=== PATIENT | male | born 1970 | race African-American/Black ===

== ENCOUNTER 2016-08-11 11:27 | Inpatient (IN) | payer MEDICARE, OTHER ==
--- NOTE | 2016-08-11 11:48 | ER Document Report ---
ED Medical Screen (RME) - General Time seen by provider: 11:42 Mode of Arrival: Ambulatory Information source: Law Enforcement TRAVEL OUTSIDE OF THE [place] IN LAST 30 DAYS: No - HPI Patient complains to provider of: SEIZURE YESTERDAY Onset: Yesterday Onset/Duration: Sudden Quality of pain: No pain Severity: None Pain Level: Denies Associated Symptoms: Other - UNABLE TO SPEAK Exacerbated by: Denies Relieved by: Denies Similar symptoms previously: No Recently seen / treated by doctor: Yes - AT [facility] <NATALIE GOODMAN - Last Filed: 08/11/16 11:42> <YESSICA GARCIA - Last Filed: 08/11/16 12:55> - General Stated Complaint: POSSIBLE SEIZURE - HPI Notes: 08/11/16 11:[address] LEYVA REGARDING PT. MAY ORDER HEAD CT DUE TO PATIENTS INABILITY TO SPEAK SINCE SEIZURE YESTERDAY WITH NO PREVIOUS HX OF THIS AND PTS CONFUSION. PT AMBULATES WELL. (NATALIE GOODMAN) - Related Data Allergies/Adverse Reactions: sulfamethoxazole [From Bactrim] Allergy (Verified 08/11/16 11:41) trimethoprim [From Bactrim] Allergy (Verified 08/11/16 11:41) Past Medical History - Past Medical History Cardiac Medical History: Reports: Hx Hypertension Pulmonary Medical History: Denies: Hx Tuberculosis Neurological Medical History: Reports: Hx Seizures Renal/ Medical History: Reports: Hx Renal Insufficiency GI Medical History: Reports: Hx Gastroesophageal Reflux Disease Skin Medical History: Reports Hx MRSA Psychiatric Medical History: Reports: Hx Depression Infectious Medical History: Reports: Hx HIV - Immunizations Hx Diphtheria, Pertussis, Tetanus Vaccination: Yes <NATALIE GOODMAN - Last Filed: 08/11/16 11:42> Course <NATALIE GOODMAN - Last Filed: 08/11/16 11:42> - Laboratory Result Diagrams: 08/11/16 12:46 08/11/16 12:46 <YESSICA GARCIA - Last Filed: 08/11/16 12:55> - Re-evaluation Re-evalutation: 08/11/16 12:54 The patient's chart at 1245 and reviewed his head CT finding by Dr. Cuello which is suggesting an acute lacunar infarct. No but he received a telephone call on this patient and it was read at 1208. Patient he cannot speak. The road crossing guard tells me that he had a seizure last night and has been unable to speak since then. I reviewed the nurse's note that he was seen this morning and not last evening. Patient has been a phasic Corey 16 or 17 hours. Clinical healthcare interpreter is calling the [facility] to see what documented time they have for the onset of a seizure last evening. (YESSICA GARCIA) - Vital Signs Vital signs: Temp Pulse Resp BP Pulse Ox 98.0 F 101 H 14 145/96 H 97 08/11/16 11:32 08/11/16 11:32 08/11/16 11:32 08/11/16 11:32 08/11/16 11:32 (NATALIE GOODMAN) (YESSICA GARCIA)
[2016-08-11 12:57] LABS: ABSOLUTE BASOPHILS # (AUTO) 0.1 10^3/uL (0.0-0.2); ABSOLUTE LYMPHOCYTES (AUTO) 2.9 10^3/uL (0.5-4.7); ABSOLUTE MONOCYTES (AUTO) 0.5 10^3/uL (0.1-1.4); ABSOLUTE NEUT (AUTO) 2.4 10^3/uL (1.7-8.2); BASOPHILS % (AUTO) 0.9 % (0-2); EOSINOPHILS % (AUTO) 0.8 % (0-6); HEMATOCRIT 36.2 % (37.9-51.0); HEMOGLOBIN 11.9 g/dL (13.5-17.0); HGB HCT DIFFERENCE -0.5; LYMPHOCYTES % (AUTO) 48.7 % (13-45); MEAN CORPUSCULAR HEMOGLOBIN 29.2 pg (27.0-33.4); MEAN CORPUSCULAR HGB CONC 32.9 g/dL (32.0-36.0); MEAN CORPUSCULAR VOLUME 89 fl (80-97); RED BLOOD COUNT 4.08 10^6/uL (4.35-5.55); RED CELL DISTRIBUTION WIDTH 14.7 % (11.5-14.0); SEGMENTED NEUTROPHILS % (AUTO) 40.6 % (42-78); WHITE BLOOD COUNT 5.9 10^3/uL (4.0-10.5)
--- NOTE | 2016-08-11 12:57 | ER Document Report ---
ED Seizure - General Mode of Arrival: Ambulatory Information source: Patient - HPI Patient complains to provider of: History of seizures Post-ictal symptoms: Other - see above Injuries: None Associated Symptoms: Other - see above <AIME BUSTOS - Last Filed: 08/11/16 15:35> <YESSICA GARCIA - Last Filed: 08/11/16 15:50> - General Chief Complaint: Probable Seizure Stated Complaint: POSSIBLE SEIZURE Notes: 45-year-old male with history of seizures and hypertension (meds given at the detention) presents to the ED after suffering a seizure yesterday evening and developing the inability to speak secondary to the seizure. Patient is nonverbal and is nodding his head and using a note pad and pen to communicate. According to the churn driller helper, the patient was in lock down and was in his cell alone. The patient had a seizure sometime last night and states that he was not seen by the detention nursing staff. Documentation from the detention nursing staff states that the patient was seen that night and they noted decreased speech. This morning when the speech did not improve patient was sent to the ED to be reevaluated. Patient denies any difficulty swallowing and states that his seizure was normal aside from the speech impairment that followed it. Patient does not have a primary care provider. (AIME BUSTOS) - Related Data Allergies/Adverse Reactions: sulfamethoxazole [From Bactrim] Allergy (Verified 08/11/16 11:41) trimethoprim [From Bactrim] Allergy (Verified 08/11/16 11:41) Home Medications: Current Home Medications Acetaminophen with Codeine [Tylenol #3 Tablet] 1 tab PO Q4HP PRN 08/11/16 [ History] Amlodipine Besylate [Norvasc 5 mg Tablet] 5 mg PO DAILY 08/11/16 [History] Atazanavir Sulfate [Reyataz 300 mg Capsule] 300 mg PO DAILY 08/11/16 [History] Citalopram Hydrobromide [Celexa 20 mg Tablet] 20 mg PO DAILY 08/11/16 [History] Dapsone [Dapsone 25 mg Tablet] 100 mg PO DAILY 08/11/16 [History] Fluconazole [Diflucan 100 mg Tablet] 100 mg PO DAILY 08/11/16 [History] Hydrochlorothiazide [Hydrodiuril 25 mg Tablet] 25 mg PO DAILY 08/11/16 [History] Levetiracetam [Keppra 500 mg Tablet] 500 mg PO Q12 08/11/16 [History] Levetiracetam [Keppra] 1,500 mg PO BID 08/11/16 [History] Lisinopril [Prinivil 40 mg Tablet] 40 mg PO DAILY 08/11/16 [History] Multivitamin [Daily Multiple Vitamin] 1 tab PO DAILY 08/11/16 [History] Oxycodone HCl/Acetaminophen [Percocet 10-325 mg Tablet] 1 tab PO Q6HP PRN [History] Past Medical History - General Information source: Law Enforcement - Social History Smoking Status: Unknown if Ever Smoked Family History: Reviewed & Not Pertinent, Hypertension Patient has suicidal ideation: No Patient has homicidal ideation: No - Past Medical History Cardiac Medical History: Reports: Hx Hypertension Neurological Medical History: Reports: Hx Seizures Renal/ Medical History: Reports: Hx Renal Insufficiency. Denies: Hx Peritoneal Dialysis GI Medical History: Reports: Hx Gastroesophageal Reflux Disease Skin Medical History: Reports Hx MRSA Psychiatric Medical History: Reports: Hx Depression Infectious Medical History: Reports: Hx HIV - Immunizations Hx Diphtheria, Pertussis, Tetanus Vaccination: Yes Hx Pneumococcal Vaccination: 07/12/09 <AIME BUSTOS - Last Filed: 08/11/16 15:35> Review of Systems - Review of Systems Constitutional: No symptoms reported EENT: No symptoms reported. denies: Difficulty swallowing Cardiovascular: No symptoms reported Respiratory: No symptoms reported Gastrointestinal: No symptoms reported Genitourinary: No symptoms reported Male Genitourinary: No symptoms reported Musculoskeletal: No symptoms reported Skin: No symptoms reported Hematologic/Lymphatic: No symptoms reported Neurological/Psychological: See HPI, Speech impairment - Unable to speak coherently. -: Yes All other systems reviewed and negative <AIME BUSTOS - Last Filed: 08/11/16 15:35> Physical Exam - General General appearance: Alert In distress: None - HEENT Head: Normocephalic, Atraumatic Eyes: Normal Extraocular movements intact: Yes Pupils: PERRL - Respiratory Respiratory status: No respiratory distress Breath sounds: Normal - Cardiovascular Rhythm: Regular Heart sounds: Normal auscultation - Abdominal Inspection: Normal - Back Back: Normal - Extremities General upper extremity: Normal inspection, Normal ROM General lower extremity: Normal inspection, Normal ROM - Neurological Neuro grossly intact: Yes Cognition: Normal Orientation: AAOx4 [place] Coma Scale Eye Opening: Spontaneous Michelle Coma Scale Verbal: Oriented Michelle Coma Scale Motor: Obeys Commands [place] Coma Scale Total: 15 Speech: Other - Difficulty getting his words out and when he does they are incoherent Motor strength normal: LUE, RUE, LLE, RLE Additional motor exam normals: Equal accredited legal secretary - Psychological Associated symptoms: Normal affect, Normal mood - Skin Skin Temperature: Warm Skin Moisture: Dry Skin Color: Normal <AIME BUSTOS - Last Filed: 08/11/16 15:35> Course - Laboratory Result Diagrams: 08/11/16 12:46 08/11/16 12:46 <AIME BUSTOS - Last Filed: 08/11/16 15:35> - Laboratory Result Diagrams: 08/11/16 12:46 08/11/16 12:46 <YESSICA GARCIA - Last Filed: 08/11/16 15:50> - Re-evaluation Re-evalutation: 08/11/16 12:58 I personally performed the services described in the documentation, reviewed and edited the documentation which was dictated to my scribe in my presence, and it accurately records my words and actions. The patient's chart at 1245 and reviewed his head CT finding by Dr. Cuello which is suggesting an acute lacunar infarct. No but he received a telephone call on this patient and it was read at 1208. Patient he cannot speak. The guardian family member tells me that he had a seizure last night and has been unable to speak since then. I reviewed the nurse's note that he was seen this morning and not last evening. Patient has been a phasic Corey 16 or 17 hours. Clinical day care assistant is calling the long term to see what documented time they have for the onset of a seizure last evening. (YESSICA GARCIA) 08/11/16 14:41 Patient has a history of a seizure disorder which she takes Keppra for. Patient reports that he had a seizure last night about 16 hours prior to arrival that he has been unable to speak since report from the detention is that he was seen and evaluated last evening patient says on writing on the paperwork that he is not seen last evening I have a note from a nurse at that facility today stating that he is being sent over for evaluation. On physical examination the patient has great difficulty getting his words out when he does get his words out they are very slurred and he cannot understand him. CT of the head shows likely a new lacunar infarct. Neurologically he has bilateral strength in the upper or lower extremities rest of his evaluation is negative and nonacute. Patient is out of the window for thrombolytics as this happened 16 hours prior to ED arrival. Minimal to the hospital for acute CVA out of the window for thrombolytics and further assessment and evaluation 08/11/16 15:00 08/11/16 15:09 Dr. Brewer came to me and wants the patient transferred because he has a history of HIV doesn't know what his CD4 count is and he could have leukoencephalopathy. tuyet called at 15:10 for transfer per hospitalist recommendations. I spoke with Dr. gonzales he feels with the patient having history of HIV not known CD4 count could be leukoencephalopathy. Dr. Woodruff neurology advice and contacted me back at 1520. I gave him the details of why he wants the patient to be transferred. He does not feel that this is a presentation of a leukoencephalopathy feels like this is a presentation of a stroke and is refusing to accept the transfer the patient at this time. I contacted Dr. brewer back at 15:20 and his phone is off. they are paging him overhead 08/11/16 15:28 08/11/16 15:[address] gonzales back told him that by neurology is refusing to accept the transfer of the patient that they think the patient should be kept here he stated to call Dr. Lane who was covering today and if she says that he needs to keep the patient he will I contacted Dr. Lane and her father shut off. Waiting for her to call me back 08/11/16 15:[address] Domingo Lane has to go ahead and admit the patient to the hospital under [facility] admission. And she will speak with Dr. brewer (YESSICA GARCIA) - Vital Signs Vital signs: Temp Pulse Resp BP Pulse Ox 98.0 F 89 18 121/97 H 97 08/11/16 11:32 08/11/16 15:04 08/11/16 15:04 08/11/16 15:04 08/11/16 15:04 (AIME BUSTOS) (YESSICA GARCIA) - Laboratory Laboratory results interpreted by me: 08/11/16 08/11/16 12:46 12:46 RBC 4.08 L Hgb 11.9 L Hct 36.2 L RDW 14.7 H Seg Neutrophils % 40.6 L Lymphocytes % 48.7 H BUN 24 H Creatinine 1.68 H Est GFR ( Amer) 53 L Est GFR (Non-Af Amer) 44 L Calcium 10.3 H Total Bilirubin 1.4 H Creatine Kinase 182 H Total Protein 9.1 H - EKG Interpretation by Me Additional EKG results interpreted by me: 08/11/16 15:00 EKG interpreted by myself to reveal sinus rhythm at 92 bpm with left ventricular hypertrophy no acute ST segment elevation or depression (YESSICA GARCIA) Critical Care Note - Critical Care Note Total time excluding time spent on procedures (mins): 60 <YESSICA GARCIA - Last Filed: 08/11/16 15:50> Discharge <AIME BUSTOS - Last Filed: 08/11/16 15:35> - Discharge Admitting Provider: Hospitalist Unit Admitted: [facility] <YESSICA GARCIA - Last Filed: 08/11/16 15:50> - Discharge Clinical Impression: Acute lacunar infarction Condition: Stable Disposition: ADMITTED INPATIENT Scribe Documentation - Scribe Written by Vivian:: Vivian Tejeda, 08/11/2016 14:35 acting as scribe for :: Gerber <AIME BUSTOS - Last Filed: 08/11/16 15:35>
[2016-08-11 13:00] LABS: PARTIAL THROMBOPLASTIN TIME 30.4 SEC (23.5-35.8); PROTHROMBIN TIME 13.1 SEC (11.4-15.4)
[2016-08-11 13:20] LABS: ALANINE AMINOTRANSFERASE 37 U/L (21-72); ALBUMIN 4.7 g/dL (3.5-5.0); ALKALINE PHOSPHATASE 78 U/L (38-126); ANION GAP 15 (5-19); ASPARTATE AMINO TRANSFERASE 26 U/L (17-59); BILIRUBIN,TOTAL 1.4 mg/dL (0.2-1.3); BLOOD UREA NITROGEN 24 mg/dL (7-20); CALCIUM 10.3 mg/dL (8.4-10.2); CARBON DIOXIDE 29 mmol/L (22-30); CHLORIDE 100 mmol/L (98-107); CREATINE KINASE 182 U/L (55-170); CREATININE RESULT 1.68 mg/dL (0.52-1.25); GLUCOSE 88 mg/dL (75-110); POTASSIUM 4.7 mmol/L (3.6-5.0); SODIUM 143.5 mmol/L (137-145); TOTAL PROTEIN 9.1 g/dL (6.3-8.2)
[2016-08-11 13:47] LABS: CREATINE KINASE MB 0.45 ng/mL (<4.55)
[2016-08-11 13:48] LABS: TROPONIN I < 0.012 ng/mL
[2016-08-11 15:30] LABS: URINE BARBITURATES SCREEN NEGATIVE; URINE METHADONE SCREEN NEGATIVE; URINE OPIATES LOW NEGATIVE; URINE PHENCYCLIDINE SCREEN NEGATIVE
--- NOTE | 2016-08-11 15:33 | PDOC CONSULTATION ---
Consultation Consult Date: 08/11/16 Attending physician:: YESSICA GARCIA Consult reason:: Possible CVA in a patient with seizures and HIV. History of Present Illness Admission Date/PCP: August 11 2016. Patient currently is a resident of [facility] Patient complains of: Inability to talk. History of Present Illness: VERONICA CARDENAS is a 45 year old male with a history of known HIV on antiretrovirals who is uncertain as to what his last CD4 count was. When he was hospitalized in 2012 at this facility it was reported that his CD4 count was 8. 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 They were transferred to [facility] for further evaluation. The patient is unable to relate any of this history as he is at this time having expressive aphasia. The patient last night in [facility] had a seizure and he does have a known history of seizures. This morning he was still having difficulty and he was transported to the emergency room here because his inability to speak. The patient is able to nod yes and no to questions and he is also able to write out answers. He does not have any focal weakness. He denies any difficulty with his vision or swallowing. He is unable to speak and does not seem to be confused at this time. The patient had a head CT which shows a small abnormality in the basal ganglia concerning for possible acute CVA. The patient does not have any history of atrial fibrillation. He also denies any headache. Denies any fevers or chills. He had a seizure last night but has had not had any other episodes of loss of consciousness. I asked the patient if he knew what his CD4 count and he was unaware. Patient reports the last time he saw infectious disease expert was 6 months ago. He is been in [facility] for about the last 6 months. He is uncertain as to how much time he has left on his sentence. Past Medical History Cardiac Medical History: Reports: Hypertension Pulmonary Medical History: Denies: Tuberculosis Neurological Medical History: Reports: Seizures Renal/ Medical History: Reports: Chronic Kidney Disease Malignancy Medical History: Reports: None GI Medical History: Reports: Gastroesophageal Reflux Disease Psychiatric Medical History: Reports: Depression Traumatic Medical History: Reports: None Infectious Medical History: Reports: HIV Past Surgical History Past Surgical History: Reports: None Social History Information Source: Patient Lives with: Other - Currently in [facility]. Smoking Status: Unknown if Ever Smoked Frequency of Alcohol Use: None Hx Recreational Drug Use: No Drugs: None Hx Prescription Drug Abuse: No - Advance Directive Resuscitation Status: Full Code Family History Family History: Hypertension Family History: Patient had difficulty with his family history given his expressive aphasia. Parental Family History Reviewed: Yes Children Family History Reviewed: No Sibling(s) Family History Reviewed.: No Medication/Allergy Allergies/Adverse Reactions: sulfamethoxazole [From Bactrim] Allergy (Verified 08/11/16 11:41) trimethoprim [From Bactrim] Allergy (Verified 08/11/16 11:41) Review of Systems Constitutional: ABSENT: chills, fever(s), headache(s), weight gain, weight loss Eyes: ABSENT: visual disturbances Ears: ABSENT: hearing changes Cardiovascular: ABSENT: chest pain, dyspnea on exertion, edema, orthropnea, palpitations Respiratory: ABSENT: cough, hemoptysis Gastrointestinal: ABSENT: abdominal pain, constipation, diarrhea, hematemesis, hematochezia, nausea, vomiting Genitourinary: ABSENT: dysuria, hematuria Musculoskeletal: ABSENT: joint swelling Integumentary: ABSENT: rash, wounds Neurological: PRESENT: other - Patient unable to speak. He does have a history of having seizures last one being last night. Psychiatric: ABSENT: depression, hallucinations Endocrine: ABSENT: cold intolerance, heat intolerance, polydipsia, polyuria Hematologic/Lymphatic: ABSENT: easy bleeding, easy bruising Physical Exam Vital Signs: Temp Pulse Resp BP Pulse Ox 98.0 F 89 18 121/97 H 97 08/11/16 11:32 08/11/16 15:04 08/11/16 15:04 08/11/16 15:04 08/11/16 15:04 Intake & Output 08/10/16 08/11/16 08/12/16 06:59 06:59 06:59 Weight 80.1 kg General appearance: PRESENT: no acute distress Head exam: PRESENT: atraumatic, normocephalic Eye exam: PRESENT: conjunctiva pink. ABSENT: scleral icterus Ear exam: PRESENT: normal external ear exam Mouth exam: PRESENT: moist, tongue midline Neck exam: ABSENT: carotid bruit, JVD, lymphadenopathy, thyromegaly Respiratory exam: PRESENT: clear to auscultation joslyn. ABSENT: rales, rhonchi, wheezes Cardiovascular exam: PRESENT: RRR. ABSENT: diastolic murmur, rubs, systolic murmur Pulses: PRESENT: normal dorsalis pedis pul Vascular exam: PRESENT: normal capillary refill GI/Abdominal exam: PRESENT: normal bowel sounds, soft. ABSENT: distended, guarding, mass, organolmegaly, rebound, tenderness Rectal exam: PRESENT: deferred Extremities exam: ABSENT: calf tenderness, clubbing, pedal edema Neurological exam: PRESENT: alert, awake, oriented to person, oriented to place , oriented to time, oriented to situation, other - Patient has expressive aphasia. He has normal strength and normal light touch. Psychiatric exam: PRESENT: appropriate affect Skin exam: PRESENT: dry, intact, warm. ABSENT: cyanosis, rash Results Laboratory Results: 08/11/16 12:46 08/11/16 12:46 08/11/16 08/11/16 12:46 12:46 WBC 5.9 RBC 4.08 L Hgb 11.9 L Hct 36.2 L MCV 89 MCH 29.2 MCHC 32.9 RDW 14.7 H Plt Count 174 Seg Neutrophils % 40.6 L Lymphocytes % 48.7 H Monocytes % 9.0 Eosinophils % 0.8 Basophils % 0.9 Absolute Neutrophils 2.4 Absolute Lymphocytes 2.9 Absolute Monocytes 0.5 Absolute Eosinophils 0.0 Absolute Basophils 0.1 Sodium 143.5 Potassium 4.7 Chloride 100 Carbon Dioxide 29 Anion Gap 15 BUN 24 H Creatinine 1.68 H Est GFR ( Amer) 53 L Est GFR (Non-Af Amer) 44 L Glucose 88 Calcium 10.3 H Total Bilirubin 1.4 H AST 26 ALT 37 Alkaline Phosphatase 78 Total Protein 9.1 H Albumin 4.7 08/11/16 08/11/16 12:46 12:46 Creatine Kinase 182 H CK-MB (CK-2) 0.45 Troponin I < 0.012 Impressions: Head CT 08/11/16 11:48 IMPRESSION: No hemorrhage. Mild atrophy. Faint low-density area basal ganglia on the right, concerning for lacunar infarction. Chest X-Ray 08/11/16 12:38 IMPRESSION: NO ACUTE RADIOGRAPHIC FINDING IN THE CHEST. Assessment & Plan - Diagnosis (1) Expressive aphasia Is this a current diagnosis for this admission?: YesPlan: Patient has a small area in the basal ganglia that is possibly infarction. 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 He in the past had only a CD4 count of 8. He is unsure as to what his CD4 count is. Patient also had a seizure last night and the possibility this representing Henry's paralysis is also considered. Given the fact that we have to be concerned about leukoencephalopathy or Todds paralysis I feel this patient would be best served by being transferred to a facility that has both neurology and infectious disease consultation which is not available at our facility at this time. Treating with aspirin as if this is a CVA is reasonable and would continue with his antiretrovirals that he's been doing. Patient also has been on chronic seizure medications and would not make any change at this time. (2) HIV disease Is this a current diagnosis for this admission?: YesPlan: Patient has been on antiretrovirals and would continue with those. He is unaware as to what his last CD4 count was. Because of the complexity he would be best be served if he goes to facility with an infectious disease consultation availability (3) Chronic renal failure, stage 3 (moderate) Is this a current diagnosis for this admission?: YesPlan: Patient's baseline creatinine is around 1.5. He appears to be euvolemic. (4) Hypertension Is this a current diagnosis for this admission?: YesPlan: Blood pressure is stable. (5) Seizure disorder Is this a current diagnosis for this admission?: YesPlan: He has been on Keppra. Recommend that he continue on with this. Given his history seizure disorder now neurological finding the possibility of Henry's paralysis is considered. He does have an abnormality on his head CT is unclear as to whether this would be the cause for all of his neurological deficits at this time. - Time Time Spent: 50 to 70 Minutes - Plan Summary Plan Summary: Given the complexity this patient with HIV with unknown CD4 count, seizure disorder and now possible abnormality on the head CT I would recommend that he be transferred to a facility with infectious disease and neurology consultations available. I would be concerned this patient may have leukoencephalopathy versus Henry's paralysis and will need help with both of the specialties to figure this out.
[2016-08-11] MEDS ORDERED: ONDANSETRON HCL INJ/PF 4 MG/2 ML SDV IV PRN (15:57)
[2016-08-11] MEDS ORDERED: ACETAMINOPHEN 325 MG TABLET PO PRN ×2 (15:57→16:25)
[2016-08-11] MEDS ORDERED: ONDANSETRON 4 MG TAB.RAPDIS PO PRN (15:57)
[2016-08-11] MEDS ORDERED: (PENDING PHARMACY ID) (Oxycodone Hcl/Acetaminophen [Percocet 10-325 Mg Tablet] 1 TAB) PO PRN (16:01)
[2016-08-11] MEDS ORDERED: OXYCODONE HCL IR 5 MG TABLET PO PRN ×3 (16:24→17:24)
[2016-08-11] MEDS ORDERED: OXYCODONE-ACETAMINOPHEN 5-325 MG TABLET PO PRN ×2 (17:21→17:23)
[2016-08-11] MEDS ORDERED: ENOXAPARIN SODIUM INJ 40 MG/0.4 ML DISP.SYRIN SUBCUT ONE (18:00)
[2016-08-11] MEDS ORDERED: LEVETIRACETAM 1500 MG PO SCH (18:00)
--- NOTE | 2016-08-11 18:38 | PDOC H&P ---
History of Present Illness Admission Date/PCP: 08/11/16 15:57 EARNEST MONTOYA MD Patient complains of: Unable to speak History of Present Illness: VERONICA CARDENAS is a 45 year old male with a history of known HIV on antiretrovirals who is uncertain as to what his last CD4 count was. When he was hospitalized in 2012 at this facility it was reported that his CD4 count was 8. 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 They were transferred to [facility] for further evaluation. The patient is unable to relate any of this history as he is at this time having expressive aphasia. The patient last night in [facility] had a seizure and he does have a known history of seizures. This morning he was still having difficulty and he was transported to the emergency room here because his inability to speak. The patient is able to nod yes and no to questions and he is also able to write out answers. He does not have any focal weakness. He denies any difficulty with his vision or swallowing. He is unable to speak and does not seem to be confused at this time. The patient had a head CT which shows a small abnormality in the basal ganglia concerning for possible acute CVA. The patient does not have any history of atrial fibrillation. He also denies any headache. Denies any fevers or chills. He had a seizure last night but has had not had any other episodes of loss of consciousness. I asked the patient if he knew what his CD4 count and he was unaware. Patient reports the last time he saw infectious disease expert was 6 months ago. He is been in [facility] for about the last 6 months. He is uncertain as to how much time he has left on his sentence. Past Medical History Cardiac Medical History: Reports: Hypertension Pulmonary Medical History: Denies: Tuberculosis Neurological Medical History: Reports: Seizures Renal/ Medical History: Reports: Chronic Kidney Disease Malignancy Medical History: Reports: None GI Medical History: Reports: Gastroesophageal Reflux Disease Psychiatric Medical History: Reports: Depression Traumatic Medical History: Reports: None Infectious Medical History: Reports: HIV Past Surgical History Past Surgical History: Reports: None Social History Information Source: Patient, [facility] Records Lives with: Other - Currently in [facility]. Smoking Status: Unknown if Ever Smoked Frequency of Alcohol Use: None Hx Recreational Drug Use: No Drugs: None Hx Prescription Drug Abuse: No - Advance Directive Resuscitation Status: Full Code Family History Family History: Hypertension Parental Family History Reviewed: Yes Children Family History Reviewed: No Sibling(s) Family History Reviewed.: No Medication/Allergy Home Medications: Acetaminophen with Codeine [Tylenol #3 Tablet] 1 tab PO Q4HP PRN 08/11/16 Amlodipine Besylate [Norvasc 5 mg Tablet] 5 mg PO DAILY 08/11/16 Atazanavir Sulfate [Reyataz 300 mg Capsule] 300 mg PO DAILY 08/11/16 Citalopram Hydrobromide [Celexa 20 mg Tablet] 20 mg PO DAILY 08/11/16 Dapsone [Dapsone 25 mg Tablet] 100 mg PO DAILY 08/11/16 Fluconazole [Diflucan 100 mg Tablet] 100 mg PO DAILY 08/11/16 Hydrochlorothiazide [Hydrodiuril 25 mg Tablet] 25 mg PO DAILY 08/11/16 Levetiracetam [Keppra 500 mg Tablet] 500 mg PO Q12 08/11/16 Levetiracetam [Keppra] 1,500 mg PO BID 08/11/16 Lisinopril [Prinivil 40 mg Tablet] 40 mg PO DAILY 08/11/16 Multivitamin [Daily Multiple Vitamin] 1 tab PO DAILY 08/11/16 Oxycodone HCl/Acetaminophen [Percocet 10-325 mg Tablet] 1 tab PO Q6HP PRN Allergies/Adverse Reactions: sulfamethoxazole [From Bactrim] Allergy (Verified 08/11/16 11:41) trimethoprim [From Bactrim] Allergy (Verified 08/11/16 11:41) Review of Systems Constitutional: ABSENT: chills, fever(s), headache(s), weight gain, weight loss Eyes: ABSENT: visual disturbances Ears: ABSENT: hearing changes Cardiovascular: ABSENT: chest pain, dyspnea on exertion, edema, orthropnea, palpitations Respiratory: ABSENT: cough, hemoptysis Gastrointestinal: ABSENT: abdominal pain, constipation, diarrhea, hematemesis, hematochezia, nausea, vomiting Genitourinary: ABSENT: dysuria, hematuria Musculoskeletal: ABSENT: joint swelling Integumentary: ABSENT: rash, wounds Neurological: PRESENT: as per HPI Psychiatric: PRESENT: depression Endocrine: ABSENT: cold intolerance, heat intolerance, polydipsia, polyuria Hematologic/Lymphatic: ABSENT: easy bleeding, easy bruising Physical Exam Vital Signs: Temp Pulse Resp BP Pulse Ox 98.0 F 108 H 18 155/99 H 95 08/11/16 11:32 08/11/16 18:00 08/11/16 18:02 08/11/16 18:02 08/11/16 18:02 General appearance: PRESENT: no acute distress, well-developed, well-nourished Head exam: PRESENT: atraumatic, normocephalic Eye exam: PRESENT: conjunctiva pink, EOMI, PERRLA. ABSENT: scleral icterus Ear exam: PRESENT: normal external ear exam Mouth exam: PRESENT: moist, tongue midline Neck exam: ABSENT: carotid bruit, JVD, lymphadenopathy, thyromegaly Respiratory exam: PRESENT: clear to auscultation joslyn. ABSENT: rales, rhonchi, wheezes Cardiovascular exam: PRESENT: RRR. ABSENT: diastolic murmur, rubs, systolic murmur Pulses: PRESENT: normal dorsalis pedis pul GI/Abdominal exam: PRESENT: normal bowel sounds, soft. ABSENT: distended, guarding, mass, organolmegaly, rebound, tenderness Rectal exam: PRESENT: deferred Extremities exam: PRESENT: full ROM. ABSENT: calf tenderness, clubbing, pedal edema Neurological exam: PRESENT: alert, awake, oriented to person, oriented to place , oriented to time, oriented to situation, other - Expressive a patient. Psychiatric exam: PRESENT: appropriate affect Skin exam: PRESENT: dry, intact, warm. ABSENT: cyanosis, rash Results Impressions: Head CT 08/11/16 11:48 IMPRESSION: No hemorrhage. Mild atrophy. Faint low-density area basal ganglia on the right, concerning for lacunar infarction. Chest X-Ray 08/11/16 12:38 IMPRESSION: NO ACUTE RADIOGRAPHIC FINDING IN THE CHEST. Assessment & Plan - Diagnosis (1) Expressive aphasia Is this a current diagnosis for this admission?: YesPlan: Patient has a small area in the basal ganglia that is possibly infarction. 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 He in the past had only a CD4 count of 8. He is unsure as to what his CD4 count is. Patient also had a seizure last night and the possibility this representing Henry's paralysis is also considered. Given the fact that we have to be concerned about leukoencephalopathy or Todds paralysis I feel this patient would be best served by being transferred to a facility that has both neurology and infectious disease consultation which is not available at our facility at this time. [facility] neurology was contacted and they recommended keeping the patient here and obtain an MRI and evaluation. Treating with aspirin as if this is a CVA is reasonable and would continue with his antiretrovirals that he's been doing. Patient also has been on chronic seizure medications and would not make any change at this time. (2) HIV disease Is this a current diagnosis for this admission?: YesPlan: Patient has been on antiretrovirals and would continue with those. He is unaware as to what his last CD4 count was. Because of the complexity he would be best be served if he goes to facility with an infectious disease consultation availability (3) Chronic renal failure, stage 3 (moderate) Is this a current diagnosis for this admission?: YesPlan: Patient's baseline creatinine is around 1.5. He appears to be euvolemic. (4) Hypertension Is this a current diagnosis for this admission?: YesPlan: Blood pressure is stable. (5) Seizure disorder Is this a current diagnosis for this admission?: YesPlan: He has been on Keppra. Recommend that he continue on with this. Given his history seizure disorder now neurological finding the possibility of Henry's paralysis is considered. He does have an abnormality on his head CT is unclear as to whether this would be the cause for all of his neurological deficits at this time. We'll get a brain MRI. - Time Time Spent: 50 to 70 Minutes - Inpatient Certification Medical Necessity: Need for Neurological Checks - Plan Summary Plan Summary: Will admit to general medical bed and MRI, carotid Dopplers, echocardiogram evaluation.
[2016-08-11] MEDS ORDERED: INFLUENZA ADLT QUAD (36MOS+) 2016-17 VAC 0.5 ML SYR IM PRN (20:17)
[2016-08-11] MEDS: FAMOTIDINE 20 MG TABLET PO SCH (21:23)
[2016-08-11] MEDS: ATORVASTATIN CALCIUM 10 MG TABLET PO SCH (21:23)
[2016-08-11] MEDS: LEVETIRACETAM 500 MG TABLET PO SCH (21:23)
[2016-08-12 05:11] LABS: HEMATOCRIT 36.8 % (37.9-51.0); HEMOGLOBIN 12.1 g/dL (13.5-17.0); HGB HCT DIFFERENCE -0.5; MEAN CORPUSCULAR HEMOGLOBIN 29.3 pg (27.0-33.4); MEAN CORPUSCULAR HGB CONC 32.9 g/dL (32.0-36.0); MEAN CORPUSCULAR VOLUME 89 fl (80-97); RED BLOOD COUNT 4.14 10^6/uL (4.35-5.55); RED CELL DISTRIBUTION WIDTH 14.6 % (11.5-14.0); WHITE BLOOD COUNT 7.6 10^3/uL (4.0-10.5)
[2016-08-12 05:37] LABS: ANION GAP 16 (5-19); BLOOD UREA NITROGEN 32 mg/dL (7-20); CARBON DIOXIDE 29 mmol/L (22-30); CHLORIDE 100 mmol/L (98-107); CREATININE RESULT 1.72 mg/dL (0.52-1.25); GLUCOSE 74 mg/dL (75-110); POTASSIUM 4.5 mmol/L (3.6-5.0); SODIUM 144.7 mmol/L (137-145)
[2016-08-12] MEDS: ENOXAPARIN SODIUM INJ 40 MG/0.4 ML DISP.SYRIN SUBCUT SCH (07:52)
[2016-08-12] MEDS ORDERED: ENOXAPARIN SODIUM INJ 40 MG/0.4 ML DISP.SYRIN SUBCUT SCH (08:00)
[2016-08-12] MEDS: ASPIRIN 325 MG TABLET, ENT COATED PO SCH (09:16)
[2016-08-12] MEDS: CITALOPRAM HYDROBROMIDE 20 MG TABLET PO SCH (09:16)
[2016-08-12] MEDS: DAPSONE 25 MG TABLET PO SCH (09:16)
[2016-08-12] MEDS: FLUCONAZOLE 100 MG TABLET PO SCH (09:17)
[2016-08-12] MEDS: MULTIVITAMIN TABLET PO SCH (09:17)
[2016-08-12] MEDS: LEVETIRACETAM 500 MG TABLET PO SCH ×2 (09:17→21:29)
[2016-08-12] MEDS: FAMOTIDINE 20 MG TABLET PO SCH ×2 (09:17→21:29)
[2016-08-12] MEDS: HYDROCHLOROTHIAZIDE 25 MG TABLET PO SCH (09:18)
[2016-08-12] MEDS: AMLODIPINE BESYLATE 5 MG TABLET PO SCH (09:19)
[2016-08-12] MEDS: LISINOPRIL 10 MG TABLET PO SCH (09:19)
--- NOTE | 2016-08-12 09:22 | EKG REPORT ---
SEVERITY:- ABNORMAL ECG - SINUS RHYTHM LEFT VENTRICULAR HYPERTROPHY : Confirmed by: Sandra Maya 12-Aug-2016 09:21:23
[2016-08-12] MEDS ORDERED: (PENDING PHARMACY ID) (Atazanavir Sulfate [Reyataz 300 Mg Capsule] 300 MG) PO SCH (10:00)
[2016-08-12] MEDS ORDERED: METOPROLOL SUCCINATE 25 MG TAB.SR.24H PO ONE (13:00)
--- NOTE | 2016-08-12 13:36 | PDOC PROGRESS REPORT ---
Subjective Progress Note for:: 08/12/16 Subjective:: Patient still has expressive a patient. Physical Exam Vital Signs: Temp Pulse Resp BP Pulse Ox 97.4 F 101 H 19 130/82 H 95 08/12/16 12:33 08/12/16 12:33 08/12/16 12:33 08/12/16 12:33 08/12/16 12:33 Intake & Output 08/11/16 08/12/16 08/13/16 06:59 06:59 06:59 Intake Total 383 355 Balance 383 355 Weight 78.7 kg General appearance: PRESENT: no acute distress Eye exam: PRESENT: conjunctiva pink. ABSENT: scleral icterus Mouth exam: PRESENT: moist, tongue midline Neck exam: ABSENT: JVD Respiratory exam: PRESENT: clear to auscultation joslyn. ABSENT: rales, rhonchi, wheezes Cardiovascular exam: PRESENT: RRR. ABSENT: diastolic murmur, rubs, systolic murmur GI/Abdominal exam: PRESENT: normal bowel sounds, soft. ABSENT: distended, guarding, mass, organolmegaly, rebound, tenderness Extremities exam: PRESENT: full ROM. ABSENT: calf tenderness, clubbing, pedal edema Neurological exam: PRESENT: alert, awake, oriented to person, oriented to place - Patient has expressive aphasia, oriented to time, oriented to situation, other - Patient has expressive a patient. Skin exam: PRESENT: dry, intact, warm. ABSENT: cyanosis, rash Results Laboratory Results: 08/12/16 04:30 08/12/16 04:30 08/12/16 08/12/16 04:30 04:30 WBC 7.6 RBC 4.14 L Hgb 12.1 L Hct 36.8 L MCV 89 MCH 29.3 MCHC 32.9 RDW 14.6 H Plt Count 171 Sodium 144.7 Potassium 4.5 Chloride 100 Carbon Dioxide 29 Anion Gap 16 BUN 32 H Creatinine 1.72 H Est GFR ( Amer) 52 L Est GFR (Non-Af Amer) 43 L Glucose 74 L Calcium 10.0 Impressions: Head MRI 08/11/16 00:00 IMPRESSION: Acute/ subacute infarct left parietal lobe. No mass effect. Marked microvascular ischemic changes. No enhancing lesions. Head CT 08/11/16 11:48 IMPRESSION: No hemorrhage. Mild atrophy. Faint low-density area basal ganglia on the right, concerning for lacunar infarction. Chest X-Ray 08/11/16 12:38 IMPRESSION: NO ACUTE RADIOGRAPHIC FINDING IN THE CHEST. Carotid Doppler Study 08/12/16 00:00 IMPRESSION: NO HEMODYNAMICALLY SIGNIFICANT STENOSIS. Assessment & Plan - Diagnosis (1) Expressive aphasia Is this a current diagnosis for this admission?: YesPlan: Patient is MRI that confirms he has had an acute CVA. We'll continue speech therapy. He has no need for PT or OT at this time. Continue with aspirin. Carotid Dopplers have been done and are normal. We are waiting on the echocardiogram results. (2) HIV disease Is this a current diagnosis for this admission?: YesPlan: Patient has been on antiretrovirals and would continue with those. He is unaware as to what his last CD4 count was. Because of the complexity he would be best be served if he goes to facility with an infectious disease consultation availability (3) Chronic renal failure, stage 3 (moderate) Is this a current diagnosis for this admission?: YesPlan: Patient's baseline creatinine is around 1.5. He appears to be euvolemic. (4) Hypertension Is this a current diagnosis for this admission?: YesPlan: Blood pressure is stable. (5) Seizure disorder Is this a current diagnosis for this admission?: YesPlan: He has been on Keppra. We'll continue it. - Time Time Spent with patient: 25-34 minutes - Inpatient Certification Medical Necessity: Need for Neurological Checks
[2016-08-12] MEDS ORDERED: ONDANSETRON HCL INJ/PF 4 MG/2 ML SDV IV PRN (15:10)
--- NOTE | 2016-08-12 19:38 | XCELERA REPORT ---
[address] [address] Transthoracic Echocardiogram Report Name: VERONICA CARDENAS Age: 45 yrs Gender: Male : 1970 Patient Status: Inpatient Patient Location: [id number] Study Date: 08/12/2016 09:36 AM Height: 73 in Weight: 176 lb BSA: 2.0 m2 Procedure: A complete two-dimensional transthoracic echocardiogram was performed (2D, M-mode, spectral and color flow Doppler). The study was technically adequate with some images being suboptimal in quality. Reason For Study: cva Ordering Physician: EARNEST MONTOYA Performed By: Anabella Donovan Interpretation Summary The left ventricular ejection fraction is normal. There is borderline concentric left ventricular hypertrophy. The left ventricle is grossly normal size. Doppler measurements suggest impaired left ventricular relaxation, which is associated with grade I/IV or mild diastolic dysfunction Wall motion cannot be accurately commented on, but no definite regional wall motion abnormalities noted. There is normal right ventricular wall thickness. The right ventricle is grossly normal size. The left atrial size is normal. The right atrium is normal in size There is a trace amount of mitral regurgitation There is no mitral valve stenosis. No aortic regurgitation is present. There is no aortic valve stenosis There is a trace or physiologic amount of tricuspid regurgitation Tricuspid regurgitation jet envelope not well defined to measure RV systolic pressure accurately. There is no tricuspid stenosis. The aortic root is not well visualized. There is no pericardial effusion. The pulmonic valve is not well visualized. No definite cardiac source of CVA/TIA noted on this particular trans- thoracic study. Consider SAYRA if clinically indicated. May consider mobile cardiac telemetry monitoring (MCT) for ruling out transient AFIB. MMode/2D Measurements \T\ Calculations RVDd: 2.5 cm LVIDd: 4.9 cm FS: 34.4 % Ao root diam: 3.0 cm IVSd: 1.1 cm LVIDs: 3.2 cm EDV(Teich): 112.2 ml LVPWd: 1.1 cm ESV(Teich): 41.2 ml Ao root area: 7.1 cm2 EF(Teich): 63.3 % LA dimension: 3.3 cm Doppler Measurements \T\ Calculations MV E max farhat: MV P1/2t max farhat: Ao V2 max: LV V1 max P.9 cm/sec 45.9 cm/sec 107.1 cm/sec 2.3 mmHg MV A max farhat: MV P1/2t: 65.5 msec Ao max PG: LV V1 max: 58.6 cm/sec 4.6 mmHg 76.4 cm/sec MV E/A: 0.78 MVA(P1/2t): 3.4 cm2 MV dec slope: 205.1 cm/sec2 MV dec time: 0.23 sec PA V2 max: PI end-d farhat: 73.1 cm/sec 116.7 cm/sec PA max P.1 mmHg Left Ventricle The left ventricle is grossly normal size. There is borderline concentric left ventricular hypertrophy. The left ventricular ejection fraction is normal. Doppler measurements suggest impaired left ventricular relaxation, which is associated with grade I/IV or mild diastolic dysfunction. Wall motion cannot be accurately commented on, but no definite regional wall motion abnormalities noted. Right Ventricle The right ventricle is grossly normal size. There is normal right ventricular wall thickness. The right ventricular systolic function is normal. Atria The right atrium is normal in size. The left atrial size is normal. Interarterial septum not well visualized and not well dopplered. Cannot comment on ASD/PFO presence. Mitral Valve The mitral valve is grossly normal. There is no mitral valve stenosis. There is a trace amount of mitral regurgitation. Aortic Valve The aortic valve is grossly normal. There is no aortic valve stenosis. No aortic regurgitation is present. Tricuspid Valve The tricuspid valve is not well visualized, but is grossly normal. There is no tricuspid stenosis. There is a trace or physiologic amount of tricuspid regurgitation. Tricuspid regurgitation jet envelope not well defined to measure RV systolic pressure accurately. Pulmonic Valve The pulmonic valve is not well visualized. Great Vessels The aortic root is not well visualized. The inferior vena cava appeared normal and decreased > 50% with respiration (RAP 5-10 mmHg). Effusions There is no pericardial effusion. Incidental Findings No definite cardiac source of CVA/TIA noted on this particular trans- thoracic study. Consider SAYRA if clinically indicated. May consider mobile cardiac telemetry monitoring (MCT) for ruling out transient AFIB. : EARNEST MONTOYA > Sandra Maya
[2016-08-12] MEDS: ATORVASTATIN CALCIUM 10 MG TABLET PO SCH (21:29)
[2016-08-13 05:21] LABS: ABSOLUTE BASOPHILS # (AUTO) 0.1 10^3/uL (0.0-0.2); ABSOLUTE EOSINOPHILS # (AUTO) 0.1 10^3/uL (0.0-0.6); ABSOLUTE LYMPHOCYTES (AUTO) 3.8 10^3/uL (0.5-4.7); ABSOLUTE MONOCYTES (AUTO) 0.6 10^3/uL (0.1-1.4); ABSOLUTE NEUT (AUTO) 2.8 10^3/uL (1.7-8.2); BASOPHILS % (AUTO) 1.4 % (0-2); EOSINOPHILS % (AUTO) 1.7 % (0-6); HEMATOCRIT 35.6 % (37.9-51.0); HEMOGLOBIN 11.8 g/dL (13.5-17.0); HGB HCT DIFFERENCE -0.2; LYMPHOCYTES % (AUTO) 51.1 % (13-45); MEAN CORPUSCULAR HEMOGLOBIN 29.9 pg (27.0-33.4); MEAN CORPUSCULAR HGB CONC 33.3 g/dL (32.0-36.0); MEAN CORPUSCULAR VOLUME 90 fl (80-97); MONOCYTES % (AUTO) 8.3 % (3-13); RED BLOOD COUNT 3.97 10^6/uL (4.35-5.55); RED CELL DISTRIBUTION WIDTH 14.9 % (11.5-14.0); SEGMENTED NEUTROPHILS % (AUTO) 37.5 % (42-78); WHITE BLOOD COUNT 7.5 10^3/uL (4.0-10.5)
[2016-08-13 05:36] LABS: ANION GAP 13 (5-19); BLOOD UREA NITROGEN 32 mg/dL (7-20); CALCIUM 9.8 mg/dL (8.4-10.2); CARBON DIOXIDE 27 mmol/L (22-30); CHLORIDE 103 mmol/L (98-107); GLUCOSE 93 mg/dL (75-110); POTASSIUM 4.7 mmol/L (3.6-5.0); SODIUM 143.2 mmol/L (137-145)
[2016-08-13] MEDS: ENOXAPARIN SODIUM INJ 40 MG/0.4 ML DISP.SYRIN SUBCUT SCH (07:55)
[2016-08-13 08:02] VITALS: BP 119/77
[2016-08-13] MEDS: FAMOTIDINE 20 MG TABLET PO SCH (09:50)
[2016-08-13] MEDS: ASPIRIN 325 MG TABLET, ENT COATED PO SCH (09:50)
[2016-08-13] MEDS: CITALOPRAM HYDROBROMIDE 20 MG TABLET PO SCH (09:50)
[2016-08-13] MEDS: AMLODIPINE BESYLATE 5 MG TABLET PO SCH (09:50)
[2016-08-13] MEDS: FLUCONAZOLE 100 MG TABLET PO SCH (09:50)
[2016-08-13] MEDS: MULTIVITAMIN TABLET PO SCH (09:50)
[2016-08-13] MEDS: LEVETIRACETAM 500 MG TABLET PO SCH (09:51)
[2016-08-13] MEDS: HYDROCHLOROTHIAZIDE 25 MG TABLET PO SCH (09:51)
[2016-08-13] MEDS: DAPSONE 25 MG TABLET PO SCH (09:52)
[2016-08-13] MEDS: LISINOPRIL 10 MG TABLET PO SCH (09:52)
[2016-08-13] MEDS ORDERED: METOPROLOL SUCCINATE 25 MG TAB.SR.24H PO SCH (10:00)
[2016-08-13] MEDS ORDERED: ATAZANAVIR SULFATE 300 MG PO SCH (10:00)
--- NOTE | 2016-08-13 13:46 | PDOC DISCHARGE SUMMARY ---
General - Admit/Disc Date/PCP Admission Date/Primary Care Provider: 08/11/16 15:57 EARNEST MONTOYA MD Discharge Date: 08/13/16 - Discharge Diagnosis (1) Expressive aphasia Is this a current diagnosis for this admission?: YesSummary: Secondary to acute CVA. (2) HIV disease Is this a current diagnosis for this admission?: Yes (3) Chronic renal failure, stage 3 (moderate) Is this a current diagnosis for this admission?: Yes (4) Hypertension Is this a current diagnosis for this admission?: Yes (5) Seizure disorder Is this a current diagnosis for this admission?: Yes - Additional Information Resuscitation Status: Full Code Discharge Diet: Regular Discharge Activity: Activity As Tolerated Home Medications: Amlodipine Besylate [Norvasc 5 mg Tablet] 5 mg PO QAM #30 tablet 08/13/16 Aspirin [Ecotrin 325 mg EC Tablet] 325 mg PO DAILY tabec 08/13/16 Atazanavir Sulfate [Reyataz 300 mg Capsule] 300 mg PO .DAILY #30 08/13/16 Atorvastatin Calcium [Lipitor 10 mg Tablet] 10 mg PO QHS #30 tablet 08/13/16 Citalopram Hydrobromide [Celexa 20 mg Tablet] 20 mg PO DAILY #30 tablet Dapsone 100 mg PO QAM #30 tablet 08/13/16 Darunavir Ethanolate [Prezista] 600 mg PO BID #60 tablet 08/13/16 Emtricitabine/Tenofovir [Truvada 200 mg-300 mg Tablet] 1 each PO DAILY #30 tablet 08/13/16 Etravirine [Intelence] 200 mg PO BID #60 tablet 08/13/16 Fluconazole [Diflucan 100 mg Tablet] 100 mg PO DAILY #30 tablet 08/13/16 Gabapentin [Neurontin 300 mg Capsule] 300 mg PO BID #60 capsule 08/13/16 Hydrochlorothiazide [Hydrodiuril 25 mg Tablet] 25 mg PO QAM #30 tablet 08/13/16 Levetiracetam [Keppra 500 mg Tablet] 1,500 mg PO Q12 #180 tablet 08/13/16 Lisinopril [Prinivil 40 mg Tablet] 40 mg PO QAM #30 tablet 08/13/16 Metoprolol Succinate [Toprol Xl 25 mg Tab.sr] 25 mg PO DAILY #30 tab.sr.24h 08/28 Oxycodone HCl/Acetaminophen [Percocet 5-325 mg Tablet] 1 tab PO Q6HP PRN #30 tablet 08/13/16 Ritonavir [Norvir] 100 mg PO BID #60 tablet 08/13/16 History of Present Illness History of Present Illness: VERONICA CARDENAS is a 45 year old male with a history of known HIV on antiretrovirals who is uncertain as to what his last CD4 count was. When he was hospitalized in 2012 at this facility it was reported that his CD4 count was 8. 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 They were transferred to [facility] [place] for further evaluation. The patient is unable to relate any of this history as he is at this time having expressive aphasia. The patient last night in [facility] had a seizure and he does have a known history of seizures. This morning he was still having difficulty and he was transported to the emergency room here because his inability to speak. The patient is able to nod yes and no to questions and he is also able to write out answers. He does not have any focal weakness. He denies any difficulty with his vision or swallowing. He is unable to speak and does not seem to be confused at this time. The patient had a head CT which shows a small abnormality in the basal ganglia concerning for possible acute CVA. The patient does not have any history of atrial fibrillation. He also denies any headache. Denies any fevers or chills. He had a seizure last night but has had not had any other episodes of loss of consciousness. I asked the patient if he knew what his CD4 count and he was unaware. Patient reports the last time he saw infectious disease expert was 6 months ago. He is been in [facility] for about the last 6 months. He is uncertain as to how much time he has left on his sentence. Hospital Course Hospital Course: 45-year-old gentleman who is a prisoner at the [facility] presented with acute onset of expressive aphasia. The patient had a head CT which showed a faint abnormality. MRI did confirm that this was a acute CVA. The patient had not been taking aspirin previously. He was started on aspirin and had carotid Dopplers as well as echocardiogram done. The patient's carotid Doppler showed no evidence for significant stenosis. Echocardiogram showed no evidence for mural thrombus but did show some diastolic dysfunction. The patient had no cardiac arrhythmias and will be sent home on aspirin. The patient was released from his [facility] sentence because of his hospitalization and will be discharged home. He continues to have expressive aphasia and he will need to go to speech therapy as an outpatient. Physical Exam Vital Signs: Temp Pulse Resp BP Pulse Ox 98.3 F 92 19 119/77 97 08/13/16 12:38 08/13/16 12:38 08/13/16 12:38 08/13/16 12:38 08/13/16 12:38 Intake & Output 08/12/16 08/13/16 08/14/16 06:59 06:59 06:59 Intake Total 383 896 Balance 383 896 Weight 78.7 kg 77.1 kg General appearance: PRESENT: no acute distress Eye exam: PRESENT: conjunctiva pink. ABSENT: scleral icterus Mouth exam: PRESENT: moist, tongue midline Neck exam: ABSENT: JVD Respiratory exam: PRESENT: clear to auscultation joslyn. ABSENT: rales, rhonchi, wheezes Cardiovascular exam: PRESENT: RRR. ABSENT: diastolic murmur, rubs, systolic murmur GI/Abdominal exam: PRESENT: normal bowel sounds, soft. ABSENT: distended, guarding, mass, organolmegaly, rebound, tenderness Extremities exam: ABSENT: calf tenderness, clubbing, pedal edema Neurological exam: PRESENT: alert, awake, oriented to person, oriented to place , oriented to time, oriented to situation, other - Expressive aphasia Skin exam: PRESENT: dry, intact, warm. ABSENT: cyanosis, rash Results Laboratory Results: 08/13/16 04:23 08/13/16 04:23 08/13/16 08/13/16 04:23 04:23 WBC 7.5 RBC 3.97 L Hgb 11.8 L Hct 35.6 L MCV 90 MCH 29.9 MCHC 33.3 RDW 14.9 H Plt Count 165 Seg Neutrophils % 37.5 L Lymphocytes % 51.1 H Monocytes % 8.3 Eosinophils % 1.7 Basophils % 1.4 Absolute Neutrophils 2.8 Absolute Lymphocytes 3.8 Absolute Monocytes 0.6 Absolute Eosinophils 0.1 Absolute Basophils 0.1 Sodium 143.2 Potassium 4.7 Chloride 103 Carbon Dioxide 27 Anion Gap 13 BUN 32 H Creatinine 1.60 H Est GFR ( Amer) 56 L Est GFR (Non-Af Amer) 47 L Glucose 93 Calcium 9.8 08/11/16 22:20 Nasophary (Mrsa Only) MRSA Surveillance Culture - Final NO MRSA RECOVERED Impressions: Head MRI 08/11/16 00:00 IMPRESSION: Acute/ subacute infarct left parietal lobe. No mass effect. Marked microvascular ischemic changes. No enhancing lesions. Head CT 08/11/16 11:48 IMPRESSION: No hemorrhage. Mild atrophy. Faint low-density area basal ganglia on the right, concerning for lacunar infarction. Chest X-Ray 08/11/16 12:38 IMPRESSION: NO ACUTE RADIOGRAPHIC FINDING IN THE CHEST. Carotid Doppler Study 08/12/16 00:00 IMPRESSION: NO HEMODYNAMICALLY SIGNIFICANT STENOSIS. Qualifiers PATEINT BEING DISCHARGED WITH ANY OF THE FOLLOWING DIAGNOSIS?: Stroke Stroke Pt being discharged on Anti-thrombolytic therapy?: Yes Stroke Pt being discharged on Anti-coagulation therapy?: No Reason(s) for not prescribing Anti-coagulation therapy:: Not indicated Stroke Pt being discharged on Statins?: Yes Plan Discharge Plan: Discharged home in stable condition. Time Spent: Greater than 30 Minutes
== END 2016-08-13 12:54 | disposition home or self-care (01) | DRG 66 ==
LOC: ER 11:27 → EH 15:57 → UNDOADMIN 16:11 → EH 16:11 → 3N 18:48
PROVIDERS: ADMIT Internal Medicine; ATTEND Internal Medicine
PROC: 3E0234Z Introduction of Serum, Toxoid and Vaccine into Muscle, Percutaneous Approach (ICD-10-PCS; principal; 2016-08-13)
DX: I63.9 Cerebral infarction, unspecified (principal); R47.01 Aphasia; I12.9 Hypertensive chronic kidney disease with stage 1 through stage 4 chronic kidney disease, or unspecified chronic kidney disease; N18.3 Chronic kidney disease, stage 3 (moderate); Z21 Asymptomatic human immunodeficiency virus [HIV] infection status; K21.9 Gastro-esophageal reflux disease without esophagitis; G40.909 Epilepsy, unspecified, not intractable, without status epilepticus; Z88.2 Allergy status to sulfonamides; Z23 Encounter for immunization; Z86.14 Personal history of Methicillin resistant Staphylococcus aureus infection
CPT/HCPCS: 36415; 70450; 70553; 71010; 80048; 80053; 80307; 82550; 82553; 84484; 85025; 85027; 85610; 85730; 90686; 93005; 93010; 93306; 93880; 99291; A9577; J1650; J3490

== ENCOUNTER 2016-09-24 16:00 | Emergency (ER) | payer MEDICARE ==
[2016-09-24 16:06] VITALS: BP 180/99
--- NOTE | 2016-09-24 16:29 | ER Document Report ---
ED Medical Screen (RME) - General Stated Complaint: BACK PAIN Time seen by provider: 16:27 Mode of Arrival: Ambulatory Information source: Patient Notes: 45-year-old male presents to ED for pain. He cannot get relief have because his pain management cut him off of his narcotics because he had a seizure. Patient states he has had a long history of his seizures. He recently had a slight stroke recently. I have greeted and performed a rapid initial assessment of this patient. A comprehensive ED assessment and evaluation of the patient, analysis of test results and completion of medical decision making process will be conducted by an additional ED providers. TRAVEL OUTSIDE OF THE [place] IN LAST 30 DAYS: No - Related Data Allergies/Adverse Reactions: sulfamethoxazole [From Bactrim] Allergy (Verified 08/11/16 11:41) trimethoprim [From Bactrim] Allergy (Verified 08/11/16 11:41) Past Medical History - Past Medical History Cardiac Medical History: Reports: Hx Hypertension Pulmonary Medical History: Denies: Hx Tuberculosis Neurological Medical History: Reports: Hx Seizures Renal/ Medical History: Reports: Hx Renal Insufficiency. Denies: Hx Peritoneal Dialysis GI Medical History: Reports: Hx Gastroesophageal Reflux Disease Skin Medical History: Reports Hx MRSA Psychiatric Medical History: Reports: Hx Depression Infectious Medical History: Reports: Hx HIV - Immunizations Hx Diphtheria, Pertussis, Tetanus Vaccination: Yes Physical Exam - Vital signs Vitals: Temp Pulse Resp BP Pulse Ox 98.8 F 81 16 180/99 H 100 09/24/16 16:05 09/24/16 16:05 09/24/16 16:05 09/24/16 16:05 09/24/16 16:05 Course - Vital Signs Vital signs: Temp Pulse Resp BP Pulse Ox 98.8 F 81 16 180/99 H 100 09/24/16 16:05 09/24/16 16:05 09/24/16 16:05 09/24/16 16:05 09/24/16 16:05
[2016-09-24] MEDS ORDERED: OXYCODONE-ACETAMINOPHEN 5-325 MG TABLET PO ONE (17:31)
--- NOTE | 2016-09-24 17:31 | ER Document Report ---
ED General - General Chief Complaint: Back Pain Stated Complaint: BACK PAIN Mode of Arrival: Ambulatory Information source: Patient Notes: Patient is a 45-year-old male with generalized body pain that are chronic for him. He has past medical history of HIV, CVA with residual expressive aphasia, HTN. He states today his pain is no different than his chronic pain. He typically takes Percocet 10-25 and was being seen by pain management but was told this week, he was discharged from the practice but is unsure why. He denies any fever, chills, headache, neck stiffness, chest pain, SOB, abdominal pain, nausea, vomiting, diarrhea. TRAVEL OUTSIDE OF THE [place] IN LAST 30 DAYS: No - Related Data Allergies/Adverse Reactions: sulfamethoxazole [From Bactrim] Allergy (Verified 08/11/16 11:41) trimethoprim [From Bactrim] Allergy (Verified 08/11/16 11:41) Past Medical History - General Information source: Patient - Social History Smoking Status: Never Smoker Chew tobacco use (# tins/day): No Frequency of alcohol use: None Drug Abuse: None Family History: Hypertension Patient has suicidal ideation: No Patient has homicidal ideation: No - Past Medical History Cardiac Medical History: Reports: Hx Hypertension Pulmonary Medical History: Denies: Hx Tuberculosis Neurological Medical History: Reports: Hx Seizures Renal/ Medical History: Reports: Hx Renal Insufficiency. Denies: Hx Peritoneal Dialysis GI Medical History: Reports: Hx Gastroesophageal Reflux Disease Skin Medical History: Reports Hx MRSA Psychiatric Medical History: Reports: Hx Depression Infectious Medical History: Reports: Hx HIV - Immunizations Hx Diphtheria, Pertussis, Tetanus Vaccination: Yes Hx Pneumococcal Vaccination: 07/12/09 Review of Systems - Review of Systems Constitutional: See HPI EENT: No symptoms reported Cardiovascular: No symptoms reported Respiratory: No symptoms reported Gastrointestinal: No symptoms reported Genitourinary: No symptoms reported Male Genitourinary: No symptoms reported Musculoskeletal: See HPI Skin: No symptoms reported Hematologic/Lymphatic: No symptoms reported Neurological/Psychological: No symptoms reported Physical Exam - Vital signs Vitals: Temp Pulse Resp BP Pulse Ox 98.8 F 81 16 180/99 H 100 09/24/16 16:05 09/24/16 16:05 09/24/16 16:05 09/24/16 16:05 09/24/16 16:05 Interpretation: Hypertensive - Notes Notes: PHYSICAL EXAM: CONSTITUTIONAL: Alert and oriented, well-appearing and in no acute distress. HENT: Normocephalic, atraumatic. Trachea midline. Uvula midline. Moist mucous membranes. EYES: Pupils equal round and reactive to light, EOM intact. Sclera anicteric, conjunctiva are normal. No entrapment. NECK: supple without lymphadenopathy. No midline tenderness or paraspinous muscle spasms. No step-offs or deformities. ROM intact. No meningeal signs. HEART: Regular rate and rhythm without murmurs. LUNGS: CTAB and equal. No wheezes, rales or rhonchi. GI: Normactive bowel sounds. Nontender, non-distended. No organomegaly. no CVAT. EXTREMITIES: Normal range of motion, no pitting edema. No cyanosis. Cap Refill < 3 seconds. NEURO: Expressive aphasia noted. Cranial nerves grossly intact. Normal sensory/ motor exams. SKIN: Warm and dry. Normal turgor. No rashes or lesions noted. Course - Re-evaluation Re-evalutation: 09/24/16 17:30 Patient seen and examined. No acute distress, nontoxic in appearance. Hypertensive but otherwise vital signs stable. He states pain is no different from his chronic pain. Discussed the need for him to have his primary doctor or infectious disease doctor to manage his chronic pain as the emergency department can manage acute pain but does not manage chronic pain. Patient is agreeable to this. Discussed his elevated blood pressure and he states he has not taken his medication today - advised to go home and immediately take it. I feel it is elevated at this time also because of his pain. Discharged home in stable condition. - Vital Signs Vital signs: Temp Pulse Resp BP Pulse Ox 98.8 F 81 16 180/99 H 100 09/24/16 16:05 09/24/16 16:05 09/24/16 16:05 09/24/16 16:05 09/24/16 16:05 Discharge - Discharge Clinical Impression: Expressive aphasia Chronic pain Qualifiers: Chronic pain type: chronic pain syndrome Qualified Code(s): G89.4 - Chronic pain syndrome Condition: Stable Disposition: HOME, SELF-CARE Additional Instructions: Chronic Pain Control Stress, inactivity, and depression make pain more severe regardless of the cause of the pain. Stress and poor physical condition can cause pain such as headaches and backache. Relaxation: Rest in a quiet place with your eyes closed for 20 minutes twice daily. Concentrate on a pleasant image, or simply "feel" your breathing. Clear your mind. Stress management: Deal with your "stressors." Either take action, or eliminate the stressor from your life. Don't let things hang over you. Accept those things you can't change. Nutrition: Eat small, balanced meals -- don't skip, don't overeat. Meals should be high-carbohydrate, low-sugar, low-fat. Exercise: Exercise helps painful conditions and eases stress. Get 30 minutes of moderate exercise, five days a week. Do an activity that does not flare your pain. Precautions: Pain which continues to disrupt daily activities, or which changes in nature, requires a medical evaluation. Pain Clinic referral is available. We do not manage chronic pain in the Emergency Department. We will try to appropriately help you through an acute flare of your chronic painful condition , but for on-going chronic pain that does not improve, you will need to see your private doctor or paint and table edger. We do not provide repeated medication management of chronic painful conditions. If you wish, we can provide the name of local pain management physicians. Prescriptions: Oxycodone HCl/Acetaminophen [Oxycodone-Acetaminophen 10-325] 1 each PO Q6HP PRN #10 tablet PRN Reason: Forms: Elevated Blood Pressure
== END 2016-09-24 17:49 | disposition home or self-care (01) ==
LOC: ER 16:00
DX: G89.4 Chronic pain syndrome (principal); M54.9 Dorsalgia, unspecified; M79.1 Myalgia; I69.920 Aphasia following unspecified cerebrovascular disease; I10 Essential (primary) hypertension; Z21 Asymptomatic human immunodeficiency virus [HIV] infection status; Z88.3 Allergy status to other anti-infective agents; Z86.14 Personal history of Methicillin resistant Staphylococcus aureus infection
CPT/HCPCS: 99283; A9270; 36415; 80053; 85025; 86360; 87536

== ENCOUNTER → 2016-09-24 | Outpatient (CLI) | payer MEDICARE ==
[2016-09-24 16:31] LABS: ABSOLUTE EOSINOPHILS # (AUTO) 0.1 10^3/uL (0.0-0.6); ABSOLUTE LYMPHOCYTES (AUTO) 2.2 10^3/uL (0.5-4.7); ABSOLUTE MONOCYTES (AUTO) 0.4 10^3/uL (0.1-1.4); ABSOLUTE NEUT (AUTO) 1.9 10^3/uL (1.7-8.2); EOSINOPHILS % (AUTO) 1.1 % (0-6); HEMATOCRIT 39.6 % (37.9-51.0); HEMOGLOBIN 13.1 g/dL (13.5-17.0); HGB HCT DIFFERENCE -0.3; LYMPHOCYTES % (AUTO) 46.9 % (13-45); MEAN CORPUSCULAR HEMOGLOBIN 31.9 pg (27.0-33.4); MEAN CORPUSCULAR HGB CONC 33.2 g/dL (32.0-36.0); MEAN CORPUSCULAR VOLUME 96 fl (80-97); MONOCYTES % (AUTO) 9.6 % (3-13); RED BLOOD COUNT 4.11 10^6/uL (4.35-5.55); RED CELL DISTRIBUTION WIDTH 17.1 % (11.5-14.0); SEGMENTED NEUTROPHILS % (AUTO) 41.4 % (42-78); WHITE BLOOD COUNT 4.7 10^3/uL (4.0-10.5)
[2016-09-24 16:52] LABS: ALANINE AMINOTRANSFERASE 39 U/L (21-72); ALBUMIN 4.5 g/dL (3.5-5.0); ALKALINE PHOSPHATASE 74 U/L (38-126); ANION GAP 12 (5-19); ASPARTATE AMINO TRANSFERASE 25 U/L (17-59); BILIRUBIN,TOTAL 0.6 mg/dL (0.2-1.3); BLOOD UREA NITROGEN 18 mg/dL (7-20); CALCIUM 9.6 mg/dL (8.4-10.2); CARBON DIOXIDE 27 mmol/L (22-30); CHLORIDE 104 mmol/L (98-107); CREATININE RESULT 1.43 mg/dL (0.52-1.25); GLUCOSE 86 mg/dL (75-110); POTASSIUM 4.4 mmol/L (3.6-5.0); TOTAL PROTEIN 8.1 g/dL (6.3-8.2)
[2016-09-27 12:58] LABS: HIV-1 RNA LOG10.. 4.484 (.); HIV-1 RNA PCR QUANT 30500 copies/mL (.)
[2016-09-27 18:36] LABS: ABSOLUTE CD 4 HELPER 269 /uL (359-1519); CD BASOPHILS 0 % (.); CD EOSINOPHILS 1 % (.); CD LYMPHS 50 % (.); CD MONOCYTES 10 % (.); CD NEUTROPHILS 39 % (.); HEMATOCRIT . 40.5 % (37.5-51.0); HEMOGLOBIN 12.9 g/dL (12.6-17.7); IMMATURE GRANULOCYTES 0 % (.); LYMPHS(ABSOLUTE) 2.4 x10E3/uL (0.7-3.1); MCH 31.1 pg (26.6-33.0); MCHC 31.9 g/dL (31.5-35.7); MCV 98 fL (79-97); NEUTROPHILS(ABSOLUTE) 1.8 x10E3/uL (1.4-7.0); PLATELETS 230 x10E3/uL (150-379); RBC 4.15 x10E6/uL (4.14-5.80); RDW 16.6 % (12.3-15.4); WBC 4.7 x10E3/uL (3.4-10.8)
== END ==
LOC: OD 12:56
PROVIDERS: ATTEND Nurse Practitioner
DX: B20 Human immunodeficiency virus [HIV] disease (principal)
CPT/HCPCS: 36415; 80053; 85025; 86360; 87536

== ENCOUNTER 2016-10-21 13:04 | Emergency (ER) | payer MEDICARE ==
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
[2016-10-21] MEDS ORDERED: NAPROXEN 250 MG TABLET PO ONE (13:23)
== END 2016-10-21 14:15 | disposition home or self-care (01) ==
LOC: ER 13:04
DX: G89.29 Other chronic pain (principal); M54.5 Low back pain; M54.9 Dorsalgia, unspecified; I10 Essential (primary) hypertension; K21.9 Gastro-esophageal reflux disease without esophagitis; Z21 Asymptomatic human immunodeficiency virus [HIV] infection status; Z86.14 Personal history of Methicillin resistant Staphylococcus aureus infection; Z88.3 Allergy status to other anti-infective agents
CPT/HCPCS: 99283

== ENCOUNTER → 2016-12-17 | Outpatient (CLI) | payer MEDICARE ==
[2016-12-18 11:37] LABS: ABSOLUTE BASOPHILS # (AUTO) 0.1 10^3/uL (0.0-0.2); ABSOLUTE EOSINOPHILS # (AUTO) 0.1 10^3/uL (0.0-0.6); ABSOLUTE LYMPHOCYTES (AUTO) 2.4 10^3/uL (0.5-4.7); ABSOLUTE MONOCYTES (AUTO) 0.4 10^3/uL (0.1-1.4); HEMATOCRIT 44.7 % (37.9-51.0); HEMOGLOBIN 14.7 g/dL (13.5-17.0); HGB HCT DIFFERENCE -0.6; LYMPHOCYTES % (AUTO) 48.5 % (13-45); MEAN CORPUSCULAR HEMOGLOBIN 29.4 pg (27.0-33.4); MEAN CORPUSCULAR HGB CONC 32.8 g/dL (32.0-36.0); MEAN CORPUSCULAR VOLUME 90 fl (80-97); MONOCYTES % (AUTO) 7.8 % (3-13); RED CELL DISTRIBUTION WIDTH 13.7 % (11.5-14.0); SEGMENTED NEUTROPHILS % (AUTO) 40.7 % (42-78); WHITE BLOOD COUNT 4.9 10^3/uL (4.0-10.5)
[2016-12-18 11:58] LABS: ALANINE AMINOTRANSFERASE 29 U/L (21-72); ALBUMIN 4.6 g/dL (3.5-5.0); ALKALINE PHOSPHATASE 73 U/L (38-126); ANION GAP 17 (5-19); ASPARTATE AMINO TRANSFERASE 24 U/L (17-59); BILIRUBIN,DIRECT 0.3 mg/dL (0.0-0.4); BILIRUBIN,TOTAL 0.6 mg/dL (0.2-1.3); BLOOD UREA NITROGEN 17 mg/dL (7-20); CALCIUM 9.6 mg/dL (8.4-10.2); CARBON DIOXIDE 24 mmol/L (22-30); CHLORIDE 103 mmol/L (98-107); CREATININE RESULT 1.43 mg/dL (0.52-1.25); GLUCOSE 102 mg/dL (75-110); SODIUM 143.6 mmol/L (137-145); TOTAL PROTEIN 8.8 g/dL (6.3-8.2)
[2016-12-20 07:52] LABS: HIV-1 RNA LOG10.. 4.534 (.); HIV-1 RNA PCR QUANT 34200 copies/mL (.)
[2016-12-20 17:36] LABS: ABSOLUTE CD 4 HELPER 310 /uL (359-1519); CD BASOPHILS 1 % (.); CD EOSINOPHILS 2 % (.); CD MONOCYTES 5 % (.); CD NEUTROPHILS 40 % (.); HEMOGLOBIN 14.3 g/dL (12.6-17.7); IMMATURE GRANULOCYTES 0 % (.); LYMPHS(ABSOLUTE) 2.5 x10E3/uL (0.7-3.1); MCH 29.1 pg (26.6-33.0); MCHC 33.3 g/dL (31.5-35.7); MCV 88 fL (79-97); NEUTROPHILS(ABSOLUTE) 1.9 x10E3/uL (1.4-7.0); PLATELETS 163 x10E3/uL (150-379); RBC 4.91 x10E6/uL (4.14-5.80); RDW 13.8 % (12.3-15.4); WBC 4.9 x10E3/uL (3.4-10.8)
== END ==
LOC: OD 17:36
PROVIDERS: ATTEND Nurse Practitioner
DX: B20 Human immunodeficiency virus [HIV] disease (principal)
CPT/HCPCS: 80053; 85025; 86360; 87536

== ENCOUNTER → 2017-02-22 | Outpatient (CLI) | payer MEDICARE ==
[2017-02-22 16:18] LABS: ABSOLUTE BASOPHILS # (AUTO) 0.1 10^3/uL (0.0-0.2); ABSOLUTE LYMPHOCYTES (AUTO) 1.9 10^3/uL (0.5-4.7); ABSOLUTE MONOCYTES (AUTO) 0.4 10^3/uL (0.1-1.4); ABSOLUTE NEUT (AUTO) 1.5 10^3/uL (1.7-8.2); BASOPHILS % (AUTO) 1.4 % (0-2); EOSINOPHILS % (AUTO) 1.2 % (0-6); HEMATOCRIT 38.8 % (37.9-51.0); HEMOGLOBIN 12.7 g/dL (13.5-17.0); HGB HCT DIFFERENCE -0.7; LYMPHOCYTES % (AUTO) 48.3 % (13-45); MEAN CORPUSCULAR HEMOGLOBIN 29.8 pg (27.0-33.4); MEAN CORPUSCULAR HGB CONC 32.9 g/dL (32.0-36.0); MEAN CORPUSCULAR VOLUME 91 fl (80-97); RED BLOOD COUNT 4.27 10^6/uL (4.35-5.55); RED CELL DISTRIBUTION WIDTH 14.3 % (11.5-14.0); SEGMENTED NEUTROPHILS % (AUTO) 38.1 % (42-78); WHITE BLOOD COUNT 3.8 10^3/uL (4.0-10.5)
[2017-02-22 16:40] LABS: ALANINE AMINOTRANSFERASE 36 U/L (21-72); ALBUMIN 4.3 g/dL (3.5-5.0); ALKALINE PHOSPHATASE 73 U/L (38-126); ANION GAP 11 (5-19); ASPARTATE AMINO TRANSFERASE 25 U/L (17-59); BILIRUBIN,DIRECT 0.4 mg/dL (0.0-0.4); BILIRUBIN,TOTAL 0.5 mg/dL (0.2-1.3); BLOOD UREA NITROGEN 24 mg/dL (7-20); CALCIUM 9.4 mg/dL (8.4-10.2); CARBON DIOXIDE 28 mmol/L (22-30); CHLORIDE 106 mmol/L (98-107); CREATININE RESULT 1.48 mg/dL (0.52-1.25); GLUCOSE 76 mg/dL (75-110); POTASSIUM 3.7 mmol/L (3.6-5.0); SODIUM 144.6 mmol/L (137-145); TOTAL PROTEIN 8.1 g/dL (6.3-8.2)
[2017-02-24 10:38] LABS: ABSOLUTE CD 4 HELPER 162 /uL (359-1519); CD BASOPHILS 1 % (.); CD EOSINOPHILS 1 % (.); CD MONOCYTES 13 % (.); CD NEUTROPHILS 38 % (.); HEMATOCRIT . 39.5 % (37.5-51.0); HEMOGLOBIN 12.7 g/dL (12.6-17.7); IMMATURE GRANULOCYTES 0 % (.); LYMPHS(ABSOLUTE) 1.8 x10E3/uL (0.7-3.1); MCH 29.4 pg (26.6-33.0); MCHC 32.2 g/dL (31.5-35.7); MCV 91 fL (79-97); NEUTROPHILS(ABSOLUTE) 1.5 x10E3/uL (1.4-7.0); PLATELETS 165 x10E3/uL (150-379); RBC 4.32 x10E6/uL (4.14-5.80); WBC 3.8 x10E3/uL (3.4-10.8)
[2017-02-25 07:23] LABS: HIV-1 RNA LOG10.. 5.017 (.); HIV-1 RNA PCR QUANT 104000 copies/mL (.)
== END ==
LOC: OD 14:25
PROVIDERS: ATTEND Nurse Practitioner
DX: B20 Human immunodeficiency virus [HIV] disease (principal)
CPT/HCPCS: 36415; 80053; 85025; 86361; 87536

== ENCOUNTER 2017-05-20 09:03 | Day surgery (SDC) | payer MEDICARE, MEDICAID ==
[2017-05-20 10:16] LABS: HEMATOCRIT 36.5 % (37.9-51.0); HEMOGLOBIN 12.3 g/dL (13.5-17.0); HGB HCT DIFFERENCE 0.4; MEAN CORPUSCULAR HEMOGLOBIN 29.1 pg (27.0-33.4); MEAN CORPUSCULAR HGB CONC 33.7 g/dL (32.0-36.0); MEAN CORPUSCULAR VOLUME 86 fl (80-97); RED BLOOD COUNT 4.23 10^6/uL (4.35-5.55); RED CELL DISTRIBUTION WIDTH 13.9 % (11.5-14.0)
[2017-05-20 10:18] LABS: PROTHROMBIN TIME 13.7 SEC (11.4-15.4)
[2017-05-20 10:19] LABS: PARTIAL THROMBOPLASTIN TIME 36.7 SEC (23.5-35.8)
[2017-05-20 10:47] LABS: BLOOD UREA NITROGEN 19 mg/dL (7-20); CREATININE RESULT 1.34 mg/dL (0.52-1.25)
[2017-05-20] MEDS ORDERED: FENTANYL CITRATE INJ/PF 100 MCG/2 ML AMPUL ONE (13:11)
[2017-05-20] MEDS ORDERED: MIDAZOLAM 2 MG/2 ML INJ ONE (13:11)
[2017-05-20 15:41] VITALS: BP 166/114
--- NOTE | 2017-05-20 16:25 | RADIOLOGY REPORT (SQ) ---
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 CT Fluoroscopy Time: 11.[address] scanners at this facility use dose modulation, iterative reconstruction, and/or weight based d osing when appropriate to reduce radiation dose to as low as reasonably achievable (ALARA). [facility]: Dose Right [facility]: CareDose [facility]: Dose Right [facility]: Teradose 4D [facility]: [employer]Receipts RADIATION DOSE: 100.7mGy. FINDINGS: The procedure was discussed with the patient and the patient agreed to the procedure. Prio r to the procedure, a time out was performed to verify the patient's identity and planned procedure. IV sedation was administered and physician direction by the registered nurse using 1 milligrams of Ve rsed and 100 micrograms of fentanyl. Physiologic monitoring was provided before, during, and after se dation. The total sedation time was 45 minutes. Documentation face to face time, the performing proceduralist, spent monitoring the patient: [address] scanning was performed to localize the percutaneous site for the biopsy approach. After sterile skin prep and local lidocaine for skin and deep tissue anesthesia, a coaxial biopsy nee dle was used to obtain multiple cores of tissue. Dr. Nelson from pathology was present to receive the specimens. Biopsy tract was embolized with 2 Gel-Foam plugs. There were no immediate complications. Pathology is pending at the time of dictation. IMPRESSION: CT GUIDED BIOPSY OF THE LEFT RETROPERITONEAL ADENOPATHY PERFORMED WITHOUT IMMEDIATE COMP LICATION. PATHOLOGY PENDING. COMMENT: Quality ID 145: Final reports for procedures using fluoroscopy that document radiation exp osure indices, or exposure time and number of fluorographic images (if radiation exposure indices are not available) Patient medication list reviewed: Yes- Quality ID# [id number]:Eligible professional attests to documenting i n the medical record they obtained, updated, or reviewed the patient's current medications.. TECHNICAL DOCUMENTATION: JOB ID: [id number] Quality ID# [id number]: Final reports with documentation of one or more dose reduction techniques (e.g., Aut omated exposure control, adjustment of the mA and/or kV according to patient size, use of iterative r econstruction technique) 2010 [employer]- All Rights Reserved
--- NOTE | 2017-05-20 16:25 | RADIOLOGY REPORT (SQ) ---
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 CT Fluoroscopy Time: 11.[address] scanners at this facility use dose modulation, iterative reconstruction, and/or weight based d osing when appropriate to reduce radiation dose to as low as reasonably achievable (ALARA). [facility]: Dose Right [facility]: CareDose [facility]: Dose Right [facility]: Teradose 4D [facility]: [employer] RADIATION DOSE: 100.7mGy. FINDINGS: The procedure was discussed with the patient and the patient agreed to the procedure. Prio r to the procedure, a time out was performed to verify the patient's identity and planned procedure. IV sedation was administered and physician direction by the registered nurse using 1 milligrams of Ve rsed and 100 micrograms of fentanyl. Physiologic monitoring was provided before, during, and after se dation. The total sedation time was 45 minutes. Documentation face to face time, the performing proceduralist, spent monitoring the patient: [address] scanning was performed to localize the percutaneous site for the biopsy approach. After sterile skin prep and local lidocaine for skin and deep tissue anesthesia, a coaxial biopsy nee dle was used to obtain multiple cores of tissue. Dr. Nelson from pathology was present to receive the specimens. Biopsy tract was embolized with 2 Gel-Foam plugs. There were no immediate complications. Pathology is pending at the time of dictation. IMPRESSION: CT GUIDED BIOPSY OF THE LEFT RETROPERITONEAL ADENOPATHY PERFORMED WITHOUT IMMEDIATE COMP LICATION. PATHOLOGY PENDING. COMMENT: Quality ID 145: Final reports for procedures using fluoroscopy that document radiation exp osure indices, or exposure time and number of fluorographic images (if radiation exposure indices are not available) Patient medication list reviewed: Yes- Quality ID# [id number]:Eligible professional attests to documenting i n the medical record they obtained, updated, or reviewed the patient's current medications.. TECHNICAL DOCUMENTATION: JOB ID: [id number] Quality ID# [id number]: Final reports with documentation of one or more dose reduction techniques (e.g., Aut omated exposure control, adjustment of the mA and/or kV according to patient size, use of iterative r econstruction technique) 2010 [employer]- All Rights Reserved
== END 2017-05-20 15:15 | disposition left against medical advice (07) ==
LOC: RAD 09:03
PROVIDERS: ATTEND Internal Medicine
PROC: 0WBH3ZX Excision of Retroperitoneum, Percutaneous Approach, Diagnostic (ICD-10-PCS; principal; 2017-05-20)
DX: R59.9 Enlarged lymph nodes, unspecified (principal); Z79.01 Long term (current) use of anticoagulants
CPT/HCPCS: 36415; 84520; 82565; 85027; 85610; 85730; 88305 ×2; 88313 ×2; 88172; 77012; 49180; J2250; J3010

== ENCOUNTER 2017-05-28 15:47 | Emergency (ER) | payer MEDICARE, MEDICAID ==
[2017-05-28 16:07] VITALS: BP 148/84
[2017-05-28 17:28] LABS: HEMATOCRIT 32.8 % (37.9-51.0); HEMOGLOBIN 11.1 g/dL (13.5-17.0); HGB HCT DIFFERENCE 0.5; MEAN CORPUSCULAR HEMOGLOBIN 28.9 pg (27.0-33.4); MEAN CORPUSCULAR HGB CONC 33.8 g/dL (32.0-36.0); MEAN CORPUSCULAR VOLUME 85 fl (80-97); RED BLOOD COUNT 3.84 10^6/uL (4.35-5.55); RED CELL DISTRIBUTION WIDTH 13.9 % (11.5-14.0); WHITE BLOOD COUNT 4.3 10^3/uL (4.0-10.5)
[2017-05-28 17:33] LABS: ALANINE AMINOTRANSFERASE 45 U/L (21-72); ALBUMIN 3.7 g/dL (3.5-5.0); ALKALINE PHOSPHATASE 79 U/L (38-126); ANION GAP 15 (5-19); ASPARTATE AMINO TRANSFERASE 27 U/L (17-59); BILIRUBIN,DIRECT 0.4 mg/dL (0.0-0.4); BLOOD UREA NITROGEN 16 mg/dL (7-20); CALCIUM 9.2 mg/dL (8.4-10.2); CARBON DIOXIDE 28 mmol/L (22-30); CHLORIDE 98 mmol/L (98-107); CREATININE RESULT 1.31 mg/dL (0.52-1.25); GLUCOSE 96 mg/dL (75-110); POTASSIUM 3.3 mmol/L (3.6-5.0); SODIUM 141.3 mmol/L (137-145)
[2017-05-28 17:53] LABS: BASOPHILS % (MANUAL) 0 % (0-2); EOSINOPHILS % (MANUAL) 0 % (0-6); LYMPHOCYTES % (MANUAL) 16 % (13-45); TOTAL CELLS COUNTED 100; TOXIC VACUOLATION PRESENT
[2017-05-28 17:55] LABS: BURR CELLS SLIGHT; HYPOCHROMASIA SLIGHT; OVALOCYTES SLIGHT; SCHISTOCYTES SLIGHT
[2017-05-28] MEDS ORDERED: PROMETHAZINE HCL 25 MG TABLET PO ONE (18:05)
[2017-05-28] MEDS ORDERED: OXYCODONE-ACETAMINOPHEN 5-325 MG TABLET PO ONE (18:05)
[2017-05-28 18:11] LABS: APPEARANCE,URINE CLEAR; BILIRUBIN,URINE NEGATIVE (NEGATIVE); GLUCOSE, URINE NEGATIVE (NEGATIVE); KETONES,URINE NEGATIVE (NEGATIVE); LEUKOCYTE ESTERASE,URINE NEGATIVE (NEGATIVE); NITRITE,URINE NEGATIVE (NEGATIVE); PROTEIN,URINE 30 mg/dL (NEGATIVE); URINE SPECIFIC GRAVITY 1.023
--- NOTE | 2017-05-28 18:13 | ER Document Report ---
ED General - General Chief Complaint: Fever Stated Complaint: FEVER Time Seen by Provider: 05/28/17 17:01 Notes: Patient is complaining of pain in his left side that has been present for a couple of weeks. Patient has recently been worked up and had a biopsy of lymph nodes in his chest that showed Hodgkin's lymphoma. He just saw Dr. Jimenes and is set up to get a port put in next week as well as a couple of other procedures before he begins chemotherapy. He denies any cough or chest congestion. He says that he has had fever as high as 103 yesterday and today. Says he has a lot of sweats. Denies any UTI symptoms. EMS report says patient fell and hit his left side where the pain is located about a week ago. Patient did not tell me anything about that fall. .Patient has a history of TIAs and expressive aphasia, the just diagnosed Hodgkin's lymphoma, and HIV positive. TRAVEL OUTSIDE OF THE [place] IN LAST 30 DAYS: No - Related Data Allergies/Adverse Reactions: sulfamethoxazole [From Bactrim] Allergy (Verified 05/28/17 16:07) trimethoprim [From Bactrim] Allergy (Verified 05/28/17 16:07) Home Medications: Current Home Medications Atorvastatin Calcium [Lipitor 20 mg Tablet] 20 mg PO QHS 05/28/17 [History] Darunavir Ethanolate [Prezista] 600 mg PO Q12 05/28/17 [History] Levetiracetam [Keppra 500 mg Tablet] 500 mg PO Q12 05/28/17 [History] Metoprolol Succinate [Toprol Xl] 25 mg PO DAILY 05/28/17 [History] Past Medical History - Social History Smoking Status: Never Smoker Chew tobacco use (# tins/day): No Frequency of alcohol use: None Drug Abuse: None Family History: Reviewed & Not Pertinent, Hypertension Patient has suicidal ideation: No Patient has homicidal ideation: No - Past Medical History Cardiac Medical History: Reports: Hx Coronary Artery Disease, Hx Hypercholesterolemia, Hx Hypertension Neurological Medical History: Reports: Hx Cerebrovascular Accident - 6 month, Hx Seizures Renal/ Medical History: Reports: Hx Renal Insufficiency Malignancy Medical History: Reports Hx Lymphoma - Hodgkin's type GI Medical History: Reports: Hx Gastroesophageal Reflux Disease Skin Medical History: Reports Hx MRSA Psychiatric Medical History: Reports: Hx Depression Infectious Medical History: Reports: Hx HIV - Immunizations Hx Diphtheria, Pertussis, Tetanus Vaccination: Yes Hx Pneumococcal Vaccination: 07/12/09 Review of Systems - Review of Systems Notes: REVIEW OF SYSTEMS: CONSTITUTIONAL : Has had fever and sweats. EENT: Denies eye, ear, nose or mouth or throat pain or other symptoms. CARDIOVASCULAR: Denies chest pain. RESPIRATORY: Denies cough, chest congestion, or shortness of breath. GASTROINTESTINAL: Denies abdominal pain or nausea, vomiting, or diarrhea. GENITOURINARY: Denies difficulty or painful urinating, urinary frequency, blood in urine. MUSCULOSKELETAL: Denies back or neck pain, but points to the lower left flank region as the source of his pain. Denies joint pain or swelling. SKIN: Denies rash or skin lesions. NEUROLOGICAL: Denies LOC or altered mental status. Denies headache. Denies sensory loss or motor deficits. ALL OTHER SYSTEMS REVIEWED AND NEGATIVE. Physical Exam - Vital signs Vitals: Temp Pulse Resp BP Pulse Ox 100.5 F H 99 18 148/84 H 97 05/28/17 15:55 05/28/17 15:55 05/28/17 15:55 05/28/17 15:55 05/28/17 15:55 Interpretation: Febrile - Low-grade - Notes Notes: PHYSICAL EXAMINATION: GENERAL: Well-appearing, in no acute distress. Vital signs essentially normal except for a low-grade fever. HEAD: Atraumatic, normocephalic. EYES: Pupils equal round and reactive to light, extraocular movements intact. ENT: oropharynx clear without exudates. Moist mucous membranes. NECK: Normal range of motion, supple. LUNGS: Breath sounds clear and equal bilaterally. HEART: Regular rate and rhythm without murmurs. ABDOMEN: Soft, nontender. No guarding or rebound. BACK: No tenderness throughout entire back. Tender to palpation in the left flank. EXTREMITIES: Normal range of motion without pain. NEUROLOGICAL: Normal speech, normal gait. Normal sensory, motor, and reflex exams. Awake, alert, and oriented x3. Cranial nerves normal. PSYCH: Normal mood, normal affect. SKIN: Warm, dry, no rashes. Course - Vital Signs Vital signs: Temp Pulse Resp BP Pulse Ox 100.5 F H 99 18 148/84 H 97 05/28/17 15:55 05/28/17 15:55 05/28/17 15:55 05/28/17 15:55 05/28/17 15:55 - Laboratory Result Diagrams: 05/28/17 16:50 05/28/17 16:50 Laboratory results interpreted by me: 05/28/17 05/28/17 05/28/17 16:50 16:50 17:25 RBC 3.84 L Hgb 11.1 L Hct 32.8 L Plt Count 103 L Monocytes % (Manual) 18 H Potassium 3.3 L Creatinine 1.31 H Est GFR (Non-Af Amer) 58 L Urine Protein 30 H Urine Urobilinogen 4.0 H 05/28/17 18:33 Potassium of 3.3 noted. - Diagnostic Test Radiology results interpreted by me: 05/28/17 18:31 Chest x-ray is normal. Discharge - Discharge Clinical Impression: Left-sided chest wall pain, Contusion of left side of back, Hypokalemia, Hodgkins lymphoma, Fever Condition: Stable Disposition: HOME, SELF-CARE Additional Instructions: Flank Side pain We weren't able to prove an exact cause for your flank pain. Pain in the flank can be caused by a muscle strain or spasm. Sometimes a kidney stone causes pain, but can't be found on our tests. Infection in the kidney should be evident on a urine test. Early shingles can occasionally cause flank pain, without the rash that proves the diagnosis. On rare occasions, disease of the pancreas, aorta, spleen, or colon can create pain in the flank. At this time, there's no evidence of a dangerous condition, and it seems safe for you to be at home. If the pain goes away and does not come back, no further testing will be needed. If pain persists, or becomes more severe, we may need to repeat some tests or order additional new testing. Blood in the urine, urgency to urinate frequently, and pain that radiates to the groin can indicate a kidney stone. Fever may mean that the pain is due to infection, either of the kidney or the colon (diverticulitis). If your pain is early shingles, you should develop an eruption of blisters in the painful area within a few days. Call the doctor or return if you have pain that is spreading or becoming more severe, pain that does not resolve with time, fever, or any other new symptoms. BACK PAIN: Three out of every four people will have an episode of disabling back pain during their lifetime. Most commonly the pain is due to straining of the muscles and ligaments in the low back. Usual treatment includes: (1) Rest on a firm surface. Avoid lying on your stomach. (2) Ice pack the painful area. After a few days, gentle heat may be used intermittently to relax the area, or ice packs can be continued. (3) Medication may be needed -- muscle relaxers and antiinflammatory medicines are commonly used. (4) As the back improves, exercises are prescribed to strengthen the back and abdominal muscles. Your doctor will advise you on the proper care for your back at each stage in your recovery. You may be better in a few days -- or healing may take several weeks. If new symptoms of a "herniated disc" (radiation of pain, numbness, or tingling down the back of the leg or weakness in the leg) occur, you should be re-examined. Further testing may be necessary. ORAL NARCOTIC MEDICATION: You have been given a prescription for pain control. This medication is a narcotic. It's best taken with food, as nausea can result if taken on an empty stomach. Don't operate machinery or drive within six hours of taking this medication. Do not combine this medicine with alcohol, or with any medication which can cause sedation (such as cold tablets or sleeping pills) unless you get permission from the physician. Narcotics tend to cause constipation. If possible, drink plenty of fluids and eat a diet high in fiber and fruits. WARM PACKS: After approximately two days, apply gentle heat (such as a heating pad or hot water bottle) for about 20 to 30 minutes about every two hours -- at least four times daily. Warmth and elevation will help you make a more rapid recovery , and will ease the pain considerably. Do not use HOT heat, and never apply heat for longer than 30 minutes. The continuous heat can invisibly damage skin and muscles -- even when no burn is seen on the surface. Damaged muscles can make you MORE sore. FEVER: Fever is the body's reaction to infection. Fever can also occur with illnesses that create fever-producing substances in the body. By itself, fever is not harmful. It helps the body fight invading germs. We are more concerned with: (1) What's causing the fever? (2) How can we keep you more comfortable until the fever goes away? Early in an illness, symptoms are often so vague that a diagnosis can't be made. If the doctor hasn't identified a clear cause for your fever, you will probably develop new symptoms within the next two days. Contact the doctor if you develop severe worsening headache, rash, chest pain, cough with yellow or green sputum, difficulty breathing, abdominal pain, or other new symptoms. There is no reason to treat a fever if you're comfortable. If the fever is causing aches, headache, and fatigue, you can treat it with ibuprofen (Advil , Nuprin, etc) or acetaminophen (Tylenol). Follow the directions on the bottle. Get plenty of liquids (three quarts per day). Rest. Physical work or sports will raise the temperature higher and make you feel much worse. Dress lightly. If you're chilling, this means the temperature is trying to go higher. Take ibuprofen or acetaminophen. When you feel sweaty and "feverish" the temperature is coming down. If the fever doesn't go away within two days or if you become more ill, call the doctor or return at once for re-examination. NORMAL EXAM AND WORKUP: At this time, with the exception of fever, your examination and workup show no significant abnormality. No significant abnormal physical findings were noted. All laboratory, EKG, and imaging (x-ray, CT scans, ultrasound) studies that were ordered show no significant abnormality. Although your examination and all studies that were ordered showed no significant abnormal finding, there are no examinations and no studies that are 100% accurate. There is always the possibility that some abnormality could exist and not be detected with physical examination or within the limits and capabilities of laboratory and other studies. You should return or follow up as you were instructed on your visit today for further evaluation if your symptoms do not resolve. USE OF ACETAMINOPHEN (Tylenol): Acetaminophen may be taken for pain relief or fever control. It's much safer than aspirin, offering a wider range of "safe" dosages. It is safe during . Some brand names are Tylenol, Panadol, Datril, Anacin 3, Tempra, and Liquiprin. Acetaminophen can be repeated every four hours. The following are maximum recommended dosages: WEIGHT Dose Drops Elixir Chewable( 80mg) (LBS.) drprs=droppers tsp=teaspoon >89 pounds or adults 650 mg to 900 mg Acetaminophen can be repeated every four hours. Maximum dose not to exceed 4000 mg a day. These maximum recommended dosages are slightly higher than the dosages written on the product container, but these dosages are very safe and below the toxic dosage for acetaminophen. Hypokalemia You have an abnormally decreased level of serum potassium. Hypokalemia may cause weakness, fatigue, or heart rhythm abnormalities. Sometimes there are no symptoms at all. Usually, low serum potassium is due to taking diuretics ( water pills). It can also be due to excessive vomiting or diarrhea. If no obvious cause is evident, further evaluation will be necessary. Treatment is usually oral potassium supplements. Take these exactly as prescribed. You may also want to select foods which are naturally high in potassium -- fruits (such as bananas, cantaloupe, grapes, oranges, prunes, tomatoes), fresh vegetables (potatoes, spinach, beans, peas), orange or tomato juice, tomato pasta sauce, milk, fish (halibut, tuna, salmon, carroll) A follow-up blood test is usually performed to assure that the potassium is returning to normal. Call the physician if you suffer severe weakness, muscle twitching or cramping, palpitations (pounding or irregular heartbeat), or any other new or alarming symptoms. FOLLOW-UP CARE: If you have been referred to a physician for follow-up care, call the physician s office for an appointment as you were instructed or within the next two days. If you experience worsening or a significant change in your symptoms, notify the physician immediately or return to the Emergency Department at any time for re-evaluation. Prescriptions: Oxycodone HCl/Acetaminophen [Percocet 5-325 mg Tablet] 1 - 2 tab PO Q4HP PRN # 20 tablet PRN Reason: Promethazine HCl [Phenergan 25 mg Tablet] 1 - 2 tab PO Q6HP PRN #20 tablet PRN Reason:
--- NOTE | 2017-05-28 18:20 | RADIOLOGY REPORT (SQ) ---
EXAM DESCRIPTION: CHEST PA/LAT COMPLETED DATE/TIME: 05/28/2017 6:12 pm REASON FOR STUDY: Just DX with lymphoma, fever and left side pain COMPARISON: 05/12/2017 EXAM PARAMETERS: NUMBER OF VIEWS: two views TECHNIQUE: Digital Frontal and Lateral radiographic views of the chest acquired. RADIATION DOSE: NA LIMITATIONS: none FINDINGS: LUNGS AND PLEURA: No new opacities, masses or pneumothorax. No pleural effusion. MEDIASTINUM AND HILAR STRUCTURES: No masses or contour abnormalities. HEART AND VASCULAR STRUCTURES: Heart normal size. No evidence for failure. BONES: No acute findings. HARDWARE: None in the chest. OTHER: No other significant finding. IMPRESSION: NO ACUTE CARDIOPULMONARY PROCESS. NO SIGNIFICANT CHANGE FROM PRIOR STUDY. TECHNICAL DOCUMENTATION: JOB ID: [id number] [employer]- All Rights Reserved
[2017-05-28] MEDS ORDERED: POTASSIUM CHLORIDE 10 MEQ TABLET.SA PO ONE (18:29)
== END 2017-05-28 19:08 | disposition home or self-care (01) ==
LOC: ER 15:47
DX: S20.222A Contusion of left back wall of thorax, initial encounter (principal); C81.92 Hodgkin lymphoma, unspecified, intrathoracic lymph nodes; E87.6 Hypokalemia; R07.89 Other chest pain; R50.9 Fever, unspecified; Z79.899 Other long term (current) drug therapy; X58.XXXA Exposure to other specified factors, initial encounter
CPT/HCPCS: 99284; 36415; 85025; 80053; 81001; 87804; 71020; A9270 ×3

== ENCOUNTER → 2017-05-31 | Outpatient (CLI) | payer MEDICARE, MEDICAID ==
--- NOTE | 2017-05-31 14:47 | RADIOLOGY REPORT (SQ) ---
EXAM DESCRIPTION: NM MUGA REST COMPLETED DATE/TIME: 05/31/2017 12:20 pm REASON FOR STUDY: SOB (R06.02) R06.02 SHORTNESS OF BREATH COMPARISON: None. RADIONUCLIDE AND DOSE: 26.7 mCi technetium 9 9 pertechnetate tagged red cells intravenous. The route of agent administration: Intravenous TECHNIQUE: Following administration of the radionuclide, gated images of the heart are obtained in t hree projections. Left ventricular functional analysis performed. LIMITATIONS: None. FINDINGS: LEFT VENTRICULAR FUNCTION: EJECTION FRACTION: 68%. WALL MOTION: No focal wall motion abnormalities. OTHER: No other significant finding. IMPRESSION: NORMAL CARDIAC MUGA STUDY. TECHNICAL DOCUMENTATION: JOB ID: [id number] [employer]- All Rights Reserved
== END ==
LOC: RAD 10:35
PROVIDERS: ATTEND Internal Medicine Medical Oncology
DX: R06.02 Shortness of breath (principal)
CPT/HCPCS: 78472; A9560; Q9969

== ENCOUNTER → 2017-06-01 | Outpatient (CLI) | payer MEDICARE, MEDICAID ==
--- NOTE | 2017-06-02 09:20 | RADIOLOGY REPORT (SQ) ---
EXAM DESCRIPTION: PET CT SKULL/THIGH COMPLETED DATE/TIME: 06/01/2017 8:34 pm REASON FOR STUDY: LYMPHOMA C81.90 HODGKIN LYMPHOMA, UNSPECIFIED, UNSPECIFIED SITE COMPARISON: Retroperitoneal lymph node biopsy 05/20/2017 CT chest abdomen and pelvis 05/12/2017 RADIONUCLIDE AND DOSE: 10.0 mCi F18 FDG The route of agent administration: Intravenous FASTING BLOOD SUGAR: 86 mg/dl CONTRAST TYPE AND DOSE: No CT contrast given. TECHNIQUE: Blood glucose level was verified. Above dose of FDG was injected intravenously. 2-D seg mented attenuation correction images were obtained from the base of the skull to the midthighs. Nonc ontrast CT images were obtained for attenuation correction and fusion with emission images. CT image s were performed without oral or intravenous contrast and are not sensitive for parenchymal lesions. A series of overlapping emission PET images were obtained. Images reviewed and manipulated at [facility] work station by the radiologist. Images stored on PACS. LIMITATIONS: None. FINDINGS: HEAD AND NECK: No hypermetabolic adenopathy. There is spotty bony involvement in the cerv ical spine. CHEST: A conglomerate mass of adenopathy is seen high in the left axilla, deep to the pectoralis tavia r muscle on axial image 74. This measures 7.7 x 1.5 cm in size with SUV 10.4. More inferiorly in the left axilla, a conglomerate mass of lymph nodes 4 x 1.5 cm in size on axial im age 81 is present, SUV 8.4. A right pericardial phrenic 1 x 0.7 cm lymph node is present on axial image 132 with SUV of 5.2. A posterior mediastinal lymph node is present between the esophagus and left atrium, 1.7 x 1.1 cm in size on axial image 131, SUV 6.8. ABDOMEN AND PELVIS: Diffuse hypermetabolic adenopathy is present as follows: Conglomerate sheridan hepatis adenopathy 4 x 2 cm in size axial image 152, SUV 14 Right retrocaval adenopathy 3.4 x 1.9 cm in size axial image 169, SUV 8.6. Extensive left retroperitoneal adenopathy is seen from the level of the left renal vein down to the l eft iliac vessels. Near the left renal vein, there is a conglomerate mass of adenopathy 5 x 3 cm in size on axial image 171, with SUV of 12.8. More inferiorly, at the level of the left iliac vessels, a conglomeration of lymph nodes is present 5 x 2.5 cm in size on axial image 203 with SUV of 14.6. PROXIMAL LOWER EXTREMITIES: No areas of abnormal metabolic activity in the soft tissues of the lower extremities. BONES: Diffuse skeletal activity is present involving the cervicothoracic and lumbar spine, sternum, ribs, bony pelvis. ADDITIONAL CT FINDINGS: No additional significant findings on the noncontrast CT images. OTHER: No other significant findings. IMPRESSION: Diffuse hypermetabolic adenopathy compatible with diagnosis oflymphoma TECHNICAL DOCUMENTATION: JOB ID: [id number] [employer]- All Rights Reserved
== END ==
LOC: RAD 16:59
PROVIDERS: ATTEND Internal Medicine Medical Oncology
DX: C81.90 Hodgkin lymphoma, unspecified, unspecified site (principal)
CPT/HCPCS: 78815; A9552

== ENCOUNTER 2017-06-09 10:46 | Inpatient (IN) | payer MEDICARE, MEDICAID ==
[2017-06-09] MEDS ORDERED: NORMAL SALINE 1000 ML 1,000 ML IV ONE ×2 (11:22→12:34)
--- NOTE | 2017-06-09 11:39 | ER Document Report ---
ED Fever - General Stated Complaint: FEVER Time Seen by Provider: 06/09/17 11:19 Information source: Patient Notes: Patient is a 46-year-old male recently diagnosed with non-Hodgkin's lymphoma, history of HIV on HAART therapy, who presents today from the oncologist office. Patient has had a port placed in his right chest recently. Patient was seen at the oncologist office today for consultation about possibly starting chemotherapy. They noticed today that the patient had an elevated temperature and was acting a little "tired and confused". Patient himself denies any and all pain. He specifically denies any headache, neck pain, sore throat, runny nose, congestion, cough, chest pain, abdominal pain, back pain, dysuria, or rash. He states that he does take his antiretroviral medications. He does not know his viral load or CD4 count. Patient's white blood cell count at the end of April was 5.3 on May 11. TRAVEL OUTSIDE OF THE [place] IN LAST 30 DAYS: No - HPI Onset: Other - Unknown Onset/Duration: Gradual Severity: Moderate Pain Level: Denies Context: Cancer Associated symptoms: Other - See above Similar symptoms previously: No Recently seen / treated by doctor: Yes - Related Data Allergies/Adverse Reactions: sulfamethoxazole [From Bactrim] Allergy (Verified 05/28/17 16:07) trimethoprim [From Bactrim] Allergy (Verified 05/28/17 16:07) Past Medical History - General Information source: Patient - Social History Smoking Status: Unknown if Ever Smoked Cigarette use (# per day): No Chew tobacco use (# tins/day): No Smoking Education Provided: No Drug Abuse: None Family History: Hypertension - Past Medical History Cardiac Medical History: Reports: Hx Coronary Artery Disease, Hx Hypercholesterolemia, Hx Hypertension Denies: Hx Heart Attack Pulmonary Medical History: Denies: Hx Asthma, Hx Bronchitis, Hx COPD, Hx Pneumonia, Hx Tuberculosis Neurological Medical History: Reports: Hx Cerebrovascular Accident - 6 month, Hx Seizures Renal/ Medical History: Reports: Hx Renal Insufficiency. Denies: Hx Peritoneal Dialysis GI Medical History: Reports: Hx Gastroesophageal Reflux Disease Musculoskeltal Medical History: Denies Hx Arthritis Skin Medical History: Reports Hx MRSA Psychiatric Medical History: Reports: Hx Depression Infectious Medical History: Reports: Hx HIV - Immunizations Hx Diphtheria, Pertussis, Tetanus Vaccination: Yes Hx Pneumococcal Vaccination: 07/12/09 Review of Systems - Review of Systems Constitutional: Fever, Malaise EENT: denies: Eye discharge, Ear discharge, Nose pain, Nose congestion, Nose discharge Cardiovascular: denies: Chest pain, Palpitations Respiratory: denies: Cough, Hurts to breathe, Short of breath Gastrointestinal: denies: Abdomen distended, Abdominal pain, Diarrhea, Vomiting Genitourinary: denies: Dysuria Musculoskeletal: denies: Leg swelling Skin: Other - no hives. denies: Rash Neurological/Psychological: Other - no slurred speech -: Yes All other systems reviewed and negative Physical Exam - Vital signs Vitals: Resp Pulse Ox 22 H 99 06/09/17 10:57 06/09/17 10:57 Interpretation: Normal Notes: Reviewed vital signs and nursing note as charted by RN. CONSTITUTIONAL: Patient does seem slightly somnolent but answers all questions appropriately and is oriented 4. Well-appearing; well-nourished HEAD: Normocephalic; atraumatic EYES: Sclerae non-icteric ENT: Normal nose; no rhinorrhea; no mouth or posterior pharyngeal lesions present NECK: Supple without meningismus; non-tender; no cervical lymphadenopathy CARD: Regular rate and rhythm; no murmurs, no clicks, no rubs, no gallops; symmetric distal pulses RESP: Normal chest excursion without splinting or tachypnea; breath sounds clear and equal bilaterally; Port-A-Cath insertion site to the right chest shows no obvious surrounding swelling, erythema, induration, or discharge; no wheezing, rhonchi, or rales present ABD/GI: Normal bowel sounds; non-distended; soft, non-tender, no rebound, no guarding; no palpable organomegaly or masses BACK: The back appears normal and is non-tender to palpation, there is no CVA tenderness EXT: Normal ROM in all joints; non-tender to palpation; no cyanosis, no effusions, no edema SKIN: Normal color for age and race; warm; dry; good turgor; capillary refill < 2 seconds; no acute lesions noted NEURO: CN II through XII are intact. Moves all extremities equally; Motor and sensory function intact Course - Re-evaluation Re-evalutation: 06/09/17 11:39 Given the above history, physical examination, we will order basic labs, blood cultures, urine, urine culture, CT scan of the head, x-ray of the chest, and a lactic acid level. I provided a liter of fluid. EMS is already provided Tylenol. Differential is broad given the patient's past history. 06/09/17 12:32 Labs as recorded. Patient does not appear to be neutropenic. Patient does appear to have acute renal failure. I have provided a liter of fluid. Chest x-ray shows normal heart, normal mediastinum, no fractures, normal lung forde, no pneumothorax. CT scan of the head shows no acute abnormalities. Urine analysis is pending. Patient still denies any pain or headaches. 06/09/17 15:07 Labs as recorded. Lumbar puncture performed. I called the lab to make sure that the cryptococcal antigen was placed as an order. Fluid is clear. Patient will be admitted to Dr. Guardado. I have already provided Rocephin. Two liters of fluid given. 06/09/17 15:11 Dr. Guardado is aware of the 2 g of Rocephin. I have also added his Zosyn and vancomycin. He would like me to hold on further antibiotics at this time until cultures have resulted. No change in examination. Patient will be admitted to the IMCU. - Vital Signs Vital signs: Temp Pulse Resp BP Pulse Ox 22 H 100/61 100 06/09/17 12:08 06/09/17 11:01 06/09/17 12:08 - Laboratory Result Diagrams: 06/09/17 11:10 06/09/17 11:10 Laboratory results interpreted by me: 06/09/17 06/09/17 06/09/17 11:10 11:10 12:50 RBC 3.59 L Hgb 10.3 L Hct 29.8 L RDW 14.7 H Lymphocytes % (Manual) 10 L Abs Lymphs (Manual) 0.4 L Platelet Estimate 89 L Carbon Dioxide 16 L BUN 56 H Creatinine 3.22 H Est GFR ( Amer) 25 L Est GFR (Non-Af Amer) 21 L Calcium 8.0 L Direct Bilirubin 0.5 H Albumin 3.1 L Urine Protein 30 H Urine Blood SMALL H Urine Urobilinogen 2.0 H Critical Care Note - Critical Care Note Total time excluding time spent on procedures (mins): 35 Discharge - Discharge Clinical Impression: HIV (human immunodeficiency virus infection) Fever Qualifiers: Fever type: unspecified Qualified Code(s): R50.9 - Fever, unspecified Lymphoma Qualifiers: Lymphoma type: non-Hodgkin Non-Hodgkin lymphoma type: unspecified type Lymphoma site: unspecified region Qualified Code(s): C85.90 - Non-Hodgkin lymphoma, unspecified, unspecified site Altered mental state Qualifiers: Altered mental status type: unspecified Qualified Code(s): R41.82 - Altered mental status, unspecified Condition: Serious Disposition: ADMITTED INPATIENT Admitting Provider: Hospitalist Unit Admitted: IMCU Referrals: WILNER KIDD MD [Primary Care Provider] - Follow up as needed
[2017-06-09 11:40] LABS: HEMATOCRIT 29.8 % (37.9-51.0); HEMOGLOBIN 10.3 g/dL (13.5-17.0); HGB HCT DIFFERENCE 1.1; MEAN CORPUSCULAR HEMOGLOBIN 28.6 pg (27.0-33.4); MEAN CORPUSCULAR HGB CONC 34.5 g/dL (32.0-36.0); MEAN CORPUSCULAR VOLUME 83 fl (80-97); RED BLOOD COUNT 3.59 10^6/uL (4.35-5.55); RED CELL DISTRIBUTION WIDTH 14.7 % (11.5-14.0); WHITE BLOOD COUNT 4.2 10^3/uL (4.0-10.5)
[2017-06-09 11:57] LABS: ALANINE AMINOTRANSFERASE 52 U/L (21-72); ALBUMIN 3.1 g/dL (3.5-5.0); ALKALINE PHOSPHATASE 112 U/L (38-126); ANION GAP 17 (5-19); ASPARTATE AMINO TRANSFERASE 35 U/L (17-59); BILIRUBIN,DIRECT 0.5 mg/dL (0.0-0.4); BILIRUBIN,TOTAL 1.1 mg/dL (0.2-1.3); BLOOD UREA NITROGEN 56 mg/dL (7-20); CARBON DIOXIDE 16 mmol/L (22-30); CHLORIDE 104 mmol/L (98-107); CREATININE RESULT 3.22 mg/dL (0.52-1.25); GLUCOSE 109 mg/dL (75-110); POTASSIUM 3.6 mmol/L (3.6-5.0); SODIUM 137.2 mmol/L (137-145); TOTAL PROTEIN 7.5 g/dL (6.3-8.2)
[2017-06-09 12:02] LABS: BAND NEUTROPHILS % (MANUAL) 3 % (3-5); BASOPHILS % (MANUAL) 0 % (0-2); EOSINOPHILS % (MANUAL) 0 % (0-6); LYMPHOCYTES % (MANUAL) 10 % (13-45); TOTAL CELLS COUNTED 100
[2017-06-09 12:07] LABS: ANISOCYTOSIS SLIGHT; OVALOCYTES 1+; POIKILOCYTOSIS 1+; POLYCHROMASIA SLIGHT; ROULEAUX 1+; SCHISTOCYTES SLIGHT; TARGET CELLS 1+
[2017-06-09 12:08] LABS: PLATELET ESTIMATE 89 10^3/uL (150-450)
--- NOTE | 2017-06-09 12:11 | RADIOLOGY REPORT (SQ) ---
EXAM DESCRIPTION: CT HEAD WITHOUT COMPLETED DATE/TIME: 06/09/2017 11:48 am REASON FOR STUDY: 10, HIV; fever; non hodgkins lymphoma COMPARISON: 05/07/2017 TECHNIQUE: Axial images acquired through the brain without intravenous contrast. Images reviewed wi th bone, brain and subdural windows. Images stored on PACS. All CT scanners at this facility use dose modulation, iterative reconstruction, and/or weight based d osing when appropriate to reduce radiation dose to as low as reasonably achievable (ALARA). [facility]: Dose Right [facility]: CareDose [facility]: Dose Right [facility]: Teradose 4D [facility]: Crispy Gamer RADIATION DOSE: mGy. LIMITATIONS: None. FINDINGS: VENTRICLES: Prominent. CEREBRUM: No masses. No hemorrhage. No midline shift. Areas of low density in the white matter mos t likely due to chronic micro-vascular ischemic change. No evidence for acute infarction. CEREBELLUM: No masses. No hemorrhage. No alteration of density. No evidence for acute infarction. EXTRAAXIAL SPACES: Mild age-related involutional change. No fluid collections. No masses. ORBITS AND GLOBE: No intra- or extraconal masses. Normal contour of globe without masses. CALVARIUM: No fracture. PARANASAL SINUSES: No fluid or mucosal thickening. SOFT TISSUES: No mass or hematoma. OTHER: No other significant finding. IMPRESSION: MILD CHRONIC CHANGES OF ATROPHY AND MICROVASCULAR ISCHEMIA. NO ACUTE PROCESS. EVIDENCE OF ACUTE STROKE: NO. TECHNICAL DOCUMENTATION: JOB ID: [id number] Quality ID # [id number]: Final reports with documentation of one or more dose reduction techniques (e.g., Au tomated exposure control, adjustment of the mA and/or kV according to patient size, use of iterative reconstruction technique) 2010 [employer]- All Rights Reserved
--- NOTE | 2017-06-09 12:19 | RADIOLOGY REPORT (SQ) ---
EXAM DESCRIPTION: CHEST PA/LAT COMPLETED DATE/TIME: 06/09/2017 12:08 pm REASON FOR STUDY: HIV, Fever, Non Hodgkins COMPARISON: 05/28/2017 EXAM PARAMETERS: NUMBER OF VIEWS: two views TECHNIQUE: Digital Frontal and Lateral radiographic views of the chest acquired. RADIATION DOSE: NA LIMITATIONS: none FINDINGS: LUNGS AND PLEURA: No opacities, masses or pneumothorax. No pleural effusion. MEDIASTINUM AND HILAR STRUCTURES: No masses or contour abnormalities. HEART AND VASCULAR STRUCTURES: Heart normal size. No evidence for failure. BONES: No acute findings. HARDWARE: Injection port on the right. OTHER: No other significant finding. IMPRESSION: NO SIGNIFICANT RADIOGRAPHIC FINDING IN THE CHEST. TECHNICAL DOCUMENTATION: JOB ID: [id number] [employer]- All Rights Reserved
[2017-06-09 13:06] LABS: AMORPHOUS SEDIMENT,URINE TRACE /HPF; APPEARANCE,URINE CLOUDY; BILIRUBIN,URINE NEGATIVE (NEGATIVE); GLUCOSE, URINE NEGATIVE (NEGATIVE); KETONES,URINE NEGATIVE (NEGATIVE); LEUKOCYTE ESTERASE,URINE NEGATIVE (NEGATIVE); NITRITE,URINE NEGATIVE (NEGATIVE); PROTEIN,URINE 30 mg/dL (NEGATIVE); URINE SPECIFIC GRAVITY 1.015
[2017-06-09] MEDS ORDERED: LIDOCAINE 1%/EPINEPHRINE INJ 20 ML VIAL INJ ONE (13:40)
[2017-06-09] MEDS ORDERED: CEFTRIAXONE 2 GM/D5W RTU 2 GM/50 ML RTUPB IV ONE (14:12)
[2017-06-09] MEDS ORDERED: PIPERACILLIN/TAZOBACTAM 3.375 GM VIAL IV ONE (15:11)
[2017-06-09] MEDS ORDERED: VANCOMYCIN HCL INJ 1000 MG VIAL IV ONE (15:11)
[2017-06-09 15:42] LABS: GLUCOSE,CSF 47 mg/dL (40-70)
[2017-06-09 16:04] LABS: RBC DILUENT USED NONE USED; RBC DILUTION FACTOR 1; RBC SIDE 1 7; RBC SIDE 2 9; STAIN REACTIVITY CHECK ACCEPTABLE; TOTAL RBC SQUARES COUNTED 225; WHITE BLOOD CELL,CSF 3 /uL (0-5)
[2017-06-09 16:08] LABS: RBC AVERAGE 0.5; RBC DILUENT USED NONE USED; RBC DILUTION FACTOR 1; RBC SIDE 1 1; RBC SIDE 2 0; TOTAL RBC SQUARES COUNTED 225
[2017-06-09 16:09] LABS: STAIN REACTIVITY CHECK ACCEPTABLE; WHITE BLOOD CELL,CSF 3 /uL (0-5)
[2017-06-09] MEDS: PREDNISONE 20 MG TABLET PO SCH (18:27)
[2017-06-09 18:46] LABS: URINE PROTEIN 52.3 mg/dL (<12)
[2017-06-09 18:57] LABS: URINE CREATININE 379.1 mg/dL (22-328)
[2017-06-09] MEDS ORDERED: PRIMAQUINE PHOSPHATE 26.3 MG TABLET PO ONE (19:00)
[2017-06-09] MEDS: CLINDAMYCIN 600 MG/D5W RTU 600 MG/50 ML RTUPB IV SCH (19:01)
[2017-06-09] MEDS: NORMAL SALINE 1000 ML 1,000 ML IV PRN (19:04)
--- NOTE | 2017-06-09 19:19 | RADIOLOGY REPORT (SQ) ---
EXAM DESCRIPTION: U/S RETROPERITON LTD COMPLETED DATE/TIME: 06/09/2017 7:10 pm REASON FOR STUDY: SUE COMPARISON: None. TECHNIQUE: Dynamic and static grayscale images acquired of the kidneys and bladder and recorded on P ACS. Additional selected color Doppler and spectral images recorded. LIMITATIONS: None. FINDINGS: RIGHT KIDNEY: Normal size. Normal echogenicity. No solid or suspicious masses. No h ydronephrosis. No calcifications. LEFT KIDNEY: Normal size. Normal echogenicity. No solid or suspicious masses. No hydronephrosi s. No calcifications. BLADDER: No masses. OTHER FINDINGS: No other significant finding. IMPRESSION: NORMAL RENAL AND BLADDER ULTRASOUND. TECHNICAL DOCUMENTATION: JOB ID: [id number] [place]-72 2010 [employer]- All Rights Reserved
[2017-06-09 20:08] LABS: LIPASE 20.2 U/L (23-300); MAGNESIUM 2.2 mg/dL (1.6-2.3); PHOSPHORUS 2.5 mg/dL (2.5-4.5)
[2017-06-09 20:38] LABS: THYROID STIMULATING HORMONE 0.25 uIU/mL (0.47-4.68)
[2017-06-09] MEDS: LEVOFLOXACIN 750 MG/D5W RTU 750 MG/150 ML RTUPB IV SCH (22:20)
[2017-06-10] MEDS: CLINDAMYCIN 600 MG/D5W RTU 600 MG/50 ML RTUPB IV SCH ×3 (02:27→18:12)
[2017-06-10 05:49] LABS: ABSOLUTE LYMPHOCYTES (AUTO) 0.7 10^3/uL (0.5-4.7); ABSOLUTE MONOCYTES (AUTO) 0.5 10^3/uL (0.1-1.4); BASOPHILS % (AUTO) 0.5 % (0-2); HEMATOCRIT 30.1 % (37.9-51.0); HEMOGLOBIN 10.4 g/dL (13.5-17.0); HGB HCT DIFFERENCE 1.1; LYMPHOCYTES % (AUTO) 12.9 % (13-45); MEAN CORPUSCULAR HEMOGLOBIN 28.8 pg (27.0-33.4); MEAN CORPUSCULAR HGB CONC 34.7 g/dL (32.0-36.0); MEAN CORPUSCULAR VOLUME 83 fl (80-97); MONOCYTES % (AUTO) 9.8 % (3-13); RED BLOOD COUNT 3.63 10^6/uL (4.35-5.55); SEGMENTED NEUTROPHILS % (AUTO) 76.8 % (42-78); WHITE BLOOD COUNT 5.2 10^3/uL (4.0-10.5)
[2017-06-10 05:59] LABS: ALANINE AMINOTRANSFERASE 54 U/L (21-72); ALBUMIN 3.2 g/dL (3.5-5.0); ALKALINE PHOSPHATASE 99 U/L (38-126); ANION GAP 15 (5-19); ASPARTATE AMINO TRANSFERASE 33 U/L (17-59); BILIRUBIN,DIRECT 0.6 mg/dL (0.0-0.4); BLOOD UREA NITROGEN 42 mg/dL (7-20); CALCIUM 8.2 mg/dL (8.4-10.2); CARBON DIOXIDE 19 mmol/L (22-30); CHLORIDE 105 mmol/L (98-107); CHOLESTEROL 75.03 mg/dL (0-200); CREATININE RESULT 2.18 mg/dL (0.52-1.25); Direct HDL 10 mg/dL (>40); GLUCOSE 126 mg/dL (75-110); POTASSIUM 4.5 mmol/L (3.6-5.0); SODIUM 138.7 mmol/L (137-145); TOTAL PROTEIN 7.9 g/dL (6.3-8.2); TRIGLYCERIDES 184 mg/dL (<150)
[2017-06-10 06:10] LABS: DIRECT LDL < 30 mg/dL (<100); VLDL CHOLESTEROL 36.8 mg/dL (10-31)
[2017-06-10 06:22] LABS: ANISOCYTOSIS 1+; HYPOCHROMASIA SLIGHT; OVALOCYTES 1+; POIKILOCYTOSIS 1+; ROULEAUX 1+; SCHISTOCYTES SLIGHT; TARGET CELLS 1+
[2017-06-10] MEDS: NORMAL SALINE 1000 ML 1,000 ML IV PRN (06:36)
[2017-06-10] MEDS ORDERED: DARUNAVIR ETHANOLATE 600 MG PO SCH (10:00)
[2017-06-10] MEDS ORDERED: (PENDING PHARMACY ID) (Etravirine [Intelence] 200 MG) PO SCH (10:00)
[2017-06-10] MEDS: LEVETIRACETAM 500 MG TABLET PO SCH ×2 (10:23→22:11)
[2017-06-10] MEDS: PREDNISONE 20 MG TABLET PO SCH ×2 (10:23→18:11)
[2017-06-10] MEDS: EMTRICITABINE/TENOFOVIR 200-300 MG TABLET PO SCH (10:23)
[2017-06-10] MEDS: RITONAVIR 100 MG TABLET PO SCH ×2 (10:23→22:11)
[2017-06-10] MEDS: METOPROLOL SUCCINATE 25 MG TAB.SR.24H PO SCH (10:23)
[2017-06-10] MEDS: CITALOPRAM HYDROBROMIDE 20 MG TABLET PO SCH (10:23)
[2017-06-10] MEDS: PRIMAQUINE PHOSPHATE 26.3 MG TABLET PO SCH (10:23)
[2017-06-10] MEDS: CEFEPIME 1 GM/D5W RTU 1 GM/50 ML RTUPB IV SCH (10:23)
[2017-06-10] MEDS: ENOXAPARIN SODIUM INJ 30 MG/0.3 ML DISP.SYRIN SUBCUT SCH (10:30)
--- NOTE | 2017-06-10 12:43 | PDOC H&P ---
History of Present Illness Admission Date/PCP: 06/09/17 15:51 WILNER KIDD MD History of Present Illness: VERONICA CARDENAS is a 46 year old male, patient recently diagnosed with Hodgkin's lymphoma, he has a history of HIV disease, extremely noncompliant with his medical treatment for HIV, he recently came to the office to establish with us. He was in the emergency room in the early part of the month for evaluation of abdominal pain, in the emergency room a CT scan of the abdomen and pelvis was done, it showed extensive lymphadenopathy with retroperitoneal involvement, CT guided needle biopsy was done and it confirmed Hodgkin's lymphoma. He was in the oncologist's office to discuss treatment, he was found to be altered mental status, extremely stuporous with fever, temperature recorded was over 101, he was transferred to the emergency room for evaluation. In the emergency room was evaluated, a lumbar puncture was done because of suspicion for meningoencephalitis, this was negative. He recently had blood work done in the office, the CD4 lymphocyte count was below 200 consistent with AIDS defining illnesses, the HIV RNA viral load was very high. The chest x-ray done in the emergency room did not show any obvious pneumonia. The potential etiology of the fever is long in this patient, it could be from the lymphoma itself, or opportunistic infections. Because he has a low CD4 count that meets the AIDS defining illness criteria, he will need coverage to cover potential PCP infection. He has allergy to sulfamethoxazole, he be treated with clindamycin and primaquine. Past Medical History Cardiac Medical History: Reports: Hyperlipidema, Hypertension Neurological Medical History: Reports: Seizures Malignancy Medical History: Reports: Lymphoma - Hodgkin's lymphoma GI Medical History: Reports: Gastroesophageal Reflux Disease Psychiatric Medical History: Reports: Depression Infectious Medical History: Reports: HIV Social History Smoking Status: Former Smoker Frequency of Alcohol Use: None Hx Recreational Drug Use: Yes Drugs: Marijuana Hx Prescription Drug Abuse: No - Advance Directive Resuscitation Status: Full Code Family History Family History: Hypertension Parental Family History Reviewed: Yes Children Family History Reviewed: Yes Sibling(s) Family History Reviewed.: Yes Medication/Allergy Home Medications: Amlodipine Besylate 5 mg PO DAILY 06/09/17 Aspirin [Aspirin 325 mg Tablet] 325 tab PO DAILY 06/09/17 Atorvastatin Calcium [Lipitor 20 mg Tablet] 20 mg PO DAILY 06/09/17 Citalopram Hydrobromide [Citalopram HBr] 20 mg PO DAILY 06/09/17 Darunavir Ethanolate [Prezista] 600 mg PO Q12 06/09/17 Diclofenac Sodium [Voltaren 50 Mg Tablet.Dr] 50 mg PO Q8 06/09/17 Emtricitabine/Tenofovir (Tdf) [Truvada 200 mg-300 mg Tablet] 1 tab PO DAILY Etravirine [Intelence] 200 mg PO Q12 06/09/17 Hydrochlorothiazide [Hydrodiuril 25 mg Tablet] 25 mg PO DAILY 06/09/17 Levetiracetam [Keppra 500 mg Tablet] 500 mg PO Q12 06/09/17 Lisinopril [Zestril] 40 mg PO DAILY 06/09/17 Metoprolol Succinate 25 mg PO DAILY 06/09/17 Misoprostol [Cytotec 0.2 mg Tablet] 200 mcg PO Q12 06/09/17 Ondansetron HCl [Zofran 4 mg Tablet] 4 mg PO Q8HP PRN 06/09/17 Polyethylene Glycol 3350 [Miralax Powder 17 gm/Packet] 17 gm PO DAILY 06/09/17 Ritonavir [Norvir 100 mg Tablet] 100 mg PO Q12 06/09/17 Allergies/Adverse Reactions: sulfamethoxazole [From Bactrim] Allergy (Verified 05/28/17 16:07) trimethoprim [From Bactrim] Allergy (Verified 05/28/17 16:07) Review of Systems Constitutional: PRESENT: fatigue, fever(s), headache(s), weakness Eyes: ABSENT: visual disturbances Ears: ABSENT: hearing changes Cardiovascular: ABSENT: chest pain, dyspnea on exertion, edema, orthropnea, palpitations Respiratory: PRESENT: cough Gastrointestinal: ABSENT: abdominal pain, constipation, diarrhea, hematemesis, hematochezia, nausea, vomiting Genitourinary: ABSENT: dysuria, hematuria Musculoskeletal: ABSENT: joint swelling Integumentary: ABSENT: rash, wounds Neurological: ABSENT: abnormal gait, abnormal speech, confusion, dizziness, focal weakness, syncope Psychiatric: ABSENT: anxiety, depression, homidical ideation, suicidal ideation Endocrine: ABSENT: cold intolerance, heat intolerance, menstrual abnormalities, polydipsia, polyuria Hematologic/Lymphatic: ABSENT: easy bleeding, easy bruising, lymphadenopathy Physical Exam Vital Signs: Temp Pulse Resp BP Pulse Ox 99.5 F 105 H 23 H 140/78 H 97 06/10/17 11:34 06/10/17 11:34 06/10/17 11:34 06/10/17 11:34 06/10/17 11:34 Intake & Output 06/09/17 06/10/17 06/11/17 06:59 06:59 06:59 Intake Total 1740 237 Output Total 0 250 Balance 1740 -13 Weight 78.1 kg Head exam: PRESENT: atraumatic, normocephalic Eye exam: PRESENT: conjunctiva pink, EOMI, PERRLA Ear exam: PRESENT: normal external ear exam Mouth exam: PRESENT: moist, tongue midline Neck exam: PRESENT: full ROM, lymphadenopathy Respiratory exam: PRESENT: clear to auscultation joslyn Cardiovascular exam: PRESENT: RRR, +S1 Pulses: PRESENT: normal dorsalis pedis pul, +2 pedal pulses bilateral Vascular exam: PRESENT: normal capillary refill GI/Abdominal exam: PRESENT: normal bowel sounds, soft Rectal exam: PRESENT: deferred Neurological exam: PRESENT: alert Psychiatric exam: PRESENT: appropriate affect, normal mood Skin exam: PRESENT: dry, intact, warm Results Laboratory Results: 06/10/17 05:32 06/10/17 05:32 06/09/17 06/10/17 06/10/17 22:15 05:32 05:32 WBC 5.2 RBC 3.63 L Hgb 10.4 L Hct 30.1 L MCV 83 MCH 28.8 MCHC 34.7 RDW 15.0 H Plt Count 63 L Seg Neutrophils % 76.8 Lymphocytes % 12.9 L Monocytes % 9.8 Eosinophils % 0.0 Basophils % 0.5 Absolute Neutrophils 4.0 Absolute Lymphocytes 0.7 Absolute Monocytes 0.5 Absolute Eosinophils 0.0 Absolute Basophils 0.0 Sodium 138.7 Potassium 4.5 Chloride 105 Carbon Dioxide 19 L Anion Gap 15 BUN 42 H Creatinine 2.18 H Est GFR ( Amer) 39 L Est GFR (Non-Af Amer) 32 L Glucose 126 H Calcium 8.2 L Total Bilirubin 1.0 AST 33 ALT 54 Alkaline Phosphatase 99 Ammonia 21.0 Total Protein 7.9 Albumin 3.2 L Triglycerides 184 H Cholesterol 75.03 LDL Cholesterol Direct < 30 VLDL Cholesterol 36.8 H HDL Cholesterol 10 L 06/09/17 06/09/17 22:15 22:15 Creatine Kinase 84 CK-MB (CK-2) 0.24 Impressions: Renal Ultrasound 06/09/17 00:00 IMPRESSION: NORMAL RENAL AND BLADDER ULTRASOUND. Chest X-Ray 06/09/17 11:20 IMPRESSION: NO SIGNIFICANT RADIOGRAPHIC FINDING IN THE CHEST. Head CT 06/09/17 11:21 IMPRESSION: MILD CHRONIC CHANGES OF ATROPHY AND MICROVASCULAR ISCHEMIA. NO ACUTE PROCESS. EVIDENCE OF ACUTE STROKE: NO. Assessment & Plan - Diagnosis (1) AIDS (acquired immunodeficiency syndrome), CD4 <=200 Is this a current diagnosis for this admission?: Yes Plan: He has AIDS defining illness, the CD4 count is less than 200, he had a temperature 101, he will empirically be treated with anti-PCP medications, he cannot take sulfamethoxazole because he has allergy to the drug, he will be treated with IV clindamycin and primaquine. The last CD4 count that was done in the office a week ago was less than 200 but more than 100 he does not presently need prophylaxis for histoplasmosis or MAC. He has not been compliant with his antiretroviral drug, he will be also be started on his antiretroviral drugs (2) Fever Qualifiers: Fever type: unspecified Qualified Code(s): R50.9 - Fever, unspecified Is this a current diagnosis for this admission?: Yes (3) Hodgkin lymphoma Qualifiers: Hodgkin lymphoma type: other classical type Lymphoma site: intra-abdominal nodes Qualified Code(s): C81.73 - Other Hodgkin lymphoma, intra-abdominal lymph nodes Is this a current diagnosis for this admission?: Yes (4) Acute kidney injury Is this a current diagnosis for this admission?: Yes Plan: This is probably prerenal, start hydration
[2017-06-10] MEDS: CHLORPROMAZINE HCL 25 MG TABLET PO SCH ×2 (13:27→22:11)
--- NOTE | 2017-06-10 16:28 | PROGRESS NOTE E ---
Progress Note NAME: VERONICA CARDENAS : 1970 AGE: 46Y DATE: 06/10/2017 ROOM: 328 SUBJECTIVE: The patient was seen at the bedside. He was admitted overnight with altered mentation. He was recently diagnosed with Hodgkin's lymphoma, his staging workup so far shows a massive stage IV Hodgkin's lymphoma. He had bone marrow involvement. He has had high fevers over the last couple of weeks with increased night sweat and significant weight loss. All this in the setting of HIV infection with possible noncompliance to his HIV medications. He was seen at the bedside today and I had a long discussion with him explaining that I believe most of his symptoms could be secondary to his Hodgkin's lymphoma. I had discussed with him previously as an outpatient starting him on chemotherapy. With *------*. Once again I explained to him today that he would needed to be started on chemotherapy urgently because of his symptoms. I reviewed the side effects with him in detail including pancytopenia with the risk of neutropenic fever, anemia or thrombocytopenia that might necessitate the use of fluid factors, hair loss, Adriamycin could effect his heart, there is also the risk of acute ischemia in the future. He is willing to be treated and arrangements will be made for him to receive the chemotherapy either tomorrow or by Wednesday. His renal function appears to have improved overnight, however, his chemotherapy will be reduced dose because of his renal insufficiency. Following this treatment, his next cycle is due in about 2 weeks and hopefully he will be able to receive that as an outpatient. Once again, I explained to him that he needs to be compliant with his HIV medications as that will be important in terms of his overall prognosis. I thank you for allowing me to part of his care during this hospitalization. DICTATING PHYSICIAN: ADONIS TRIPP M.D. [id number] PHY#: [id number] ID: [id number] JOB#: [id number] ACCT: [id number] cc: >
[2017-06-10] MEDS ORDERED: PALONOSETRON 0.25 MG/5 ML SDV IV PRN (16:36)
--- NOTE | 2017-06-10 23:03 | PDOC PROGRESS REPORT ---
Subjective Progress Note for:: 06/10/17 Subjective:: Patient was seen by the bedside he has severe hiccough he was seen by an oncologist, the plan is to initiate chemotherapy in the morning. Reason For Visit: FEVER,METABOLIC ENCEPHALOPATHY,AIDS DEFINING ILLNESS Physical Exam Vital Signs: Temp Pulse Resp BP Pulse Ox 98.9 F 122 H 17 121/81 100 06/10/17 19:50 06/10/17 19:50 06/10/17 19:50 06/10/17 19:50 06/10/17 19:50 Intake & Output 06/09/17 06/10/17 06/11/17 06:59 06:59 06:59 Intake Total 1740 337 Output Total 0 525 Balance 1740 -188 Weight 78.1 kg General appearance: PRESENT: no acute distress, well-developed, well-nourished Head exam: PRESENT: atraumatic, normocephalic Eye exam: PRESENT: conjunctiva pink, EOMI, PERRLA Ear exam: PRESENT: normal external ear exam Mouth exam: PRESENT: moist, tongue midline Neck exam: PRESENT: full ROM Respiratory exam: PRESENT: clear to auscultation joslyn Cardiovascular exam: PRESENT: RRR, +S1, +S2 Pulses: PRESENT: normal dorsalis pedis pul, +2 pedal pulses bilateral Vascular exam: PRESENT: normal capillary refill GI/Abdominal exam: PRESENT: normal bowel sounds, soft Rectal exam: PRESENT: deferred Neurological exam: ABSENT: motor sensory deficit Skin exam: PRESENT: dry, intact, warm Results Laboratory Results: 06/10/17 05:32 06/10/17 05:32 06/10/17 06/10/17 05:32 05:32 WBC 5.2 RBC 3.63 L Hgb 10.4 L Hct 30.1 L MCV 83 MCH 28.8 MCHC 34.7 RDW 15.0 H Plt Count 63 L Seg Neutrophils % 76.8 Lymphocytes % 12.9 L Monocytes % 9.8 Eosinophils % 0.0 Basophils % 0.5 Absolute Neutrophils 4.0 Absolute Lymphocytes 0.7 Absolute Monocytes 0.5 Absolute Eosinophils 0.0 Absolute Basophils 0.0 Sodium 138.7 Potassium 4.5 Chloride 105 Carbon Dioxide 19 L Anion Gap 15 BUN 42 H Creatinine 2.18 H Est GFR ( Amer) 39 L Est GFR (Non-Af Amer) 32 L Glucose 126 H Calcium 8.2 L Total Bilirubin 1.0 AST 33 ALT 54 Alkaline Phosphatase 99 Total Protein 7.9 Albumin 3.2 L Triglycerides 184 H Cholesterol 75.03 LDL Cholesterol Direct < 30 VLDL Cholesterol 36.8 H HDL Cholesterol 10 L 06/09/17 06/09/17 22:15 22:15 Creatine Kinase 84 CK-MB (CK-2) 0.24 Impressions: Renal Ultrasound 06/09/17 00:00 IMPRESSION: NORMAL RENAL AND BLADDER ULTRASOUND. Chest X-Ray 06/09/17 11:20 IMPRESSION: NO SIGNIFICANT RADIOGRAPHIC FINDING IN THE CHEST. Head CT 06/09/17 11:21 IMPRESSION: MILD CHRONIC CHANGES OF ATROPHY AND MICROVASCULAR ISCHEMIA. NO ACUTE PROCESS. EVIDENCE OF ACUTE STROKE: NO. Assessment & Plan - Diagnosis (1) AIDS (acquired immunodeficiency syndrome), CD4 <=200 Is this a current diagnosis for this admission?: Yes (2) Fever Qualifiers: Fever type: unspecified Qualified Code(s): R50.9 - Fever, unspecified Is this a current diagnosis for this admission?: Yes (3) Hodgkin lymphoma Qualifiers: Hodgkin lymphoma type: other classical type Lymphoma site: intra-abdominal nodes Qualified Code(s): C81.73 - Other Hodgkin lymphoma, intra-abdominal lymph nodes Is this a current diagnosis for this admission?: Yes (4) Acute kidney injury Is this a current diagnosis for this admission?: Yes (5) Hiccough Is this a current diagnosis for this admission?: Yes Plan: Start chlorpromazine
[2017-06-11] MEDS: CLINDAMYCIN 600 MG/D5W RTU 600 MG/50 ML RTUPB IV SCH ×3 (02:01→18:30)
[2017-06-11] MEDS ORDERED: VINBLASTINE SULFATE IV PRN (05:00)
[2017-06-11] MEDS ORDERED: DACARBAZINE IV PRN (05:00)
[2017-06-11] MEDS ORDERED: DEXAMETHASONE SOD PHOSPHATE 20 MG in NORMAL SALINE 50 ML IV PRN (05:00)
[2017-06-11] MEDS ORDERED: PALONOSETRON 0.25 MG/5 ML SDV IV PRN (05:00)
[2017-06-11] MEDS ORDERED: NORMAL SALINE IV PRN ×2 (05:00)
[2017-06-11] MEDS ORDERED: BLEOMYCIN SULFATE 2 UNIT in NORMAL SALINE 50 ML IV PRN (05:00)
[2017-06-11] MEDS ORDERED: DISPOSABLE IV PRN ×2 (05:00)
[2017-06-11] MEDS ORDERED: BLEOMYCIN SULFATE IV PRN (05:00)
[2017-06-11] MEDS ORDERED: DOXORUBICIN HCL IV PRN (05:00)
[2017-06-11] MEDS ORDERED: ACETAMINOPHEN 325 MG TABLET PO PRN (05:00)
[2017-06-11] MEDS: CHLORPROMAZINE HCL 25 MG TABLET PO SCH ×3 (06:00→21:56)
[2017-06-11 06:37] LABS: ABSOLUTE LYMPHOCYTES (AUTO) 0.4 10^3/uL (0.5-4.7); ABSOLUTE MONOCYTES (AUTO) 0.5 10^3/uL (0.1-1.4); ABSOLUTE NEUT (AUTO) 4.5 10^3/uL (1.7-8.2); BASOPHILS % (AUTO) 0.5 % (0-2); EOSINOPHILS % (AUTO) 0.1 % (0-6); HEMATOCRIT 25.6 % (37.9-51.0); HEMOGLOBIN 8.9 g/dL (13.5-17.0); HGB HCT DIFFERENCE 1.1; LYMPHOCYTES % (AUTO) 7.4 % (13-45); MEAN CORPUSCULAR HEMOGLOBIN 28.2 pg (27.0-33.4); MEAN CORPUSCULAR HGB CONC 34.7 g/dL (32.0-36.0); MEAN CORPUSCULAR VOLUME 81 fl (80-97); MONOCYTES % (AUTO) 8.7 % (3-13); RED BLOOD COUNT 3.14 10^6/uL (4.35-5.55); RED CELL DISTRIBUTION WIDTH 14.9 % (11.5-14.0); SEGMENTED NEUTROPHILS % (AUTO) 83.3 % (42-78); WHITE BLOOD COUNT 5.4 10^3/uL (4.0-10.5)
[2017-06-11 08:03] LABS: HYPOCHROMASIA 2+; OVALOCYTES 2+; POIKILOCYTOSIS 2+; SCHISTOCYTES SLIGHT; TARGET CELLS 1+
[2017-06-11] MEDS: EMTRICITABINE/TENOFOVIR 200-300 MG TABLET PO SCH (10:12)
[2017-06-11] MEDS: METOPROLOL SUCCINATE 25 MG TAB.SR.24H PO SCH (10:12)
[2017-06-11] MEDS: PREDNISONE 20 MG TABLET PO SCH ×2 (10:13→18:31)
[2017-06-11] MEDS: PRIMAQUINE PHOSPHATE 26.3 MG TABLET PO SCH (10:13)
[2017-06-11] MEDS: CEFEPIME 1 GM/D5W RTU 1 GM/50 ML RTUPB IV SCH (10:13)
[2017-06-11] MEDS: CITALOPRAM HYDROBROMIDE 20 MG TABLET PO SCH (10:13)
[2017-06-11] MEDS: RITONAVIR 100 MG TABLET PO SCH ×2 (10:13→21:57)
[2017-06-11] MEDS: LEVETIRACETAM 500 MG TABLET PO SCH ×2 (10:13→21:57)
[2017-06-11] MEDS: ENOXAPARIN SODIUM INJ 30 MG/0.3 ML DISP.SYRIN SUBCUT SCH (10:15)
--- NOTE | 2017-06-11 12:26 | RADIOLOGY REPORT (SQ) ---
EXAM DESCRIPTION: NM MUGA REST COMPLETED DATE/TIME: 06/11/2017 12:15 pm REASON FOR STUDY: pre-chemo - HODGKINS LYMPHOMA COMPARISON: None. RADIONUCLIDE AND DOSE: 25.9 mCi technetium 99 M pyrophosphate labeled red blood cells. The route of agent administration: Intravenous TECHNIQUE: Following administration of the radionuclide, gated images of the heart are obtained in t hree projections. Left ventricular functional analysis performed. LIMITATIONS: None. FINDINGS: LEFT VENTRICULAR FUNCTION: EJECTION FRACTION: 68%. END-DIASTOLIC VOLUME: 133 mL. END-SYSTOLIC VOLUME: 50 mL. WALL MOTION: No focal wall motion abnormalities. OTHER: No other significant finding. IMPRESSION: NORMAL CARDIAC MUGA STUDY. NORMAL LEFT VENTRICULAR FUNCTION WITH VALUES ABOVE. TECHNICAL DOCUMENTATION: JOB ID: [id number] [email or web address]- All Rights Reserved
--- NOTE | 2017-06-11 20:54 | PDOC PROGRESS REPORT ---
Subjective Progress Note for:: 06/11/17 Subjective:: He was seen by the bedside, he has profuse diarrhea and hiccoughs. The diarrhea is negative for C. difficile toxin Reason For Visit: FEVER,METABOLIC ENCEPHALOPATHY,AIDS DEFINING Physical Exam Vital Signs: Temp Pulse Resp BP Pulse Ox 97.4 F 73 16 143/83 H 97 06/11/17 20:04 06/11/17 20:04 06/11/17 20:04 06/11/17 20:04 06/11/17 20:04 Intake & Output 06/10/17 06/11/17 06/12/17 06:59 06:59 06:59 Intake Total 1740 2329 1491 Output Total 0 975 225 Balance 1740 1354 1266 Weight 78.1 kg 79.2 kg General appearance: PRESENT: no acute distress Head exam: PRESENT: atraumatic, normocephalic Eye exam: PRESENT: PERRLA Neck exam: PRESENT: full ROM Respiratory exam: PRESENT: clear to auscultation joslyn Cardiovascular exam: PRESENT: RRR, +S1, +S2 Vascular exam: PRESENT: normal capillary refill GI/Abdominal exam: PRESENT: normal bowel sounds, soft Rectal exam: PRESENT: deferred Neurological exam: PRESENT: alert Psychiatric exam: PRESENT: appropriate affect, normal mood Skin exam: PRESENT: dry, intact, warm Results Laboratory Results: 06/11/17 05:48 06/10/17 05:32 06/11/17 05:48 WBC 5.4 RBC 3.14 L Hgb 8.9 L Hct 25.6 L MCV 81 MCH 28.2 MCHC 34.7 RDW 14.9 H Plt Count 66 L Seg Neutrophils % 83.3 H Lymphocytes % 7.4 L Monocytes % 8.7 Eosinophils % 0.1 Basophils % 0.5 Absolute Neutrophils 4.5 Absolute Lymphocytes 0.4 L Absolute Monocytes 0.5 Absolute Eosinophils 0.0 Absolute Basophils 0.0 06/09/17 06/09/17 22:15 22:15 Creatine Kinase 84 CK-MB (CK-2) 0.24 Impressions: Renal Ultrasound 06/09/17 00:00 IMPRESSION: NORMAL RENAL AND BLADDER ULTRASOUND. Chest X-Ray 06/09/17 11:20 IMPRESSION: NO SIGNIFICANT RADIOGRAPHIC FINDING IN THE CHEST. Head CT 06/09/17 11:21 IMPRESSION: MILD CHRONIC CHANGES OF ATROPHY AND MICROVASCULAR ISCHEMIA. NO ACUTE PROCESS. EVIDENCE OF ACUTE STROKE: NO. MUGA 06/11/17 00:00 IMPRESSION: NORMAL CARDIAC MUGA STUDY. NORMAL LEFT VENTRICULAR FUNCTION WITH VALUES ABOVE. Assessment & Plan - Diagnosis (1) AIDS (acquired immunodeficiency syndrome), CD4 <=200 Is this a current diagnosis for this admission?: Yes (2) Fever Qualifiers: Fever type: unspecified Qualified Code(s): R50.9 - Fever, unspecified Is this a current diagnosis for this admission?: Yes (3) Hodgkin lymphoma Qualifiers: Hodgkin lymphoma type: other classical type Lymphoma site: intra-abdominal nodes Qualified Code(s): C81.73 - Other Hodgkin lymphoma, intra-abdominal lymph nodes Is this a current diagnosis for this admission?: Yes Plan: He had the induction dose of chemotherapy today for the Hodgkin's lymphoma (4) Acute kidney injury Is this a current diagnosis for this admission?: Yes (5) Hiccough Is this a current diagnosis for this admission?: Yes Plan: Increase the chlorpromazine to 100mg
[2017-06-11] MEDS: LEVOFLOXACIN 750 MG/D5W RTU 750 MG/150 ML RTUPB IV SCH (21:56)
[2017-06-12] MEDS: CLINDAMYCIN 600 MG/D5W RTU 600 MG/50 ML RTUPB IV SCH ×3 (01:42→17:34)
[2017-06-12] MEDS: CHLORPROMAZINE HCL 25 MG TABLET PO SCH ×3 (05:47→22:17)
[2017-06-12] MEDS: NORMAL SALINE 1000 ML 1,000 ML IV PRN (06:13)
[2017-06-12 06:34] LABS: ABSOLUTE LYMPHOCYTES (AUTO) 0.4 10^3/uL (0.5-4.7); ABSOLUTE MONOCYTES (AUTO) 0.1 10^3/uL (0.1-1.4); ABSOLUTE NEUT (AUTO) 5.3 10^3/uL (1.7-8.2); BASOPHILS % (AUTO) 0.2 % (0-2); HEMATOCRIT 26.3 % (37.9-51.0); HEMOGLOBIN 9.1 g/dL (13.5-17.0); LYMPHOCYTES % (AUTO) 7.3 % (13-45); MEAN CORPUSCULAR HEMOGLOBIN 28.6 pg (27.0-33.4); MEAN CORPUSCULAR HGB CONC 34.6 g/dL (32.0-36.0); MEAN CORPUSCULAR VOLUME 83 fl (80-97); MONOCYTES % (AUTO) 2.3 % (3-13); RED BLOOD COUNT 3.17 10^6/uL (4.35-5.55); RED CELL DISTRIBUTION WIDTH 15.2 % (11.5-14.0); SEGMENTED NEUTROPHILS % (AUTO) 90.2 % (42-78); WHITE BLOOD COUNT 5.9 10^3/uL (4.0-10.5)
[2017-06-12 08:26] LABS: HIV-1 RNA LOG10.. 3.248 (.); HIV-1 RNA PCR QUANT 1770 copies/mL (.)
[2017-06-12] MEDS: PRIMAQUINE PHOSPHATE 26.3 MG TABLET PO SCH (09:24)
[2017-06-12] MEDS: PREDNISONE 20 MG TABLET PO SCH ×2 (09:24→17:34)
[2017-06-12] MEDS: RITONAVIR 100 MG TABLET PO SCH (09:24)
[2017-06-12] MEDS: CITALOPRAM HYDROBROMIDE 20 MG TABLET PO SCH (09:24)
[2017-06-12] MEDS: EMTRICITABINE/TENOFOVIR 200-300 MG TABLET PO SCH (09:24)
[2017-06-12] MEDS: LEVETIRACETAM 500 MG TABLET PO SCH ×2 (09:24→22:19)
[2017-06-12] MEDS: METOPROLOL SUCCINATE 25 MG TAB.SR.24H PO SCH (09:24)
[2017-06-12] MEDS: CEFEPIME 1 GM/D5W RTU 1 GM/50 ML RTUPB IV SCH (09:25)
[2017-06-12] MEDS: ENOXAPARIN SODIUM INJ 30 MG/0.3 ML DISP.SYRIN SUBCUT SCH (09:26)
[2017-06-12] MEDS ORDERED: DIPHENOXYLATE HCL/ATROP SULF 2.5-0.025 MG TABLET PO PRN (15:26)
--- NOTE | 2017-06-12 15:32 | PDOC PROGRESS REPORT ---
Subjective Progress Note for:: 06/12/17 Subjective:: Patient was seen by the bedside, he continues to have diarrhea and severe hiccups. The stool is negative for C. difficile toxin, yesterday the dosage of the chlorpromazine was increased to 100 mg despite the increase he continues to have it because. The diarrhea is probably from medication, he was empirically started on for antibiotic, antibiotic to cover PCP and also other organisms. The Levaquin and cefepime will be discontinued Reason For Visit: FEVER,METABOLIC ENCEPHALOPATHY,AIDS DEFINING Physical Exam Vital Signs: Temp Pulse Resp BP Pulse Ox 97.4 F 84 18 137/82 H 98 06/12/17 11:34 06/12/17 11:34 06/12/17 11:34 06/12/17 11:34 06/12/17 11:34 Intake & Output 06/11/17 06/12/17 06/13/17 06:59 06:59 06:59 Intake Total 2329 3757 Output Total 975 425 Balance 1354 3332 Weight 79.2 kg 78.3 kg General appearance: PRESENT: no acute distress, well-developed, well-nourished Head exam: PRESENT: atraumatic, normocephalic Eye exam: PRESENT: conjunctiva pink, EOMI, PERRLA Ear exam: PRESENT: normal external ear exam Mouth exam: PRESENT: moist, tongue midline Neck exam: PRESENT: full ROM Cardiovascular exam: PRESENT: RRR, +S1, +S2 Vascular exam: PRESENT: normal capillary refill GI/Abdominal exam: PRESENT: normal bowel sounds, soft Rectal exam: PRESENT: deferred Neurological exam: PRESENT: alert, awake, oriented to person, oriented to place , oriented to time, oriented to situation, CN II-XII grossly intact Psychiatric exam: PRESENT: appropriate affect, normal mood Skin exam: PRESENT: dry, intact, warm Results Laboratory Results: 06/12/17 05:46 06/10/17 05:32 06/11/17 06/11/17 06/12/17 21:07 21:07 05:46 WBC 5.9 RBC 3.17 L Hgb 9.1 L Hct 26.3 L MCV 83 MCH 28.6 MCHC 34.6 RDW 15.2 H Plt Count 34 L Seg Neutrophils % 90.2 H Lymphocytes % 7.3 L Monocytes % 2.3 L Eosinophils % 0.0 Basophils % 0.2 Absolute Neutrophils 5.3 Absolute Lymphocytes 0.4 L Absolute Monocytes 0.1 Absolute Eosinophils 0.0 Absolute Basophils 0.0 Stool Occult Blood NEGATIVE Stool for White Cells NO WBCs SEEN 06/09/17 06/09/17 22:15 22:15 Creatine Kinase 84 CK-MB (CK-2) 0.24 Impressions: Renal Ultrasound 06/09/17 00:00 IMPRESSION: NORMAL RENAL AND BLADDER ULTRASOUND. Chest X-Ray 06/09/17 11:20 IMPRESSION: NO SIGNIFICANT RADIOGRAPHIC FINDING IN THE CHEST. Head CT 06/09/17 11:21 IMPRESSION: MILD CHRONIC CHANGES OF ATROPHY AND MICROVASCULAR ISCHEMIA. NO ACUTE PROCESS. EVIDENCE OF ACUTE STROKE: NO. MUGA 06/11/17 00:00 IMPRESSION: NORMAL CARDIAC MUGA STUDY. NORMAL LEFT VENTRICULAR FUNCTION WITH VALUES ABOVE. Assessment & Plan - Diagnosis (1) AIDS (acquired immunodeficiency syndrome), CD4 <=200 Is this a current diagnosis for this admission?: Yes (2) Fever Qualifiers: Fever type: unspecified Qualified Code(s): R50.9 - Fever, unspecified Is this a current diagnosis for this admission?: Yes (3) Hodgkin lymphoma Qualifiers: Hodgkin lymphoma type: other classical type Lymphoma site: intra-abdominal nodes Qualified Code(s): C81.73 - Other Hodgkin lymphoma, intra-abdominal lymph nodes Is this a current diagnosis for this admission?: Yes (4) Acute kidney injury Is this a current diagnosis for this admission?: Yes (5) Hiccough Is this a current diagnosis for this admission?: Yes Plan: Increase dosage of chlorpromazine (6) Diarrhea Qualifiers: Diarrhea type: unspecified type Qualified Code(s): R19.7 - Diarrhea, unspecified Is this a current diagnosis for this admission?: Yes Plan: Start lomotil
--- NOTE | 2017-06-12 15:45 | RADIOLOGY REPORT (SQ) ---
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 Images stored on PACS. LIMITATIONS: Motion artifact FINDINGS: ANATOMY: No congenital anomalies. Normal vascular flow voids. Pituitary fossa normal. CSF SPACES: Diffuse atrophy, mildly prominent. No hemorrhage. CEREBRUM: Diffuse white matter disease is present, chronic in appearance. This is similar compared t o both prior studies. Gradient echo T2 images demonstrate diffuse micro hemorrhages along the cerebrum cortex and subcortic al white matter. This correlates with amyloid became be seen in multiple forms of dementia. No acute cortical infarct. No acute intracranial hemorrhage, mass effect, or midline shift. POSTERIOR FOSSA: No signal alteration. No hemorrhage. No edema, masses or mass effect. Internal candido tory canals, cerebello-pontine angles, mastoids normal. DIFFUSION IMAGING: Negative for acute or sub-acute infarction. ORBITS: No masses. Globes normal. PARANASAL SINUSES: No fluid levels. Mucosa normal. OTHER: No other significant finding. IMPRESSION: Extensive white matter disease, chronic. Mild prominence of the ventricles and sulci fr om diffuse atrophy, stable. Gradient echo T2 images demonstrate multiple punctate foci of hemosiderin deposition which can be see n in dementia related to amyloid and microangiopathy. No acute large territory ischemic change or acute intracranial hemorrhage EVIDENCE OF ACUTE STROKE: NO. TECHNICAL DOCUMENTATION: JOB ID: [id number] [employer]- All Rights Reserved
[2017-06-12] MEDS: LEVOFLOXACIN 750 MG/D5W RTU 750 MG/150 ML RTUPB IV SCH (17:33)
[2017-06-12] MEDS: EFAVIRENZ/EMTRICITAB/TENOFOVIR (600-200-300 MG) TABLET PO SCH (22:19)
[2017-06-13] MEDS: NORMAL SALINE 1000 ML 1,000 ML IV PRN (00:30)
[2017-06-13] MEDS: CLINDAMYCIN 600 MG/D5W RTU 600 MG/50 ML RTUPB IV SCH ×3 (01:33→17:14)
[2017-06-13] MEDS: CHLORPROMAZINE HCL 25 MG TABLET PO SCH ×3 (05:28→21:39)
[2017-06-13] MEDS: EMTRICITABINE/TENOFOVIR 200-300 MG TABLET PO SCH (10:23)
[2017-06-13] MEDS: LEVETIRACETAM 500 MG TABLET PO SCH ×2 (10:23→21:40)
[2017-06-13] MEDS: PREDNISONE 20 MG TABLET PO SCH ×2 (10:24→17:14)
[2017-06-13] MEDS: METOPROLOL SUCCINATE 25 MG TAB.SR.24H PO SCH (10:25)
[2017-06-13] MEDS: ENOXAPARIN SODIUM INJ 30 MG/0.3 ML DISP.SYRIN SUBCUT SCH (10:42)
--- NOTE | 2017-06-13 12:46 | PDOC PROGRESS REPORT ---
Subjective Progress Note for:: 06/13/17 Subjective:: Patient was seen by the bedside, he continues to have hiccoughs despite megadoses of chlorpromazine. 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 It also demonstrates multiple punctate foci of hemosiderin deposition which can be seen in the dementia related to amyloid microangiopathy. He has thrombocytopenia most likely from chemotherapy, he had the initial induction treatment for the Hodgkin's lymphoma. Reason For Visit: FEVER,METABOLIC ENCEPHALOPATHY,AIDS DEFINING Physical Exam Vital Signs: Temp Pulse Resp BP Pulse Ox 97.9 F 101 H 26 H 169/95 H 97 06/13/17 11:49 06/13/17 11:49 06/13/17 11:49 06/13/17 11:49 06/13/17 11:49 Intake & Output 06/12/17 06/13/17 06/14/17 06:59 06:59 06:59 Intake Total 3757 2867 Output Total 425 1325 Balance 3332 1542 Weight 78.3 kg 86.7 kg General appearance: PRESENT: no acute distress Head exam: PRESENT: atraumatic, normocephalic Eye exam: PRESENT: PERRLA Ear exam: PRESENT: normal external ear exam Mouth exam: PRESENT: moist Neck exam: PRESENT: full ROM Respiratory exam: PRESENT: clear to auscultation joslyn Cardiovascular exam: PRESENT: RRR, +S1, +S2 Pulses: PRESENT: normal dorsalis pedis pul, +2 pedal pulses bilateral Vascular exam: PRESENT: normal capillary refill GI/Abdominal exam: PRESENT: normal bowel sounds, soft Rectal exam: PRESENT: deferred Neurological exam: PRESENT: alert Psychiatric exam: PRESENT: appropriate affect, normal mood Skin exam: PRESENT: dry, intact, warm Results Laboratory Results: 06/12/17 05:46 06/10/17 05:32 06/09/17 06/09/17 22:15 22:15 Creatine Kinase 84 CK-MB (CK-2) 0.24 Impressions: Renal Ultrasound 06/09/17 00:00 IMPRESSION: NORMAL RENAL AND BLADDER ULTRASOUND. Chest X-Ray 06/09/17 11:20 IMPRESSION: NO SIGNIFICANT RADIOGRAPHIC FINDING IN THE CHEST. Head CT 06/09/17 11:21 IMPRESSION: MILD CHRONIC CHANGES OF ATROPHY AND MICROVASCULAR ISCHEMIA. NO ACUTE PROCESS. EVIDENCE OF ACUTE STROKE: NO. MUGA 06/11/17 00:00 IMPRESSION: NORMAL CARDIAC MUGA STUDY. NORMAL LEFT VENTRICULAR FUNCTION WITH VALUES ABOVE. Head MRI 06/12/17 00:00 IMPRESSION: Extensive white matter disease, chronic. Mild prominence of the ventricles and sulci from diffuse atrophy, stable. Gradient echo T2 images demonstrate multiple punctate foci of hemosiderin deposition which can be seen in dementia related to amyloid and microangiopathy. No acute large territory ischemic change or acute intracranial hemorrhage EVIDENCE OF ACUTE STROKE: NO. Assessment & Plan - Diagnosis (1) AIDS (acquired immunodeficiency syndrome), CD4 <=200 Is this a current diagnosis for this admission?: Yes (2) Fever Qualifiers: Fever type: unspecified Qualified Code(s): R50.9 - Fever, unspecified Is this a current diagnosis for this admission?: Yes (3) Hodgkin lymphoma Qualifiers: Hodgkin lymphoma type: other classical type Lymphoma site: intra-abdominal nodes Qualified Code(s): C81.73 - Other Hodgkin lymphoma, intra-abdominal lymph nodes Is this a current diagnosis for this admission?: Yes (4) Acute kidney injury Is this a current diagnosis for this admission?: Yes (5) Hiccough Is this a current diagnosis for this admission?: Yes (6) Diarrhea Qualifiers: Diarrhea type: unspecified type Qualified Code(s): R19.7 - Diarrhea, unspecified Is this a current diagnosis for this admission?: Yes (7) Thrombocytopenia Is this a current diagnosis for this admission?: Yes (8) Thrombocytopenia due to drugs Is this a current diagnosis for this admission?: Yes (9) Thrombocytopenia associated with AIDS Is this a current diagnosis for this admission?: Yes (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 There is associated thrombocytopeniania which could be related to the chemotherapy or to HIV infection. The MRI with extensive white matter disease revealed cerebral atrophy, a finding, common in AIDS-related dementia. He continues to experience hicoughs
[2017-06-13 13:14] LABS: HEMATOCRIT 26.8 % (37.9-51.0); HEMOGLOBIN 9.4 g/dL (13.5-17.0); HGB HCT DIFFERENCE 1.4; MEAN CORPUSCULAR HEMOGLOBIN 28.9 pg (27.0-33.4); MEAN CORPUSCULAR HGB CONC 34.9 g/dL (32.0-36.0); MEAN CORPUSCULAR VOLUME 83 fl (80-97); RED BLOOD COUNT 3.24 10^6/uL (4.35-5.55); RED CELL DISTRIBUTION WIDTH 15.4 % (11.5-14.0); WHITE BLOOD COUNT 6.1 10^3/uL (4.0-10.5)
[2017-06-13 13:21] LABS: ALANINE AMINOTRANSFERASE 56 U/L (21-72); ALBUMIN 2.5 g/dL (3.5-5.0); ALKALINE PHOSPHATASE 92 U/L (38-126); ANION GAP 14 (5-19); ASPARTATE AMINO TRANSFERASE 17 U/L (17-59); BILIRUBIN,DIRECT 0.3 mg/dL (0.0-0.4); BILIRUBIN,TOTAL 0.8 mg/dL (0.2-1.3); BLOOD UREA NITROGEN 30 mg/dL (7-20); CARBON DIOXIDE 19 mmol/L (22-30); CHLORIDE 108 mmol/L (98-107); CREATININE RESULT 1.41 mg/dL (0.52-1.25); GLUCOSE 127 mg/dL (75-110); POTASSIUM 4.3 mmol/L (3.6-5.0); SODIUM 141.3 mmol/L (137-145); TOTAL PROTEIN 6.4 g/dL (6.3-8.2)
[2017-06-13 13:36] LABS: BASOPHILS % (MANUAL) 0 % (0-2); EOSINOPHILS % (MANUAL) 0 % (0-6); LYMPHOCYTES % (MANUAL) 5 % (13-45); TOTAL CELLS COUNTED 100
[2017-06-13 13:39] LABS: ANISOCYTOSIS 1+; HELMET CELLS SLIGHT; HYPOCHROMASIA 1+; OVALOCYTES SLIGHT; POIKILOCYTOSIS 2+; TARGET CELLS 1+
[2017-06-13] MEDS: PRIMAQUINE PHOSPHATE 26.3 MG TABLET PO SCH (13:42)
[2017-06-13] MEDS: LEVOFLOXACIN 750 MG/D5W RTU 750 MG/150 ML RTUPB IV SCH (17:15)
[2017-06-13] MEDS: ETRAVIRINE 200 MG PO SCH (21:39)
[2017-06-13] MEDS: DARUNAVIR ETHANOLATE 600 MG PO SCH (21:39)
[2017-06-13] MEDS: EFAVIRENZ/EMTRICITAB/TENOFOVIR (600-200-300 MG) TABLET PO SCH (21:41)
[2017-06-14] MEDS: CLINDAMYCIN 600 MG/D5W RTU 600 MG/50 ML RTUPB IV SCH ×3 (02:39→19:27)
[2017-06-14] MEDS: NORMAL SALINE 1000 ML 1,000 ML IV PRN (05:09)
[2017-06-14] MEDS: CHLORPROMAZINE HCL 25 MG TABLET PO SCH ×3 (05:48→21:51)
[2017-06-14 08:58] LABS: ABSOLUTE LYMPHOCYTES (AUTO) 0.3 10^3/uL (0.5-4.7); ABSOLUTE MONOCYTES (AUTO) 0.1 10^3/uL (0.1-1.4); ABSOLUTE NEUT (AUTO) 4.7 10^3/uL (1.7-8.2); BASOPHILS % (AUTO) 0.2 % (0-2); EOSINOPHILS % (AUTO) 0.2 % (0-6); HEMATOCRIT 25.3 % (37.9-51.0); HEMOGLOBIN 8.8 g/dL (13.5-17.0); HGB HCT DIFFERENCE 1.1; LYMPHOCYTES % (AUTO) 5.2 % (13-45); MEAN CORPUSCULAR HEMOGLOBIN 28.2 pg (27.0-33.4); MEAN CORPUSCULAR HGB CONC 34.7 g/dL (32.0-36.0); MEAN CORPUSCULAR VOLUME 81 fl (80-97); MONOCYTES % (AUTO) 1.1 % (3-13); RED BLOOD COUNT 3.11 10^6/uL (4.35-5.55); RED CELL DISTRIBUTION WIDTH 15.6 % (11.5-14.0); SEGMENTED NEUTROPHILS % (AUTO) 93.3 % (42-78)
[2017-06-14 09:06] LABS: ALANINE AMINOTRANSFERASE 48 U/L (21-72); ALBUMIN 2.3 g/dL (3.5-5.0); ALKALINE PHOSPHATASE 93 U/L (38-126); ANION GAP 11 (5-19); ASPARTATE AMINO TRANSFERASE 17 U/L (17-59); BILIRUBIN,DIRECT 0.4 mg/dL (0.0-0.4); BILIRUBIN,TOTAL 0.8 mg/dL (0.2-1.3); BLOOD UREA NITROGEN 32 mg/dL (7-20); CALCIUM 7.7 mg/dL (8.4-10.2); CARBON DIOXIDE 22 mmol/L (22-30); CHLORIDE 107 mmol/L (98-107); GLUCOSE 101 mg/dL (75-110); POTASSIUM 4.3 mmol/L (3.6-5.0); SODIUM 139.8 mmol/L (137-145); TOTAL PROTEIN 5.9 g/dL (6.3-8.2)
[2017-06-14] MEDS: PREDNISONE 20 MG TABLET PO SCH ×2 (09:31→18:38)
[2017-06-14 09:32] LABS: OVALOCYTES 1+; TARGET CELLS 2+; TEAR DROP CELLS 1+
[2017-06-14] MEDS: LEVETIRACETAM 500 MG TABLET PO SCH ×2 (09:32→21:51)
[2017-06-14] MEDS: EMTRICITABINE/TENOFOVIR 200-300 MG TABLET PO SCH (09:32)
[2017-06-14] MEDS: METOPROLOL SUCCINATE 25 MG TAB.SR.24H PO SCH (09:32)
[2017-06-14] MEDS: ENOXAPARIN SODIUM INJ 30 MG/0.3 ML DISP.SYRIN SUBCUT SCH (09:32)
[2017-06-14] MEDS: DARUNAVIR ETHANOLATE 600 MG PO SCH ×2 (09:32→21:50)
[2017-06-14] MEDS: PRIMAQUINE PHOSPHATE 26.3 MG TABLET PO SCH (09:32)
[2017-06-14] MEDS: ETRAVIRINE 200 MG PO SCH ×2 (09:32→21:50)
[2017-06-14] MEDS ORDERED: RITONAVIR 100 MG TABLET PO ONE (12:30)
[2017-06-14] MEDS: LEVOFLOXACIN 750 MG/D5W RTU 750 MG/150 ML RTUPB IV SCH (20:33)
--- NOTE | 2017-06-14 21:05 | PDOC PROGRESS REPORT ---
Subjective Progress Note for:: 06/14/17 Subjective:: Patient seen by the bedside his cognition is poor, will get consultation for physical therapy , prednisone is discontinued, he was given prednisone initially because he was empirically treated for PCP pneumonia, this was not confirmed, PCP was considered because he was severely immunocompromise with CD4 count below 200 Reason For Visit: FEVER,METABOLIC ENCEPHALOPATHY,AIDS DEFINING Physical Exam Vital Signs: Temp Pulse Resp BP Pulse Ox 97.6 F 99 18 140/92 H 97 06/14/17 16:31 06/14/17 16:31 06/14/17 16:31 06/14/17 16:31 06/14/17 16:31 Intake & Output 06/13/17 06/14/17 06/15/17 06:59 06:59 06:59 Intake Total 2867 3134 1343 Output Total 1325 1875 1400 Balance 1542 1259 -57 Weight 86.7 kg 85.9 kg General appearance: PRESENT: no acute distress Eye exam: PRESENT: PERRLA Respiratory exam: PRESENT: clear to auscultation joslyn Cardiovascular exam: PRESENT: +S1, +S2 GI/Abdominal exam: PRESENT: soft Neurological exam: PRESENT: alert Results Laboratory Results: 06/14/17 08:00 06/14/17 08:00 06/14/17 06/14/17 08:00 08:00 WBC 5.0 RBC 3.11 L Hgb 8.8 L Hct 25.3 L MCV 81 MCH 28.2 MCHC 34.7 RDW 15.6 H Plt Count 30 L* Seg Neutrophils % 93.3 H Lymphocytes % 5.2 L Monocytes % 1.1 L Eosinophils % 0.2 Basophils % 0.2 Absolute Neutrophils 4.7 Absolute Lymphocytes 0.3 L Absolute Monocytes 0.1 Absolute Eosinophils 0.0 Absolute Basophils 0.0 Sodium 139.8 Potassium 4.3 Chloride 107 Carbon Dioxide 22 Anion Gap 11 BUN 32 H Creatinine 1.40 H Est GFR ( Amer) > 60 Est GFR (Non-Af Amer) 54 L Glucose 101 Calcium 7.7 L Total Bilirubin 0.8 AST 17 ALT 48 Alkaline Phosphatase 93 Total Protein 5.9 L Albumin 2.3 L 06/11/17 21:07 Stool - Stool - Final 06/11/17 21:07 Stool - Stool Stool Culture - Final C.albicans/C.dubliniensis 06/09/17 06/09/17 22:15 22:15 Creatine Kinase 84 CK-MB (CK-2) 0.24 Impressions: Renal Ultrasound 06/09/17 00:00 IMPRESSION: NORMAL RENAL AND BLADDER ULTRASOUND. Chest X-Ray 06/09/17 11:20 IMPRESSION: NO SIGNIFICANT RADIOGRAPHIC FINDING IN THE CHEST. Head CT 06/09/17 11:21 IMPRESSION: MILD CHRONIC CHANGES OF ATROPHY AND MICROVASCULAR ISCHEMIA. NO ACUTE PROCESS. EVIDENCE OF ACUTE STROKE: NO. MUGA 06/11/17 00:00 IMPRESSION: NORMAL CARDIAC MUGA STUDY. NORMAL LEFT VENTRICULAR FUNCTION WITH VALUES ABOVE. Head MRI 06/12/17 00:00 IMPRESSION: Extensive white matter disease, chronic. Mild prominence of the ventricles and sulci from diffuse atrophy, stable. Gradient echo T2 images demonstrate multiple punctate foci of hemosiderin deposition which can be seen in dementia related to amyloid and microangiopathy. No acute large territory ischemic change or acute intracranial hemorrhage EVIDENCE OF ACUTE STROKE: NO. Assessment & Plan - Diagnosis (1) AIDS (acquired immunodeficiency syndrome), CD4 <=200 Is this a current diagnosis for this admission?: Yes (2) Fever Qualifiers: Fever type: unspecified Qualified Code(s): R50.9 - Fever, unspecified Is this a current diagnosis for this admission?: Yes (3) Hodgkin lymphoma Qualifiers: Hodgkin lymphoma type: other classical type Lymphoma site: intra-abdominal nodes Qualified Code(s): C81.73 - Other Hodgkin lymphoma, intra-abdominal lymph nodes Is this a current diagnosis for this admission?: Yes (4) Acute kidney injury Is this a current diagnosis for this admission?: Yes (5) Hiccough Is this a current diagnosis for this admission?: Yes (6) Diarrhea Qualifiers: Diarrhea type: unspecified type Qualified Code(s): R19.7 - Diarrhea, unspecified Is this a current diagnosis for this admission?: Yes (7) Thrombocytopenia Is this a current diagnosis for this admission?: Yes (8) Thrombocytopenia due to drugs Is this a current diagnosis for this admission?: Yes (9) Thrombocytopenia associated with AIDS Is this a current diagnosis for this admission?: Yes (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
[2017-06-14] MEDS: RITONAVIR 100 MG TABLET PO SCH (21:51)
[2017-06-14] MEDS ORDERED: DAPSONE 25 MG TABLET PO ONE (22:45)
[2017-06-15] MEDS: CHLORPROMAZINE HCL 25 MG TABLET PO SCH ×3 (05:53→21:19)
[2017-06-15 08:12] LABS: ABSOLUTE LYMPHOCYTES (AUTO) 0.3 10^3/uL (0.5-4.7); ABSOLUTE NEUT (AUTO) 2.9 10^3/uL (1.7-8.2); BASOPHILS % (AUTO) 0.1 % (0-2); EOSINOPHILS % (AUTO) 0.1 % (0-6); HEMATOCRIT 28.5 % (37.9-51.0); HEMOGLOBIN 9.9 g/dL (13.5-17.0); HGB HCT DIFFERENCE 1.2; LYMPHOCYTES % (AUTO) 9.5 % (13-45); MEAN CORPUSCULAR HEMOGLOBIN 28.6 pg (27.0-33.4); MEAN CORPUSCULAR HGB CONC 34.8 g/dL (32.0-36.0); MEAN CORPUSCULAR VOLUME 82 fl (80-97); MONOCYTES % (AUTO) 0.5 % (3-13); RED BLOOD COUNT 3.46 10^6/uL (4.35-5.55); RED CELL DISTRIBUTION WIDTH 15.4 % (11.5-14.0); SEGMENTED NEUTROPHILS % (AUTO) 89.8 % (42-78); WHITE BLOOD COUNT 3.2 10^3/uL (4.0-10.5)
[2017-06-15 08:23] LABS: ALANINE AMINOTRANSFERASE 45 U/L (21-72); ALBUMIN 2.7 g/dL (3.5-5.0); ALKALINE PHOSPHATASE 111 U/L (38-126); ANION GAP 12 (5-19); ASPARTATE AMINO TRANSFERASE 15 U/L (17-59); BILIRUBIN,DIRECT 0.4 mg/dL (0.0-0.4); BILIRUBIN,TOTAL 1.3 mg/dL (0.2-1.3); BLOOD UREA NITROGEN 27 mg/dL (7-20); CALCIUM 8.1 mg/dL (8.4-10.2); CARBON DIOXIDE 24 mmol/L (22-30); CHLORIDE 105 mmol/L (98-107); CREATININE RESULT 1.11 mg/dL (0.52-1.25); GLUCOSE 113 mg/dL (75-110); POTASSIUM 4.4 mmol/L (3.6-5.0); SODIUM 140.8 mmol/L (137-145); TOTAL PROTEIN 6.4 g/dL (6.3-8.2)
[2017-06-15 08:50] LABS: OVALOCYTES 1+; POIKILOCYTOSIS 1+; TARGET CELLS 2+
[2017-06-15] MEDS: EMTRICITABINE/TENOFOVIR 200-300 MG TABLET PO SCH (09:55)
[2017-06-15] MEDS: DAPSONE 25 MG TABLET PO SCH ×2 (09:55→18:27)
[2017-06-15] MEDS: RITONAVIR 100 MG TABLET PO SCH ×2 (09:55→21:19)
[2017-06-15] MEDS: ETRAVIRINE 200 MG PO SCH ×2 (09:55→21:19)
[2017-06-15] MEDS: LEVETIRACETAM 500 MG TABLET PO SCH ×2 (09:55→21:19)
[2017-06-15] MEDS: DARUNAVIR ETHANOLATE 600 MG PO SCH ×2 (09:55→21:19)
[2017-06-15] MEDS: METOPROLOL SUCCINATE 25 MG TAB.SR.24H PO SCH (09:55)
[2017-06-15] MEDS: ENOXAPARIN SODIUM INJ 30 MG/0.3 ML DISP.SYRIN SUBCUT SCH (10:06)
[2017-06-15 12:25] LABS: PATH REVIEW PATHOLOGIST REVIEWED
[2017-06-15 14:40] LABS: ABSOLUTE CD 4 HELPER 17 /uL (359-1519); CD BASOPHILS 0 % (Not Estab.); CD EOSINOPHILS 0 % (Not Estab.); CD MONOCYTES 2 % (Not Estab.); CD NEUTROPHILS 95 % (Not Estab.); HEMATOCRIT . 25.9 % (37.5-51.0); IMMATURE GRANULOCYTES 0 % (Not Estab.); LYMPHS(ABSOLUTE) 0.2 x10E3/uL (0.7-3.1); MCH 27.1 pg (26.6-33.0); MCHC 34.4 g/dL (31.5-35.7); MCV 79 fL (79-97); NEUTROPHILS(ABSOLUTE) 5.5 x10E3/uL (1.4-7.0); RBC 3.28 x10E6/uL (4.14-5.80); RDW 17.7 % (12.3-15.4); WBC 5.9 x10E3/uL (3.4-10.8)
[2017-06-15 14:53] LABS: HEMATOLOGY COMMENTS Note: (.); HEMOGLOBIN 8.9 g/dL (13.0-17.7); PLATELETS 42 x10E3/uL (150-379)
--- NOTE | 2017-06-15 16:48 | PROGRESS NOTE E ---
Progress Note NAME: VERONICA CARDENAS : 1970 AGE: 46Y DATE: 06/15/2017 ROOM: 328 REFERRING PHYSICIAN: Dr. Mesa. SUBJECTIVE: The patient received his first dose of chemotherapy with ABVD on 06/11/2017, today at the bedside he looks a little bit more awake. He has no fevers. He states he feels slightly better. He still has the hiccup. He has parents also at the bedside. LABORATORY DATA: From today his white count is 3.2, ANC 2.9, hemoglobin 9.9, platelet count is 23. His sodium is 140, potassium 4.4. IMPRESSION AND PLAN: The patient is a 46-year-old man with Hodgkin's lymphoma in the setting of HIV infection, events since admission noted. He was started on chemotherapy 06/11/2017. I had a long discussion with him as well as his parents today explaining that Hodgkin's lymphoma has a good prognosis, however, his HIV infection will need to be adequately treated for optimal prognosis and response to treatment. His next dose of chemotherapy is due next week. My plan is to see him back in follow up as an outpatient. Following his discharge he will return to the office next week Wednesday at about 12 noon for a CBC and his next dose of chemotherapy will be given on following his discharge. I thank you for this consultation in allowing me to part of his care. DICTATING PHYSICIAN: ADONIS TRIPP M.D. [id number] PHY#: [id number] ID: [id number] JOB#: [id number] ACCT: [id number] cc: >
[2017-06-15] MEDS: LEVOFLOXACIN 750 MG/D5W RTU 750 MG/150 ML RTUPB IV SCH (18:47)
--- NOTE | 2017-06-15 22:09 | PDOC PROGRESS REPORT ---
Subjective Progress Note for:: 06/15/17 Subjective:: Patient was seen by the bedside, he is more alert and oriented yesterday the intravenous clindamycin, primaquine was discontinued he was started on dapsone for PCP prophylaxis. He was also seen by physical therapy today on is able to make steps and get active again hopefully to be discharged by end of the week, he was also seen by oncology today scheduled for another round of chemotherapy next week Reason For Visit: FEVER,METABOLIC ENCEPHALOPATHY,AIDS DEFINING Physical Exam Vital Signs: Temp Pulse Resp BP Pulse Ox 98.1 F 92 20 154/96 H 98 06/15/17 20:15 06/15/17 20:15 06/15/17 20:15 06/15/17 20:15 06/15/17 20:15 Intake & Output 06/14/17 06/15/17 06/16/17 06:59 06:59 06:59 Intake Total 3134 2959 2241 Output Total 1875 1400 Balance 1259 1559 2241 Weight 85.9 kg 84 kg General appearance: PRESENT: no acute distress Eye exam: PRESENT: PERRLA Respiratory exam: PRESENT: clear to auscultation joslyn Cardiovascular exam: PRESENT: +S1, +S2 GI/Abdominal exam: PRESENT: soft Results Laboratory Results: 06/15/17 07:39 06/15/17 07:39 06/15/17 06/15/17 07:39 07:39 WBC 3.2 L RBC 3.46 L Hgb 9.9 L Hct 28.5 L MCV 82 MCH 28.6 MCHC 34.8 RDW 15.4 H Plt Count 23 L* Seg Neutrophils % 89.8 H Lymphocytes % 9.5 L Monocytes % 0.5 L Eosinophils % 0.1 Basophils % 0.1 Absolute Neutrophils 2.9 Absolute Lymphocytes 0.3 L Absolute Monocytes 0.0 L Absolute Eosinophils 0.0 Absolute Basophils 0.0 Sodium 140.8 Potassium 4.4 Chloride 105 Carbon Dioxide 24 Anion Gap 12 BUN 27 H Creatinine 1.11 Est GFR ( Amer) > 60 Est GFR (Non-Af Amer) > 60 Glucose 113 H Calcium 8.1 L Total Bilirubin 1.3 AST 15 L ALT 45 Alkaline Phosphatase 111 Total Protein 6.4 Albumin 2.7 L 06/09/17 06/09/17 22:15 22:15 Creatine Kinase 84 CK-MB (CK-2) 0.24 Impressions: Renal Ultrasound 06/09/17 00:00 IMPRESSION: NORMAL RENAL AND BLADDER ULTRASOUND. Chest X-Ray 06/09/17 11:20 IMPRESSION: NO SIGNIFICANT RADIOGRAPHIC FINDING IN THE CHEST. Head CT 06/09/17 11:21 IMPRESSION: MILD CHRONIC CHANGES OF ATROPHY AND MICROVASCULAR ISCHEMIA. NO ACUTE PROCESS. EVIDENCE OF ACUTE STROKE: NO. MUGA 06/11/17 00:00 IMPRESSION: NORMAL CARDIAC MUGA STUDY. NORMAL LEFT VENTRICULAR FUNCTION WITH VALUES ABOVE. Head MRI 06/12/17 00:00 IMPRESSION: Extensive white matter disease, chronic. Mild prominence of the ventricles and sulci from diffuse atrophy, stable. Gradient echo T2 images demonstrate multiple punctate foci of hemosiderin deposition which can be seen in dementia related to amyloid and microangiopathy. No acute large territory ischemic change or acute intracranial hemorrhage EVIDENCE OF ACUTE STROKE: NO. Assessment & Plan - Diagnosis (1) AIDS (acquired immunodeficiency syndrome), CD4 <=200 Is this a current diagnosis for this admission?: Yes (2) Fever Qualifiers: Fever type: unspecified Qualified Code(s): R50.9 - Fever, unspecified Is this a current diagnosis for this admission?: Yes (3) Hodgkin lymphoma Qualifiers: Hodgkin lymphoma type: other classical type Lymphoma site: intra-abdominal nodes Qualified Code(s): C81.73 - Other Hodgkin lymphoma, intra-abdominal lymph nodes Is this a current diagnosis for this admission?: Yes (4) Acute kidney injury Is this a current diagnosis for this admission?: Yes (5) Hiccough Is this a current diagnosis for this admission?: Yes (6) Diarrhea Qualifiers: Diarrhea type: unspecified type Qualified Code(s): R19.7 - Diarrhea, unspecified Is this a current diagnosis for this admission?: Yes (7) Thrombocytopenia Is this a current diagnosis for this admission?: Yes (8) Thrombocytopenia due to drugs Is this a current diagnosis for this admission?: Yes (9) Thrombocytopenia associated with AIDS Is this a current diagnosis for this admission?: Yes (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
[2017-06-16 04:03] LABS: ABSOLUTE LYMPHOCYTES (AUTO) 0.6 10^3/uL (0.5-4.7); ABSOLUTE NEUT (AUTO) 0.4 10^3/uL (1.7-8.2); BASOPHILS % (AUTO) 0.6 % (0-2); EOSINOPHILS % (AUTO) 0.8 % (0-6); HEMATOCRIT 25.9 % (37.9-51.0); HEMOGLOBIN 9.1 g/dL (13.5-17.0); HGB HCT DIFFERENCE 1.4; LYMPHOCYTES % (AUTO) 61.3 % (13-45); MEAN CORPUSCULAR HEMOGLOBIN 28.7 pg (27.0-33.4); MEAN CORPUSCULAR VOLUME 82 fl (80-97); MONOCYTES % (AUTO) 1.1 % (3-13); RED BLOOD COUNT 3.16 10^6/uL (4.35-5.55); RED CELL DISTRIBUTION WIDTH 15.2 % (11.5-14.0); SEGMENTED NEUTROPHILS % (AUTO) 36.2 % (42-78)
[2017-06-16 04:09] LABS: ALANINE AMINOTRANSFERASE 49 U/L (21-72); ALBUMIN 2.5 g/dL (3.5-5.0); ALKALINE PHOSPHATASE 106 U/L (38-126); ANION GAP 10 (5-19); ASPARTATE AMINO TRANSFERASE 20 U/L (17-59); BILIRUBIN,DIRECT 0.3 mg/dL (0.0-0.4); BILIRUBIN,TOTAL 0.9 mg/dL (0.2-1.3); BLOOD UREA NITROGEN 26 mg/dL (7-20); CALCIUM 7.9 mg/dL (8.4-10.2); CARBON DIOXIDE 27 mmol/L (22-30); CHLORIDE 105 mmol/L (98-107); CREATININE RESULT 1.28 mg/dL (0.52-1.25); GLUCOSE 98 mg/dL (75-110); TOTAL PROTEIN 6.2 g/dL (6.3-8.2)
[2017-06-16 04:54] LABS: OVALOCYTES SLIGHT; POIKILOCYTOSIS 1+; SCHISTOCYTES SLIGHT; TARGET CELLS 2+; TEAR DROP CELLS SLIGHT
[2017-06-16 04:55] LABS: ANISOCYTOSIS SLIGHT; BURR CELLS SLIGHT
[2017-06-16] MEDS: CHLORPROMAZINE HCL 25 MG TABLET PO SCH ×3 (05:55→21:54)
[2017-06-16] MEDS ORDERED: IBUPROFEN 800 MG TABLET PO PRN (08:14)
[2017-06-16] MEDS ORDERED: VANCOMYCIN HCL 0 MG in DEXTROSE 5%-WATER 250 ML IV NR (08:15)
[2017-06-16] MEDS ORDERED: LORAZEPAM INJ 2 MG/1 ML VIAL IV PRN ×2 (09:24→10:20)
--- NOTE | 2017-06-16 10:29 | RADIOLOGY REPORT (SQ) ---
EXAM DESCRIPTION: CT CHEST WITHOUT COMPLETED DATE/TIME: 06/16/2017 9:38 am REASON FOR STUDY: fever COMPARISON: Chest x-ray 06/09/2017 TECHNIQUE: CT scan performed of the chest without intravenous contrast. Images reviewed with lung, soft tissue and bone windows. Reconstructed coronal and sagittal MPR images reviewed. All images st ored on PACS. All CT scanners at this facility use dose modulation, iterative reconstruction, and/or weight based d osing when appropriate to reduce radiation dose to as low as reasonably achievable (ALARA). [facility]: Dose Right [facility]: CareDose [facility]: Dose Right [facility]: Teradose 4D [facility]: Lango RADIATION DOSE: CT Rad equipment meets quality standard of care and radiation dose reduction techniq ues were employed. CTDIvol: 12.9 mGy. DLP: 475 mGy-cm. mGy. LIMITATIONS: No technical limitations. FINDINGS: LUNGS AND PLEURA: No masses, infiltrates, pneumothorax. No pleural effusions, calcificati ons. HILAR AND MEDIASTINAL STRUCTURES: No identified masses or abnormal nodes. No obvious aneurysm. HEART AND VASCULAR STRUCTURES: No aneurysm. No pericardial effusion. UPPER ABDOMEN: No significant findings. Limited exam. THYROID AND OTHER SOFT TISSUES: No masses. No adenopathy. BONES: No significant finding. HARDWARE: An injection port is present. OTHER: No other significant findings. IMPRESSION: NO SIGNIFICANT FINDING ON NON-CONTRASTED CHEST CT. TECHNICAL DOCUMENTATION: JOB ID: [id number] Quality ID # [id number]: Final reports with documentation of one or more dose reduction techniques (e.g., Au tomated exposure control, adjustment of the mA and/or kV according to patient size, use of iterative reconstruction technique) 2010 [employer]- All Rights Reserved
[2017-06-16 11:02] LABS: ROULEAUX 1+
[2017-06-16 11:03] LABS: PATH REVIEW PATHOLOGIST REVIEWED
[2017-06-16] MEDS ORDERED: FILGRASTIM INJ 300 MCG/1 ML VIAL SUBCUT ONE (11:30)
[2017-06-16] MEDS: ETRAVIRINE 200 MG PO SCH ×2 (11:46→21:44)
[2017-06-16] MEDS ORDERED: IMIPENEM/CILASTATIN SODIUM 1,000 MG in NORMAL SALINE 250 ML IV SCH (12:00)
[2017-06-16] MEDS: DARUNAVIR ETHANOLATE 600 MG PO SCH ×2 (12:02→21:44)
[2017-06-16] MEDS: RITONAVIR 100 MG TABLET PO SCH ×2 (12:02→21:44)
[2017-06-16] MEDS: EMTRICITABINE/TENOFOVIR 200-300 MG TABLET PO SCH (12:03)
[2017-06-16] MEDS: DAPSONE 25 MG TABLET PO SCH ×2 (12:03→17:54)
[2017-06-16] MEDS: METOPROLOL SUCCINATE 25 MG TAB.SR.24H PO SCH (12:04)
[2017-06-16] MEDS: IMIPENEM/CILASTATIN SODIUM 500 MG in NORMAL SALINE 100 ML IV SCH ×3 (12:04→23:40)
[2017-06-16] MEDS: LEVETIRACETAM 500 MG TABLET PO SCH ×2 (12:07→21:44)
[2017-06-16] MEDS ORDERED: ACETAMINOPHEN 325 MG TABLET ONE (13:05)
[2017-06-16] MEDS: VANCOMYCIN HCL 1,250 MG in DEXTROSE 5%-WATER 250 ML IV SCH ×2 (13:13→21:44)
[2017-06-16] MEDS: ENOXAPARIN SODIUM INJ 30 MG/0.3 ML DISP.SYRIN SUBCUT SCH (13:22)
[2017-06-16] MEDS ORDERED: ACETAMINOPHEN 325 MG TABLET PO PRN (13:22)
[2017-06-16] MEDS ORDERED: FLUCONAZOLE 100 MG TABLET PO ONE ×2 (17:00)
[2017-06-16] MEDS ORDERED: NYSTATIN/DEXAMETH/DIPHEN SUSP 120 ML PO ONE (17:30)
[2017-06-16] MEDS: LEVOFLOXACIN 750 MG/D5W RTU 750 MG/150 ML RTUPB IV SCH (17:54)
--- NOTE | 2017-06-16 17:58 | PROGRESS NOTE E ---
Progress Note NAME: VERONICA CARDENAS : 1970 AGE: 46Y DATE: 06/16/2017 ROOM: 328 SUBJECTIVE: The patient is status post 1 cycle of ABVD, but bleomycin was omitted and chemotherapy was given at a reduced dose. He feels well. He is having some mouth sores and difficulty swallowing. He has had no fever. His white count is 1.0, hemoglobin is 9.1, platelet count is 28. OBJECTIVE: On exam he does have thrush and also some mouth sores. IMPRESSION AND PLAN: 1. THE PATIENT IS A 46-YEAR-OLD MAN WITH HODGKIN'S LYMPHOMA IN THE SETTING OF HIV INFECTION, HE IS NEUTROPENIC. He will be started on Neupogen. He will receive a dose today. I will repeat his CBC in the morning and decide if additional doses will be needed. 2. FOR HIS ORAL THRUSH I put an order for Diflucan 100 mg daily and also for Lozano's oral mouth wash. Hopefully his white count is improved and hopefully his mouth sores improve as well. I will see him back for followup as an outpatient following his discharge, if he otherwise remains clinically stable his next dose of chemotherapy is due 06/23 or 06/24, and hopefully this will be given as an outpatient. I thank you for taking care of him during this hospitalization and allowing me to be a part of his care. DICTATING PHYSICIAN: ADONIS TRIPP M.D. [id number] STEWARTY#: [id number] ID: [id number] JOB#: [id number] ACCT: [id number] cc: >
[2017-06-16] MEDS: NORMAL SALINE 1000 ML 1,000 ML IV PRN (18:19)
--- NOTE | 2017-06-16 18:23 | PDOC PROGRESS REPORT ---
Subjective Progress Note for:: 06/16/17 Subjective:: Patient developed severe febrile neutropenia, temperature was as high as 102 absolute neutrophil count is 400, he was seen by oncology he had a dose of Neupogen today Reason For Visit: FEVER,METABOLIC ENCEPHALOPATHY,AIDS DEFINING Physical Exam Vital Signs: Temp Pulse Resp BP Pulse Ox 99.4 F 131 H 18 136/77 H 98 06/16/17 16:17 06/16/17 16:17 06/16/17 16:17 06/16/17 16:17 06/16/17 16:17 Intake & Output 06/15/17 06/16/17 06/17/17 06:59 06:59 06:59 Intake Total 2959 3093 598 Output Total 1400 Balance 1559 3093 598 Weight 84 kg 83.2 kg General appearance: PRESENT: no acute distress Head exam: PRESENT: atraumatic, normocephalic Eye exam: PRESENT: PERRLA Neck exam: PRESENT: full ROM Respiratory exam: PRESENT: clear to auscultation joslyn Cardiovascular exam: PRESENT: RRR, +S1, +S2 Pulses: PRESENT: normal dorsalis pedis pul, +2 pedal pulses bilateral Vascular exam: PRESENT: normal capillary refill GI/Abdominal exam: PRESENT: normal bowel sounds, soft Rectal exam: PRESENT: deferred Neurological exam: PRESENT: alert, awake, oriented to person, oriented to place , oriented to time, oriented to situation, CN II-XII grossly intact Psychiatric exam: PRESENT: appropriate affect, normal mood Skin exam: PRESENT: dry, intact, warm. ABSENT: cyanosis, rash Results Laboratory Results: 06/16/17 03:43 06/16/17 03:43 06/16/17 06/16/17 03:43 03:43 WBC 1.0 L* D RBC 3.16 L Hgb 9.1 L Hct 25.9 L MCV 82 MCH 28.7 MCHC 35.0 RDW 15.2 H Plt Count 28 L* Seg Neutrophils % 36.2 L Lymphocytes % 61.3 H Monocytes % 1.1 L Eosinophils % 0.8 Basophils % 0.6 Absolute Neutrophils 0.4 L Absolute Lymphocytes 0.6 Absolute Monocytes 0.0 L Absolute Eosinophils 0.0 Absolute Basophils 0.0 Sodium 142.0 Potassium 4.0 Chloride 105 Carbon Dioxide 27 Anion Gap 10 BUN 26 H Creatinine 1.28 H Est GFR ( Amer) > 60 Est GFR (Non-Af Amer) > 60 Glucose 98 Calcium 7.9 L Total Bilirubin 0.9 AST 20 ALT 49 Alkaline Phosphatase 106 Total Protein 6.2 L Albumin 2.5 L 06/09/17 06/09/17 22:15 22:15 Creatine Kinase 84 CK-MB (CK-2) 0.24 Impressions: Renal Ultrasound 06/09/17 00:00 IMPRESSION: NORMAL RENAL AND BLADDER ULTRASOUND. Chest X-Ray 06/09/17 11:20 IMPRESSION: NO SIGNIFICANT RADIOGRAPHIC FINDING IN THE CHEST. Head CT 06/09/17 11:21 IMPRESSION: MILD CHRONIC CHANGES OF ATROPHY AND MICROVASCULAR ISCHEMIA. NO ACUTE PROCESS. EVIDENCE OF ACUTE STROKE: NO. MUGA 06/11/17 00:00 IMPRESSION: NORMAL CARDIAC MUGA STUDY. NORMAL LEFT VENTRICULAR FUNCTION WITH VALUES ABOVE. Head MRI 06/12/17 00:00 IMPRESSION: Extensive white matter disease, chronic. Mild prominence of the ventricles and sulci from diffuse atrophy, stable. Gradient echo T2 images demonstrate multiple punctate foci of hemosiderin deposition which can be seen in dementia related to amyloid and microangiopathy. No acute large territory ischemic change or acute intracranial hemorrhage EVIDENCE OF ACUTE STROKE: NO. Chest CT 06/16/17 00:00 IMPRESSION: NO SIGNIFICANT FINDING ON NON-CONTRASTED CHEST CT. Assessment & Plan - Diagnosis (1) AIDS (acquired immunodeficiency syndrome), CD4 <=200 Is this a current diagnosis for this admission?: Yes (2) Fever Qualifiers: Fever type: unspecified Qualified Code(s): R50.9 - Fever, unspecified Is this a current diagnosis for this admission?: Yes (3) Hodgkin lymphoma Qualifiers: Hodgkin lymphoma type: other classical type Lymphoma site: intra-abdominal nodes Qualified Code(s): C81.73 - Other Hodgkin lymphoma, intra-abdominal lymph nodes Is this a current diagnosis for this admission?: Yes (4) Acute kidney injury Is this a current diagnosis for this admission?: Yes (5) Hiccough Is this a current diagnosis for this admission?: Yes (6) Diarrhea Qualifiers: Diarrhea type: unspecified type Qualified Code(s): R19.7 - Diarrhea, unspecified Is this a current diagnosis for this admission?: Yes (7) Thrombocytopenia Is this a current diagnosis for this admission?: Yes (8) Thrombocytopenia due to drugs Is this a current diagnosis for this admission?: Yes (9) Thrombocytopenia associated with AIDS Is this a current diagnosis for this admission?: Yes (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
[2017-06-16 19:08] LABS: APPEARANCE,URINE CLEAR; BILIRUBIN,URINE NEGATIVE (NEGATIVE); GLUCOSE, URINE 50 mg/dL (NEGATIVE); KETONES,URINE NEGATIVE (NEGATIVE); LEUKOCYTE ESTERASE,URINE NEGATIVE (NEGATIVE); NITRITE,URINE NEGATIVE (NEGATIVE); PROTEIN,URINE 30 mg/dL (NEGATIVE); URINE SPECIFIC GRAVITY 1.018; UROBILINOGEN,URINE NEGATIVE mg/dL (<2.0)
[2017-06-16] MEDS: NYSTATIN/DEXAMETH/DIPHEN SUSP 120 ML PO SCH (21:44)
[2017-06-17 04:53] LABS: ABSOLUTE LYMPHOCYTES (AUTO) 0.8 10^3/uL (0.5-4.7); EOSINOPHILS % (AUTO) 1.3 % (0-6); HEMATOCRIT 23.8 % (37.9-51.0); HEMOGLOBIN 8.2 g/dL (13.5-17.0); HGB HCT DIFFERENCE 0.8; MEAN CORPUSCULAR HEMOGLOBIN 28.3 pg (27.0-33.4); MEAN CORPUSCULAR HGB CONC 34.4 g/dL (32.0-36.0); MEAN CORPUSCULAR VOLUME 82 fl (80-97); MONOCYTES % (AUTO) 1.2 % (3-13); RED BLOOD COUNT 2.89 10^6/uL (4.35-5.55); RED CELL DISTRIBUTION WIDTH 15.2 % (11.5-14.0); SEGMENTED NEUTROPHILS % (AUTO) 2.5 % (42-78)
[2017-06-17] MEDS: CHLORPROMAZINE HCL 25 MG TABLET PO SCH ×3 (05:05→22:05)
[2017-06-17 05:08] LABS: ALANINE AMINOTRANSFERASE 45 U/L (21-72); ALBUMIN 2.5 g/dL (3.5-5.0); ALKALINE PHOSPHATASE 90 U/L (38-126); ANION GAP 7 (5-19); ASPARTATE AMINO TRANSFERASE 16 U/L (17-59); BILIRUBIN,DIRECT 0.4 mg/dL (0.0-0.4); BILIRUBIN,TOTAL 1.2 mg/dL (0.2-1.3); BLOOD UREA NITROGEN 25 mg/dL (7-20); CALCIUM 7.6 mg/dL (8.4-10.2); CARBON DIOXIDE 28 mmol/L (22-30); CHLORIDE 102 mmol/L (98-107); CREATININE RESULT 1.07 mg/dL (0.52-1.25); GLUCOSE 90 mg/dL (75-110); POTASSIUM 4.2 mmol/L (3.6-5.0); SODIUM 137.2 mmol/L (137-145); TOTAL PROTEIN 6.1 g/dL (6.3-8.2)
[2017-06-17] MEDS: IMIPENEM/CILASTATIN SODIUM 500 MG in NORMAL SALINE 100 ML IV SCH ×3 (05:16→18:35)
[2017-06-17] MEDS: NYSTATIN/DEXAMETH/DIPHEN SUSP 120 ML PO SCH ×3 (05:16→22:13)
[2017-06-17 05:29] LABS: WHITE BLOOD COUNT 0.8 10^3/uL (4.0-10.5)
[2017-06-17 05:39] LABS: ANISOCYTOSIS SLIGHT; OVALOCYTES SLIGHT; POIKILOCYTOSIS 3+; SCHISTOCYTES SLIGHT; TARGET CELLS 3+; TEAR DROP CELLS SLIGHT
[2017-06-17] MEDS: DARUNAVIR ETHANOLATE 600 MG PO SCH ×2 (11:22→22:13)
[2017-06-17] MEDS: ETRAVIRINE 200 MG PO SCH ×2 (11:22→22:13)
[2017-06-17] MEDS: RITONAVIR 100 MG TABLET PO SCH ×2 (11:22→22:13)
[2017-06-17] MEDS: METOPROLOL SUCCINATE 25 MG TAB.SR.24H PO SCH (11:22)
[2017-06-17] MEDS: FLUCONAZOLE 100 MG TABLET PO SCH (11:22)
[2017-06-17] MEDS: LEVETIRACETAM 500 MG TABLET PO SCH ×2 (11:22→22:13)
[2017-06-17] MEDS: DAPSONE 25 MG TABLET PO SCH ×2 (11:23→18:36)
[2017-06-17] MEDS: EMTRICITABINE/TENOFOVIR 200-300 MG TABLET PO SCH (11:23)
[2017-06-17] MEDS: ENOXAPARIN SODIUM INJ 30 MG/0.3 ML DISP.SYRIN SUBCUT SCH (11:23)
[2017-06-17] MEDS: VANCOMYCIN HCL 1,250 MG in DEXTROSE 5%-WATER 250 ML IV SCH ×2 (11:23→22:13)
--- NOTE | 2017-06-17 18:55 | PDOC PROGRESS REPORT ---
Subjective Progress Note for:: 06/17/17 Subjective:: Patient was seen by the bedside, he feels better today, he wants to know when he will be discharged home, is still neutropenic, he developed febrile neutropenia yesterday, presently on broad-spectrum antibiotic, he also add a dose of Neupogen Reason For Visit: FEVER,METABOLIC ENCEPHALOPATHY,AIDS DEFINING Physical Exam Vital Signs: Temp Pulse Resp BP Pulse Ox 99.2 F 115 H 20 143/84 H 93 06/17/17 16:02 06/17/17 16:02 06/17/17 16:02 06/17/17 16:02 06/17/17 16:02 Intake & Output 06/16/17 06/17/17 06/18/17 06:59 06:59 06:59 Intake Total 3093 2408 1261 Output Total 600 1000 Balance 3093 1808 261 Weight 83.2 kg 82.1 kg General appearance: PRESENT: no acute distress Eye exam: PRESENT: PERRLA Respiratory exam: PRESENT: clear to auscultation joslyn Cardiovascular exam: PRESENT: +S1, +S2 GI/Abdominal exam: PRESENT: soft Neurological exam: PRESENT: alert, CN II-XII grossly intact Results Laboratory Results: 06/17/17 04:35 06/17/17 04:35 06/16/17 06/17/17 06/17/17 18:37 04:35 04:35 WBC 0.8 L* RBC 2.89 L Hgb 8.2 L Hct 23.8 L MCV 82 MCH 28.3 MCHC 34.4 RDW 15.2 H Plt Count 23 L* Seg Neutrophils % 2.5 L Lymphocytes % 95.0 H Monocytes % 1.2 L Eosinophils % 1.3 Basophils % 0.0 Absolute Neutrophils 0.0 L Absolute Lymphocytes 0.8 Absolute Monocytes 0.0 L Absolute Eosinophils 0.0 Absolute Basophils 0.0 Sodium 137.2 Potassium 4.2 Chloride 102 Carbon Dioxide 28 Anion Gap 7 BUN 25 H Creatinine 1.07 Est GFR ( Amer) > 60 Est GFR (Non-Af Amer) > 60 Glucose 90 Calcium 7.6 L Total Bilirubin 1.2 AST 16 L ALT 45 Alkaline Phosphatase 90 Total Protein 6.1 L Albumin 2.5 L Urine Color YELLOW Urine Appearance CLEAR Urine pH 6.0 Ur Specific [place] 1.018 Urine Protein 30 H Urine Glucose (UA) 50 H Urine Ketones NEGATIVE Urine Blood SMALL H Urine Nitrite NEGATIVE Ur Leukocyte Esterase NEGATIVE Urine WBC (Auto) 1 Urine RBC (Auto) 3 06/09/17 06/09/17 22:15 22:15 Creatine Kinase 84 CK-MB (CK-2) 0.24 Impressions: Renal Ultrasound 06/09/17 00:00 IMPRESSION: NORMAL RENAL AND BLADDER ULTRASOUND. Chest X-Ray 06/09/17 11:20 IMPRESSION: NO SIGNIFICANT RADIOGRAPHIC FINDING IN THE CHEST. Head CT 06/09/17 11:21 IMPRESSION: MILD CHRONIC CHANGES OF ATROPHY AND MICROVASCULAR ISCHEMIA. NO ACUTE PROCESS. EVIDENCE OF ACUTE STROKE: NO. MUGA 06/11/17 00:00 IMPRESSION: NORMAL CARDIAC MUGA STUDY. NORMAL LEFT VENTRICULAR FUNCTION WITH VALUES ABOVE. Head MRI 06/12/17 00:00 IMPRESSION: Extensive white matter disease, chronic. Mild prominence of the ventricles and sulci from diffuse atrophy, stable. Gradient echo T2 images demonstrate multiple punctate foci of hemosiderin deposition which can be seen in dementia related to amyloid and microangiopathy. No acute large territory ischemic change or acute intracranial hemorrhage EVIDENCE OF ACUTE STROKE: NO. Chest CT 06/16/17 00:00 IMPRESSION: NO SIGNIFICANT FINDING ON NON-CONTRASTED CHEST CT. Assessment & Plan - Diagnosis (1) AIDS (acquired immunodeficiency syndrome), CD4 <=200 Is this a current diagnosis for this admission?: Yes (2) Fever Qualifiers: Fever type: unspecified Qualified Code(s): R50.9 - Fever, unspecified Is this a current diagnosis for this admission?: Yes (3) Hodgkin lymphoma Qualifiers: Hodgkin lymphoma type: other classical type Lymphoma site: intra-abdominal nodes Qualified Code(s): C81.73 - Other Hodgkin lymphoma, intra-abdominal lymph nodes Is this a current diagnosis for this admission?: Yes (4) Acute kidney injury Is this a current diagnosis for this admission?: Yes (5) Hiccough Is this a current diagnosis for this admission?: Yes (6) Diarrhea Qualifiers: Diarrhea type: unspecified type Qualified Code(s): R19.7 - Diarrhea, unspecified Is this a current diagnosis for this admission?: Yes (7) Thrombocytopenia Is this a current diagnosis for this admission?: Yes (8) Thrombocytopenia due to drugs Is this a current diagnosis for this admission?: Yes (9) Thrombocytopenia associated with AIDS Is this a current diagnosis for this admission?: Yes (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
[2017-06-17] MEDS: LEVOFLOXACIN 750 MG/D5W RTU 750 MG/150 ML RTUPB IV SCH (20:05)
[2017-06-18] MEDS: IMIPENEM/CILASTATIN SODIUM 500 MG in NORMAL SALINE 100 ML IV SCH ×4 (00:42→21:50)
[2017-06-18] MEDS: NYSTATIN/DEXAMETH/DIPHEN SUSP 120 ML PO SCH ×3 (05:33→21:50)
[2017-06-18] MEDS: CHLORPROMAZINE HCL 25 MG TABLET PO SCH ×3 (05:34→21:50)
[2017-06-18 05:59] LABS: ABSOLUTE LYMPHOCYTES (AUTO) 0.6 10^3/uL (0.5-4.7); EOSINOPHILS % (AUTO) 0.9 % (0-6); HEMATOCRIT 21.8 % (37.9-51.0); HGB HCT DIFFERENCE 0.7; LYMPHOCYTES % (AUTO) 97.4 % (13-45); MEAN CORPUSCULAR HGB CONC 34.3 g/dL (32.0-36.0); MEAN CORPUSCULAR VOLUME 82 fl (80-97); RED BLOOD COUNT 2.67 10^6/uL (4.35-5.55); RED CELL DISTRIBUTION WIDTH 15.1 % (11.5-14.0); SEGMENTED NEUTROPHILS % (AUTO) 0.7 % (42-78)
[2017-06-18 06:15] LABS: ALANINE AMINOTRANSFERASE 33 U/L (21-72); ALBUMIN 2.2 g/dL (3.5-5.0); ALKALINE PHOSPHATASE 84 U/L (38-126); ANION GAP 7 (5-19); ASPARTATE AMINO TRANSFERASE 14 U/L (17-59); BILIRUBIN,DIRECT 0.4 mg/dL (0.0-0.4); BILIRUBIN,TOTAL 1.1 mg/dL (0.2-1.3); BLOOD UREA NITROGEN 20 mg/dL (7-20); CALCIUM 7.2 mg/dL (8.4-10.2); CARBON DIOXIDE 26 mmol/L (22-30); CHLORIDE 101 mmol/L (98-107); CREATININE RESULT 0.94 mg/dL (0.52-1.25); GLUCOSE 92 mg/dL (75-110); SODIUM 134.3 mmol/L (137-145); TOTAL PROTEIN 5.6 g/dL (6.3-8.2)
[2017-06-18 06:24] LABS: HEMOGLOBIN 7.5 g/dL (13.5-17.0); WHITE BLOOD COUNT 0.6 10^3/uL (4.0-10.5)
[2017-06-18 06:25] LABS: ANISOCYTOSIS 1+; POIKILOCYTOSIS 2+; TARGET CELLS 2+
[2017-06-18] MEDS ORDERED: NORMAL SALINE 250 ML IV PRN ×2 (07:59)
[2017-06-18] MEDS ORDERED: ENOXAPARIN SODIUM INJ 40 MG/0.4 ML DISP.SYRIN SUBCUT SCH (10:00)
[2017-06-18] MEDS: DARUNAVIR ETHANOLATE 600 MG PO SCH ×2 (10:42→21:50)
[2017-06-18] MEDS: FLUCONAZOLE 100 MG TABLET PO SCH (10:43)
[2017-06-18] MEDS: METOPROLOL SUCCINATE 25 MG TAB.SR.24H PO SCH (10:44)
[2017-06-18] MEDS: LEVETIRACETAM 500 MG TABLET PO SCH ×2 (10:44→21:50)
[2017-06-18] MEDS: ETRAVIRINE 200 MG PO SCH ×2 (10:45→21:50)
[2017-06-18] MEDS: EMTRICITABINE/TENOFOVIR 200-300 MG TABLET PO SCH (10:46)
[2017-06-18] MEDS: DAPSONE 25 MG TABLET PO SCH ×2 (10:47→19:45)
[2017-06-18] MEDS: VANCOMYCIN HCL 1,000 MG in DEXTROSE 5%-WATER 250 ML IV SCH ×2 (10:47→19:43)
[2017-06-18] MEDS: RITONAVIR 100 MG TABLET PO SCH ×2 (10:49→21:50)
[2017-06-18] MEDS ORDERED: FUROSEMIDE INJ/PF 20 MG/2 ML SDV IV ONE (19:00)
[2017-06-18] MEDS ORDERED: IMIPENEM/CILASTATIN SODIUM 500 MG in NORMAL SALINE 100 ML IV SCH (21:00)
[2017-06-18 21:04] LABS: ABSOLUTE LYMPHOCYTES (AUTO) 0.6 10^3/uL (0.5-4.7); EOSINOPHILS % (AUTO) 0.8 % (0-6); HEMATOCRIT 29.6 % (37.9-51.0); HGB HCT DIFFERENCE 1.3; LYMPHOCYTES % (AUTO) 97.4 % (13-45); MEAN CORPUSCULAR HEMOGLOBIN 28.4 pg (27.0-33.4); MEAN CORPUSCULAR HGB CONC 34.8 g/dL (32.0-36.0); MEAN CORPUSCULAR VOLUME 82 fl (80-97); MONOCYTES % (AUTO) 1.1 % (3-13); RED BLOOD COUNT 3.63 10^6/uL (4.35-5.55); RED CELL DISTRIBUTION WIDTH 15.3 % (11.5-14.0); SEGMENTED NEUTROPHILS % (AUTO) 0.7 % (42-78)
--- NOTE | 2017-06-18 21:35 | PDOC PROGRESS REPORT ---
Subjective Progress Note for:: 06/18/17 Subjective:: He has pancytopenia secondary to chemotherapy, the hemoglobin is below 8 , requires blood transfusion Reason For Visit: FEVER,METABOLIC ENCEPHALOPATHY,AIDS DEFINING Physical Exam Vital Signs: Temp Pulse Resp BP Pulse Ox 99.9 F 114 H 20 168/94 H 95 06/18/17 18:24 06/18/17 18:24 06/18/17 18:24 06/18/17 18:24 06/18/17 18:24 Intake & Output 06/17/17 06/18/17 06/19/17 06:59 06:59 06:59 Intake Total 2408 2143 1880 Output Total 600 1900 1200 Balance 1808 243 680 Weight 82.1 kg 81.3 kg General appearance: PRESENT: no acute distress Eye exam: PRESENT: PERRLA Respiratory exam: PRESENT: clear to auscultation joslyn Cardiovascular exam: PRESENT: +S1, +S2 GI/Abdominal exam: PRESENT: soft Neurological exam: PRESENT: alert Results Laboratory Results: 06/18/17 05:30 06/18/17 06/18/17 06/18/17 05:30 05:30 08:36 WBC 0.6 L* RBC 2.67 L Hgb 7.5 L Hct 21.8 L MCV 82 MCH 28.0 MCHC 34.3 RDW 15.1 H Plt Count 21 L* Seg Neutrophils % 0.7 L Lymphocytes % 97.4 H Monocytes % 1.0 L Eosinophils % 0.9 Basophils % 0.0 Absolute Neutrophils 0.0 L Absolute Lymphocytes 0.6 Absolute Monocytes 0.0 L Absolute Eosinophils 0.0 Absolute Basophils 0.0 Sodium 134.3 L Potassium 4.0 Chloride 101 Carbon Dioxide 26 Anion Gap 7 BUN 20 Creatinine 0.94 Est GFR ( Amer) > 60 Est GFR (Non-Af Amer) > 60 Glucose 92 Calcium 7.2 L Total Bilirubin 1.1 AST 14 L ALT 33 Alkaline Phosphatase 84 Total Protein 5.6 L Albumin 2.2 L Blood Type O POSITIVE Antibody Screen NEGATIVE 06/16/17 18:37 Clean Catch Midstream Urine Culture - Final C.albicans/C.dubliniensis 06/09/17 06/09/17 22:15 22:15 Creatine Kinase 84 CK-MB (CK-2) 0.24 Impressions: Renal Ultrasound 06/09/17 00:00 IMPRESSION: NORMAL RENAL AND BLADDER ULTRASOUND. Chest X-Ray 06/09/17 11:20 IMPRESSION: NO SIGNIFICANT RADIOGRAPHIC FINDING IN THE CHEST. Head CT 06/09/17 11:21 IMPRESSION: MILD CHRONIC CHANGES OF ATROPHY AND MICROVASCULAR ISCHEMIA. NO ACUTE PROCESS. EVIDENCE OF ACUTE STROKE: NO. MUGA 06/11/17 00:00 IMPRESSION: NORMAL CARDIAC MUGA STUDY. NORMAL LEFT VENTRICULAR FUNCTION WITH VALUES ABOVE. Head MRI 06/12/17 00:00 IMPRESSION: Extensive white matter disease, chronic. Mild prominence of the ventricles and sulci from diffuse atrophy, stable. Gradient echo T2 images demonstrate multiple punctate foci of hemosiderin deposition which can be seen in dementia related to amyloid and microangiopathy. No acute large territory ischemic change or acute intracranial hemorrhage EVIDENCE OF ACUTE STROKE: NO. Chest CT 06/16/17 00:00 IMPRESSION: NO SIGNIFICANT FINDING ON NON-CONTRASTED CHEST CT. Assessment & Plan - Diagnosis (1) AIDS (acquired immunodeficiency syndrome), CD4 <=200 Is this a current diagnosis for this admission?: Yes (2) Fever Qualifiers: Fever type: unspecified Qualified Code(s): R50.9 - Fever, unspecified Is this a current diagnosis for this admission?: Yes (3) Hodgkin lymphoma Qualifiers: Hodgkin lymphoma type: other classical type Lymphoma site: intra-abdominal nodes Qualified Code(s): C81.73 - Other Hodgkin lymphoma, intra-abdominal lymph nodes Is this a current diagnosis for this admission?: Yes (4) Acute kidney injury Is this a current diagnosis for this admission?: Yes (5) Hiccough Is this a current diagnosis for this admission?: Yes (6) Diarrhea Qualifiers: Diarrhea type: unspecified type Qualified Code(s): R19.7 - Diarrhea, unspecified Is this a current diagnosis for this admission?: Yes (7) Thrombocytopenia Is this a current diagnosis for this admission?: Yes (8) Thrombocytopenia due to drugs Is this a current diagnosis for this admission?: Yes (9) Thrombocytopenia associated with AIDS Is this a current diagnosis for this admission?: Yes (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
[2017-06-18] MEDS ORDERED: LEVOFLOXACIN 750 MG/D5W RTU 750 MG/150 ML RTUPB IV SCH (22:00)
[2017-06-18 22:13] LABS: HEMOGLOBIN 10.3 g/dL (13.5-17.0); WHITE BLOOD COUNT 0.7 10^3/uL (4.0-10.5)
[2017-06-18 22:15] LABS: ANISOCYTOSIS SLIGHT; POIKILOCYTOSIS 2+; TARGET CELLS 2+
[2017-06-19] MEDS: IMIPENEM/CILASTATIN SODIUM 500 MG in NORMAL SALINE 100 ML IV SCH ×4 (02:29→20:57)
[2017-06-19] MEDS: VANCOMYCIN HCL 1,000 MG in DEXTROSE 5%-WATER 250 ML IV SCH ×3 (02:29→18:03)
[2017-06-19] MEDS: NYSTATIN/DEXAMETH/DIPHEN SUSP 120 ML PO SCH ×3 (05:55→22:53)
[2017-06-19] MEDS: CHLORPROMAZINE HCL 25 MG TABLET PO SCH ×3 (05:55→23:01)
[2017-06-19 06:28] LABS: ABSOLUTE LYMPHOCYTES (AUTO) 0.5 10^3/uL (0.5-4.7); EOSINOPHILS % (AUTO) 0.8 % (0-6); HEMOGLOBIN 9.7 g/dL (13.5-17.0); HGB HCT DIFFERENCE 1.1; LYMPHOCYTES % (AUTO) 97.2 % (13-45); MEAN CORPUSCULAR HEMOGLOBIN 28.4 pg (27.0-33.4); MEAN CORPUSCULAR HGB CONC 34.8 g/dL (32.0-36.0); MEAN CORPUSCULAR VOLUME 82 fl (80-97); MONOCYTES % (AUTO) 1.3 % (3-13); RED BLOOD COUNT 3.42 10^6/uL (4.35-5.55); SEGMENTED NEUTROPHILS % (AUTO) 0.7 % (42-78)
[2017-06-19 06:54] LABS: ALANINE AMINOTRANSFERASE 38 U/L (21-72); ALBUMIN 2.6 g/dL (3.5-5.0); ALKALINE PHOSPHATASE 98 U/L (38-126); ANION GAP 9 (5-19); ASPARTATE AMINO TRANSFERASE 11 U/L (17-59); BILIRUBIN,DIRECT 0.5 mg/dL (0.0-0.4); BILIRUBIN,TOTAL 1.3 mg/dL (0.2-1.3); BLOOD UREA NITROGEN 19 mg/dL (7-20); CALCIUM 7.5 mg/dL (8.4-10.2); CARBON DIOXIDE 27 mmol/L (22-30); CHLORIDE 96 mmol/L (98-107); CREATININE RESULT 1.05 mg/dL (0.52-1.25); GLUCOSE 97 mg/dL (75-110); POTASSIUM 4.1 mmol/L (3.6-5.0); SODIUM 132.3 mmol/L (137-145); TOTAL PROTEIN 6.3 g/dL (6.3-8.2)
[2017-06-19 07:02] LABS: WHITE BLOOD COUNT 0.5 10^3/uL (4.0-10.5)
[2017-06-19 07:03] LABS: ANISOCYTOSIS SLIGHT; POIKILOCYTOSIS 1+; TARGET CELLS 1+
[2017-06-19] MEDS: EMTRICITABINE/TENOFOVIR 200-300 MG TABLET PO SCH (10:51)
[2017-06-19] MEDS: METOPROLOL SUCCINATE 25 MG TAB.SR.24H PO SCH (10:51)
[2017-06-19] MEDS: LEVETIRACETAM 500 MG TABLET PO SCH ×2 (10:52→22:54)
[2017-06-19] MEDS: CITALOPRAM HYDROBROMIDE 20 MG TABLET PO SCH (11:26)
[2017-06-19] MEDS: RITONAVIR 100 MG TABLET PO SCH ×2 (11:26→23:01)
[2017-06-19] MEDS: FLUCONAZOLE 100 MG TABLET PO SCH (11:27)
[2017-06-19] MEDS: DAPSONE 25 MG TABLET PO SCH ×2 (11:32→18:03)
[2017-06-19] MEDS: ETRAVIRINE 200 MG PO SCH ×2 (11:32→23:01)
[2017-06-19] MEDS: DARUNAVIR ETHANOLATE 600 MG PO SCH ×2 (11:33→23:01)
--- NOTE | 2017-06-19 13:38 | PDOC PROGRESS REPORT ---
Subjective Progress Note for:: 06/19/17 Subjective:: Patient expressed wish to be made DNR or comfort care at this time. Patient have been refusing his medication and very demanding in care assistance. Reason For Visit: FEVER,METABOLIC ENCEPHALOPATHY,AIDS DEFINING Physical Exam Vital Signs: Temp Pulse Resp BP Pulse Ox 98.3 F 124 H 20 129/79 H 96 06/19/17 08:21 06/19/17 08:21 06/19/17 08:21 06/19/17 08:21 06/19/17 08:21 Intake & Output 06/18/17 06/19/17 06/20/17 06:59 06:59 06:59 Intake Total 2143 2875 Output Total 1900 3150 Balance 243 -275 Weight 81.3 kg 80.3 kg General appearance: PRESENT: no acute distress Head exam: PRESENT: atraumatic, normocephalic Eye exam: PRESENT: conjunctiva pink, EOMI, PERRLA. ABSENT: scleral icterus Mouth exam: PRESENT: moist Respiratory exam: PRESENT: clear to auscultation joslyn, decreased breath sounds Cardiovascular exam: PRESENT: RRR. ABSENT: diastolic murmur, rubs, systolic murmur Vascular exam: PRESENT: normal capillary refill. ABSENT: pallor GI/Abdominal exam: PRESENT: normal bowel sounds, soft. ABSENT: distended, guarding, mass, organolmegaly, rebound, tenderness Extremities exam: ABSENT: pedal edema Musculoskeletal exam: PRESENT: normal inspection Neurological exam: PRESENT: alert, awake, oriented to person, oriented to place , oriented to time, oriented to situation, CN II-XII grossly intact. ABSENT: motor sensory deficit Psychiatric exam: PRESENT: appropriate affect, normal mood. ABSENT: homicidal ideation, suicidal ideation Skin exam: PRESENT: dry, intact, warm. ABSENT: cyanosis, rash Results Laboratory Results: 06/19/17 05:55 06/19/17 05:55 06/18/17 06/18/17 06/19/17 08:36 20:40 05:55 WBC 0.7 L* 0.5 L* RBC 3.63 L 3.42 L Hgb 10.3 L D 9.7 L Hct 29.6 L 28.0 L MCV 82 82 MCH 28.4 28.4 MCHC 34.8 34.8 RDW 15.3 H 15.0 H Plt Count 17 L* 18 L* Seg Neutrophils % 0.7 L 0.7 L Lymphocytes % 97.4 H 97.2 H Monocytes % 1.1 L 1.3 L Eosinophils % 0.8 0.8 Basophils % 0.0 0.0 Absolute Neutrophils 0.0 L 0.0 L Absolute Lymphocytes 0.6 0.5 Absolute Monocytes 0.0 L 0.0 L Absolute Eosinophils 0.0 0.0 Absolute Basophils 0.0 0.0 Sodium Potassium Chloride Carbon Dioxide Anion Gap BUN Creatinine Est GFR ( Amer) Est GFR (Non-Af Amer) Glucose Calcium Total Bilirubin AST ALT Alkaline Phosphatase Total Protein Albumin Blood Type O POSITIVE Antibody Screen NEGATIVE 06/19/17 05:55 WBC RBC Hgb Hct MCV MCH MCHC RDW Plt Count Seg Neutrophils % Lymphocytes % Monocytes % Eosinophils % Basophils % Absolute Neutrophils Absolute Lymphocytes Absolute Monocytes Absolute Eosinophils Absolute Basophils Sodium 132.3 L Potassium 4.1 Chloride 96 L Carbon Dioxide 27 Anion Gap 9 BUN 19 Creatinine 1.05 Est GFR ( Amer) > 60 Est GFR (Non-Af Amer) > 60 Glucose 97 Calcium 7.5 L Total Bilirubin 1.3 AST 11 L ALT 38 Alkaline Phosphatase 98 Total Protein 6.3 Albumin 2.6 L Blood Type Antibody Screen 06/16/17 18:37 Clean Catch Midstream Urine Culture - Final C.albicans/C.dubliniensis 06/09/17 06/09/17 22:15 22:15 Creatine Kinase 84 CK-MB (CK-2) 0.24 Impressions: Renal Ultrasound 06/09/17 00:00 IMPRESSION: NORMAL RENAL AND BLADDER ULTRASOUND. Chest X-Ray 06/09/17 11:20 IMPRESSION: NO SIGNIFICANT RADIOGRAPHIC FINDING IN THE CHEST. Head CT 06/09/17 11:21 IMPRESSION: MILD CHRONIC CHANGES OF ATROPHY AND MICROVASCULAR ISCHEMIA. NO ACUTE PROCESS. EVIDENCE OF ACUTE STROKE: NO. MUGA 06/11/17 00:00 IMPRESSION: NORMAL CARDIAC MUGA STUDY. NORMAL LEFT VENTRICULAR FUNCTION WITH VALUES ABOVE. Head MRI 06/12/17 00:00 IMPRESSION: Extensive white matter disease, chronic. Mild prominence of the ventricles and sulci from diffuse atrophy, stable. Gradient echo T2 images demonstrate multiple punctate foci of hemosiderin deposition which can be seen in dementia related to amyloid and microangiopathy. No acute large territory ischemic change or acute intracranial hemorrhage EVIDENCE OF ACUTE STROKE: NO. Chest CT 06/16/17 00:00 IMPRESSION: NO SIGNIFICANT FINDING ON NON-CONTRASTED CHEST CT. Assessment & Plan - Diagnosis (1) Febrile neutropenia Is this a current diagnosis for this admission?: Yes Plan: See covering attending physician orders. Continue IV VAncomycin, Primaxin and Levofloxacin as well as Diflucan therapy. (2) AIDS (acquired immunodeficiency syndrome), CD4 <=200 Is this a current diagnosis for this admission?: Yes Plan: See covering attending physician orders (3) Hodgkin lymphoma Qualifiers: Hodgkin lymphoma type: other classical type Lymphoma site: intra-abdominal nodes Qualified Code(s): C81.73 - Other Hodgkin lymphoma, intra-abdominal lymph nodes Is this a current diagnosis for this admission?: Yes Plan: See covering attending physician orders (4) Hypertension Is this a current diagnosis for this admission?: Yes Plan: See covering attending physician orders - Time Time Spent with patient: 25-34 minutes Medications reviewed and adjusted accordingly: Yes Anticipated discharge: Home with Homehealth Within: Other - Inpatient Certification Based on my medical assessment, after consideration of the patient's comorbidities, presenting symptoms, or acuity I expect that the services needed warrant INPATIENT care.: Yes I certify that my determination is in accordance with my understanding of Medicare's requirements for reasonable and necessary INPATIENT services [42 CFR 412.3e].: Yes Medical Necessity: Need Close Monitoring Due to Risk of Patient Decompensation, Need For IV Fluids, Need For Continuous Telemetry Monitoring, Need for IV Antibiotics, Risk of Complication if Not Cared For in Hospital Post Hospital Care: D/C Inspector Barrel Documentation - Plan Summary Plan Summary: See covering attending physician orders
[2017-06-19] MEDS ORDERED: DIPHENOXYLATE HCL/ATROP SULF 2.5-0.025 MG TABLET PO PRN (15:38)
[2017-06-19] MEDS: NORMAL SALINE 1000 ML 1,000 ML IV PRN (20:57)
[2017-06-19] MEDS ORDERED: LEVOFLOXACIN 750 MG/D5W RTU 750 MG/150 ML RTUPB IV SCH (22:00)
[2017-06-20] MEDS: VANCOMYCIN HCL 1,000 MG in DEXTROSE 5%-WATER 250 ML IV SCH ×2 (02:22→09:35)
[2017-06-20] MEDS: IMIPENEM/CILASTATIN SODIUM 500 MG in NORMAL SALINE 100 ML IV SCH ×2 (04:46→08:10)
[2017-06-20] MEDS: CHLORPROMAZINE HCL 25 MG TABLET PO SCH ×2 (06:38→13:07)
[2017-06-20 06:49] LABS: HEMATOCRIT 28.1 % (37.9-51.0); HEMOGLOBIN 9.8 g/dL (13.5-17.0); HGB HCT DIFFERENCE 1.3; MEAN CORPUSCULAR HEMOGLOBIN 28.7 pg (27.0-33.4); MEAN CORPUSCULAR HGB CONC 34.9 g/dL (32.0-36.0); MEAN CORPUSCULAR VOLUME 82 fl (80-97); RED BLOOD COUNT 3.42 10^6/uL (4.35-5.55); RED CELL DISTRIBUTION WIDTH 15.2 % (11.5-14.0)
[2017-06-20 06:59] LABS: ALANINE AMINOTRANSFERASE 33 U/L (21-72); ALBUMIN 2.7 g/dL (3.5-5.0); ALKALINE PHOSPHATASE 95 U/L (38-126); ANION GAP 12 (5-19); ASPARTATE AMINO TRANSFERASE 12 U/L (17-59); BILIRUBIN,DIRECT 0.6 mg/dL (0.0-0.4); BLOOD UREA NITROGEN 17 mg/dL (7-20); CALCIUM 7.9 mg/dL (8.4-10.2); CARBON DIOXIDE 24 mmol/L (22-30); CHLORIDE 101 mmol/L (98-107); CREATININE RESULT 1.15 mg/dL (0.52-1.25); GLUCOSE 91 mg/dL (75-110); POTASSIUM 4.1 mmol/L (3.6-5.0); SODIUM 136.5 mmol/L (137-145); TOTAL PROTEIN 6.8 g/dL (6.3-8.2)
[2017-06-20 07:23] LABS: ANISOCYTOSIS SLIGHT; BASOPHILS % (MANUAL) 0 % (0-2); EOSINOPHILS % (MANUAL) 0 % (0-6); LYMPHOCYTES % (MANUAL) 96 % (13-45); TARGET CELLS 2+; TOTAL CELLS COUNTED 50
[2017-06-20 07:24] LABS: OVALOCYTES 1+; SCHISTOCYTES SLIGHT
[2017-06-20 07:26] LABS: WHITE BLOOD COUNT 0.7 10^3/uL (4.0-10.5)
[2017-06-20] MEDS: LEVETIRACETAM 500 MG TABLET PO SCH (09:01)
[2017-06-20] MEDS: METOPROLOL SUCCINATE 25 MG TAB.SR.24H PO SCH (09:01)
[2017-06-20] MEDS: RITONAVIR 100 MG TABLET PO SCH (09:01)
[2017-06-20] MEDS: FLUCONAZOLE 100 MG TABLET PO SCH (09:02)
[2017-06-20] MEDS: NYSTATIN/DEXAMETH/DIPHEN SUSP 120 ML PO SCH ×2 (09:53→13:07)
[2017-06-20] MEDS: EMTRICITABINE/TENOFOVIR 200-300 MG TABLET PO SCH (09:54)
[2017-06-20] MEDS: DAPSONE 25 MG TABLET PO SCH (09:54)
[2017-06-20] MEDS: CITALOPRAM HYDROBROMIDE 20 MG TABLET PO SCH (09:55)
--- NOTE | 2017-06-20 12:45 | PDOC PROGRESS REPORT ---
Subjective Progress Note for:: 06/20/17 Subjective:: Patient expressed wish to sign himself out of hospital against medical advise. Patient have been refusing his medication. Reason For Visit: FEVER,METABOLIC ENCEPHALOPATHY,AIDS DEFINING Physical Exam Vital Signs: Temp Pulse Resp BP Pulse Ox 97.3 F 103 H 18 127/89 H 95 06/20/17 08:06 06/20/17 08:06 06/20/17 08:06 06/20/17 08:06 06/20/17 08:06 Intake & Output 06/19/17 06/20/17 06/21/17 06:59 06:59 06:59 Intake Total 2875 2870 Output Total 3150 400 Balance -275 2470 Weight 80.3 kg 80.2 kg Physical Exam: General appearance: PRESENT: no acute distress Head exam: PRESENT: atraumatic, normocephalic Eye exam: PRESENT: conjunctiva pink, EOMI, PERRLA. ABSENT: scleral icterus Mouth exam: PRESENT: moist Respiratory exam: PRESENT: clear to auscultation joslyn, decreased breath sounds Cardiovascular exam: PRESENT: RRR. ABSENT: diastolic murmur, rubs, systolic murmur Vascular exam: PRESENT: normal capillary refill. ABSENT: pallor GI/Abdominal exam: PRESENT: normal bowel sounds, soft. ABSENT: distended, guarding, mass, organolmegaly, rebound, tenderness Extremities exam: ABSENT: pedal edema Musculoskeletal exam: PRESENT: normal inspection Neurological exam: PRESENT: alert, awake, oriented to person, oriented to place , oriented to time, oriented to situation, CN II-XII grossly intact. ABSENT: motor sensory deficit Psychiatric exam: PRESENT: appropriate affect, normal mood. ABSENT: homicidal ideation, suicidal ideation Skin exam: PRESENT: dry, intact, warm. ABSENT: cyanosis, rash Results Laboratory Results: 06/20/17 06:00 06/20/17 06:00 06/20/17 06/20/17 06:00 06:00 WBC 0.7 L* RBC 3.42 L Hgb 9.8 L Hct 28.1 L MCV 82 MCH 28.7 MCHC 34.9 RDW 15.2 H Plt Count 19 L* Seg Neutrophils % Not Reportable Lymphocytes % Not Reportable Monocytes % Not Reportable Eosinophils % Not Reportable Basophils % Not Reportable Absolute Neutrophils Not Reportable Absolute Lymphocytes Not Reportable Absolute Monocytes Not Reportable Absolute Eosinophils Not Reportable Absolute Basophils Not Reportable Sodium 136.5 L Potassium 4.1 Chloride 101 Carbon Dioxide 24 Anion Gap 12 BUN 17 Creatinine 1.15 Est GFR ( Amer) > 60 Est GFR (Non-Af Amer) > 60 Glucose 91 Calcium 7.9 L Total Bilirubin 1.0 AST 12 L ALT 33 Alkaline Phosphatase 95 Total Protein 6.8 Albumin 2.7 L 06/09/17 06/09/17 22:15 22:15 Creatine Kinase 84 CK-MB (CK-2) 0.24 Impressions: Renal Ultrasound 06/09/17 00:00 IMPRESSION: NORMAL RENAL AND BLADDER ULTRASOUND. Chest X-Ray 06/09/17 11:20 IMPRESSION: NO SIGNIFICANT RADIOGRAPHIC FINDING IN THE CHEST. Head CT 06/09/17 11:21 IMPRESSION: MILD CHRONIC CHANGES OF ATROPHY AND MICROVASCULAR ISCHEMIA. NO ACUTE PROCESS. EVIDENCE OF ACUTE STROKE: NO. MUGA 06/11/17 00:00 IMPRESSION: NORMAL CARDIAC MUGA STUDY. NORMAL LEFT VENTRICULAR FUNCTION WITH VALUES ABOVE. Head MRI 06/12/17 00:00 IMPRESSION: Extensive white matter disease, chronic. Mild prominence of the ventricles and sulci from diffuse atrophy, stable. Gradient echo T2 images demonstrate multiple punctate foci of hemosiderin deposition which can be seen in dementia related to amyloid and microangiopathy. No acute large territory ischemic change or acute intracranial hemorrhage EVIDENCE OF ACUTE STROKE: NO. Chest CT 06/16/17 00:00 IMPRESSION: NO SIGNIFICANT FINDING ON NON-CONTRASTED CHEST CT. Assessment & Plan - Diagnosis (1) Febrile neutropenia Is this a current diagnosis for this admission?: Yes (2) AIDS (acquired immunodeficiency syndrome), CD4 <=200 Is this a current diagnosis for this admission?: Yes (3) Hodgkin lymphoma Qualifiers: Hodgkin lymphoma type: other classical type Lymphoma site: intra-abdominal nodes Qualified Code(s): C81.73 - Other Hodgkin lymphoma, intra-abdominal lymph nodes Is this a current diagnosis for this admission?: Yes (4) Hypertension Is this a current diagnosis for this admission?: Yes - Time Time Spent with patient: 35 or more minutes Medications reviewed and adjusted accordingly: Yes Anticipated discharge: Home Within: Other - Inpatient Certification Based on my medical assessment, after consideration of the patient's comorbidities, presenting symptoms, or acuity I expect that the services needed warrant INPATIENT care.: Yes I certify that my determination is in accordance with my understanding of Medicare's requirements for reasonable and necessary INPATIENT services [42 CFR 412.3e].: Yes Medical Necessity: Need Close Monitoring Due to Risk of Patient Decompensation, Need For IV Fluids, Need For Continuous Telemetry Monitoring, Need for IV Antibiotics, Risk of Complication if Not Cared For in Hospital Post Hospital Care: D/C [employer] Custodian Documentation - Plan Summary Plan Summary: I had extensive discussion with patient regarding his decision about AMA status. I did encourage him to stay and continue ongoing treatment. He demonstrate clear lucidity about his decision. His decision will be honord when eventually made as per hospital protocol.
[2017-06-20] MEDS: ETRAVIRINE 200 MG PO SCH (13:01)
[2017-06-20] MEDS: DARUNAVIR ETHANOLATE 600 MG PO SCH (13:01)
[2017-06-20 13:11] VITALS: BP 168/94
[2017-06-21] MEDS ORDERED: DAPSONE 25 MG TABLET PO SCH (20:45)
--- NOTE | 2017-06-23 13:29 | PDOC DISCHARGE SUMMARY ---
General - Admit/Disc Date/PCP Admission Date/Primary Care Provider: 06/09/17 15:51 WILNER KIDD MD Discharge Date: 06/20/17 - Discharge Diagnosis (1) AIDS (acquired immunodeficiency syndrome), CD4 <=200 Is this a current diagnosis for this admission?: Yes (2) Fever Is this a current diagnosis for this admission?: Yes (3) Hodgkin lymphoma Is this a current diagnosis for this admission?: Yes (4) Acute kidney injury Is this a current diagnosis for this admission?: Yes (5) Hiccough Is this a current diagnosis for this admission?: Yes (6) Diarrhea Is this a current diagnosis for this admission?: Yes (7) Thrombocytopenia Is this a current diagnosis for this admission?: Yes (8) Thrombocytopenia due to drugs Is this a current diagnosis for this admission?: Yes (9) Thrombocytopenia associated with AIDS Is this a current diagnosis for this admission?: Yes (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 (12) Febrile neutropenia Is this a current diagnosis for this admission?: Yes (13) Pancytopenia Is this a current diagnosis for this admission?: Yes - Additional Information Resuscitation Status: Full Code Home Medications: Amlodipine Besylate 5 mg PO DAILY 06/09/17 Aspirin [Aspirin 325 mg Tablet] 325 tab PO DAILY 06/09/17 Atorvastatin Calcium [Lipitor 20 mg Tablet] 20 mg PO DAILY 06/09/17 Citalopram Hydrobromide [Citalopram HBr] 20 mg PO DAILY 06/09/17 Darunavir Ethanolate [Prezista] 600 mg PO Q12 06/09/17 Diclofenac Sodium [Voltaren 50 Mg Tablet.Dr] 50 mg PO Q8 06/09/17 Emtricitabine/Tenofovir (Tdf) [Truvada 200 mg-300 mg Tablet] 1 tab PO DAILY Etravirine [Intelence] 200 mg PO Q12 06/09/17 Hydrochlorothiazide [Hydrodiuril 25 mg Tablet] 25 mg PO DAILY 06/09/17 Levetiracetam [Keppra 500 mg Tablet] 500 mg PO Q12 06/09/17 Metoprolol Succinate 25 mg PO DAILY 06/09/17 Misoprostol [Cytotec 0.2 mg Tablet] 200 mcg PO Q12 06/09/17 Ondansetron HCl [Zofran 4 mg Tablet] 4 mg PO Q8HP PRN 06/09/17 Polyethylene Glycol 3350 [Miralax Powder 17 gm/Packet] 17 gm PO DAILY 06/09/17 Ritonavir [Norvir 100 mg Tablet] 100 mg PO Q12 06/09/17 Lisinopril [Prinivil 40 mg Tablet] 40 mg PO DAILY 06/22/17 History of Present Illness History of Present Illness: VERONICA CARDENAS is a 46 year old male, patient recently diagnosed with Hodgkin's lymphoma, he has a history of HIV disease, extremely noncompliant with his medical treatment for HIV, he recently came to the office to establish with us. He was in the emergency room in the early part of the month for evaluation of abdominal pain, in the emergency room a CT scan of the abdomen and pelvis was done, it showed extensive lymphadenopathy with retroperitoneal involvement, CT guided needle biopsy was done and it confirmed Hodgkin's lymphoma. He was in the oncologist's office to discuss treatment, he was found to be altered mental status, extremely stuporous with fever, temperature recorded was over 101, he was transferred to the emergency room for evaluation. In the emergency room was evaluated, a lumbar puncture was done because of suspicion for meningoencephalitis, this was negative. He recently had blood work done in the office, the CD4 lymphocyte count was below 200 consistent with AIDS defining illnesses, the HIV RNA viral load was very high. The chest x-ray done in the emergency room did not show any obvious pneumonia. The potential etiology of the fever is long in this patient, it could be from the lymphoma itself, or opportunistic infections. Because he has a low CD4 count that meets the AIDS defining illness criteria, he will need coverage to cover potential PCP infection. He has allergy to sulfamethoxazole, he be treated with clindamycin and primaquine. Hospital Course Hospital Course: Patient 46-year-old male with history of AIDS, he presented to the emergency room with altered mental status, confusion which high fever in the emergency room a lumbar puncture was done this was negative for any bacteria or cryptococcal meningitis. The differential diagnosis for the etiology of the fever in a patient with HIV and a low CD4 count is very long. He was empirically started on anti-PCP medication including clindamycin and primaquine , the preferred choice is Bactrim but patient have allergy to Bactrim. He was also started on anti-retroviral drug. There was no localizing source for the fever. He was also recently diagnosed with Hodgkin's lymphoma, he was seen by oncology and he underwent induction therapy for the Hodgkin's lymphoma. This was complicated with pancytopenia and febrile neutropenia, he was covered empirically with antibiotic to cover gram-negative organisms and staph aureus. He also had acute kidney injury that was prerenal, with hydration,There was complete resolution of the acute kidney injury. He also was transfused with packed red blood cells, patient was showing symptoms of cognitive impairment, MRI of the brain was done because of suspicion for dementia, MRI of the brain suggests dementia. Patient have a history of CVA in the past, the cognitive impairment could be partly from CVA and also HIV. Patient was acutely ill on this admission but on 06/20/2017 patient left AGAINST MEDICAL ADVICE despite multiple counseling for him to do otherwise Physical Exam Vital Signs: Temp Pulse Resp BP Pulse Ox 97.3 F 103 H 18 168/94 H 95 06/20/17 13:03 06/20/17 13:03 06/20/17 13:03 06/20/17 13:03 06/20/17 13:03 Results Laboratory Results: 06/20/17 06:00 06/20/17 06:00 06/09/17 06/09/17 22:15 22:15 Creatine Kinase 84 CK-MB (CK-2) 0.24 Impressions: Renal Ultrasound 06/09/17 00:00 IMPRESSION: NORMAL RENAL AND BLADDER ULTRASOUND. Chest X-Ray 06/09/17 11:20 IMPRESSION: NO SIGNIFICANT RADIOGRAPHIC FINDING IN THE CHEST. Head CT 06/09/17 11:21 IMPRESSION: MILD CHRONIC CHANGES OF ATROPHY AND MICROVASCULAR ISCHEMIA. NO ACUTE PROCESS. EVIDENCE OF ACUTE STROKE: NO. MUGA 06/11/17 00:00 IMPRESSION: NORMAL CARDIAC MUGA STUDY. NORMAL LEFT VENTRICULAR FUNCTION WITH VALUES ABOVE. Head MRI 06/12/17 00:00 IMPRESSION: Extensive white matter disease, chronic. Mild prominence of the ventricles and sulci from diffuse atrophy, stable. Gradient echo T2 images demonstrate multiple punctate foci of hemosiderin deposition which can be seen in dementia related to amyloid and microangiopathy. No acute large territory ischemic change or acute intracranial hemorrhage EVIDENCE OF ACUTE STROKE: NO. Chest CT 06/16/17 00:00 IMPRESSION: NO SIGNIFICANT FINDING ON NON-CONTRASTED CHEST CT. Plan Discharge Plan: Patient left AGAINST MEDICAL ADVICE
== END 2017-06-20 13:35 | disposition left against medical advice (07) | DRG 975 ==
LOC: ER 10:46 → EH 15:51 → 3S 21:26
PROVIDERS: ADMIT Internal Medicine; ATTEND Internal Medicine
PROC: 30233N1 Transfusion of Nonautologous Red Blood Cells into Peripheral Vein, Percutaneous Approach (ICD-10-PCS; principal; 2017-06-18)
DX: B20 Human immunodeficiency virus [HIV] disease (principal); C81.73 Other Hodgkin lymphoma, intra-abdominal lymph nodes; B37.0 Candidal stomatitis; N17.9 Acute kidney failure, unspecified; R78.81 Bacteremia; D61.818 Other pancytopenia; R19.7 Diarrhea, unspecified; D69.59 Other secondary thrombocytopenia; F02.80 Dementia in other diseases classified elsewhere, unspecified severity, without behavioral disturbance, psychotic disturbance, mood disturbance, and anxiety; R06.6 Hiccough; I10 Essential (primary) hypertension; E78.5 Hyperlipidemia, unspecified; K21.9 Gastro-esophageal reflux disease without esophagitis; F32.9 Major depressive disorder, single episode, unspecified; Z79.899 Other long term (current) drug therapy; Z91.14 Patient's other noncompliance with medication regimen; Z86.73 Personal history of transient ischemic attack (TIA), and cerebral infarction without residual deficits; Z87.891 Personal history of nicotine dependence; Z88.2 Allergy status to sulfonamides
CPT/HCPCS: 36415; 36430; 70450; 70551; 71020; 71250; 76775; 78472; 80053; 80061; 80202; 81001; 82140; 82272; 82550; 82553; 82570; 82945; 83036; 83605; 83690; 83735; 84100; 84156; 84157; 84439; 84443; 85025; 86360; 86850; 86900; 86901; 86920; 87040; 87045; 87070; 87077; 87086; 87205; 87210; 87493; 87536; 89050; 89055; 96361; 96365; 96367; 96375; 96376; 96409; 96411; 96413; 96415; 99291; A9560; G8978-GP; G8979-GP; J0692; J0696; J0743; J1100; J1442; J1940; J1956; J2060; J2469; J2543; J3370; J3490; J7030; J7040; J7060; J7512; J9000; J9130; J9360; P9016; Q9969

== ENCOUNTER 2017-06-21 10:29 | Inpatient (IN) | payer MEDICARE, MEDICAID ==
--- NOTE | 2017-06-21 10:53 | ER Document Report ---
ED General - General Chief Complaint: Cough Stated Complaint: DIFFICULTY BREATHING Time Seen by Provider: 06/21/17 10:37 Mode of Arrival: Medic Information source: Patient, Emergency Med Personnel, [facility], [facility] Records Notes: 46 yr old male with hx of hiv, non hodkin lymphoma recent admission left [facility] yesterday after receiving a transfusion 3 days ago presents with complaints of sob. pt dneies any fevers , admits to clear sputum. TRAVEL OUTSIDE OF THE [place] IN LAST 30 DAYS: No - HPI Onset: Yesterday Onset/Duration: Sudden Quality of pain: Achy Severity: Moderate Pain Level: 2 Associated symptoms: Body/muscle aches, Shortness of breath Exacerbated by: Walking Relieved by: Denies Similar symptoms previously: Yes Recently seen / treated by doctor: Yes - Related Data Allergies/Adverse Reactions: sulfamethoxazole [From Bactrim] Allergy (Verified 06/21/17 10:55) trimethoprim [From Bactrim] Allergy (Verified 06/21/17 10:55) Past Medical History - Social History Smoking Status: Current Every Day Smoker Cigarette use (# per day): Yes Chew tobacco use (# tins/day): No Smoking Education Provided: No Family History: Hypertension - Past Medical History Cardiac Medical History: Reports: Hx Coronary Artery Disease, Hx Hypercholesterolemia, Hx Hypertension Denies: Hx Heart Attack Pulmonary Medical History: Denies: Hx Asthma, Hx Bronchitis, Hx COPD, Hx Pneumonia, Hx Tuberculosis Neurological Medical History: Reports: Hx Cerebrovascular Accident - 6 month, Hx Seizures Renal/ Medical History: Reports: Hx Renal Insufficiency. Denies: Hx Peritoneal Dialysis Malignancy Medical History: Reports Hx Lymphoma - Hodgkin's lymphoma GI Medical History: Reports: Hx Gastroesophageal Reflux Disease Musculoskeltal Medical History: Denies Hx Arthritis Skin Medical History: Reports Hx MRSA Psychiatric Medical History: Reports: Hx Depression Infectious Medical History: Reports: Hx HIV - Immunizations Hx Diphtheria, Pertussis, Tetanus Vaccination: Yes Hx Pneumococcal Vaccination: 07/12/09 Review of Systems - Review of Systems Notes: REVIEW OF SYSTEMS: CONSTITUTIONAL : Denies fever, chills, or sweats. Denies recent illness. EENT: Denies eye, ear, throat, or mouth pain or symptoms. Denies nasal or sinus congestion or discharge. Denies throat, tongue, or mouth swelling or difficulty swallowing. CARDIOVASCULAR: Denies chest pain. Denies palpitations or racing or irregular heart beat. Denies ankle edema. RESPIRATORY: Admits to shortness of breath GASTROINTESTINAL: Denies abdominal pain or distention. Denies nausea, vomiting , or diarrhea. Denies blood in vomitus, stools, or per rectum. Denies black, tarry stools. Denies constipation. GENITOURINARY: Denies difficulty urinating, painful urination, burning, frequency, blood in urine, or discharge. MUSCULOSKELETAL: Admits to body aches HEMATOLOGIC : Denies easy bruising or bleeding. LYMPHATIC: Denies swollen, enlarged glands. NEUROLOGICAL: Denies confusion or altered mental status. Denies passing out or loss of consciousness. Denies dizziness or lightheadedness. Denies headache. Denies weakness or paralysis or loss of use of either side. Denies problems with gait or speech. Denies sensory loss, numbness, or tingling. Denies seizures. PSYCHIATRIC: Denies anxiety or stress. Denies depression, suicidal ideation, or homicidal ideation. ALL OTHER SYSTEMS REVIEWED AND NEGATIVE. Dictation was performed using [employer] voice recognition software PHYSICAL EXAMINATION: GENERAL: Patient drowsy upon arrival does not open his eyes to answer questions after being shook awake he admits the pain HEAD: Atraumatic, normocephalic. EYES: Pupils equal round and reactive to light, extraocular movements intact, sclera anicteric, conjunctiva are normal. ENT: Nares patent, oropharynx clear without exudates. Moist mucous membranes. NECK: Normal range of motion, supple without lymphadenopathy LUNGS: Breath sounds clear to auscultation bilaterally and equal. No wheezes rales or rhonchi. HEART: Regular rate and rhythm without murmurs ABDOMEN: Soft, nontender, nondistended abdomen. No guarding, no rebound. No masses appreciated. Musculoskeletal: Normal range of motion, no pitting or edema. No cyanosis. NEUROLOGICAL: Cranial nerves grossly intact. Normal speech, normal gait. Normal sensory, motor exams PSYCH: Normal mood, normal affect. SKIN: Warm, Dry, normal turgor, no rashes or lesions noted. Port in place Physical Exam - Vital signs Vitals: Temp Pulse Resp BP Pulse Ox 99.4 F 120 H 16 150/85 H 95 06/21/17 10:46 06/21/17 10:46 06/21/17 10:46 06/21/17 10:46 06/21/17 10:46 Course - Re-evaluation Re-evalutation: 06/21/17 10:52 Extensive lab work and imaging has been ordered patient noted to be tachycardic upon arrival 06/21/17 14:23 CTA noted no PE, pts hgb is stable, dr vernon pagedrew for admission given neutropenia and having left [facility] prior to compeltel treatment 06/21/17 15:06 pt admitted ot [facility] - Vital Signs Vital signs: Temp Pulse Resp BP Pulse Ox 99.4 F 120 H 19 163/112 H 95 06/21/17 10:46 06/21/17 10:46 06/21/17 13:02 06/21/17 13:02 06/21/17 13:02 - Laboratory Result Diagrams: 06/21/17 11:27 06/21/17 11:27 Laboratory results interpreted by me: 06/21/17 06/21/17 11:27 11:27 WBC 0.8 L* RBC 3.34 L Hgb 9.3 L Hct 27.4 L RDW 15.1 H Plt Count 37 L Seg Neutrophils % 6.5 L Lymphocytes % 80.9 H Absolute Neutrophils 0.0 L Sodium 135.7 L Calcium 8.1 L Direct Bilirubin 0.5 H AST 16 L Albumin 3.0 L - Diagnostic Test Radiology reviewed: Image reviewed, Reports reviewed Critical Care Note - Critical Care Note Total time excluding time spent on procedures (mins): 34 Comments: 34 minutes of critical care time spent in direct contact evaluating and reevaluating the patient, treating symptoms, reviewing labs and studies and speaking with family and consultants excluding any procedures Discharge - Discharge Clinical Impression: HIV (human immunodeficiency virus infection), AIDS (acquired immunodeficiency syndrome), CD4 <=200, Febrile neutropenia, Tachycardia Hodgkin lymphoma Qualifiers: Hodgkin lymphoma type: unspecified type Lymphoma site: unspecified region Qualified Code(s): C81.90 - Hodgkin lymphoma, unspecified, unspecified site Condition: Fair Disposition: ADMITTED INPATIENT Admitting Provider: Bonita [facility] Admitted: [facility]
[2017-06-21] MEDS: NORMAL SALINE 1000 ML 1,000 ML IV PRN ×2 (11:25→13:07)
[2017-06-21] MEDS ORDERED: MORPHINE SULFATE 10 MG/ML INJ IV ONE (11:30)
[2017-06-21 11:46] LABS: ABSOLUTE LYMPHOCYTES (AUTO) 0.6 10^3/uL (0.5-4.7); ABSOLUTE MONOCYTES (AUTO) 0.1 10^3/uL (0.1-1.4); BASOPHILS % (AUTO) 1.1 % (0-2); EOSINOPHILS % (AUTO) 0.6 % (0-6); HEMATOCRIT 27.4 % (37.9-51.0); HEMOGLOBIN 9.3 g/dL (13.5-17.0); HGB HCT DIFFERENCE 0.5; LYMPHOCYTES % (AUTO) 80.9 % (13-45); MEAN CORPUSCULAR HEMOGLOBIN 27.8 pg (27.0-33.4); MEAN CORPUSCULAR HGB CONC 33.9 g/dL (32.0-36.0); MEAN CORPUSCULAR VOLUME 82 fl (80-97); MONOCYTES % (AUTO) 10.9 % (3-13); RED BLOOD COUNT 3.34 10^6/uL (4.35-5.55); RED CELL DISTRIBUTION WIDTH 15.1 % (11.5-14.0); SEGMENTED NEUTROPHILS % (AUTO) 6.5 % (42-78)
[2017-06-21 12:05] LABS: ALANINE AMINOTRANSFERASE 32 U/L (21-72); ALKALINE PHOSPHATASE 96 U/L (38-126); ANION GAP 8 (5-19); ASPARTATE AMINO TRANSFERASE 16 U/L (17-59); BILIRUBIN,DIRECT 0.5 mg/dL (0.0-0.4); BILIRUBIN,TOTAL 0.9 mg/dL (0.2-1.3); BLOOD UREA NITROGEN 16 mg/dL (7-20); CALCIUM 8.1 mg/dL (8.4-10.2); CARBON DIOXIDE 29 mmol/L (22-30); CHLORIDE 99 mmol/L (98-107); GLUCOSE 98 mg/dL (75-110); POTASSIUM 3.8 mmol/L (3.6-5.0); SODIUM 135.7 mmol/L (137-145); TOTAL PROTEIN 7.5 g/dL (6.3-8.2)
[2017-06-21 12:23] LABS: WHITE BLOOD COUNT 0.8 10^3/uL (4.0-10.5)
[2017-06-21 12:26] LABS: ANISOCYTOSIS SLIGHT; HYPOCHROMASIA 1+; OVALOCYTES 2+; POIKILOCYTOSIS 2+; POLYCHROMASIA SLIGHT; ROULEAUX SLIGHT; SCHISTOCYTES SLIGHT; TARGET CELLS SLIGHT; TEAR DROP CELLS SLIGHT
--- NOTE | 2017-06-21 14:14 | RADIOLOGY REPORT (SQ) ---
EXAM DESCRIPTION: CTA CHEST COMPLETED DATE/TIME: 06/21/2017 1:43 pm REASON FOR STUDY: sob, tachy, non hodkins lymphoma COMPARISON: 06/16/2017 TECHNIQUE: CT scan of the chest performed using helical scanning technique with dynamic intravenous contrast injection. Images reviewed with lung, soft tissue and bone windows. Reconstructed coronal and sagittal MPR images reviewed. Additional 3 dimensional post-processing performed to develop Maximal Intensity Projection images (AR P). All images stored on PACS. All CT scanners at this facility use dose modulation, iterative reconstruction, and/or weight based d osing when appropriate to reduce radiation dose to as low as reasonably achievable (ALARA). [facility]: Dose Right [facility]: CareDose [facility]: Dose Right [facility]: Teradose 4D [facility]: FanChatter CONTRAST TYPE AND DOSE: contrast/concentration: Isovue 370.00 mg/ml; Total Contrast Delivered: 72.0 ml; Total Saline Delivered: 97.0 ml Contrast bolus optimized for the pulmonary arteries. Not diagnostic for the aorta. RENAL FUNCTION: Choose for RADIATION DOSE: CT Rad equipment meets quality standard of care and radiation dose reduction techniq ues were employed. CTDIvol: 16.5 - 20.0 mGy. DLP: 779 mGy-cm. . LIMITATIONS: Mild breathing motion. FINDINGS: LUNGS AND PLEURA: Mild interstitial thickening throughout both lungs. Mild subsegmental a telectasis is present in both lower lobes, left greater than right. No pleural effusion or pneumotho rax. New compared with the prior study. AORTA AND GREAT VESSELS: No aneurysm. Contrast bolus not optimized for the aorta. HEART: No pericardial effusion. No significant coronary artery calcifications. PULMONARY ARTERIES: No emboli visualized in the main pulmonary arteries or the segmental branches. HILAR AND MEDIASTINAL STRUCTURES: Stable small nodes. HARDWARE: Right chest port. UPPER ABDOMEN: Similar upper retroperitoneal lymphadenopathy. Limited exam. THYROID AND OTHER SOFT TISSUES: No thyroid masses. Similar cervical nodes. BONES: No acute finding. 3D MIPS: Confirm above findings. OTHER: No other significant finding. IMPRESSION: No emboli visualized in the main pulmonary arteries or the segmental branches.New since the prior exam Mild interstitial thickening throughout both lungs and Mild subsegmental atelectasis i s present in both lower lobes, left greater than right. Similar upper retroperitoneal lymphadenopathy. COMMENT: Quality ID # [id number]: Final reports with documentation of one or more dose reduction techniques (e.g., Automated exposure control, adjustment of the mA and/or kV according to patient size, use of iterative reconstruction technique) TECHNICAL DOCUMENTATION: JOB ID: [id number] [place]-72 2010 [employer]- All Rights Reserved
[2017-06-21] MEDS ORDERED: PIPERACILLIN/TAZOBACTAM 3.375 GM VIAL IV ONE (14:29)
[2017-06-21] MEDS ORDERED: VANCOMYCIN HCL INJ 1000 MG VIAL IV ONE (14:29)
[2017-06-21] MEDS ORDERED: (PENDING PHARMACY ID) (Ondansetron Hcl [Zofran 4 Mg Tablet] 4 MG) PO PRN (20:22)
[2017-06-21] MEDS ORDERED: VANCOMYCIN HCL 0 MG in DEXTROSE 5%-WATER 250 ML IV NR (20:30)
[2017-06-21] MEDS ORDERED: METOPROLOL SUCCINATE 25 MG TAB.SR.24H PO ONE (21:00)
[2017-06-21] MEDS ORDERED: POLYETHYLENE GLYCOL 3350 POWDER 17 GM/1 PACKET PO ONE (21:00)
[2017-06-21] MEDS ORDERED: CITALOPRAM HYDROBROMIDE 20 MG TABLET PO ONE (21:00)
[2017-06-21] MEDS ORDERED: AMLODIPINE BESYLATE 5 MG TABLET PO ONE (21:00)
[2017-06-21] MEDS ORDERED: ONDANSETRON 4 MG TAB.RAPDIS PO PRN (21:07)
[2017-06-21] MEDS: HYDROMORPHONE HCL INJ/PF 2 MG/ML AMPULE IV PRN (21:17)
[2017-06-21] MEDS: ATORVASTATIN CALCIUM 20 MG TABLET PO SCH (21:18)
[2017-06-21 21:25] LABS: LIPASE 18.7 U/L (23-300)
[2017-06-21] MEDS ORDERED: DAPSONE 25 MG TABLET PO ONE (21:45)
[2017-06-21] MEDS ORDERED: EMTRICITABINE/TENOFOVIR 200-300 MG TABLET PO ONE (21:45)
[2017-06-21 21:57] LABS: THYROID STIMULATING HORMONE 1.28 uIU/mL (0.47-4.68)
[2017-06-21] MEDS ORDERED: (PENDING PHARMACY ID) (Etravirine [Intelence] 200 MG) PO SCH (22:00)
[2017-06-21] MEDS: MISOPROSTOL 0.2 MG TABLET PO SCH (22:24)
[2017-06-21] MEDS: RITONAVIR 100 MG TABLET PO SCH (22:24)
[2017-06-21] MEDS: LEVETIRACETAM 500 MG TABLET PO SCH (22:29)
[2017-06-21] MEDS: PIPERACILLIN SODIUM/TAZOBACTAM 3.375 GM in NORMAL SALINE 100 ML IV SCH (23:56)
[2017-06-22] MEDS: VANCOMYCIN HCL 1,000 MG in DEXTROSE 5%-WATER 250 ML IV SCH ×3 (01:16→20:22)
[2017-06-22 03:01] LABS: HEMATOCRIT 26.2 % (37.9-51.0); HGB HCT DIFFERENCE 0.8; MEAN CORPUSCULAR HEMOGLOBIN 28.4 pg (27.0-33.4); MEAN CORPUSCULAR HGB CONC 34.3 g/dL (32.0-36.0); MEAN CORPUSCULAR VOLUME 83 fl (80-97); RED BLOOD COUNT 3.16 10^6/uL (4.35-5.55); RED CELL DISTRIBUTION WIDTH 14.9 % (11.5-14.0)
[2017-06-22 03:14] LABS: WHITE BLOOD COUNT 1.1 10^3/uL (4.0-10.5)
[2017-06-22 03:15] LABS: ALANINE AMINOTRANSFERASE 29 U/L (21-72); ALBUMIN 2.6 g/dL (3.5-5.0); ALKALINE PHOSPHATASE 87 U/L (38-126); ANION GAP 8 (5-19); ASPARTATE AMINO TRANSFERASE 17 U/L (17-59); BILIRUBIN,DIRECT 0.4 mg/dL (0.0-0.4); BILIRUBIN,TOTAL 0.8 mg/dL (0.2-1.3); BLOOD UREA NITROGEN 13 mg/dL (7-20); CALCIUM 7.6 mg/dL (8.4-10.2); CARBON DIOXIDE 26 mmol/L (22-30); CHLORIDE 101 mmol/L (98-107); CHOLESTEROL 123.06 mg/dL (0-200); CREATININE RESULT 1.04 mg/dL (0.52-1.25); Direct HDL 19 mg/dL (>40); GLUCOSE 114 mg/dL (75-110); POTASSIUM 4.3 mmol/L (3.6-5.0); SODIUM 135.4 mmol/L (137-145); TOTAL PROTEIN 6.3 g/dL (6.3-8.2); TRIGLYCERIDES 86 mg/dL (<150)
[2017-06-22 03:22] LABS: BAND NEUTROPHILS % (MANUAL) 4 % (3-5); BASOPHILS % (MANUAL) 0 % (0-2); EOSINOPHILS % (MANUAL) 0 % (0-6); LYMPHOCYTES % (MANUAL) 78 % (13-45); TOTAL CELLS COUNTED 50
[2017-06-22 03:26] LABS: DIRECT LDL 95 mg/dL (<100)
[2017-06-22 03:29] LABS: ANISOCYTOSIS SLIGHT; POIKILOCYTOSIS 1+; POLYCHROMASIA SLIGHT
[2017-06-22 03:30] LABS: OVALOCYTES 1+; SCHISTOCYTES SLIGHT; TARGET CELLS 1+; TEAR DROP CELLS SLIGHT
[2017-06-22] MEDS: HYDROMORPHONE HCL INJ/PF 2 MG/ML AMPULE IV PRN ×4 (06:45→22:44)
[2017-06-22] MEDS: PIPERACILLIN SODIUM/TAZOBACTAM 3.375 GM in NORMAL SALINE 100 ML IV SCH ×3 (06:45→18:31)
[2017-06-22] MEDS: LEVETIRACETAM 500 MG TABLET PO SCH ×2 (09:26→22:44)
[2017-06-22] MEDS: MISOPROSTOL 0.2 MG TABLET PO SCH (09:27)
[2017-06-22] MEDS: CITALOPRAM HYDROBROMIDE 20 MG TABLET PO SCH (09:27)
[2017-06-22] MEDS: DAPSONE 25 MG TABLET PO SCH (09:27)
[2017-06-22] MEDS: METOPROLOL SUCCINATE 25 MG TAB.SR.24H PO SCH (09:27)
[2017-06-22] MEDS: RITONAVIR 100 MG TABLET PO SCH (09:27)
[2017-06-22] MEDS: EMTRICITABINE/TENOFOVIR 200-300 MG TABLET PO SCH (09:27)
[2017-06-22] MEDS: AMLODIPINE BESYLATE 5 MG TABLET PO SCH (09:27)
[2017-06-22] MEDS: POLYETHYLENE GLYCOL 3350 POWDER 17 GM/1 PACKET PO SCH (09:36)
--- NOTE | 2017-06-22 12:22 | PDOC H&P ---
History of Present Illness Admission Date/PCP: 06/21/17 14:40 History of Present Illness: VERONICA CARDENAS is a 46 year old male, he left AGAINST MEDICAL ADVICE yesterday, he was admitted initially for management of fever associated with acute mental status change/stuporous condition in the setting of AIDS defining illnesses with CD4 count below 200. At the time he was empirically managed with IV antibiotic to cover potential pathogens including PCP pneumonia, he has Hodgkin's lymphoma and the last time he was in the hospital he had induction therapy for his lymphoma, the hospital because was complicated with febrile neutropenia, acute kidney injury. He was being managed but yesterday he decided that to leave again medical advice only for him to return again on Wednesday for readmission. He presented to the emergency room with shortness of breath, in the emergency room CTA chest was done, it showed mild interstitial thickening throughout both lungs mild subsegmental atelectasis in both lower lobes no pleural effusion or pneumothorax Past Medical History Neurological Medical History: Reports: Seizures Malignancy Medical History: Reports: Lymphoma - Hodgkin's lymphoma GI Medical History: Reports: Gastroesophageal Reflux Disease Psychiatric Medical History: Reports: Depression Infectious Medical History: Reports: HIV Social History Smoking Status: Current Every Day Smoker Frequency of Alcohol Use: None Hx Recreational Drug Use: Yes Drugs: Marijuana Hx Prescription Drug Abuse: No Family History Family History: Hypertension Parental Family History Reviewed: Yes Children Family History Reviewed: Yes Sibling(s) Family History Reviewed.: Yes Medication/Allergy Home Medications: Amlodipine Besylate 5 mg PO DAILY 06/09/17 Aspirin [Aspirin 325 mg Tablet] 325 tab PO DAILY 06/09/17 Atorvastatin Calcium [Lipitor 20 mg Tablet] 20 mg PO DAILY 06/09/17 Citalopram Hydrobromide [Citalopram HBr] 20 mg PO DAILY 06/09/17 Darunavir Ethanolate [Prezista] 600 mg PO Q12 06/09/17 Diclofenac Sodium [Voltaren 50 Mg Tablet.Dr] 50 mg PO Q8 06/09/17 Emtricitabine/Tenofovir (Tdf) [Truvada 200 mg-300 mg Tablet] 1 tab PO DAILY Etravirine [Intelence] 200 mg PO Q12 06/09/17 Hydrochlorothiazide [Hydrodiuril 25 mg Tablet] 25 mg PO DAILY 06/09/17 Levetiracetam [Keppra 500 mg Tablet] 500 mg PO Q12 06/09/17 Metoprolol Succinate 25 mg PO DAILY 06/09/17 Misoprostol [Cytotec 0.2 mg Tablet] 200 mcg PO Q12 06/09/17 Ondansetron HCl [Zofran 4 mg Tablet] 4 mg PO Q8HP PRN 06/09/17 Polyethylene Glycol 3350 [Miralax Powder 17 gm/Packet] 17 gm PO DAILY 06/09/17 Ritonavir [Norvir 100 mg Tablet] 100 mg PO Q12 06/09/17 Lisinopril [Prinivil 40 mg Tablet] 40 mg PO DAILY 06/22/17 Allergies/Adverse Reactions: sulfamethoxazole [From Bactrim] Allergy (Verified 06/21/17 10:55) trimethoprim [From Bactrim] Allergy (Verified 06/21/17 10:55) Review of Systems Constitutional: PRESENT: anorexia, chills, fever(s), night sweats Eyes: ABSENT: visual disturbances Ears: ABSENT: hearing changes Cardiovascular: PRESENT: dyspnea on exertion Respiratory: PRESENT: cough, dyspnea Gastrointestinal: ABSENT: abdominal pain, constipation, diarrhea, hematemesis, hematochezia, nausea, vomiting Genitourinary: ABSENT: dysuria, hematuria Musculoskeletal: ABSENT: joint swelling Integumentary: ABSENT: rash, wounds Neurological: ABSENT: abnormal gait, abnormal speech, confusion, dizziness, focal weakness, syncope Psychiatric: ABSENT: anxiety, depression, homidical ideation, suicidal ideation Endocrine: ABSENT: cold intolerance, heat intolerance, menstrual abnormalities, polydipsia, polyuria Hematologic/Lymphatic: ABSENT: easy bleeding, easy bruising, lymphadenopathy Physical Exam Vital Signs: Temp Pulse Resp BP Pulse Ox 98.8 F 136 H 22 H 133/84 H 96 06/22/17 08:07 06/22/17 08:07 06/22/17 08:07 06/22/17 08:07 06/22/17 08:07 Intake & Output 06/21/17 06/22/17 06/23/17 06:59 06:59 06:59 Intake Total 640 Balance 640 Weight 74 kg General appearance: PRESENT: no acute distress Head exam: PRESENT: atraumatic, normocephalic Eye exam: PRESENT: conjunctiva pink, EOMI, PERRLA Ear exam: PRESENT: normal external ear exam Mouth exam: PRESENT: moist, tongue midline Neck exam: PRESENT: full ROM Respiratory exam: PRESENT: rhonchi Cardiovascular exam: PRESENT: RRR, +S1, +S2 Pulses: PRESENT: normal dorsalis pedis pul, +2 pedal pulses bilateral Vascular exam: PRESENT: normal capillary refill GI/Abdominal exam: PRESENT: normal bowel sounds, soft Rectal exam: PRESENT: deferred Neurological exam: PRESENT: alert Psychiatric exam: PRESENT: appropriate affect, normal mood Skin exam: ABSENT: cyanosis, rash Results Laboratory Results: 06/22/17 02:42 06/22/17 02:42 06/21/17 06/21/17 06/21/17 20:40 20:40 23:00 WBC RBC Hgb Hct MCV MCH MCHC RDW Plt Count Seg Neutrophils % Lymphocytes % Monocytes % Eosinophils % Basophils % Absolute Neutrophils Absolute Lymphocytes Absolute Monocytes Absolute Eosinophils Absolute Basophils Sodium Potassium Chloride Carbon Dioxide Anion Gap BUN Creatinine Est GFR ( Amer) Est GFR (Non-Af Amer) Glucose Calcium Total Bilirubin AST ALT Alkaline Phosphatase Ammonia < 8.7 L Total Protein Albumin Triglycerides Cholesterol LDL Cholesterol Direct VLDL Cholesterol HDL Cholesterol Amylase 54 Lipase 18.7 L TSH 1.28 Free T4 1.15 06/22/17 06/22/17 02:42 02:42 WBC 1.1 L* RBC 3.16 L Hgb 9.0 L Hct 26.2 L MCV 83 MCH 28.4 MCHC 34.3 RDW 14.9 H Plt Count 49 L Seg Neutrophils % Not Reportable Lymphocytes % Not Reportable Monocytes % Not Reportable Eosinophils % Not Reportable Basophils % Not Reportable Absolute Neutrophils Not Reportable Absolute Lymphocytes Not Reportable Absolute Monocytes Not Reportable Absolute Eosinophils Not Reportable Absolute Basophils Not Reportable Sodium 135.4 L Potassium 4.3 Chloride 101 Carbon Dioxide 26 Anion Gap 8 BUN 13 Creatinine 1.04 Est GFR ( Amer) > 60 Est GFR (Non-Af Amer) > 60 Glucose 114 H Calcium 7.6 L Total Bilirubin 0.8 AST 17 ALT 29 Alkaline Phosphatase 87 Ammonia Total Protein 6.3 Albumin 2.6 L Triglycerides 86 Cholesterol 123.06 LDL Cholesterol Direct 95 VLDL Cholesterol 17.0 HDL Cholesterol 19 L Amylase Lipase TSH Free T4 06/21/17 06/21/17 06/21/17 20:40 20:40 20:40 Creatine Kinase 108 CK-MB (CK-2) 0.64 Troponin I < 0.012 06/22/17 06/22/17 06/22/17 02:42 02:42 08:33 Creatine Kinase 86 84 CK-MB (CK-2) Troponin I < 0.012 06/22/17 08:33 Creatine Kinase CK-MB (CK-2) Troponin I < 0.012 Impressions: Chest/Abdomen CTA 06/21/17 10:45 IMPRESSION: No emboli visualized in the main pulmonary arteries or the segmental branches.New since the prior exam Mild interstitial thickening throughout both lungs and Mild subsegmental atelectasis is present in both lower lobes, left greater than right. Similar upper retroperitoneal lymphadenopathy. Assessment & Plan - Diagnosis (1) AIDS (acquired immunodeficiency syndrome), CD4 <=200 Is this a current diagnosis for this admission?: Yes (2) Febrile neutropenia Is this a current diagnosis for this admission?: Yes (3) HIV (human immunodeficiency virus infection) Is this a current diagnosis for this admission?: Yes (4) Hodgkin lymphoma Qualifiers: Hodgkin lymphoma type: unspecified type Lymphoma site: unspecified region Qualified Code(s): C81.90 - Hodgkin lymphoma, unspecified, unspecified site Is this a current diagnosis for this admission?: Yes - Plan Summary Plan Summary: Patient is admitted for management
[2017-06-22] MEDS: ACETAMINOPHEN 325 MG TABLET PO PRN (16:44)
[2017-06-22 19:35] LABS: CREATININE RESULT 1.28 mg/dL (0.52-1.25)
--- NOTE | 2017-06-22 21:17 | PDOC PROGRESS REPORT ---
Subjective Progress Note for:: 06/22/17 Subjective:: He was seen by the bedside, the white blood cell is slightly increased today to 1000 Reason For Visit: PANCYTOPENIA, FEVER, HIV, AIDS HODGKINS Physical Exam Vital Signs: Temp Pulse Resp BP Pulse Ox 100.5 F H 142 H 20 146/93 H 95 06/22/17 17:39 06/22/17 16:06 06/22/17 16:06 06/22/17 16:06 06/22/17 16:06 Intake & Output 06/21/17 06/22/17 06/23/17 06:59 06:59 06:59 Intake Total 640 396 Balance 640 396 Weight 74 kg General appearance: PRESENT: no acute distress Eye exam: PRESENT: PERRLA Respiratory exam: PRESENT: clear to auscultation joslyn Cardiovascular exam: PRESENT: +S1, +S2 GI/Abdominal exam: PRESENT: soft Results Laboratory Results: 06/22/17 02:42 06/22/17 18:36 06/21/17 06/21/17 06/21/17 20:40 20:40 23:00 WBC RBC Hgb Hct MCV MCH MCHC RDW Plt Count Seg Neutrophils % Lymphocytes % Monocytes % Eosinophils % Basophils % Absolute Neutrophils Absolute Lymphocytes Absolute Monocytes Absolute Eosinophils Absolute Basophils Sodium Potassium Chloride Carbon Dioxide Anion Gap BUN Creatinine Est GFR ( Amer) Est GFR (Non-Af Amer) Glucose Calcium Total Bilirubin AST ALT Alkaline Phosphatase Ammonia < 8.7 L Total Protein Albumin Triglycerides Cholesterol LDL Cholesterol Direct VLDL Cholesterol HDL Cholesterol Amylase 54 Lipase 18.7 L TSH 1.28 Free T4 1.15 06/22/17 06/22/17 06/22/17 02:42 02:42 18:36 WBC 1.1 L* RBC 3.16 L Hgb 9.0 L Hct 26.2 L MCV 83 MCH 28.4 MCHC 34.3 RDW 14.9 H Plt Count 49 L Seg Neutrophils % Not Reportable Lymphocytes % Not Reportable Monocytes % Not Reportable Eosinophils % Not Reportable Basophils % Not Reportable Absolute Neutrophils Not Reportable Absolute Lymphocytes Not Reportable Absolute Monocytes Not Reportable Absolute Eosinophils Not Reportable Absolute Basophils Not Reportable Sodium 135.4 L Potassium 4.3 Chloride 101 Carbon Dioxide 26 Anion Gap 8 BUN 13 Creatinine 1.04 1.28 H Est GFR ( Amer) > 60 > 60 Est GFR (Non-Af Amer) > 60 > 60 Glucose 114 H Calcium 7.6 L Total Bilirubin 0.8 AST 17 ALT 29 Alkaline Phosphatase 87 Ammonia Total Protein 6.3 Albumin 2.6 L Triglycerides 86 Cholesterol 123.06 LDL Cholesterol Direct 95 VLDL Cholesterol 17.0 HDL Cholesterol 19 L Amylase Lipase TSH Free T4 06/21/17 06/21/17 06/21/17 20:40 20:40 20:40 Creatine Kinase 108 CK-MB (CK-2) 0.64 Troponin I < 0.012 06/22/17 06/22/17 06/22/17 02:42 02:42 08:33 Creatine Kinase 86 84 CK-MB (CK-2) Troponin I < 0.012 06/22/17 08:33 Creatine Kinase CK-MB (CK-2) Troponin I < 0.012 Impressions: Chest/Abdomen CTA 06/21/17 10:45 IMPRESSION: No emboli visualized in the main pulmonary arteries or the segmental branches.New since the prior exam Mild interstitial thickening throughout both lungs and Mild subsegmental atelectasis is present in both lower lobes, left greater than right. Similar upper retroperitoneal lymphadenopathy. Assessment & Plan - Diagnosis (1) AIDS (acquired immunodeficiency syndrome), CD4 <=200 Is this a current diagnosis for this admission?: Yes (2) Febrile neutropenia Is this a current diagnosis for this admission?: Yes (3) HIV (human immunodeficiency virus infection) Is this a current diagnosis for this admission?: Yes (4) Hodgkin lymphoma Qualifiers: Hodgkin lymphoma type: unspecified type Lymphoma site: unspecified region Qualified Code(s): C81.90 - Hodgkin lymphoma, unspecified, unspecified site Is this a current diagnosis for this admission?: Yes
[2017-06-22] MEDS: ATORVASTATIN CALCIUM 20 MG TABLET PO SCH (22:44)
[2017-06-23] MEDS: MISOPROSTOL 0.2 MG TABLET PO SCH ×3 (01:08→21:34)
[2017-06-23] MEDS: RITONAVIR 100 MG TABLET PO SCH ×3 (01:09→21:33)
[2017-06-23] MEDS: PIPERACILLIN SODIUM/TAZOBACTAM 3.375 GM in NORMAL SALINE 100 ML IV SCH ×5 (01:09→23:23)
[2017-06-23] MEDS: VANCOMYCIN HCL 1,000 MG in DEXTROSE 5%-WATER 250 ML IV SCH ×3 (04:22→18:43)
[2017-06-23] MEDS: HYDROMORPHONE HCL INJ/PF 2 MG/ML AMPULE IV PRN ×5 (04:23→23:23)
[2017-06-23 06:48] LABS: HEMATOCRIT 26.5 % (37.9-51.0); HEMOGLOBIN 8.9 g/dL (13.5-17.0); HGB HCT DIFFERENCE 0.2; MEAN CORPUSCULAR HEMOGLOBIN 28.1 pg (27.0-33.4); MEAN CORPUSCULAR HGB CONC 33.6 g/dL (32.0-36.0); MEAN CORPUSCULAR VOLUME 84 fl (80-97); RED BLOOD COUNT 3.16 10^6/uL (4.35-5.55); RED CELL DISTRIBUTION WIDTH 15.1 % (11.5-14.0)
[2017-06-23 06:56] LABS: ALANINE AMINOTRANSFERASE 31 U/L (21-72); ALBUMIN 2.7 g/dL (3.5-5.0); ALKALINE PHOSPHATASE 94 U/L (38-126); ANION GAP 9 (5-19); ASPARTATE AMINO TRANSFERASE 18 U/L (17-59); BILIRUBIN,DIRECT 0.5 mg/dL (0.0-0.4); BILIRUBIN,TOTAL 0.8 mg/dL (0.2-1.3); BLOOD UREA NITROGEN 15 mg/dL (7-20); CALCIUM 8.2 mg/dL (8.4-10.2); CARBON DIOXIDE 27 mmol/L (22-30); CHLORIDE 98 mmol/L (98-107); CREATININE RESULT 1.23 mg/dL (0.52-1.25); GLUCOSE 104 mg/dL (75-110); SODIUM 133.5 mmol/L (137-145); TOTAL PROTEIN 6.7 g/dL (6.3-8.2)
[2017-06-23 07:50] LABS: WHITE BLOOD COUNT 2.2 10^3/uL (4.0-10.5)
[2017-06-23 07:55] LABS: BAND NEUTROPHILS % (MANUAL) 3 % (3-5); BASOPHILS % (MANUAL) 1 % (0-2); EOSINOPHILS % (MANUAL) 0 % (0-6); LYMPHOCYTES % (MANUAL) 35 % (13-45); TOTAL CELLS COUNTED 100
[2017-06-23 07:57] LABS: ANISOCYTOSIS 1+; HOWELL-JOLLY BODIES PRESENT; POLYCHROMASIA SLIGHT; TARGET CELLS SLIGHT
[2017-06-23 07:58] LABS: OVALOCYTES 2+; POIKILOCYTOSIS 2+; ROULEAUX SLIGHT
[2017-06-23] MEDS: EMTRICITABINE/TENOFOVIR 200-300 MG TABLET PO SCH (11:01)
[2017-06-23] MEDS: AMLODIPINE BESYLATE 5 MG TABLET PO SCH (11:01)
[2017-06-23] MEDS: CITALOPRAM HYDROBROMIDE 20 MG TABLET PO SCH (11:01)
[2017-06-23] MEDS: LEVETIRACETAM 500 MG TABLET PO SCH ×2 (11:02→21:30)
[2017-06-23] MEDS: METOPROLOL SUCCINATE 25 MG TAB.SR.24H PO SCH (11:02)
[2017-06-23] MEDS: DAPSONE 25 MG TABLET PO SCH (11:03)
[2017-06-23] MEDS: POLYETHYLENE GLYCOL 3350 POWDER 17 GM/1 PACKET PO SCH (11:13)
[2017-06-23] MEDS: ACETAMINOPHEN 325 MG TABLET PO PRN (12:33)
--- NOTE | 2017-06-23 18:03 | PDOC PROGRESS REPORT ---
Subjective Progress Note for:: 06/23/17 Subjective:: Patient was seen by the bedside, the white blood cell count is up to 2000 for the first time in the long time, patient is feeling better he wants to take a shower Reason For Visit: PANCYTOPENIA, FEVER, HIV, AIDS HODGKINS Physical Exam Vital Signs: Temp Pulse Resp BP Pulse Ox 98.8 F 110 H 18 129/76 H 94 06/23/17 17:10 06/23/17 17:10 06/23/17 17:10 06/23/17 17:10 06/23/17 17:10 Intake & Output 06/22/17 06/23/17 06/24/17 06:59 06:59 06:59 Intake Total 640 1226 370 Balance 640 1226 370 Weight 74 kg 77.5 kg General appearance: PRESENT: no acute distress Eye exam: PRESENT: PERRLA Respiratory exam: PRESENT: clear to auscultation joslyn Cardiovascular exam: PRESENT: +S1, +S2 GI/Abdominal exam: PRESENT: soft Neurological exam: PRESENT: alert Results Laboratory Results: 06/23/17 05:50 06/23/17 05:50 06/22/17 06/23/17 06/23/17 18:36 05:50 05:50 WBC 2.2 L D RBC 3.16 L Hgb 8.9 L Hct 26.5 L MCV 84 MCH 28.1 MCHC 33.6 RDW 15.1 H Plt Count 95 L Seg Neutrophils % Not Reportable Lymphocytes % Not Reportable Monocytes % Not Reportable Eosinophils % Not Reportable Basophils % Not Reportable Absolute Neutrophils Not Reportable Absolute Lymphocytes Not Reportable Absolute Monocytes Not Reportable Absolute Eosinophils Not Reportable Absolute Basophils Not Reportable Sodium 133.5 L Potassium 4.0 Chloride 98 Carbon Dioxide 27 Anion Gap 9 BUN 15 Creatinine 1.28 H 1.23 Est GFR ( Amer) > 60 > 60 Est GFR (Non-Af Amer) > 60 > 60 Glucose 104 Calcium 8.2 L Total Bilirubin 0.8 AST 18 ALT 31 Alkaline Phosphatase 94 Total Protein 6.7 Albumin 2.7 L 06/21/17 06/21/17 06/21/17 20:40 20:40 20:40 Creatine Kinase 108 CK-MB (CK-2) 0.64 Troponin I < 0.012 06/22/17 06/22/17 06/22/17 02:42 02:42 08:33 Creatine Kinase 86 84 CK-MB (CK-2) Troponin I < 0.012 06/22/17 08:33 Creatine Kinase CK-MB (CK-2) Troponin I < 0.012 Impressions: Chest/Abdomen CTA 06/21/17 10:45 IMPRESSION: No emboli visualized in the main pulmonary arteries or the segmental branches.New since the prior exam Mild interstitial thickening throughout both lungs and Mild subsegmental atelectasis is present in both lower lobes, left greater than right. Similar upper retroperitoneal lymphadenopathy. Assessment & Plan - Diagnosis (1) AIDS (acquired immunodeficiency syndrome), CD4 <=200 Is this a current diagnosis for this admission?: Yes (2) Febrile neutropenia Is this a current diagnosis for this admission?: Yes (3) HIV (human immunodeficiency virus infection) Is this a current diagnosis for this admission?: Yes (4) Hodgkin lymphoma Qualifiers: Hodgkin lymphoma type: unspecified type Lymphoma site: unspecified region Qualified Code(s): C81.90 - Hodgkin lymphoma, unspecified, unspecified site Is this a current diagnosis for this admission?: Yes (5) Acute kidney injury Is this a current diagnosis for this admission?: Yes (7) Hypertension Is this a current diagnosis for this admission?: Yes (8) Thrombocytopenia associated with AIDS Is this a current diagnosis for this admission?: Yes (9) Thrombocytopenia due to drugs Is this a current diagnosis for this admission?: Yes
[2017-06-23] MEDS: ATORVASTATIN CALCIUM 20 MG TABLET PO SCH (21:30)
[2017-06-23] MEDS: PREZISTA 600 MG PO SCH (21:41)
[2017-06-24] MEDS: VANCOMYCIN HCL 1,000 MG in DEXTROSE 5%-WATER 250 ML IV SCH ×2 (01:23→10:30)
[2017-06-24] MEDS: HYDROMORPHONE HCL INJ/PF 2 MG/ML AMPULE IV PRN ×5 (04:09→23:49)
[2017-06-24] MEDS: PIPERACILLIN SODIUM/TAZOBACTAM 3.375 GM in NORMAL SALINE 100 ML IV SCH ×4 (05:41→23:49)
[2017-06-24 06:17] LABS: HEMATOCRIT 27.7 % (37.9-51.0); HEMOGLOBIN 9.3 g/dL (13.5-17.0); HGB HCT DIFFERENCE 0.2; MEAN CORPUSCULAR HEMOGLOBIN 28.3 pg (27.0-33.4); MEAN CORPUSCULAR HGB CONC 33.7 g/dL (32.0-36.0); MEAN CORPUSCULAR VOLUME 84 fl (80-97); RED CELL DISTRIBUTION WIDTH 15.3 % (11.5-14.0); WHITE BLOOD COUNT 3.7 10^3/uL (4.0-10.5)
[2017-06-24 06:18] LABS: ALANINE AMINOTRANSFERASE 29 U/L (21-72); ALKALINE PHOSPHATASE 70 U/L (38-126); ANION GAP 6 (5-19); ASPARTATE AMINO TRANSFERASE 12 U/L (17-59); BILIRUBIN,DIRECT 0.1 mg/dL (0.0-0.4); BILIRUBIN,TOTAL 0.2 mg/dL (0.2-1.3); BLOOD UREA NITROGEN 8 mg/dL (7-20); CARBON DIOXIDE 22 mmol/L (22-30); CHLORIDE 111 mmol/L (98-107); CREATININE RESULT 0.78 mg/dL (0.52-1.25); GLUCOSE 79 mg/dL (75-110); SODIUM 138.9 mmol/L (137-145); TOTAL PROTEIN 5.2 g/dL (6.3-8.2)
[2017-06-24 06:25] LABS: CALCIUM 5.9 mg/dL (8.4-10.2); POTASSIUM 2.6 mmol/L (3.6-5.0)
[2017-06-24 06:30] LABS: ANISOCYTOSIS SLIGHT; BAND NEUTROPHILS % (MANUAL) 8 % (3-5); BASOPHILS % (MANUAL) 0 % (0-2); EOSINOPHILS % (MANUAL) 0 % (0-6); LYMPHOCYTES % (MANUAL) 40 % (13-45); OVALOCYTES SLIGHT; POIKILOCYTOSIS SLIGHT; POLYCHROMASIA SLIGHT; TARGET CELLS SLIGHT; TOTAL CELLS COUNTED 100
[2017-06-24] MEDS: POTASSIUM CHLORIDE 10 MEQ TABLET.SA PO SCH ×4 (06:52→18:29)
[2017-06-24] MEDS: RITONAVIR 100 MG TABLET PO SCH ×2 (10:27→21:11)
[2017-06-24] MEDS: EMTRICITABINE/TENOFOVIR 200-300 MG TABLET PO SCH (10:27)
[2017-06-24] MEDS: DAPSONE 25 MG TABLET PO SCH (10:27)
[2017-06-24] MEDS: MISOPROSTOL 0.2 MG TABLET PO SCH ×2 (10:27→21:11)
[2017-06-24] MEDS: PREZISTA 600 MG PO SCH ×2 (10:27→21:11)
[2017-06-24] MEDS: AMLODIPINE BESYLATE 5 MG TABLET PO SCH (10:28)
[2017-06-24] MEDS: LEVETIRACETAM 500 MG TABLET PO SCH ×2 (10:28→21:12)
[2017-06-24] MEDS: CITALOPRAM HYDROBROMIDE 20 MG TABLET PO SCH (10:29)
[2017-06-24] MEDS: METOPROLOL SUCCINATE 25 MG TAB.SR.24H PO SCH (10:29)
[2017-06-24] MEDS: POLYETHYLENE GLYCOL 3350 POWDER 17 GM/1 PACKET PO SCH (10:35)
[2017-06-24] MEDS: ATORVASTATIN CALCIUM 20 MG TABLET PO SCH (21:11)
--- NOTE | 2017-06-24 21:56 | PDOC PROGRESS REPORT ---
Subjective Progress Note for:: 06/24/17 Subjective:: Patient was seen by the bedside, he continues to improve, hopefully discharge home tomorrow Reason For Visit: PANCYTOPENIA, FEVER, HIV, AIDS HODGKINS Physical Exam Vital Signs: Temp Pulse Resp BP Pulse Ox 98.1 F 110 H 18 139/86 H 95 06/24/17 19:35 06/24/17 19:35 06/24/17 19:35 06/24/17 19:35 06/24/17 19:35 Intake & Output 06/23/17 06/24/17 06/25/17 06:59 06:59 06:59 Intake Total 1226 1420 823 Balance 1226 1420 823 Weight 77.5 kg 72.2 kg General appearance: PRESENT: no acute distress, well-developed, well-nourished Head exam: PRESENT: atraumatic, normocephalic Eye exam: PRESENT: conjunctiva pink, EOMI, PERRLA. ABSENT: scleral icterus Ear exam: PRESENT: normal external ear exam Mouth exam: PRESENT: moist, tongue midline Neck exam: PRESENT: full ROM Respiratory exam: PRESENT: clear to auscultation joslyn Cardiovascular exam: PRESENT: RRR, +S1, +S2 Pulses: PRESENT: normal dorsalis pedis pul, +2 pedal pulses bilateral Vascular exam: PRESENT: normal capillary refill GI/Abdominal exam: PRESENT: normal bowel sounds, soft Rectal exam: PRESENT: deferred Neurological exam: PRESENT: alert, awake, oriented to person, oriented to place , oriented to time, oriented to situation, CN II-XII grossly intact Psychiatric exam: PRESENT: appropriate affect, normal mood Skin exam: PRESENT: dry, intact, warm. ABSENT: cyanosis, rash Results Laboratory Results: 06/24/17 05:45 06/24/17 06/24/17 05:45 05:45 WBC 3.7 L RBC 3.30 L Hgb 9.3 L Hct 27.7 L MCV 84 MCH 28.3 MCHC 33.7 RDW 15.3 H Plt Count 165 Seg Neutrophils % Not Reportable Lymphocytes % Not Reportable Monocytes % Not Reportable Eosinophils % Not Reportable Basophils % Not Reportable Absolute Neutrophils Not Reportable Absolute Lymphocytes Not Reportable Absolute Monocytes Not Reportable Absolute Eosinophils Not Reportable Absolute Basophils Not Reportable Sodium 138.9 Potassium 2.6 L* D Chloride 111 H Carbon Dioxide 22 Anion Gap 6 BUN 8 Creatinine 0.78 Est GFR ( Amer) > 60 Est GFR (Non-Af Amer) > 60 Glucose 79 Calcium 5.9 L* Total Bilirubin 0.2 AST 12 L ALT 29 Alkaline Phosphatase 70 Total Protein 5.2 L Albumin 2.0 L 06/21/17 06/21/17 06/21/17 20:40 20:40 20:40 Creatine Kinase 108 CK-MB (CK-2) 0.64 Troponin I < 0.012 06/22/17 06/22/17 06/22/17 02:42 02:42 08:33 Creatine Kinase 86 84 CK-MB (CK-2) Troponin I < 0.012 06/22/17 08:33 Creatine Kinase CK-MB (CK-2) Troponin I < 0.012 Impressions: Chest/Abdomen CTA 06/21/17 10:45 IMPRESSION: No emboli visualized in the main pulmonary arteries or the segmental branches.New since the prior exam Mild interstitial thickening throughout both lungs and Mild subsegmental atelectasis is present in both lower lobes, left greater than right. Similar upper retroperitoneal lymphadenopathy. Assessment & Plan - Diagnosis (1) AIDS (acquired immunodeficiency syndrome), CD4 <=200 Is this a current diagnosis for this admission?: Yes (2) Febrile neutropenia Is this a current diagnosis for this admission?: Yes (3) HIV (human immunodeficiency virus infection) Is this a current diagnosis for this admission?: Yes (4) Hodgkin lymphoma Qualifiers: Hodgkin lymphoma type: unspecified type Lymphoma site: unspecified region Qualified Code(s): C81.90 - Hodgkin lymphoma, unspecified, unspecified site Is this a current diagnosis for this admission?: Yes (5) Acute kidney injury Is this a current diagnosis for this admission?: Yes (6) Hiccough Is this a current diagnosis for this admission?: Yes (7) Hypertension Is this a current diagnosis for this admission?: Yes (8) Thrombocytopenia associated with AIDS Is this a current diagnosis for this admission?: Yes (9) Thrombocytopenia due to drugs Is this a current diagnosis for this admission?: Yes
[2017-06-24 22:19] LABS: ALANINE AMINOTRANSFERASE 36 U/L (21-72); ALBUMIN 2.9 g/dL (3.5-5.0); ALKALINE PHOSPHATASE 98 U/L (38-126); ASPARTATE AMINO TRANSFERASE 22 U/L (17-59); BILIRUBIN,DIRECT 0.3 mg/dL (0.0-0.4); BILIRUBIN,TOTAL 0.3 mg/dL (0.2-1.3); BLOOD UREA NITROGEN 10 mg/dL (7-20); CALCIUM 8.5 mg/dL (8.4-10.2); CREATININE RESULT 1.28 mg/dL (0.52-1.25); GLUCOSE 114 mg/dL (75-110); TOTAL PROTEIN 6.8 g/dL (6.3-8.2)
[2017-06-24 22:57] LABS: ANION GAP 9 (5-19); CHLORIDE 106 mmol/L (98-107); SODIUM 146.2 mmol/L (137-145)
[2017-06-24 23:04] LABS: CARBON DIOXIDE 31 mmol/L (22-30); POTASSIUM 4.7 mmol/L (3.6-5.0)
[2017-06-25] MEDS: HYDROMORPHONE HCL INJ/PF 2 MG/ML AMPULE IV PRN ×3 (04:45→16:03)
[2017-06-25 05:08] LABS: HEMATOCRIT 26.8 % (37.9-51.0); HGB HCT DIFFERENCE 0.2; MEAN CORPUSCULAR HEMOGLOBIN 28.4 pg (27.0-33.4); MEAN CORPUSCULAR HGB CONC 33.6 g/dL (32.0-36.0); MEAN CORPUSCULAR VOLUME 85 fl (80-97); RED BLOOD COUNT 3.17 10^6/uL (4.35-5.55); RED CELL DISTRIBUTION WIDTH 15.6 % (11.5-14.0); WHITE BLOOD COUNT 4.2 10^3/uL (4.0-10.5)
[2017-06-25 05:12] LABS: ALANINE AMINOTRANSFERASE 32 U/L (21-72); ALBUMIN 2.9 g/dL (3.5-5.0); ALKALINE PHOSPHATASE 101 U/L (38-126); ANION GAP 9 (5-19); ASPARTATE AMINO TRANSFERASE 22 U/L (17-59); BILIRUBIN,DIRECT 0.1 mg/dL (0.0-0.4); BILIRUBIN,TOTAL 0.2 mg/dL (0.2-1.3); BLOOD UREA NITROGEN 11 mg/dL (7-20); CALCIUM 8.4 mg/dL (8.4-10.2); CARBON DIOXIDE 30 mmol/L (22-30); CHLORIDE 106 mmol/L (98-107); CREATININE RESULT 1.33 mg/dL (0.52-1.25); GLUCOSE 87 mg/dL (75-110); POTASSIUM 4.5 mmol/L (3.6-5.0); SODIUM 145.3 mmol/L (137-145); TOTAL PROTEIN 6.8 g/dL (6.3-8.2)
[2017-06-25 05:31] LABS: BAND NEUTROPHILS % (MANUAL) 1 % (3-5); BASOPHILS % (MANUAL) 0 % (0-2); EOSINOPHILS % (MANUAL) 0 % (0-6); LYMPHOCYTES % (MANUAL) 42 % (13-45); TOTAL CELLS COUNTED 100; TOXIC GRANULATION 1+
[2017-06-25 05:32] LABS: ACANTHOCYTES 1+; ANISOCYTOSIS SLIGHT; OVALOCYTES 1+; POIKILOCYTOSIS 2+; SCHISTOCYTES 1+; TARGET CELLS SLIGHT
[2017-06-25] MEDS: PIPERACILLIN SODIUM/TAZOBACTAM 3.375 GM in NORMAL SALINE 100 ML IV SCH ×3 (05:58→18:19)
[2017-06-25] MEDS: PREZISTA 600 MG PO SCH (10:07)
[2017-06-25] MEDS: EMTRICITABINE/TENOFOVIR 200-300 MG TABLET PO SCH (10:07)
[2017-06-25] MEDS: LEVETIRACETAM 500 MG TABLET PO SCH (10:08)
[2017-06-25] MEDS: MISOPROSTOL 0.2 MG TABLET PO SCH (10:08)
[2017-06-25] MEDS: RITONAVIR 100 MG TABLET PO SCH (10:08)
[2017-06-25] MEDS: CITALOPRAM HYDROBROMIDE 20 MG TABLET PO SCH (10:09)
[2017-06-25] MEDS: DAPSONE 25 MG TABLET PO SCH (10:09)
[2017-06-25] MEDS: AMLODIPINE BESYLATE 5 MG TABLET PO SCH (10:11)
[2017-06-25] MEDS: METOPROLOL SUCCINATE 25 MG TAB.SR.24H PO SCH (10:12)
[2017-06-25] MEDS: POLYETHYLENE GLYCOL 3350 POWDER 17 GM/1 PACKET PO SCH (10:13)
[2017-06-25 16:01] VITALS: BP 142/86
--- NOTE | 2017-06-25 18:04 | PDOC DISCHARGE SUMMARY ---
General - Admit/Disc Date/PCP Admission Date/Primary Care Provider: 06/21/17 14:40 Discharge Date: 06/25/17 - Discharge Diagnosis (1) Febrile neutropenia Is this a current diagnosis for this admission?: Yes (2) AIDS (acquired immunodeficiency syndrome), CD4 <=200 Is this a current diagnosis for this admission?: Yes (3) HIV (human immunodeficiency virus infection) Is this a current diagnosis for this admission?: Yes (4) Hodgkin lymphoma Is this a current diagnosis for this admission?: Yes (5) Acute kidney injury Is this a current diagnosis for this admission?: Yes (6) Hiccough Is this a current diagnosis for this admission?: Yes (7) Hypertension Is this a current diagnosis for this admission?: Yes (8) Thrombocytopenia associated with AIDS Is this a current diagnosis for this admission?: Yes (9) Thrombocytopenia due to drugs Is this a current diagnosis for this admission?: Yes - Additional Information Discharge Diet: As Tolerated, Regular Prescriptions: Azithromycin [Zithromax] 500 mg PO DAILY #10 tablet RX: Dapsone [Dapsone 25 mg Tablet] 100 mg PO DAILY #90 tablet RX: Oxycodone HCl 10 mg PO Q6H #60 tablet RX: Valsartan 320 mg PO DAILY #90 tablet Home Medications: Misoprostol [Cytotec 0.2 mg Tablet] 200 mcg PO Q12 06/09/17 RX: Amlodipine Besylate 5 mg PO DAILY 06/09/17 RX: Aspirin [Aspirin 325 mg Tablet] 325 tab PO DAILY 06/09/17 RX: Atorvastatin Calcium [Lipitor 20 mg Tablet] 20 mg PO DAILY 06/09/17 RX: Citalopram Hydrobromide [Citalopram HBr] 20 mg PO DAILY 06/09/17 RX: Darunavir Ethanolate [Prezista] 600 mg PO Q12 06/09/17 RX: Emtricitabine/Tenofovir (Tdf) [Truvada 200 mg-300 mg Tablet] 1 tab PO DAILY 06/09/17 RX: Etravirine [Intelence] 200 mg PO Q12 06/09/17 RX: Levetiracetam [Keppra 500 mg Tablet] 500 mg PO Q12 06/09/17 RX: Metoprolol Succinate 25 mg PO DAILY 06/09/17 RX: Ondansetron HCl [Zofran 4 mg Tablet] 4 mg PO Q8HP PRN 06/09/17 RX: Polyethylene Glycol 3350 [Miralax Powder 17 gm/Packet] 17 gm PO DAILY RX: Ritonavir [Norvir 100 mg Tablet] 100 mg PO Q12 06/09/17 Azithromycin [Zithromax] 500 mg PO DAILY #10 tablet 06/25/17 RX: Dapsone [Dapsone 25 mg Tablet] 100 mg PO DAILY #90 tablet 06/25/17 RX: Oxycodone HCl 10 mg PO Q6H #60 tablet 06/25/17 RX: Valsartan 320 mg PO DAILY #90 tablet 06/25/17 History of Present Illness History of Present Illness: VERONICA CARDENAS is a 46 year old male, he left AGAINST MEDICAL ADVICE yesterday, he was admitted initially for management of fever associated with acute mental status change/stuporous condition in the setting of AIDS defining illnesses with CD4 count below 200. At the time he was empirically managed with IV antibiotic to cover potential pathogens including PCP pneumonia, he has Hodgkin's lymphoma and the last time he was in the hospital he had induction therapy for his lymphoma, the hospital because was complicated with febrile neutropenia, acute kidney injury. He was being managed but yesterday he decided that to leave again medical advice only for him to return again on Wednesday for readmission. He presented to the emergency room with shortness of breath, in the emergency room CTA chest was done, it showed mild interstitial thickening throughout both lungs mild subsegmental atelectasis in both lower lobes no pleural effusion or pneumothorax Hospital Course Hospital Course: He was treated with IV antibiotic, empirically, vancomycin and Zosyn, he improved with this treatment regimen. The white blood cell count, hemoglobin and platelet are normal. He be discharged home today, will follow with oncology. The kidney function is improved Physical Exam Vital Signs: Temp Pulse Resp BP Pulse Ox 97.9 F 108 H 16 142/86 H 93 06/25/17 15:54 06/25/17 15:54 06/25/17 15:54 06/25/17 15:54 06/25/17 15:54 Intake & Output 06/24/17 06/25/17 06/26/17 06:59 06:59 06:59 Intake Total 1420 1290 612 Balance 1420 1290 612 Weight 72.2 kg 72 kg General appearance: PRESENT: no acute distress, well-developed, well-nourished Head exam: PRESENT: atraumatic, normocephalic Eye exam: PRESENT: conjunctiva pink, EOMI, PERRLA Ear exam: PRESENT: normal external ear exam Mouth exam: PRESENT: moist, tongue midline Neck exam: PRESENT: full ROM Respiratory exam: PRESENT: clear to auscultation joslyn Cardiovascular exam: PRESENT: RRR, +S1, +S2 Pulses: PRESENT: normal dorsalis pedis pul, +2 pedal pulses bilateral Vascular exam: PRESENT: normal capillary refill GI/Abdominal exam: PRESENT: normal bowel sounds, soft Rectal exam: PRESENT: deferred Neurological exam: PRESENT: alert, awake, oriented to person, oriented to place , oriented to time, oriented to situation, CN II-XII grossly intact Psychiatric exam: PRESENT: appropriate affect, normal mood Skin exam: PRESENT: dry, intact, warm Results Laboratory Results: 06/25/17 04:45 06/25/17 04:45 06/24/17 06/25/17 06/25/17 21:15 04:45 04:45 WBC 4.2 RBC 3.17 L Hgb 9.0 L Hct 26.8 L MCV 85 MCH 28.4 MCHC 33.6 RDW 15.6 H Plt Count 223 Seg Neutrophils % Not Reportable Lymphocytes % Not Reportable Monocytes % Not Reportable Eosinophils % Not Reportable Basophils % Not Reportable Absolute Neutrophils Not Reportable Absolute Lymphocytes Not Reportable Absolute Monocytes Not Reportable Absolute Eosinophils Not Reportable Absolute Basophils Not Reportable Sodium 146.2 H 145.3 H Potassium 4.7 D 4.5 Chloride 106 106 Carbon Dioxide 31 H 30 Anion Gap 9 9 BUN 10 11 Creatinine 1.28 H 1.33 H Est GFR ( Amer) > 60 > 60 Est GFR (Non-Af Amer) > 60 57 L Glucose 114 H 87 Calcium 8.5 8.4 Total Bilirubin 0.3 0.2 AST 22 22 ALT 36 32 Alkaline Phosphatase 98 101 Total Protein 6.8 6.8 Albumin 2.9 L 2.9 L 06/21/17 06/21/17 06/21/17 20:40 20:40 20:40 Creatine Kinase 108 CK-MB (CK-2) 0.64 Troponin I < 0.012 06/22/17 06/22/1706/22/17 02:42 02:42 08:33 Creatine Kinase 86 84 CK-MB (CK-2) Troponin I < 0.012 06/22/17 08:33 Creatine Kinase CK-MB (CK-2) Troponin I < 0.012 Impressions: Chest/Abdomen CTA 06/21/17 10:45 IMPRESSION: No emboli visualized in the main pulmonary arteries or the segmental branches.New since the prior exam Mild interstitial thickening throughout both lungs and Mild subsegmental atelectasis is present in both lower lobes, left greater than right. Similar upper retroperitoneal lymphadenopathy.
[2017-06-28 11:01] LABS: PATH REVIEW PATHOLOGIST REVIEWED
== END 2017-06-25 19:00 | disposition home or self-care (01) | DRG 977 ==
LOC: ER 10:29 → EH 14:40 → 3W 18:45
PROVIDERS: ADMIT Internal Medicine; ATTEND Internal Medicine
DX: B20 Human immunodeficiency virus [HIV] disease (principal); C81.90 Hodgkin lymphoma, unspecified, unspecified site; J98.11 Atelectasis; N17.9 Acute kidney failure, unspecified; D70.9 Neutropenia, unspecified; R50.81 Fever presenting with conditions classified elsewhere; R06.02 Shortness of breath; I10 Essential (primary) hypertension; D69.59 Other secondary thrombocytopenia; R06.6 Hiccough; K21.9 Gastro-esophageal reflux disease without esophagitis; F32.9 Major depressive disorder, single episode, unspecified; F17.210 Nicotine dependence, cigarettes, uncomplicated; I25.10 Atherosclerotic heart disease of native coronary artery without angina pectoris; Z79.899 Other long term (current) drug therapy; Z88.8 Allergy status to other drugs, medicaments and biological substances; Z88.2 Allergy status to sulfonamides; Z86.73 Personal history of transient ischemic attack (TIA), and cerebral infarction without residual deficits; Z86.14 Personal history of Methicillin resistant Staphylococcus aureus infection
CPT/HCPCS: 36415; 71275; 80048; 80053; 80061; 80076; 80202; 82140; 82150; 82550; 82553; 82565; 83690; 84439; 84443; 84484; 85025; 86850; 86900; 86901; 87804; 96361; 96374; 99285; G8978-GP; G8979-GP; G8980-GP; J1170; J1642; J2270; J2543; J3370; J3490; J7030; J7060

== ENCOUNTER 2017-06-26 12:12 | Observation (INO) | payer MEDICARE, MEDICAID ==
[2017-06-26] MEDS ORDERED: NORMAL SALINE 1000 ML 1,000 ML IV PRN ×2 (12:39→15:08)
[2017-06-26] MEDS ORDERED: LEVETIRACETAM 500 MG/NACL-ISO 500 MG/100 ML RTUPB IV ONE (12:40)
--- NOTE | 2017-06-26 12:44 | ER Document Report ---
ED General - General Stated Complaint: POSSIBLE OVERDOSE Time Seen by Provider: 06/26/17 12:39 Mode of Arrival: Medic Information source: Patient, Relative, Emergency Med Personnel, [facility] Records Notes: This is a 46-year-old man with a history of AIDS, non-Hodgkin's lymphoma, CVA, seizures, chronic back pain. The patient was recently hospitalized for neutropenic fever and was discharged last night. He is brought in by EMS because of concerns that he took the wrong medicine. The patient is accompanied by his son Sabianism who states he called EMS because of the concerns for taking incorrect medicines. The son does state that the patient was having coughing at the time. The patient has recently been admitted for neutropenia and treated with IV antibiotics. Family does report that his mental status is gradually deteriorated over the last several months. He lives with his 15-year-old son. TRAVEL OUTSIDE OF THE [place] IN LAST 30 DAYS: No - HPI Onset: Just prior to arrival Onset/Duration: Gradual Quality of pain: Dull Severity: Moderate Pain Level: 2 Associated symptoms: Nausea, Vomiting. denies: Chills, Fever Exacerbated by: Denies Relieved by: Denies Similar symptoms previously: Yes Recently seen / treated by doctor: Yes - Related Data Allergies/Adverse Reactions: sulfamethoxazole [From Bactrim] Allergy (Verified 06/26/17 14:09) trimethoprim [From Bactrim] Allergy (Verified 06/26/17 14:09) Home Medications: Current Home Medications Amlodipine Besylate [Norvasc 5 mg Tablet] 5 mg PO DAILY 06/26/17 [History] Aspirin [Aspirin 325 mg Tablet] 325 mg PO DAILY 06/26/17 [History] Atorvastatin Calcium [Lipitor 20 mg Tablet] 20 mg PO QHS 06/26/17 [History] Azithromycin [Zithromax 250 mg Tablet] 500 mg PO DAILY MDD FILLED 06/25 FOR 10DS 06/26/17 [History] Citalopram Hydrobromide [Citalopram HBr] 20 mg PO DAILY 06/26/17 [History] Darunavir Ethanolate [Prezista] 600 mg PO Q12 06/26/17 [History] Diclofenac Sodium [Voltaren 50 Mg Tablet.Dr] 50 mg PO Q8 06/26/17 [History] Emtricitabine/Tenofovir (Tdf) [Truvada 200 mg-300 mg Tablet] 1 tab PO DAILY [History] Etravirine [Intelence] 200 mg PO Q12 06/26/17 [History] Hydrochlorothiazide [Hydrodiuril 25 mg Tablet] 25 mg PO QAM 06/26/17 [History] Levetiracetam [Keppra 500 mg Tablet] 500 mg PO Q12 06/26/17 [History] Lisinopril [Prinivil 10 mg Tablet] 40 mg PO DAILY 06/26/17 [History] Metoprolol Succinate [Toprol Xl 25 mg Tab.sr] 25 mg PO DAILY 06/26/17 [History] Misoprostol [Cytotec 0.2 mg Tablet] 200 mcg PO Q12 06/26/17 [History] Morphine Sulfate/Naltrexone [Embeda ER 20-0.8 mg Capsule] 1 cap PO DAILY [History] Oxycodone HCl [Oxy-Ir 5 mg Tablet] 10 mg PO Q6HP PRN 06/26/17 [History] Polyethylene Glycol 3350 [Miralax Powder 17 gm/Packet] 1 packet PO DAILY [History] Ritonavir [Norvir 100 mg Tablet] 100 mg PO Q12 06/26/17 [History] Valsartan [Diovan 160 mg Tablet] 320 mg PO DAILY 06/26/17 [History] Past Medical History - General Information source: Relative - Social History Smoking Status: Former Smoker Cigarette use (# per day): No Chew tobacco use (# tins/day): No Frequency of alcohol use: None Drug Abuse: None Lives with: Other - He lives with his 15-year-old son Family History: Hypertension Patient has suicidal ideation: No Patient has homicidal ideation: No - Past Medical History Cardiac Medical History: Reports: Hx Coronary Artery Disease, Hx Hypercholesterolemia, Hx Hypertension Denies: Hx Heart Attack Pulmonary Medical History: Denies: Hx Asthma, Hx Bronchitis, Hx COPD, Hx Pneumonia, Hx Tuberculosis Neurological Medical History: Reports: Hx Cerebrovascular Accident - 6 month, Hx Seizures Renal/ Medical History: Reports: Hx Renal Insufficiency. Denies: Hx Peritoneal Dialysis Malignancy Medical History: Reports Hx Lymphoma - Hodgkin's lymphoma GI Medical History: Reports: Hx Gastroesophageal Reflux Disease Musculoskeltal Medical History: Denies Hx Arthritis Skin Medical History: Reports Hx MRSA Psychiatric Medical History: Reports: Hx Depression Infectious Medical History: Reports: Hx HIV - Immunizations Hx Diphtheria, Pertussis, Tetanus Vaccination: Yes Hx Pneumococcal Vaccination: 07/12/09 Review of Systems - Review of Systems Constitutional: denies: Chills, Fever EENT: No symptoms reported Cardiovascular: No symptoms reported Respiratory: See HPI Gastrointestinal: See HPI Genitourinary: No symptoms reported Male Genitourinary: No symptoms reported Musculoskeletal: No symptoms reported Skin: No symptoms reported Hematologic/Lymphatic: No symptoms reported Neurological/Psychological: See HPI, Confusion Physical Exam - Vital signs Vitals: Temp Pulse Resp BP Pulse Ox 98.7 F 113 H 18 164/88 H 91 L 06/26/17 12:12 06/26/17 12:12 06/26/17 12:12 06/26/17 12:12 06/26/17 12:12 Notes: Physical exam: GENERAL: Cachectic, chronically ill-appearing man, with no acute distress HEAD: Atraumatic, normocephalic. EYES: Pupils equal round and reactive to light, extraocular movements intact, sclera anicteric, conjunctiva are normal. ENT: TMs normal, nares patent, oropharynx clear without exudates. Moist mucous membranes. NECK: Normal range of motion, supple without obvious mass or JVD. LUNGS: Breath sounds clear to auscultation bilaterally and equal. No wheezes rales or rhonchi. HEART: Regular rate and rhythm without murmurs, rubs or gallops. ABDOMEN: Soft, normoactive bowel sounds. No tenderness to palpation. No guarding, no rebound. No masses appreciated. EXTREMITIES: Normal range of motion, no pitting or edema. No clubbing or cyanosis. NEUROLOGICAL: Cranial nerves II through XII grossly intact. Normal speech, moving all extremities. PSYCH: Normal mood, normal affect. SKIN: Warm, Dry, normal turgor, no rashes or lesions noted. 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 He lives with his 15- year-old son. He was recently admitted for neutropenia and treated with IV antibiotics. He is due to be evaluated by the oncologist on Wednesday in her office. He was brought in because of concerns about taking the wrong medicines , possible overdose, and nausea and vomiting with medicines. I spent a fair amount of time going over the medicines with the patient's ex- (who is here only for the weekend) and it is clear that the patient does not know where his medicines are and which medicines he should be taking. I have had a long discussion with the patient's 15-year-old son Sabianism, and it is apparent that he is not capable of taking care of his father is complicated medicine regimen. Additionally, he has been vomiting and not tolerating the medicine. Given all these factors, I will bring the patient in for IV fluids and continued evaluation. I have spoken to the patient in detail about relocating to [place] where he has a greater social support. - Vital Signs Vital signs: Temp Pulse Resp BP Pulse Ox 98.7 F 113 H 19 142/92 H 100 06/26/17 12:12 06/26/17 12:12 06/26/17 14:01 06/26/17 14:00 06/26/17 14:01 - Laboratory Result Diagrams: 06/26/17 12:45 06/26/17 12:45 Laboratory results interpreted by me: 06/26/17 06/26/17 12:45 12:45 RBC 3.35 L Hgb 9.4 L Hct 28.3 L RDW 15.8 H Sodium 145.1 H Creatinine 1.35 H Est GFR (Non-Af Amer) 56 L Albumin 3.3 L - EKG Interpretation by Me Rate: Normal Rhythm: NSR - EKG shows normal sinus rhythm with a ventricular rate of 98, nonspecific T changes. Discharge - Discharge Clinical Impression: Vomiting with nausea, Dehydration Condition: Stable Disposition: ADMITTED OBSERVATION Admitting Provider: Bonita Mariee is covering for Dr. Mesa Unit Admitted: Telemetry
[2017-06-26 13:20] LABS: ALANINE AMINOTRANSFERASE 39 U/L (21-72); ALBUMIN 3.3 g/dL (3.5-5.0); ALKALINE PHOSPHATASE 108 U/L (38-126); ANION GAP 10 (5-19); ASPARTATE AMINO TRANSFERASE 34 U/L (17-59); BILIRUBIN,DIRECT 0.3 mg/dL (0.0-0.4); BILIRUBIN,TOTAL 0.3 mg/dL (0.2-1.3); BLOOD UREA NITROGEN 9 mg/dL (7-20); CARBON DIOXIDE 30 mmol/L (22-30); CHLORIDE 105 mmol/L (98-107); CREATININE RESULT 1.35 mg/dL (0.52-1.25); GLUCOSE 110 mg/dL (75-110); POTASSIUM 3.9 mmol/L (3.6-5.0); SODIUM 145.1 mmol/L (137-145); TOTAL PROTEIN 7.5 g/dL (6.3-8.2)
[2017-06-26] MEDS ORDERED: MORPHINE SULFATE 10 MG/ML INJ IV ONE ×2 (13:26→15:07)
[2017-06-26 13:38] LABS: HEMATOCRIT 28.3 % (37.9-51.0); HEMOGLOBIN 9.4 g/dL (13.5-17.0); HGB HCT DIFFERENCE -0.1; MEAN CORPUSCULAR HEMOGLOBIN 27.9 pg (27.0-33.4); MEAN CORPUSCULAR HGB CONC 33.1 g/dL (32.0-36.0); MEAN CORPUSCULAR VOLUME 84 fl (80-97); RED BLOOD COUNT 3.35 10^6/uL (4.35-5.55); RED CELL DISTRIBUTION WIDTH 15.8 % (11.5-14.0); WHITE BLOOD COUNT 6.6 10^3/uL (4.0-10.5)
[2017-06-26 14:07] LABS: BASOPHILS % (MANUAL) 0 % (0-2); EOSINOPHILS % (MANUAL) 0 % (0-6); LYMPHOCYTES % (MANUAL) 33 % (13-45); TOTAL CELLS COUNTED 100
[2017-06-26 14:09] LABS: OVALOCYTES SLIGHT; POIKILOCYTOSIS SLIGHT; POLYCHROMASIA 1+; TARGET CELLS SLIGHT
[2017-06-26] MEDS ORDERED: ONDANSETRON HCL INJ/PF 4 MG/2 ML SDV IV ONE (15:12)
--- NOTE | 2017-06-26 16:12 | RADIOLOGY REPORT (SQ) ---
EXAM DESCRIPTION: ACUTE ABDOMEN SERIES COMPLETED DATE/TIME: 06/26/2017 3:58 pm REASON FOR STUDY: nausea, vomiting COMPARISON: 06/09/2017 chest radiograph NUMBER OF VIEWS: Three views. TECHNIQUE: Frontal chest, supine abdomen and upright/decubitus abdomen radiographic images acquired. LIMITATIONS: None. FINDINGS: CHEST: Lungs clear of infiltrates. FREE AIR: None. No abnormal gas collections. BOWEL GAS PATTERN: Gas is seen within nondistended loops of colon with few air-fluid levels. CALCIFICATIONS: No suspicious calcifications. HARDWARE: None in the abdomen. SOFT TISSUES: No gross mass or suggestion of organomegaly. BONES: No acute fracture. No worrisome bone lesions. OTHER: A right anterior chest wall Port-A-Cath appears stable in position and appearance. IMPRESSION: Nonspecific, nonobstructed bowel gas pattern noting few air-fluid levels within the colo n suggesting diarrheal state. TECHNICAL DOCUMENTATION: JOB ID: [id number] [employer]- All Rights Reserved
[2017-06-26] MEDS ORDERED: ONDANSETRON HCL INJ/PF 4 MG/2 ML SDV IV PRN (16:56)
[2017-06-26] MEDS ORDERED: ACETAMINOPHEN 325 MG TABLET PO PRN (16:56)
[2017-06-26] MEDS ORDERED: IPRATROPIUM/ALBUTEROL 0.5-2.5 MG/3 ML AMPUL NEB PRN (16:56)
[2017-06-26] MEDS: LANSOPRAZOLE 15 MG TAB.RAP.DR PO SCH (18:48)
[2017-06-26] MEDS: DOCUSATE SODIUM 100 MG CAPSULE PO SCH (18:48)
[2017-06-26] MEDS: OXYCODONE-ACETAMINOPHEN 5-325 MG TABLET PO PRN (18:54)
[2017-06-26] MEDS: NORMAL SALINE 1000 ML 1,000 ML IV PRN (18:54)
[2017-06-26] MEDS: LEVETIRACETAM 500 MG TABLET PO SCH (21:35)
[2017-06-26] MEDS: ATORVASTATIN CALCIUM 20 MG TABLET PO SCH (21:35)
[2017-06-26] MEDS: RITONAVIR 100 MG TABLET PO SCH (21:36)
--- NOTE | 2017-06-26 23:05 | EKG REPORT ---
SEVERITY:- ABNORMAL ECG - SINUS RHYTHM LEFT VENTRICULAR HYPERTROPHY NONSPECIFIC T CHANGES LVH RELATED : Confirmed by: Sandra Maya 26-Jun-2017 23:05:08
[2017-06-27] MEDS: OXYCODONE-ACETAMINOPHEN 5-325 MG TABLET PO PRN ×2 (01:50→10:48)
[2017-06-27 04:51] LABS: URINE BARBITURATES SCREEN NEGATIVE; URINE METHADONE SCREEN NEGATIVE; URINE PHENCYCLIDINE SCREEN NEGATIVE
[2017-06-27 04:57] LABS: URINE OPIATES LOW UNCONFIRMED POSITIVE
[2017-06-27 05:02] LABS: ALANINE AMINOTRANSFERASE 43 U/L (21-72); ALBUMIN 2.8 g/dL (3.5-5.0); ALKALINE PHOSPHATASE 88 U/L (38-126); ANION GAP 9 (5-19); ASPARTATE AMINO TRANSFERASE 35 U/L (17-59); BILIRUBIN,DIRECT 0.2 mg/dL (0.0-0.4); BILIRUBIN,TOTAL 0.2 mg/dL (0.2-1.3); BLOOD UREA NITROGEN 8 mg/dL (7-20); CALCIUM 8.1 mg/dL (8.4-10.2); CARBON DIOXIDE 30 mmol/L (22-30); CHLORIDE 107 mmol/L (98-107); CREATININE RESULT 1.57 mg/dL (0.52-1.25); GLUCOSE 83 mg/dL (75-110); SODIUM 146.2 mmol/L (137-145); TOTAL PROTEIN 6.7 g/dL (6.3-8.2)
[2017-06-27 05:04] LABS: HEMATOCRIT 26.5 % (37.9-51.0); HEMOGLOBIN 8.7 g/dL (13.5-17.0); HGB HCT DIFFERENCE -0.4; MEAN CORPUSCULAR HEMOGLOBIN 28.1 pg (27.0-33.4); MEAN CORPUSCULAR HGB CONC 32.8 g/dL (32.0-36.0); MEAN CORPUSCULAR VOLUME 86 fl (80-97); RED BLOOD COUNT 3.09 10^6/uL (4.35-5.55); RED CELL DISTRIBUTION WIDTH 16.2 % (11.5-14.0); WHITE BLOOD COUNT 6.4 10^3/uL (4.0-10.5)
[2017-06-27 05:25] LABS: BAND NEUTROPHILS % (MANUAL) 1 % (3-5); BASOPHILS % (MANUAL) 0 % (0-2); EOSINOPHILS % (MANUAL) 0 % (0-6); LYMPHOCYTES % (MANUAL) 50 % (13-45); TOTAL CELLS COUNTED 100
[2017-06-27 05:33] LABS: ACANTHOCYTES SLIGHT; ANISOCYTOSIS 1+; POIKILOCYTOSIS 1+; POLYCHROMASIA 1+; TOXIC GRANULATION 1+
[2017-06-27 05:34] LABS: OVALOCYTES 1+; TARGET CELLS SLIGHT
[2017-06-27] MEDS: LANSOPRAZOLE 15 MG TAB.RAP.DR PO SCH ×2 (05:53→17:17)
--- NOTE | 2017-06-27 10:58 | PDOC H&P ---
History of Present Illness Admission Date/PCP: 06/26/17 17:10 WILNER KIDD MD Patient complains of: Nausea vomiting History of Present Illness: VERONICA CARDENAS is a 46 year old male This is a 46-year-old male with a history of the HIV recently diagnosed with the B-cell lymphoma and recently have a history of the pancytopenia after the chemotherapy and history of the PCP pneumonia discharged yesterday from the hospital came today because of the confusion about the medications and according to the patient not able to eat or drink. In the emergency departments all workup is stable but with the family situations and the patient still unable to keep it down decided to admit for further evaluations When I saw the patient's denied any chest pain denied any shortness of the breath no abdominal pain but patients looks like to me some more underlying dementia's and wants to go home Patient's ex- and the daughter in the room and discussed with them and patient does not have any family here and more family member at [place] and the prep probably transfer the patient's all care over there Will continues the patient on antibiotic and all HIV medications No significant history of the noncompliance with this on HIV medications and a history of the pain medications abuse in the past with the significant this problem I do not think some patients can live by himself with the 15-year-old son and as per discussed with the family member social professionals make some arrangement Past Medical History Cardiac Medical History: Reports: Coronary Artery Disease, Hyperlipidema, Hypertension Denies: Myocardial Infarction Pulmonary Medical History: Denies: Asthma, Bronchitis, Chronic Obstructive Pulmonary Disease (COPD), Pneumonia, Tuberculosis Neurological Medical History: Reports: Seizures Malignancy Medical History: Reports: Lymphoma - Hodgkin's lymphoma GI Medical History: Reports: Gastroesophageal Reflux Disease Musculoskeltal Medical History: Denies: Arthritis Psychiatric Medical History: Reports: Depression Hematology: Denies: Anemia Infectious Medical History: Reports: HIV Social History Lives with: Other - He lives with his 15-year-old son Smoking Status: Former Smoker Frequency of Alcohol Use: None Hx Recreational Drug Use: Yes Drugs: Marijuana Hx Prescription Drug Abuse: No - Advance Directive Resuscitation Status: Full Code Family History Family History: Reviewed & Not Pertinent, Hypertension Parental Family History Reviewed: Yes Children Family History Reviewed: Yes Sibling(s) Family History Reviewed.: Yes Medication/Allergy Home Medications: Amlodipine Besylate [Norvasc 5 mg Tablet] 5 mg PO DAILY 06/26/17 Aspirin [Aspirin 325 mg Tablet] 325 mg PO DAILY 06/26/17 Atorvastatin Calcium [Lipitor 20 mg Tablet] 20 mg PO QHS 06/26/17 Azithromycin [Zithromax 250 mg Tablet] 500 mg PO DAILY MDD FILLED 06/25 FOR 10DS 06/26/17 Citalopram Hydrobromide [Citalopram HBr] 20 mg PO DAILY 06/26/17 Darunavir Ethanolate [Prezista] 600 mg PO Q12 06/26/17 Diclofenac Sodium [Voltaren 50 Mg Tablet.Dr] 50 mg PO Q8 06/26/17 Emtricitabine/Tenofovir (Tdf) [Truvada 200 mg-300 mg Tablet] 1 tab PO DAILY Etravirine [Intelence] 200 mg PO Q12 06/26/17 Hydrochlorothiazide [Hydrodiuril 25 mg Tablet] 25 mg PO QAM 06/26/17 Levetiracetam [Keppra 500 mg Tablet] 500 mg PO Q12 06/26/17 Lisinopril [Prinivil 10 mg Tablet] 40 mg PO DAILY 06/26/17 Metoprolol Succinate [Toprol Xl 25 mg Tab.sr] 25 mg PO DAILY 06/26/17 Misoprostol [Cytotec 0.2 mg Tablet] 200 mcg PO Q12 06/26/17 Morphine Sulfate/Naltrexone [Embeda ER 20-0.8 mg Capsule] 1 cap PO DAILY Oxycodone HCl [Oxy-Ir 5 mg Tablet] 10 mg PO Q6HP PRN 06/26/17 Polyethylene Glycol 3350 [Miralax Powder 17 gm/Packet] 1 packet PO DAILY Ritonavir [Norvir 100 mg Tablet] 100 mg PO Q12 06/26/17 Valsartan [Diovan 160 mg Tablet] 320 mg PO DAILY 06/26/17 Allergies/Adverse Reactions: sulfamethoxazole [From Bactrim] Allergy (Verified 06/26/17 14:09) trimethoprim [From Bactrim] Allergy (Verified 06/26/17 14:09) Review of Systems Constitutional: PRESENT: anorexia, fatigue, weakness. ABSENT: chills, fever(s) , headache(s), weight gain, weight loss Eyes: ABSENT: visual disturbances Ears: ABSENT: hearing changes Cardiovascular: ABSENT: chest pain, dyspnea on exertion, edema, orthropnea, palpitations Respiratory: ABSENT: cough, hemoptysis Gastrointestinal: PRESENT: abdominal pain, nausea, vomiting. ABSENT: constipation, diarrhea, hematemesis, hematochezia Genitourinary: ABSENT: dysuria, hematuria Musculoskeletal: ABSENT: joint swelling Integumentary: ABSENT: rash, wounds Neurological: ABSENT: abnormal gait, abnormal speech, confusion, dizziness, focal weakness, syncope Psychiatric: ABSENT: anxiety, depression, homidical ideation, suicidal ideation Endocrine: ABSENT: cold intolerance, heat intolerance, menstrual abnormalities, polydipsia, polyuria Hematologic/Lymphatic: ABSENT: easy bleeding, easy bruising, lymphadenopathy Physical Exam Vital Signs: Temp Pulse Resp BP Pulse Ox 97.9 F 109 H 16 130/88 H 93 06/27/17 08:37 06/27/17 08:37 06/27/17 08:37 06/27/17 08:37 06/27/17 08:37 Intake & Output 06/26/17 06/27/17 06/28/17 06:59 06:59 06:59 Intake Total 1330 Output Total 700 Balance 630 Weight 81.8 kg General appearance: PRESENT: no acute distress, well-developed, well-nourished Head exam: PRESENT: atraumatic, normocephalic Eye exam: PRESENT: conjunctiva pink, EOMI, PERRLA. ABSENT: scleral icterus Ear exam: PRESENT: normal external ear exam Mouth exam: PRESENT: moist, tongue midline Neck exam: PRESENT: full ROM. ABSENT: carotid bruit, JVD, lymphadenopathy, thyromegaly Respiratory exam: PRESENT: clear to auscultation joslyn Cardiovascular exam: PRESENT: RRR. ABSENT: diastolic murmur, rubs, systolic murmur Pulses: PRESENT: normal dorsalis pedis pul, +2 pedal pulses bilateral Vascular exam: PRESENT: normal capillary refill GI/Abdominal exam: PRESENT: normal bowel sounds, soft. ABSENT: distended, guarding, mass, organolmegaly, rebound, tenderness Rectal exam: PRESENT: deferred Extremities exam: ABSENT: pedal edema Neurological exam: PRESENT: alert, awake, oriented to person, oriented to place , oriented to time. ABSENT: motor sensory deficit Psychiatric exam: PRESENT: anxious, appropriate affect, normal mood. ABSENT: homicidal ideation, suicidal ideation Skin exam: PRESENT: dry, intact, warm. ABSENT: cyanosis, rash Results Laboratory Results: 06/27/17 04:15 06/27/17 04:15 06/27/17 06/27/17 04:15 04:15 WBC 6.4 RBC 3.09 L Hgb 8.7 L Hct 26.5 L MCV 86 MCH 28.1 MCHC 32.8 RDW 16.2 H Plt Count 377 Seg Neutrophils % Not Reportable Lymphocytes % Not Reportable Monocytes % Not Reportable Eosinophils % Not Reportable Basophils % Not Reportable Absolute Neutrophils Not Reportable Absolute Lymphocytes Not Reportable Absolute Monocytes Not Reportable Absolute Eosinophils Not Reportable Absolute Basophils Not Reportable Sodium 146.2 H Potassium 4.0 Chloride 107 Carbon Dioxide 30 Anion Gap 9 BUN 8 Creatinine 1.57 H Est GFR ( Amer) 57 L Est GFR (Non-Af Amer) 47 L Glucose 83 Calcium 8.1 L Magnesium 2.0 Total Bilirubin 0.2 AST 35 ALT 43 Alkaline Phosphatase 88 Total Protein 6.7 Albumin 2.8 L Impressions: Acute Abdomen Series 06/26/17 15:09 IMPRESSION: Nonspecific, nonobstructed bowel gas pattern noting few air-fluid levels within the colon suggesting diarrheal state. Assessment & Plan - Diagnosis (1) Nausea and vomiting Qualifiers: Vomiting type: unspecified Is this a current diagnosis for this admission?: Yes Plan: We will put the patient on a PPI and Zofran and get the CT abdomen and pelvis without contrast (2) AIDS (acquired immunodeficiency syndrome), CD4 <=200 Is this a current diagnosis for this admission?: Yes Plan: The CD4 count and patient is already on azithromycin and dapsone's and continues to all HIV medications (3) Chronic renal failure, stage 3 (moderate) Is this a current diagnosis for this admission?: Yes Plan: Continues IV fluid (4) HIV (human immunodeficiency virus infection) Is this a current diagnosis for this admission?: Yes (5) Hodgkin lymphoma Qualifiers: Hodgkin lymphoma type: unspecified type Is this a current diagnosis for this admission?: Yes Plan: Received the 1 cycle of the chemotherapy and patient seen by Dr. Jimenes will consult Dr. Jimenes for further evaluate the patient's (6) Hypertension Qualifiers: Hypertension type: unspecified Qualified Code(s): I10 - Essential (primary ) hypertension Is this a current diagnosis for this admission?: Yes Plan: Continues to current medications (7) Seizure disorder Is this a current diagnosis for this admission?: Yes Plan: Continues to Keppra - Time Time Spent: 30 to 50 Minutes Medications reviewed and adjusted accordingly: Yes Anticipated discharge: Other Within: Other - Inpatient Certification Medical Necessity: Need Close Monitoring Due to Risk of Patient Decompensation, Need For IV Fluids Post Hospital Care: D/C Grocery Department Manager Documentation - Plan Summary Plan Summary: With a significant medical issues and a very noncompliance issues with extensive discussions with the patient's family with the ex- and the daughter in the room and will consult the social professionals for further helps the Dr. Kidd will be back in the morning and to further evaluate the patient's for the social situations but I think patients have of this recurrent hospital admissions with this multi-complex disease with possible underlying developing some dementia which is related to causing more issues and I think patient should be go to the [place] where the patient have a more family support
[2017-06-27] MEDS: LEVETIRACETAM 500 MG TABLET PO SCH ×2 (11:12→21:11)
[2017-06-27] MEDS: ASPIRIN 325 MG TABLET PO SCH (11:12)
[2017-06-27] MEDS: AZITHROMYCIN 250 MG TABLET PO SCH (11:12)
[2017-06-27] MEDS: VALSARTAN 160 MG TABLET PO SCH (11:12)
[2017-06-27] MEDS: AMLODIPINE BESYLATE 5 MG TABLET PO SCH (11:13)
[2017-06-27] MEDS: CITALOPRAM HYDROBROMIDE 20 MG TABLET PO SCH (11:13)
[2017-06-27] MEDS: METOPROLOL SUCCINATE 25 MG TAB.SR.24H PO SCH (11:13)
[2017-06-27] MEDS: POLYETHYLENE GLYCOL 3350 POWDER 17 GM/1 PACKET PO SCH (11:15)
[2017-06-27] MEDS: RITONAVIR 100 MG TABLET PO SCH ×2 (11:15→21:11)
[2017-06-27] MEDS: DOCUSATE SODIUM 100 MG CAPSULE PO SCH ×2 (11:15→16:18)
[2017-06-27] MEDS: NORMAL SALINE 1000 ML 1,000 ML IV PRN (11:15)
[2017-06-27] MEDS: EMTRICITABINE/TENOFOVIR 200-300 MG TABLET PO SCH (11:15)
[2017-06-27] MEDS ORDERED: DAPSONE 25 MG TABLET PO ONE (11:30)
[2017-06-27] MEDS: OXYCODONE HCL IR 5 MG TABLET PO PRN ×3 (11:46→23:15)
--- NOTE | 2017-06-27 12:28 | RADIOLOGY REPORT (SQ) ---
EXAM DESCRIPTION: CT CHEST WITHOUT; CT ABD/PELVIS NO ORAL OR IV COMPLETED DATE/TIME: 06/27/2017 11:05 am REASON FOR STUDY: pnemonia/hiv; abd pain/lymphoma COMPARISON: PET-CT 06/01/2017 CT chest 06/16/2017, 06/21/2017 TECHNIQUE: CT scan of the chest performed without intravenous contrast using helical scanning techni que. Images reviewed with lung, soft tissue and bone windows. Reconstructed coronal and sagittal MPR images reviewed. All images stored on PACS. CT scan of the abdomen and pelvis performed without intravenous contrast and withoutoral contrast usi ng helical scanning technique with dynamic intravenous contrast injection. Images reviewed with lung , soft tissue and bone windows. Reconstructed coronal and sagittal MPR images reviewed. All images stored on PACS. All CT scanners at this facility use dose modulation, iterative reconstruction, and/or weight based d osing when appropriate to reduce radiation dose to as low as reasonably achievable (ALARA). [facility]: Dose Right [facility]: CareDose [facility]: Dose Right [facility]: Teradose 4D [facility]: [employer] RADIATION DOSE: CT Rad equipment meets quality standard of care and radiation dose reduction techniq ues were employed. CTDIvol: 9.0 mGy. DLP: 663 mGy-cm. mGy. LIMITATIONS: No oral or IV contrast, slender patient FINDINGS: CHEST: AXILLAE: No adenopathy. CHEST WALL: Left retro pectoral adenopathy seen on PET-CT 06/01/2017 is no longer identified LUNGS: Minimal bibasilar bandlike atelectasis. No fluffy alveolar infiltrates worrisome for edema or pneumonia. No pleural effusion. No pneumothorax PLEURA: No effusions. No calcifications. THYROID: No masses or significant asymmetry. HILAR AND MEDIASTINAL STRUCTURES: No identified masses or abnormal nodes. AORTA AND GREAT VESSELS: No aneurysm. HEART: Stable mild Cardiomegaly. HARDWARE AND LIFELINES: Right permanent central line tip superior vena cava BONES: No significant finding. OTHER: No other significant finding. ABDOMEN AND PELVIS: LIVER: Normal size. No masses. No dilated ducts. SPLEEN: Normal size. No focal lesions. PANCREAS: No masses. No significant calcifications. No adjacent inflammation or peripancreatic flui d collections. Pancreatic duct not dilated. GALLBLADDER: No identified stones by CT criteria. No inflammatory changes to suggest cholecystitis. ADRENAL GLANDS: No significant masses or asymmetry. RIGHT KIDNEY AND URETER: No solid masses. Assessment limited by lack of IV contrast. No significant c alcification. No hydronephrosis or hydroureter. LEFT KIDNEY AND URETER: No solid masses. Assessment limited by lack of IV contrast. No significant ca lcification. No hydronephrosis or hydroureter. AORTA AND VESSELS: No aneurysm. RETROPERITONEUM: Retroperitoneal lymph nodes are unchanged from PET-CT 06/01/2017 APPENDIX: Not identified LARGE AND SMALL BOWEL: No dilatation. No masses. No wall thickening. ABDOMINAL WALL: No hernia or masses. PERITONEAL CAVITY: No free air. No free fluid. No peritoneal implants or masses. PELVIS: No mass or free fluid. Normal bladder. BONES: No significant or acute findings. OTHER: No other significant finding. IMPRESSION: Minimal bibasilar atelectasis Stable left retroperitoneal adenopathy. No CT evidence of bowel obstruction or free intraperitoneal air or fluid. TECHNICAL DOCUMENTATION: JOB ID: [id number] Quality ID # [id number]: Final reports with documentation of one or more dose reduction techniques (e.g., Au tomated exposure control, adjustment of the mA and/or kV according to patient size, use of iterative reconstruction technique) 2010 [employer]- All Rights Reserved
[2017-06-27] MEDS: ATORVASTATIN CALCIUM 20 MG TABLET PO SCH (21:11)
[2017-06-27] MEDS ORDERED: (PENDING PHARMACY ID) (Etravirine [Intelence] 200 MG) PO SCH (22:00)
[2017-06-28] MEDS: LANSOPRAZOLE 15 MG TAB.RAP.DR PO SCH ×2 (05:02→16:33)
[2017-06-28 06:08] LABS: HEMOGLOBIN 9.1 g/dL (13.5-17.0); HGB HCT DIFFERENCE 0.3; MEAN CORPUSCULAR HEMOGLOBIN 29.1 pg (27.0-33.4); MEAN CORPUSCULAR HGB CONC 33.8 g/dL (32.0-36.0); MEAN CORPUSCULAR VOLUME 86 fl (80-97); RED BLOOD COUNT 3.13 10^6/uL (4.35-5.55); RED CELL DISTRIBUTION WIDTH 16.2 % (11.5-14.0); WHITE BLOOD COUNT 7.7 10^3/uL (4.0-10.5)
[2017-06-28 06:18] LABS: ANION GAP 9 (5-19); BLOOD UREA NITROGEN 9 mg/dL (7-20); CARBON DIOXIDE 30 mmol/L (22-30); CHLORIDE 107 mmol/L (98-107); CREATININE RESULT 1.69 mg/dL (0.52-1.25); GLUCOSE 100 mg/dL (75-110); POTASSIUM 4.4 mmol/L (3.6-5.0); SODIUM 146.1 mmol/L (137-145)
[2017-06-28 06:34] LABS: BAND NEUTROPHILS % (MANUAL) 1 % (3-5); BASOPHILS % (MANUAL) 1 % (0-2); EOSINOPHILS % (MANUAL) 0 % (0-6); LYMPHOCYTES % (MANUAL) 32 % (13-45); TOTAL CELLS COUNTED 100
[2017-06-28 06:36] LABS: POLYCHROMASIA SLIGHT; TARGET CELLS SLIGHT; TOXIC GRANULATION 1+
[2017-06-28 06:37] LABS: ANISOCYTOSIS 1+; HYPOCHROMASIA SLIGHT; OVALOCYTES SLIGHT; POIKILOCYTOSIS SLIGHT
[2017-06-28] MEDS ORDERED: ONDANSETRON HCL INJ/PF 4 MG/2 ML SDV IV PRN (09:30)
[2017-06-28] MEDS ORDERED: ACETAMINOPHEN 325 MG TABLET PO PRN (09:30)
[2017-06-28] MEDS: OXYCODONE HCL IR 5 MG TABLET PO PRN ×3 (10:31→22:03)
[2017-06-28] MEDS: ASPIRIN 325 MG TABLET PO SCH (10:31)
[2017-06-28] MEDS: METOPROLOL SUCCINATE 25 MG TAB.SR.24H PO SCH (10:32)
[2017-06-28] MEDS: AZITHROMYCIN 250 MG TABLET PO SCH (10:34)
[2017-06-28] MEDS: AMLODIPINE BESYLATE 5 MG TABLET PO SCH (10:34)
[2017-06-28] MEDS: LEVETIRACETAM 500 MG TABLET PO SCH ×2 (10:34→22:03)
[2017-06-28] MEDS: CITALOPRAM HYDROBROMIDE 20 MG TABLET PO SCH (10:35)
[2017-06-28] MEDS: EMTRICITABINE/TENOFOVIR 200-300 MG TABLET PO SCH (10:35)
[2017-06-28] MEDS: DAPSONE 25 MG TABLET PO SCH (10:35)
[2017-06-28] MEDS: POLYETHYLENE GLYCOL 3350 POWDER 17 GM/1 PACKET PO SCH (10:35)
[2017-06-28] MEDS: VALSARTAN 160 MG TABLET PO SCH (10:35)
[2017-06-28] MEDS: DOCUSATE SODIUM 100 MG CAPSULE PO SCH ×2 (10:36→16:33)
[2017-06-28] MEDS: RITONAVIR 100 MG TABLET PO SCH ×2 (10:36→22:03)
[2017-06-28] MEDS ORDERED: IPRATROPIUM/ALBUTEROL 0.5-2.5 MG/3 ML AMPUL NEB PRN (11:30)
[2017-06-28] MEDS: DARUNAVIR 600 MG PO SCH (22:02)
[2017-06-28] MEDS: ETRAVIRINE 200 MG PO SCH (22:02)
[2017-06-28] MEDS: ATORVASTATIN CALCIUM 20 MG TABLET PO SCH (22:03)
[2017-06-29] MEDS: LANSOPRAZOLE 15 MG TAB.RAP.DR PO SCH (05:11)
[2017-06-29] MEDS: OXYCODONE HCL IR 5 MG TABLET PO PRN (05:18)
[2017-06-29 05:54] LABS: HEMATOCRIT 25.2 % (37.9-51.0); HEMOGLOBIN 8.6 g/dL (13.5-17.0); HGB HCT DIFFERENCE 0.6; MEAN CORPUSCULAR HEMOGLOBIN 29.1 pg (27.0-33.4); MEAN CORPUSCULAR VOLUME 86 fl (80-97); RED BLOOD COUNT 2.94 10^6/uL (4.35-5.55); RED CELL DISTRIBUTION WIDTH 16.8 % (11.5-14.0); WHITE BLOOD COUNT 11.6 10^3/uL (4.0-10.5)
[2017-06-29 06:02] LABS: ANION GAP 11 (5-19); BLOOD UREA NITROGEN 7 mg/dL (7-20); CALCIUM 8.8 mg/dL (8.4-10.2); CARBON DIOXIDE 30 mmol/L (22-30); CHLORIDE 104 mmol/L (98-107); GLUCOSE 101 mg/dL (75-110); MAGNESIUM 1.7 mg/dL (1.6-2.3); POTASSIUM 3.9 mmol/L (3.6-5.0); SODIUM 144.9 mmol/L (137-145)
[2017-06-29 06:29] LABS: ANISOCYTOSIS 1+; BAND NEUTROPHILS % (MANUAL) 1 % (3-5); BASOPHILS % (MANUAL) 0 % (0-2); EOSINOPHILS % (MANUAL) 0 % (0-6); LYMPHOCYTES % (MANUAL) 22 % (13-45); TOTAL CELLS COUNTED 100
[2017-06-29 06:30] LABS: POLYCHROMASIA SLIGHT
[2017-06-29 06:31] LABS: OVALOCYTES SLIGHT; STOMATOCYTES SLIGHT; TARGET CELLS SLIGHT
[2017-06-29 08:23] VITALS: BP 135/94
--- NOTE | 2017-06-29 10:14 | Physician Advisory Note ---
Physician Advisor ProgressNote .: Pursuant to the plan for [facility], I have reviewed the medical record for this patient. Physician Advisor Statement: Please consider documenting, if you agree: 1. "Acute hypernatremia, likely due to " [intravascular volume depletion?] 2. "Suspected AIDS dementia" ? 3. Is there "Chronic Hypoxemic Respiratory Failure due to "? (per DCPlanner, pt uses O2 at home ....) 4. Medical necessity: if pt has had ongoing clinical reason(s) to need hospitalization, please make that clear in documentation. [Ongoing inability to tolerate po's/meds? Continued acute hypernatremia? Other acute issue? ) - If pt has had clinical need for staying in hospital 06/26 & 06/27 nights, he should be appropriate to change to Inpt status. - If pt has really "just" been staying in hospital for social reasons ( awaiting DCP arrangements for safe d/c plan, ...), he should not be changed to Inpatient status, as Medicare does not cover that. Thanks! CK
[2017-06-29] MEDS: VALSARTAN 160 MG TABLET PO SCH (11:54)
[2017-06-29] MEDS: METOPROLOL SUCCINATE 25 MG TAB.SR.24H PO SCH (11:55)
[2017-06-29] MEDS: LEVETIRACETAM 500 MG TABLET PO SCH (11:55)
[2017-06-29] MEDS: RITONAVIR 100 MG TABLET PO SCH (11:57)
[2017-06-29] MEDS: EMTRICITABINE/TENOFOVIR 200-300 MG TABLET PO SCH (11:58)
[2017-06-29] MEDS: DAPSONE 25 MG TABLET PO SCH (11:59)
[2017-06-29] MEDS: AZITHROMYCIN 250 MG TABLET PO SCH (12:05)
[2017-06-29] MEDS: CITALOPRAM HYDROBROMIDE 20 MG TABLET PO SCH (12:06)
[2017-06-29] MEDS: AMLODIPINE BESYLATE 5 MG TABLET PO SCH (12:06)
[2017-06-29] MEDS: ASPIRIN 325 MG TABLET PO SCH (12:09)
[2017-06-29] MEDS: DARUNAVIR 600 MG PO SCH (12:09)
[2017-06-29] MEDS: ETRAVIRINE 200 MG PO SCH (12:09)
[2017-06-29] MEDS: DOCUSATE SODIUM 100 MG CAPSULE PO SCH (12:09)
[2017-06-29] MEDS: POLYETHYLENE GLYCOL 3350 POWDER 17 GM/1 PACKET PO SCH (12:09)
--- NOTE | 2017-06-29 20:33 | PDOC DISCHARGE SUMMARY ---
General - Admit/Disc Date/PCP Admission Date/Primary Care Provider: 06/26/17 17:10 WILNER KIDD MD Discharge Date: 06/29/17 - Additional Information Resuscitation Status: Full Code Home Medications: Amlodipine Besylate [Norvasc 5 mg Tablet] 5 mg PO DAILY 06/26/17 Aspirin [Aspirin 325 mg Tablet] 325 mg PO DAILY 06/26/17 Atorvastatin Calcium [Lipitor 20 mg Tablet] 20 mg PO QHS 06/26/17 Azithromycin [Zithromax 250 mg Tablet] 500 mg PO DAILY MDD FILLED 06/25 FOR 10DS 06/26/17 Citalopram Hydrobromide [Citalopram HBr] 20 mg PO DAILY 06/26/17 Darunavir Ethanolate [Prezista] 600 mg PO Q12 06/26/17 Diclofenac Sodium [Voltaren 50 Mg Tablet.Dr] 50 mg PO Q8 06/26/17 Emtricitabine/Tenofovir (Tdf) [Truvada 200 mg-300 mg Tablet] 1 tab PO DAILY Etravirine [Intelence] 200 mg PO Q12 06/26/17 Hydrochlorothiazide [Hydrodiuril 25 mg Tablet] 25 mg PO QAM 06/26/17 Levetiracetam [Keppra 500 mg Tablet] 500 mg PO Q12 06/26/17 Lisinopril [Prinivil 10 mg Tablet] 40 mg PO DAILY 06/26/17 Metoprolol Succinate [Toprol Xl 25 mg Tab.sr] 25 mg PO DAILY 06/26/17 Misoprostol [Cytotec 0.2 mg Tablet] 200 mcg PO Q12 06/26/17 Morphine Sulfate/Naltrexone [Embeda ER 20-0.8 mg Capsule] 1 cap PO DAILY Oxycodone HCl [Oxy-Ir 5 mg Tablet] 10 mg PO Q6HP PRN 06/26/17 Polyethylene Glycol 3350 [Miralax Powder 17 gm/Packet] 1 packet PO DAILY Ritonavir [Norvir 100 mg Tablet] 100 mg PO Q12 06/26/17 Valsartan [Diovan 160 mg Tablet] 320 mg PO DAILY 06/26/17 History of Present Illness History of Present Illness: VERONICA CARDENAS is a 46 year old male, He was admitted about the weekend because of nausea and vomiting with abdominal pain. He was brought in for observation. Hospital Course Hospital Course: He was admitted for the management of abdominal pain nausea vomiting he was brought in for observation, patient left AMA today Physical Exam Vital Signs: Temp Pulse Resp BP Pulse Ox 98.8 F 115 H 18 135/94 H 93 06/29/17 08:03 06/29/17 08:03 06/29/17 08:03 06/29/17 08:03 06/29/17 08:03 Intake & Output 06/28/17 06/29/17 06/30/17 06:59 06:59 06:59 Intake Total 2827 3715 Output Total 780 750 Balance 2047 2965 Weight 81.8 kg 81.8 kg Results Laboratory Results: 06/29/17 05:15 06/29/17 05:15 06/29/17 06/29/17 05:15 05:15 WBC 11.6 H RBC 2.94 L Hgb 8.6 L Hct 25.2 L MCV 86 MCH 29.1 MCHC 34.0 RDW 16.8 H Plt Count 447 Seg Neutrophils % Not Reportable Lymphocytes % Not Reportable Monocytes % Not Reportable Eosinophils % Not Reportable Basophils % Not Reportable Absolute Neutrophils Not Reportable Absolute Lymphocytes Not Reportable Absolute Monocytes Not Reportable Absolute Eosinophils Not Reportable Absolute Basophils Not Reportable Sodium 144.9 Potassium 3.9 Chloride 104 Carbon Dioxide 30 Anion Gap 11 BUN 7 Creatinine 1.50 H Est GFR ( Amer) > 60 Est GFR (Non-Af Amer) 50 L Glucose 101 Calcium 8.8 Magnesium 1.7 06/27/17 03:40 Clean Catch Midstream Urine Culture - Final NO GROWTH 2 DAYS Impressions: Acute Abdomen Series 06/26/17 15:09 IMPRESSION: Nonspecific, nonobstructed bowel gas pattern noting few air-fluid levels within the colon suggesting diarrheal state. Abdomen/Pelvis CT 06/27/17 00:00 IMPRESSION: Minimal bibasilar atelectasis Stable left retroperitoneal adenopathy. No CT evidence of bowel obstruction or free intraperitoneal air or fluid. Chest CT 06/27/17 00:00
== END 2017-06-29 11:53 | disposition left against medical advice (07) ==
LOC: ER 12:12 → EEVIPCON 17:10 → INTOOBSV 17:10 → OBSVTOIN 17:10 → EH 17:10 → 4N 18:17
PROVIDERS: ADMIT Internal Medicine; ATTEND Internal Medicine
DX: R11.2 Nausea with vomiting, unspecified (principal); R10.9 Unspecified abdominal pain; Z53.21 Procedure and treatment not carried out due to patient leaving prior to being seen by health care provider; B20 Human immunodeficiency virus [HIV] disease; C85.10 Unspecified B-cell lymphoma, unspecified site; I12.9 Hypertensive chronic kidney disease with stage 1 through stage 4 chronic kidney disease, or unspecified chronic kidney disease; N18.3 Chronic kidney disease, stage 3 (moderate); G40.909 Epilepsy, unspecified, not intractable, without status epilepticus; E86.0 Dehydration; R41.0 Disorientation, unspecified; R63.0 Anorexia; I25.10 Atherosclerotic heart disease of native coronary artery without angina pectoris; Z79.899 Other long term (current) drug therapy; Z79.82 Long term (current) use of aspirin; Z92.21 Personal history of antineoplastic chemotherapy; Z87.891 Personal history of nicotine dependence; Z86.73 Personal history of transient ischemic attack (TIA), and cerebral infarction without residual deficits; Z91.14 Patient's other noncompliance with medication regimen; Z68.23 Body mass index [BMI] 23.0-23.9, adult
CPT/HCPCS: 93005; 96376; 99285; 96361; 96375; 96365; 36415; 87040; 87086; 83735 ×3; 85025 ×4; 80048 ×2; 80053 ×2; 80307; 74022; 71250; 74176; 93010; A9270 ×38; J3490; J2270; J2405 ×2; J7030 ×2; J1953; J1642 ×2

== ENCOUNTER 2017-07-18 10:18 | Emergency (ER) | payer MEDICARE, MEDICAID ==
[2017-07-18 10:28] VITALS: BP 133/85
[2017-07-18] MEDS ORDERED: HYDROCODONE/ACETAMINOPHEN 5-325 MG TABLET ONE (11:18)
[2017-07-19 06:12] LABS: A TYPE INFLUENZA AG NEGATIVE (NEGATIVE); B INFLUENZA AG NEGATIVE (NEGATIVE)
--- NOTE | 2017-07-19 08:32 | ER Document Report ---
ED General - General Chief Complaint: General Weakness Stated Complaint: GENERAL BODY PAIN Time Seen by Provider: 07/18/17 10:53 Mode of Arrival: Ambulatory Information source: Patient Notes: 46-year-old male history of chemo HIV presents with complaints of body aches. Patient notes this is the same body aches that he always has that he is always seen for. Patient has been seen by myself in the past causing pain medication for this body aches. Patient also notes that he has a port in place that hurts when he moves to the side. Patient wants the port removed. Patient was recently discharged from the hospital where I had admitted him because he appeared ill TRAVEL OUTSIDE OF THE [place] IN LAST 30 DAYS: No - HPI Onset: Other - Chronically over the past few months Onset/Duration: Persistent Quality of pain: Achy Severity: Mild Pain Level: 1 Associated symptoms: Body/muscle aches Exacerbated by: Denies Relieved by: Denies Similar symptoms previously: Yes Recently seen / treated by doctor: Yes - Related Data Allergies/Adverse Reactions: sulfamethoxazole [From Bactrim] Allergy (Verified 07/18/17 10:19) trimethoprim [From Bactrim] Allergy (Verified 07/18/17 10:19) Past Medical History - Social History Smoking Status: Current Every Day Smoker Cigarette use (# per day): Yes Chew tobacco use (# tins/day): No Smoking Education Provided: No Family History: Reviewed & Not Pertinent, Hypertension - Past Medical History Cardiac Medical History: Reports: Hx Coronary Artery Disease, Hx Hypercholesterolemia, Hx Hypertension Denies: Hx Heart Attack Pulmonary Medical History: Denies: Hx Asthma, Hx Bronchitis, Hx COPD, Hx Pneumonia, Hx Tuberculosis Neurological Medical History: Reports: Hx Cerebrovascular Accident - 6 month, Hx Seizures Renal/ Medical History: Reports: Hx Renal Insufficiency. Denies: Hx Peritoneal Dialysis Malignancy Medical History: Reports Hx Lymphoma - Hodgkin's lymphoma GI Medical History: Reports: Hx Gastroesophageal Reflux Disease Musculoskeltal Medical History: Denies Hx Arthritis Skin Medical History: Reports Hx MRSA Psychiatric Medical History: Reports: Hx Depression Infectious Medical History: Reports: Hx HIV - Immunizations Hx Diphtheria, Pertussis, Tetanus Vaccination: Yes Hx Pneumococcal Vaccination: 07/12/09 Review of Systems - Review of Systems Notes: REVIEW OF SYSTEMS: CONSTITUTIONAL : Denies fever, chills, or sweats. Denies recent illness. EENT: Denies eye, ear, throat, or mouth pain or symptoms. Denies nasal or sinus congestion or discharge. Denies throat, tongue, or mouth swelling or difficulty swallowing. CARDIOVASCULAR: Denies chest pain. Denies palpitations or racing or irregular heart beat. Denies ankle edema. RESPIRATORY: Denies cough, cold, or chest congestion. Denies shortness of breath, difficulty breathing, or wheezing. GASTROINTESTINAL: Denies abdominal pain or distention. Denies nausea, vomiting , or diarrhea. Denies blood in vomitus, stools, or per rectum. Denies black, tarry stools. Denies constipation. GENITOURINARY: Denies difficulty urinating, painful urination, burning, frequency, blood in urine, or discharge. MUSCULOSKELETAL: Admits to body aches SKIN: Denies rash, lesions or sores. HEMATOLOGIC : Denies easy bruising or bleeding. LYMPHATIC: Denies swollen, enlarged glands. NEUROLOGICAL: Denies confusion or altered mental status. Denies passing out or loss of consciousness. Denies dizziness or lightheadedness. Denies headache. Denies weakness or paralysis or loss of use of either side. Denies problems with gait or speech. Denies sensory loss, numbness, or tingling. Denies seizures. PSYCHIATRIC: Denies anxiety or stress. Denies depression, suicidal ideation, or homicidal ideation. ALL OTHER SYSTEMS REVIEWED AND NEGATIVE. Dictation was performed using [employer] voice recognition software PHYSICAL EXAMINATION: GENERAL: Cachectic chronically ill-appearing male HEAD: Atraumatic, normocephalic. EYES: Pupils equal round and reactive to light, extraocular movements intact, sclera anicteric, conjunctiva are normal. ENT: Nares patent, oropharynx clear without exudates. Moist mucous membranes. NECK: Normal range of motion, supple without lymphadenopathy LUNGS: Breath sounds clear to auscultation bilaterally and equal. No wheezes rales or rhonchi. HEART: Regular rate and rhythm without murmurs ABDOMEN: Soft, nontender, nondistended abdomen. No guarding, no rebound. No masses appreciated. Musculoskeletal: Normal range of motion, no pitting or edema. No cyanosis. NEUROLOGICAL: Cranial nerves grossly intact. Normal speech, normal gait. Normal sensory, motor exams PSYCH: Normal mood, normal affect. SKIN: Warm, Dry, normal turgor, no rashes or lesions noted. Physical Exam - Vital signs Vitals: Temp Pulse Resp BP Pulse Ox 98.4 F 104 H 18 133/85 H 100 07/18/17 10:07/18/17 10:07/18/17 10:07/18/17 10:07/18/17 10:26 Course - Re-evaluation Re-evalutation: 07/19/17 10:53 On my evaluation this is a cachectic male who is in no distress, his vital signs upon arrival were completely normal, the patient requested pain medication for his body aches and I will provide this for him. He is not septic at this time does not appear ill acutely but he is chronically ill. Upon my discharge it is noted the family shows up requesting a flu test. At the request I have ordered a flu test but the patient has been afebrile he denied any such complaints to me. When the patient's family left the patient himself states he is leaving in the left prior to an actual discharge. His influenza test was negative nonetheless. However I did not get the Lloyd talk with the patient given his insistence on leaving After performing a Medical Screening Examination, I spoke with the patient at length in regards to leaving the hospital against medical advice. I do not believe the patient should leave but the patient is alert oriented x4, understands the risks and benefits of staying and leaving including disability and . Pt understands that he can return at any time for further care and is more than welcome to do so. Pt verbalizes this understanding. - Vital Signs Vital signs: Temp Pulse Resp BP Pulse Ox 98.4 F 104 H 18 133/85 H 100 07/18/17 10:07/18/17 10:07/18/17 10:07/18/17 10:07/18/17 10:26 Discharge - Discharge Clinical Impression: HIV (human immunodeficiency virus infection), Body aches Condition: Fair Disposition: AGAINST MEDICAL ADVICE Referrals: WILNER KIDD MD [Primary Care Provider] - Follow up as needed
== END 2017-07-18 12:22 | disposition left against medical advice (07) ==
LOC: EEVIPCON 10:18 → ER 10:18
DX: B20 Human immunodeficiency virus [HIV] disease (principal); R53.1 Weakness; M79.1 Myalgia; F17.210 Nicotine dependence, cigarettes, uncomplicated; C81.90 Hodgkin lymphoma, unspecified, unspecified site; I25.10 Atherosclerotic heart disease of native coronary artery without angina pectoris; E78.00 Pure hypercholesterolemia, unspecified; I10 Essential (primary) hypertension; Z86.73 Personal history of transient ischemic attack (TIA), and cerebral infarction without residual deficits; Z86.14 Personal history of Methicillin resistant Staphylococcus aureus infection; Z88.3 Allergy status to other anti-infective agents
CPT/HCPCS: 87804; 99283

== ENCOUNTER 2017-07-21 19:13 | Inpatient (IN) | payer MEDICARE, MEDICAID ==
[2017-07-21] MEDS ORDERED: ONDANSETRON HCL INJ/PF 4 MG/2 ML SDV IV ONE (20:26)
[2017-07-21] MEDS ORDERED: NORMAL SALINE 1000 ML 1,000 ML IV ONE (20:26)
[2017-07-21] MEDS ORDERED: HYDROMORPHONE HCL INJ/PF 2 MG/ML AMPULE IV ONE (20:26)
--- NOTE | 2017-07-21 20:28 | ER Document Report ---
ED Medical Screen (RME) - General Chief Complaint: Nausea/Vomiting Stated Complaint: VOMITING Time Seen by Provider: 07/21/17 20:15 Notes: 46-year-old male patient with long history of HIV and narcotic pain medication abuse. Now with recent diagnosis of B-cell lymphoma. Been here several times recently. Last chemotherapy was 8 days ago. Was seen in the oncology office yesterday got 2 L of IV fluids and IV antibiotics. Was seen in the office again today and states he got coffee and nausea medicine and the IV antibiotics. He is supposed to go tomorrow to receive another dose of IV antibiotics. His family member reports he has been with nausea and vomiting all day long. Patient states she is hurting all over and wants pain medication. That is his usual presentation I have found by reviewing prior records. I have greeted and performed a rapid initial assessment of this patient. A comprehensive ED assessment and evaluation of the patient, analysis of test results and completion of the medical decision making process will be conducted by additional ED providers. TRAVEL OUTSIDE OF THE [place] IN LAST 30 DAYS: No - Related Data Allergies/Adverse Reactions: sulfamethoxazole [From Bactrim] Allergy (Verified 07/18/17 10:19) trimethoprim [From Bactrim] Allergy (Verified 07/18/17 10:19) Home Medications: Current Home Medications Fluconazole [Diflucan 100 mg Tablet] 2 tab PO ASDIR PRN 07/21/17 [History] Hydrocodone/Acetaminophen [Hydrocodon-Acetaminophen 5-325] 1 each PO Q6H [History] Past Medical History - Past Medical History Cardiac Medical History: Reports: Hx Coronary Artery Disease, Hx Hypercholesterolemia, Hx Hypertension Denies: Hx Heart Attack Pulmonary Medical History: Denies: Hx Asthma, Hx Bronchitis, Hx COPD, Hx Pneumonia, Hx Tuberculosis Neurological Medical History: Reports: Hx Cerebrovascular Accident - 6 month, Hx Seizures Renal/ Medical History: Reports: Hx Renal Insufficiency. Denies: Hx Peritoneal Dialysis Malignancy Medical History: Reports Hx Lymphoma - Hodgkin's lymphoma GI Medical History: Reports: Hx Gastroesophageal Reflux Disease Musculoskeltal Medical History: Denies Hx Arthritis Skin Medical History: Reports Hx MRSA Psychiatric Medical History: Reports: Hx Depression Infectious Medical History: Reports: Hx HIV - Immunizations Hx Diphtheria, Pertussis, Tetanus Vaccination: Yes History of Influenza Vaccine for 04/2017 - 09/2017 Season: Yes Influenza Administration Date for 04/2017 - 09/2017 Season: 02/09/17 Physical Exam - Vital signs Vitals: Temp Pulse Resp BP Pulse Ox 98.4 F 118 H 20 125/72 100 07/21/17 19:24 07/21/17 19:24 07/21/17 19:24 07/21/17 19:24 07/21/17 19:24 Course - Vital Signs Vital signs: Temp Pulse Resp BP Pulse Ox 98.4 F 118 H 20 125/72 100 07/21/17 19:24 07/21/17 19:24 07/21/17 19:24 07/21/17 19:24 07/21/17 19:24
[2017-07-21 22:04] LABS: ALANINE AMINOTRANSFERASE 32 U/L (21-72); ALBUMIN 4.3 g/dL (3.5-5.0); ALKALINE PHOSPHATASE 66 U/L (38-126); ANION GAP 14 (5-19); ASPARTATE AMINO TRANSFERASE 19 U/L (17-59); BILIRUBIN,DIRECT 0.2 mg/dL (0.0-0.4); BLOOD UREA NITROGEN 23 mg/dL (7-20); CALCIUM 10.4 mg/dL (8.4-10.2); CARBON DIOXIDE 25 mmol/L (22-30); CHLORIDE 99 mmol/L (98-107); GLUCOSE 98 mg/dL (75-110); POTASSIUM 3.3 mmol/L (3.6-5.0); SODIUM 138.3 mmol/L (137-145); TOTAL PROTEIN 7.6 g/dL (6.3-8.2)
--- NOTE | 2017-07-21 22:12 | ER Document Report ---
ED General - General Chief Complaint: Nausea/Vomiting Stated Complaint: VOMITING Time Seen by Provider: 07/21/17 20:15 Notes: Patient is a 46-year-old male presents emergency department complaining of chronic body aches as well as nausea and vomiting for the past 2 days. Patient states that he has been following up with Dr. Jimenes for recent IV infusions for an antibiotic for some sort of infection that they are treating. Family and patient states that they do not know what the infection is. He does have a history of pancytopenia and PCP pneumonia. He states that he feels sick any time he is at their office getting the infusions. Patient states he has been taking [place] 11/11/2024 every 6 hours without any improvement in his pain. Evidence on his home medication list which is updated today does not show any evidence of nausea medications. He was seen here 3 days ago but left AMA. Recently tested negative for influenza. He is also recently admitted a month ago for similar presentation today and also left AMA at that time. Past medical history is significant for HIV, coronary artery disease, hyperlipidemia, hypertension, CVA a year ago, seizures history, Hodgkin's lymphoma on chemo, GERD, history of MRSA, depression Past surgical history denies Social history admits to occasional tobacco use, denies any alcohol or drug use Primary CARE providers Dr. Mesa Oncologist is Dr. Jimenes Allergies to Bactrim TRAVEL OUTSIDE OF THE [place] IN LAST 30 DAYS: No - Related Data Allergies/Adverse Reactions: sulfamethoxazole [From Bactrim] Allergy (Verified 07/18/17 10:19) trimethoprim [From Bactrim] Allergy (Verified 07/18/17 10:19) Home Medications: Current Home Medications Aspirin [Aspirin] 1 tab PO DAILY 07/21/17 [History] Fluconazole [Diflucan 100 mg Tablet] 2 tab PO ASDIR PRN 07/21/17 [History] Hydrochlorothiazide [Hydrochlorothiazide] 1 tab PO DAILY 07/21/17 [History] Hydrocodone/Acetaminophen [Hydrocodon-Acetaminophen 5-325] 1 each PO Q6H [History] Levetiracetam [Levetiracetam] 1 tab PO BID 07/21/17 [History] Metoprolol Succinate [Metoprolol Succinate] 1 tab PO DAILY 01/10/18 [History] Past Medical History - Social History Smoking Status: Current Some Day Smoker Frequency of alcohol use: None Drug Abuse: None Family History: Reviewed & Not Pertinent, Hypertension Patient has suicidal ideation: No Patient has homicidal ideation: No - Past Medical History Cardiac Medical History: Reports: Hx Coronary Artery Disease, Hx Hypercholesterolemia, Hx Hypertension Denies: Hx Heart Attack Pulmonary Medical History: Denies: Hx Asthma, Hx Bronchitis, Hx COPD, Hx Pneumonia, Hx Tuberculosis Neurological Medical History: Reports: Hx Cerebrovascular Accident - 6 month, Hx Seizures Renal/ Medical History: Reports: Hx Renal Insufficiency. Denies: Hx Peritoneal Dialysis Malignancy Medical History: Reports Hx Lymphoma - Hodgkin's lymphoma GI Medical History: Reports: Hx Gastroesophageal Reflux Disease Musculoskeltal Medical History: Denies Hx Arthritis Skin Medical History: Reports Hx MRSA Psychiatric Medical History: Reports: Hx Depression Infectious Medical History: Reports: Hx HIV - Immunizations Hx Diphtheria, Pertussis, Tetanus Vaccination: Yes Hx Pneumococcal Vaccination: 07/12/09 Review of Systems - Review of Systems Constitutional: See HPI EENT: No symptoms reported Cardiovascular: No symptoms reported Respiratory: No symptoms reported Gastrointestinal: See HPI Genitourinary: No symptoms reported Musculoskeletal: See HPI -: Yes All other systems reviewed and negative Physical Exam - Vital signs Vitals: Temp Pulse Resp BP Pulse Ox 98.4 F 118 H 20 125/72 100 07/21/17 19:24 07/21/17 19:24 07/21/17 19:24 07/21/17 19:24 07/21/17 19:24 - Notes Notes: PHYSICAL EXAM GENERAL: Alert, cachectic, agitated NAD HEAD: Normocephalic, atraumatic. EYES: Pupils equal, round, and reactive to light. Extraocular movements intact. NECK: Full range of motion. Supple. Trachea midline. LUNGS: Clear to auscultation bilaterally, no wheezes, rales, or rhonchi. No respiratory distress. HEART: Regular rate and rhythm. No murmurs, gallops, or rubs. ABDOMEN: Soft, nondistended,mildly tender. No guarding, rebound, or rigidity.. Bowel sounds present in all 4 quadrants. EXTREMITIES: Moves all 4 extremities spontaneously. No edema, radial and dorsalis pedis pulses 2/4 bilaterally. No cyanosis. NEUROLOGICAL: Alert and oriented x4. Normal speech. PSYCH: Normal affect, normal mood. SKIN: Warm, dry, normal turgor. No rashes or lesions noted. Course - Re-evaluation Re-evalutation: 07/21/17 22:53 Patient is a 46-year-old male is hemodynamically stable, no acute distress and currently afebrile. Tachycardic upon presentation likely due to dehydration. Labs being sent at this time 07/22/17 01:41 Patient CBC did show evidence of pancytopenia the patient remains afebrile. Chest x-ray shows developing infiltrate of the left lung. Patient was recently tested for influenza which was negative. Patient initiated on IV antibiotics and accepted for admission to Dr. Mesa. Given patient's recent habit of signing out AMA, this was discussed with him prior to admission and patient requesting to stay. - Vital Signs Vital signs: Temp Pulse Resp BP Pulse Ox 98.0 F 118 H 19 142/98 H 100 07/22/17 03:54 07/21/17 19:24 07/22/17 04:01 07/22/17 03:00 07/22/17 04:01 - Laboratory Result Diagrams: 07/21/17 22:48 07/21/17 21:25 Laboratory results interpreted by me: 07/21/17 07/21/17 21:25 22:48 WBC 1.4 L* RBC 2.57 L Hgb 8.6 L Hct 25.4 L MCV 99 H D RDW 22.0 H Plt Count 123 L Seg Neuts % (Manual) 0 L Lymphocytes % (Manual) 96 H Monocytes % (Manual) 2 L Abs Neuts (Manual) 0.0 L Abs Monocytes (Manual) 0.0 L Potassium 3.3 L BUN 23 H Calcium 10.4 H - Diagnostic Test Radiology reviewed: Image reviewed, Reports reviewed - EKG Interpretation by Me EKG shows normal: Sinus rhythm Rate: Normal Rhythm: NSR Voltage: Consistant with LVH When compared to previous EKG there are: Changes noted Discharge - Discharge Clinical Impression: Pancytopenia Nausea and vomiting Qualifiers: Vomiting type: unspecified Vomiting Intractability: non-intractable Qualified Code(s): R11.2 - Nausea with vomiting, unspecified PNA (pneumonia) Qualifiers: Pneumonia type: due to unspecified organism Laterality: left Lung location: unspecified part of lung Qualified Code(s): J18.9 - Pneumonia, unspecified organism Condition: Stable Disposition: ADMITTED INPATIENT Admitting Provider: [facility] Admitted: Telemetry
[2017-07-21 23:04] LABS: HEMATOCRIT 25.4 % (37.9-51.0); HEMOGLOBIN 8.6 g/dL (13.5-17.0); MEAN CORPUSCULAR HEMOGLOBIN 33.3 pg (27.0-33.4); MEAN CORPUSCULAR HGB CONC 33.8 g/dL (32.0-36.0); PLATELET COUNT 123 10^3/uL (150-450); RED BLOOD COUNT 2.57 10^6/uL (4.35-5.55)
[2017-07-21 23:50] LABS: ABSOLUTE LYMPHOCYTES# (MANUAL) 1.3 10^3/uL (0.5-4.7); BASOPHILS % (MANUAL) 0 % (0-2); EOSINOPHILS % (MANUAL) 2 % (0-6); LYMPHOCYTES % (MANUAL) 96 % (13-45); MONOCYTES % (MANUAL) 2 % (3-13); SEGMENTED NEUTROPHILS % (MAN) 0 % (42-78); TOTAL CELLS COUNTED 50
[2017-07-21 23:52] LABS: ANISOCYTOSIS 3+; HOWELL-JOLLY BODIES PRESENT
[2017-07-21 23:54] LABS: PLATELET COMMENT ADEQUATE
[2017-07-22 00:05] LABS: MEAN CORPUSCULAR VOLUME 99 fl (80-97)
[2017-07-22] MEDS ORDERED: POTASSIUM CHLORIDE 10 MEQ TABLET.SA PO ONE (00:06)
[2017-07-22 00:07] LABS: WHITE BLOOD COUNT 1.4 10^3/uL (4.0-10.5)
[2017-07-22 00:51] LABS: APPEARANCE,URINE CLEAR; BILIRUBIN,URINE NEGATIVE (NEGATIVE); COLOR,URINE YELLOW; GLUCOSE, URINE NEGATIVE (NEGATIVE); KETONES,URINE NEGATIVE (NEGATIVE); LEUKOCYTE ESTERASE,URINE NEGATIVE (NEGATIVE); NITRITE,URINE NEGATIVE (NEGATIVE); PROTEIN,URINE NEGATIVE (NEGATIVE); URINE SPECIFIC GRAVITY 1.013; UROBILINOGEN,URINE NEGATIVE mg/dL (<2.0)
--- NOTE | 2017-07-22 01:05 | RADIOLOGY REPORT (SQ) ---
EXAM DESCRIPTION: CHEST SINGLE VIEW CLINICAL HISTORY: neutropenia with body aches, ? PNA COMPARISON: 06/09/2017 FINDINGS: Single frontal view of the chest. Right-sided Mediport. Cardiomediastinal silhouette is otherwise unremarkable. Leads overlie the chest. Streaky left basilar opacities. No pneumothorax or pleural effusion. No displaced rib fractures identified. Upper abdominal soft tissues are unremarkable. IMPRESSION: 1. Streaky left basilar opacities could represent developing pneumonia.
[2017-07-22] MEDS ORDERED: HYDROMORPHONE HCL INJ/PF 2 MG/ML AMPULE IV ONE (01:33)
[2017-07-22] MEDS ORDERED: PIPERACILLIN/TAZOBACTAM 3.375 GM VIAL IV ONE (01:35)
[2017-07-22] MEDS ORDERED: VANCOMYCIN HCL INJ 1000 MG VIAL IV ONE (01:35)
[2017-07-22] MEDS ORDERED: NORMAL SALINE 1000 ML 1,000 ML IV ONE (01:36)
[2017-07-22] MEDS ORDERED: FLUCONAZOLE 100 MG TABLET PO PRN (07:06)
[2017-07-22] MEDS ORDERED: DARUNAVIR ETHANOLATE 600 MG PO SCH (07:15)
[2017-07-22] MEDS ORDERED: LISINOPRIL 10 MG TABLET PO ONE (07:45)
[2017-07-22] MEDS ORDERED: AMLODIPINE BESYLATE 5 MG TABLET PO ONE (07:45)
[2017-07-22] MEDS ORDERED: ASPIRIN 325 MG TABLET PO ONE (07:45)
--- NOTE | 2017-07-22 07:58 | EKG REPORT ---
SEVERITY:- ABNORMAL ECG - SINUS RHYTHM LEFT VENTRICULAR HYPERTROPHY BORDERLINE T ABNORMALITIES, INFERIOR LEADS ST ELEVATION, CONSIDER ANTERIOR INJURY , CLINICAL CORRELATION NEEDED BORDERLINE PROLONGED QT INTERVAL : Confirmed by: Ignacio Steel MD 22-Jul-2017 07:56:49
[2017-07-22] MEDS ORDERED: FILGRASTIM INJ 300 MCG/1 ML VIAL SUBCUT ONE (08:00)
[2017-07-22 08:04] LABS: HEMATOCRIT 24.4 % (37.9-51.0); HEMOGLOBIN 8.2 g/dL (13.5-17.0); MEAN CORPUSCULAR HEMOGLOBIN 32.1 pg (27.0-33.4); MEAN CORPUSCULAR HGB CONC 33.6 g/dL (32.0-36.0); MEAN CORPUSCULAR VOLUME 96 fl (80-97); PLATELET COUNT 107 10^3/uL (150-450); RED BLOOD COUNT 2.55 10^6/uL (4.35-5.55); RED CELL DISTRIBUTION WIDTH 22.1 % (11.5-14.0)
[2017-07-22 08:07] LABS: PROTHROMBIN TIME 13.9 SEC (11.4-15.4)
[2017-07-22 08:08] LABS: PARTIAL THROMBOPLASTIN TIME 30.1 SEC (23.5-35.8)
[2017-07-22 08:48] LABS: WHITE BLOOD COUNT 0.7 10^3/uL (4.0-10.5)
[2017-07-22] MEDS: METOPROLOL SUCCINATE 25 MG TAB.SR.24H PO SCH (09:27)
[2017-07-22] MEDS: HYDROCODONE/ACETAMINOPHEN 5-325 MG TABLET PO SCH ×3 (09:30→23:18)
[2017-07-22] MEDS: LEVOFLOXACIN 750 MG TABLET PO SCH (09:32)
[2017-07-22] MEDS: LEVETIRACETAM 500 MG TABLET PO SCH ×2 (09:32→22:40)
[2017-07-22] MEDS: CITALOPRAM HYDROBROMIDE 20 MG TABLET PO SCH (09:33)
[2017-07-22] MEDS: NORMAL SALINE 1000 ML 1,000 ML IV PRN (10:07)
[2017-07-22] MEDS: RITONAVIR 100 MG TABLET PO SCH ×2 (10:23→22:39)
[2017-07-22] MEDS: HYDROMORPHONE HCL INJ/PF 2 MG/ML AMPULE IV PRN ×3 (12:05→20:26)
[2017-07-22] MEDS ORDERED: (PENDING PHARMACY ID) (Etravirine [Intelence] 200 MG) PO SCH (22:00)
--- NOTE | 2017-07-22 22:02 | PDOC H&P ---
History of Present Illness Admission Date/PCP: 07/22/17 01:57 WILNER KDID MD History of Present Illness: VERONICA CARDENAS JR is a 46 year old male, He has a history of Hodgkin's lymphoma on active chemotherapy, HIV infection, he came to the emergency room for evaluation of generalized body pains, nausea, vomiting. In the emergency room he was evaluated, there was no fever he was found to have pancytopenia with severe leukopenia but there was no localizing infection. The emergency room providers want him admitted to the hospital Past Medical History Cardiac Medical History: Reports: Coronary Artery Disease, Hyperlipidema, Hypertension Neurological Medical History: Reports: Seizures Malignancy Medical History: Reports: Lymphoma - Hodgkin's lymphoma GI Medical History: Reports: Gastroesophageal Reflux Disease Psychiatric Medical History: Reports: Depression Hematology: Denies: Anemia Infectious Medical History: Reports: HIV Social History Smoking Status: Current Some Day Smoker Frequency of Alcohol Use: None Hx Recreational Drug Use: Yes Drugs: Marijuana Hx Prescription Drug Abuse: No Family History Family History: Reviewed & Not Pertinent, Hypertension Parental Family History Reviewed: Yes Children Family History Reviewed: Yes Sibling(s) Family History Reviewed.: Yes Medication/Allergy Home Medications: Amlodipine Besylate [Norvasc 5 mg Tablet] 5 mg PO QAM 06/26/17 Citalopram Hydrobromide [Citalopram HBr] 20 mg PO QAM 06/26/17 Darunavir Ethanolate [Prezista] 600 mg PO Q12 06/26/17 Lisinopril [Prinivil 10 mg Tablet] 40 mg PO QAM 06/26/17 Ritonavir [Norvir 100 mg Tablet] 100 mg PO Q12 06/26/17 Aspirin [Aspirin] 325 mg PO QAM 07/21/17 Hydrochlorothiazide [Hydrochlorothiazide] 25 mg PO QAM 07/21/17 Hydrocodone/Acetaminophen [Hydrocodon-Acetaminophen 5-325] 1 each PO Q6H Levetiracetam [Levetiracetam] 500 mg PO BID 07/21/17 Metoprolol Succinate [Metoprolol Succinate] 25 mg PO QAM 07/21/17 Atorvastatin Calcium [Lipitor 20 mg Tablet] 20 mg PO QHS 07/22/17 Emtricitabine/Tenofovir (Tdf) [Truvada 200 mg-300 mg Tablet] 1 tab PO NOON 07/22 Etravirine [Intelence] 200 mg PO Q12 07/22/17 Allergies/Adverse Reactions: sulfamethoxazole [From Bactrim] Allergy (Verified 07/18/17 10:19) trimethoprim [From Bactrim] Allergy (Verified 07/18/17 10:19) Review of Systems Constitutional: PRESENT: chills, fatigue, headache(s) Eyes: ABSENT: visual disturbances Ears: ABSENT: hearing changes Cardiovascular: ABSENT: chest pain, dyspnea on exertion, edema, orthropnea, palpitations Respiratory: ABSENT: cough, hemoptysis Gastrointestinal: ABSENT: abdominal pain, constipation, diarrhea, hematemesis, hematochezia, nausea, vomiting Genitourinary: ABSENT: dysuria, hematuria Musculoskeletal: PRESENT: back pain. ABSENT: joint swelling Integumentary: ABSENT: rash, wounds Neurological: ABSENT: abnormal gait, abnormal speech, confusion, dizziness, focal weakness, syncope Psychiatric: ABSENT: anxiety, depression, homidical ideation, suicidal ideation Endocrine: ABSENT: cold intolerance, heat intolerance, menstrual abnormalities, polydipsia, polyuria Hematologic/Lymphatic: ABSENT: easy bleeding, easy bruising, lymphadenopathy Physical Exam Vital Signs: Temp Pulse Resp BP Pulse Ox 97.9 F 107 H 20 107/69 100 07/22/17 15:30 07/22/17 15:30 07/22/17 15:30 07/22/17 15:30 07/22/17 15:30 Intake & Output 07/21/17 07/22/17 07/23/17 06:59 06:59 06:59 Intake Total 1422 Balance 1422 Weight 74 kg General appearance: PRESENT: thin Head exam: PRESENT: other - Alopecia Eye exam: PRESENT: PERRLA Ear exam: PRESENT: normal external ear exam Mouth exam: PRESENT: moist, tongue midline Neck exam: PRESENT: full ROM Cardiovascular exam: PRESENT: RRR, +S1, +S2 Vascular exam: PRESENT: normal capillary refill GI/Abdominal exam: PRESENT: normal bowel sounds, soft Rectal exam: PRESENT: deferred Neurological exam: PRESENT: alert Results Laboratory Results: 07/22/17 07:51 07/22/17 07:51 07/22/17 07/22/17 07:51 07:51 WBC 0.7 L* D RBC 2.55 L Hgb 8.2 L Hct 24.4 L MCV 96 MCH 32.1 MCHC 33.6 RDW 22.1 H Plt Count 107 L Creatinine 0.98 Est GFR ( Amer) > 60 Est GFR (Non-Af Amer) > 60 Impressions: Chest X-Ray 07/22/17 00:08 IMPRESSION: 1. Streaky left basilar opacities could represent developing pneumonia. Assessment & Plan - Diagnosis (1) Hodgkin lymphoma Qualifiers: Hodgkin lymphoma type: unspecified type Lymphoma site: unspecified region Qualified Code(s): C81.90 - Hodgkin lymphoma, unspecified, unspecified site Is this a current diagnosis for this admission?: Yes (2) Pancytopenia due to chemotherapy Is this a current diagnosis for this admission?: Yes Plan: Patient given neupogen for leucopenia (3) Cancer associated pain Is this a current diagnosis for this admission?: Yes Plan: Patient admitted for pain control
[2017-07-23] MEDS: HYDROMORPHONE HCL INJ/PF 2 MG/ML AMPULE IV PRN ×5 (00:24→20:34)
[2017-07-23] MEDS: NORMAL SALINE 1000 ML 1,000 ML IV PRN (04:53)
[2017-07-23] MEDS: HYDROCODONE/ACETAMINOPHEN 5-325 MG TABLET PO SCH ×2 (07:02→14:03)
[2017-07-23] MEDS: LISINOPRIL 10 MG TABLET PO SCH (09:32)
[2017-07-23] MEDS: AMLODIPINE BESYLATE 5 MG TABLET PO SCH (09:32)
[2017-07-23] MEDS: ASPIRIN 325 MG TABLET PO SCH (09:32)
[2017-07-23] MEDS: METOPROLOL SUCCINATE 25 MG TAB.SR.24H PO SCH (09:32)
[2017-07-23] MEDS: LEVOFLOXACIN 750 MG TABLET PO SCH (09:32)
[2017-07-23] MEDS: CITALOPRAM HYDROBROMIDE 20 MG TABLET PO SCH (09:33)
[2017-07-23] MEDS: LEVETIRACETAM 500 MG TABLET PO SCH ×2 (09:33→21:53)
[2017-07-23] MEDS: RITONAVIR 100 MG TABLET PO SCH ×2 (14:01→21:53)
[2017-07-23] MEDS: EMTRICITABINE/TENOFOVIR 200-300 MG TABLET PO SCH (14:02)
[2017-07-23] MEDS ORDERED: OXYCODONE-ACETAMINOPHEN 5-325 MG TABLET PO PRN (16:16)
[2017-07-23] MEDS ORDERED: OXYCODONE HCL IR 5 MG TABLET PO PRN (16:17)
[2017-07-23] MEDS ORDERED: HYDROMORPHONE HCL INJ/PF 2 MG/ML AMPULE IV PRN (16:30)
[2017-07-23] MEDS: ZOLPIDEM TARTRATE 5 MG TABLET PO PRN (21:53)
--- NOTE | 2017-07-23 23:52 | PDOC PROGRESS REPORT ---
Subjective Progress Note for:: 07/23/17 Subjective:: Patient was admitted for the management of intradural pain and neutropenia Reason For Visit: PANCYTOPENIA Physical Exam Vital Signs: Temp Pulse Resp BP Pulse Ox 97.9 F 102 H 18 160/91 H 100 07/23/17 19:51 07/23/17 19:51 07/23/17 19:51 07/23/17 19:51 07/23/17 19:51 Intake & Output 07/22/17 07/23/17 07/24/17 06:59 06:59 06:59 Intake Total 2814 Balance 2814 Weight 74 kg Mouth exam: PRESENT: moist, tongue midline Neck exam: PRESENT: full ROM Respiratory exam: PRESENT: clear to auscultation joslyn Cardiovascular exam: PRESENT: RRR, +S1, +S2 Vascular exam: PRESENT: normal capillary refill GI/Abdominal exam: PRESENT: normal bowel sounds, soft Rectal exam: PRESENT: deferred Neurological exam: PRESENT: alert Skin exam: PRESENT: dry, intact, warm Results Laboratory Results: 07/22/17 07:51 07/22/17 07:51 Impressions: Chest X-Ray 07/22/17 00:08 IMPRESSION: 1. Streaky left basilar opacities could represent developing pneumonia. Assessment & Plan - Diagnosis (1) Hodgkin lymphoma Qualifiers: Hodgkin lymphoma type: unspecified type Lymphoma site: unspecified region Qualified Code(s): C81.90 - Hodgkin lymphoma, unspecified, unspecified site Is this a current diagnosis for this admission?: Yes (2) Pancytopenia due to chemotherapy Is this a current diagnosis for this admission?: Yes (3) Cancer associated pain Is this a current diagnosis for this admission?: Yes
[2017-07-24] MEDS: HYDROMORPHONE HCL INJ/PF 2 MG/ML AMPULE IV PRN ×5 (03:17→21:12)
[2017-07-24] MEDS: LEVOFLOXACIN 750 MG TABLET PO SCH (09:01)
[2017-07-24] MEDS: LISINOPRIL 10 MG TABLET PO SCH (09:39)
[2017-07-24] MEDS: AMLODIPINE BESYLATE 5 MG TABLET PO SCH (09:39)
[2017-07-24] MEDS: METOPROLOL SUCCINATE 25 MG TAB.SR.24H PO SCH (09:40)
[2017-07-24] MEDS: LEVETIRACETAM 500 MG TABLET PO SCH ×2 (09:40→21:12)
[2017-07-24] MEDS: CITALOPRAM HYDROBROMIDE 20 MG TABLET PO SCH (09:40)
[2017-07-24] MEDS: ASPIRIN 325 MG TABLET PO SCH (09:40)
[2017-07-24] MEDS: RITONAVIR 100 MG TABLET PO SCH ×2 (09:41→21:12)
[2017-07-24] MEDS: EMTRICITABINE/TENOFOVIR 200-300 MG TABLET PO SCH (11:23)
[2017-07-24] MEDS: NORMAL SALINE 1000 ML 1,000 ML IV PRN (13:27)
--- NOTE | 2017-07-24 16:47 | PDOC PROGRESS REPORT ---
Subjective Progress Note for:: 07/24/17 Subjective:: Patient was admitted for the management of intradural pain and neutropenia Reason For Visit: PANCYTOPENIA Physical Exam Vital Signs: Temp Pulse Resp BP Pulse Ox 98.3 F 98 14 151/97 H 100 07/24/17 12:00 07/24/17 12:00 07/24/17 12:00 07/24/17 12:00 07/24/17 12:00 Intake & Output 07/23/17 07/24/17 07/25/17 06:59 06:59 06:59 Intake Total 2814 1560 Balance 2814 1560 Weight 74 kg 74 kg General appearance: PRESENT: no acute distress Eye exam: PRESENT: PERRLA Respiratory exam: PRESENT: clear to auscultation joslyn Cardiovascular exam: PRESENT: +S2 Results Laboratory Results: 07/22/17 07:51 07/22/17 07:51 Impressions: Chest X-Ray 07/22/17 00:08 IMPRESSION: 1. Streaky left basilar opacities could represent developing pneumonia. Assessment & Plan - Diagnosis (1) Hodgkin lymphoma Qualifiers: Hodgkin lymphoma type: unspecified type Lymphoma site: unspecified region Qualified Code(s): C81.90 - Hodgkin lymphoma, unspecified, unspecified site Is this a current diagnosis for this admission?: Yes (2) Pancytopenia due to chemotherapy Is this a current diagnosis for this admission?: Yes (3) Cancer associated pain Is this a current diagnosis for this admission?: Yes - Plan Summary Plan Summary: He complained of insomnia, was given Seroquel
[2017-07-24 17:33] LABS: HEMATOCRIT 23.8 % (37.9-51.0); HEMOGLOBIN 8.2 g/dL (13.5-17.0); MEAN CORPUSCULAR HEMOGLOBIN 33.8 pg (27.0-33.4); MEAN CORPUSCULAR HGB CONC 34.3 g/dL (32.0-36.0); MEAN CORPUSCULAR VOLUME 99 fl (80-97); PLATELET COUNT 121 10^3/uL (150-450); RED BLOOD COUNT 2.42 10^6/uL (4.35-5.55)
[2017-07-24 17:44] LABS: ALANINE AMINOTRANSFERASE 38 U/L (21-72); ALBUMIN 3.8 g/dL (3.5-5.0); ALKALINE PHOSPHATASE 58 U/L (38-126); ANION GAP 11 (5-19); ASPARTATE AMINO TRANSFERASE 17 U/L (17-59); BILIRUBIN,DIRECT 0.2 mg/dL (0.0-0.4); BILIRUBIN,TOTAL 0.3 mg/dL (0.2-1.3); BLOOD UREA NITROGEN 6 mg/dL (7-20); CALCIUM 9.5 mg/dL (8.4-10.2); CARBON DIOXIDE 29 mmol/L (22-30); CHLORIDE 100 mmol/L (98-107); GLUCOSE 96 mg/dL (75-110); POTASSIUM 3.4 mmol/L (3.6-5.0); SODIUM 140.4 mmol/L (137-145)
[2017-07-24 17:57] LABS: ABSOLUTE LYMPHOCYTES# (MANUAL) 1.5 10^3/uL (0.5-4.7); ABSOLUTE MONOCYTES # (MANUAL) 0.5 10^3/uL (0.1-1.4); ABSOLUTE NEUTROPHILS# (MANUAL) 0.1 10^3/uL (1.7-8.2); BASOPHILS % (MANUAL) 3 % (0-2); EOSINOPHILS % (MANUAL) 9 % (0-6); LYMPHOCYTES % (MANUAL) 61 % (13-45); MONOCYTES % (MANUAL) 20 % (3-13); NUCLEATED RED BLOOD CELLS 5 /100 WBC (0); SEGMENTED NEUTROPHILS % (MAN) 5 % (42-78); TOTAL CELLS COUNTED 100
[2017-07-24 18:00] LABS: HYPOCHROMASIA SLIGHT; PLATELET COMMENT ADEQUATE; POLYCHROMASIA SLIGHT; ROULEAUX SLIGHT
[2017-07-24 18:14] LABS: WHITE BLOOD COUNT 2.4 10^3/uL (4.0-10.5)
[2017-07-24] MEDS ORDERED: QUETIAPINE FUMARATE 100 MG TABLET PO SCH (22:00)
[2017-07-25] MEDS: HYDROMORPHONE HCL INJ/PF 2 MG/ML AMPULE IV PRN ×4 (07:49→20:20)
[2017-07-25] MEDS: LEVOFLOXACIN 750 MG TABLET PO SCH (07:50)
[2017-07-25] MEDS: ASPIRIN 325 MG TABLET PO SCH (10:34)
[2017-07-25] MEDS: CITALOPRAM HYDROBROMIDE 20 MG TABLET PO SCH (10:34)
[2017-07-25] MEDS: METOPROLOL SUCCINATE 25 MG TAB.SR.24H PO SCH (10:34)
[2017-07-25] MEDS: LEVETIRACETAM 500 MG TABLET PO SCH ×2 (10:35→21:43)
[2017-07-25] MEDS: AMLODIPINE BESYLATE 5 MG TABLET PO SCH (10:35)
[2017-07-25] MEDS: LISINOPRIL 10 MG TABLET PO SCH (10:35)
[2017-07-25] MEDS: RITONAVIR 100 MG TABLET PO SCH ×2 (10:39→21:43)
[2017-07-25] MEDS: EMTRICITABINE/TENOFOVIR 200-300 MG TABLET PO SCH (11:49)
[2017-07-25] MEDS: NORMAL SALINE 1000 ML 1,000 ML IV PRN (15:22)
--- NOTE | 2017-07-25 17:53 | PDOC PROGRESS REPORT ---
Subjective Progress Note for:: 07/25/17 Subjective:: Patient was seen by the bedside last night he has cervical but is seems that the dose was too much he had a reaction last night to the medication though he was able to sleep Reason For Visit: PANCYTOPENIA Physical Exam Vital Signs: Temp Pulse Resp BP Pulse Ox 98.5 F 107 H 12 144/86 H 98 07/25/17 12:22 07/25/17 12:22 07/25/17 12:22 07/25/17 12:22 07/25/17 12:22 Intake & Output 07/24/17 07/25/17 07/26/17 06:59 06:59 06:59 Intake Total 1560 4480 180 Balance 1560 4480 180 Weight 74 kg 70.4 kg Head exam: PRESENT: atraumatic, normocephalic Eye exam: ABSENT: scleral icterus Ear exam: PRESENT: normal external ear exam Mouth exam: PRESENT: moist, tongue midline Neck exam: PRESENT: full ROM Respiratory exam: PRESENT: clear to auscultation joslyn Cardiovascular exam: PRESENT: RRR, +S1, +S2 Vascular exam: PRESENT: normal capillary refill GI/Abdominal exam: PRESENT: normal bowel sounds, soft Rectal exam: PRESENT: deferred Neurological exam: PRESENT: alert Skin exam: PRESENT: dry, intact, warm Results Laboratory Results: 07/24/17 17:05 07/24/17 17:05 07/24/17 17:05 WBC 2.4 L D RBC 2.42 L Hgb 8.2 L Hct 23.8 L MCV 99 H MCH 33.8 H MCHC 34.3 RDW 22.0 H Plt Count 121 L Impressions: Chest X-Ray 07/22/17 00:08 IMPRESSION: 1. Streaky left basilar opacities could represent developing pneumonia. Assessment & Plan - Diagnosis (1) Hodgkin lymphoma Qualifiers: Hodgkin lymphoma type: unspecified type Lymphoma site: unspecified region Qualified Code(s): C81.90 - Hodgkin lymphoma, unspecified, unspecified site Is this a current diagnosis for this admission?: Yes (2) Pancytopenia due to chemotherapy Is this a current diagnosis for this admission?: Yes (3) Cancer associated pain Is this a current diagnosis for this admission?: Yes (4) Insomnia Qualifiers: Insomnia type: unspecified Qualified Code(s): G47.00 - Insomnia, unspecified
[2017-07-25] MEDS: ZOLPIDEM TARTRATE 5 MG TABLET PO PRN (21:43)
[2017-07-26] MEDS: HYDROMORPHONE HCL INJ/PF 2 MG/ML AMPULE IV PRN ×6 (00:53→22:24)
[2017-07-26] MEDS: NORMAL SALINE 1000 ML 1,000 ML IV PRN ×3 (00:57→21:38)
[2017-07-26] MEDS: LEVOFLOXACIN 750 MG TABLET PO SCH (08:06)
[2017-07-26] MEDS: AMLODIPINE BESYLATE 5 MG TABLET PO SCH (09:12)
[2017-07-26] MEDS: ASPIRIN 325 MG TABLET PO SCH (09:12)
[2017-07-26] MEDS: CITALOPRAM HYDROBROMIDE 20 MG TABLET PO SCH (09:13)
[2017-07-26] MEDS: LISINOPRIL 10 MG TABLET PO SCH (09:13)
[2017-07-26] MEDS: METOPROLOL SUCCINATE 25 MG TAB.SR.24H PO SCH (09:13)
[2017-07-26] MEDS: LEVETIRACETAM 500 MG TABLET PO SCH ×2 (09:13→21:37)
[2017-07-26] MEDS: RITONAVIR 100 MG TABLET PO SCH ×2 (09:14→21:37)
[2017-07-26] MEDS: EMTRICITABINE/TENOFOVIR 200-300 MG TABLET PO SCH (11:31)
[2017-07-26 19:23] LABS: HEMOGLOBIN 9.3 g/dL (13.5-17.0); MEAN CORPUSCULAR HEMOGLOBIN 32.2 pg (27.0-33.4); MEAN CORPUSCULAR HGB CONC 33.2 g/dL (32.0-36.0); MEAN CORPUSCULAR VOLUME 97 fl (80-97); PLATELET COUNT 186 10^3/uL (150-450); RED BLOOD COUNT 2.89 10^6/uL (4.35-5.55); RED CELL DISTRIBUTION WIDTH 23.5 % (11.5-14.0)
[2017-07-26 19:38] LABS: WHITE BLOOD COUNT 8.1 10^3/uL (4.0-10.5)
[2017-07-26 19:48] LABS: ABSOLUTE LYMPHOCYTES# (MANUAL) 2.1 10^3/uL (0.5-4.7); ABSOLUTE MONOCYTES # (MANUAL) 1.6 10^3/uL (0.1-1.4); ABSOLUTE NEUTROPHILS# (MANUAL) 4.1 10^3/uL (1.7-8.2); BASOPHILS % (MANUAL) 3 % (0-2); EOSINOPHILS % (MANUAL) 1 % (0-6); LYMPHOCYTES % (MANUAL) 26 % (13-45); MONOCYTES % (MANUAL) 20 % (3-13); NUCLEATED RED BLOOD CELLS 8 /100 WBC (0); SEGMENTED NEUTROPHILS % (MAN) 27 % (42-78); TOTAL CELLS COUNTED 100
[2017-07-26 19:49] LABS: PLATELET COMMENT ADEQUATE; PLATELET GIANT PRESENT; PLATELET LARGE PRESENT; POLYCHROMASIA 1+; TOXIC GRANULATION SLIGHT; TOXIC VACUOLATION PRESENT
[2017-07-26 19:56] LABS: METAMYELOCYTES % (MANUAL) 6 % (0); MYELOCYTES % (MANUAL) 10 % (0); PROMYELOCYTES % (MANUAL) 7 % (0)
[2017-07-26 19:58] LABS: ANISOCYTOSIS 3+
--- NOTE | 2017-07-26 21:35 | PDOC PROGRESS REPORT ---
Subjective Progress Note for:: 07/26/17 Subjective:: Patient was seen by the bedside the white blood cell is normalized, he complain of insomnia ,he has appointment to see oncology tomorrow, he wants me to get consultation from oncologist to be seen before discharge Reason For Visit: PANCYTOPENIA D/T CHEMOTHERAPY,HODGKINS LYMPHOMA Physical Exam Vital Signs: Temp Pulse Resp BP Pulse Ox 98.0 F 98 17 129/77 H 97 07/26/17 20:10 07/26/17 20:10 07/26/17 20:10 07/26/17 20:10 07/26/17 20:10 Intake & Output 07/25/17 07/26/17 07/27/17 06:59 06:59 06:59 Intake Total 2019 Balance 2019 General appearance: PRESENT: no acute distress Eye exam: PRESENT: PERRLA Respiratory exam: PRESENT: clear to auscultation joslyn Cardiovascular exam: PRESENT: +S1, +S2 GI/Abdominal exam: PRESENT: soft Neurological exam: PRESENT: alert, CN II-XII grossly intact Results Laboratory Results: 07/26/17 19:12 07/26/17 19:12 WBC 8.1 D RBC 2.89 L Hgb 9.3 L Hct 28.0 L MCV 97 MCH 32.2 MCHC 33.2 RDW 23.5 H Plt Count 186 Seg Neutrophils % Not Reportable Lymphocytes % Not Reportable Monocytes % Not Reportable Eosinophils % Not Reportable Basophils % Not Reportable Absolute Neutrophils Not Reportable Absolute Lymphocytes Not Reportable Absolute Monocytes Not Reportable Absolute Eosinophils Not Reportable Absolute Basophils Not Reportable Impressions: Chest X-Ray 07/22/17 00:08 IMPRESSION: 1. Streaky left basilar opacities could represent developing pneumonia. Assessment & Plan - Diagnosis (1) Hodgkin lymphoma Qualifiers: Hodgkin lymphoma type: unspecified type Lymphoma site: unspecified region Qualified Code(s): C81.90 - Hodgkin lymphoma, unspecified, unspecified site Is this a current diagnosis for this admission?: Yes (2) Pancytopenia due to chemotherapy Is this a current diagnosis for this admission?: Yes (3) Cancer associated pain Is this a current diagnosis for this admission?: Yes (4) Insomnia Qualifiers: Insomnia type: unspecified Qualified Code(s): G47.00 - Insomnia, unspecified Is this a current diagnosis for this admission?: Yes
[2017-07-26] MEDS ORDERED: DOXEPIN HCL 10 MG CAPSULE PO ONE (21:36)
[2017-07-26] MEDS: ZOLPIDEM TARTRATE 5 MG TABLET PO PRN (21:38)
[2017-07-27] MEDS ORDERED: DOXEPIN HCL 10 MG CAPSULE ONE (00:18)
[2017-07-27] MEDS: HYDROMORPHONE HCL INJ/PF 2 MG/ML AMPULE IV PRN ×6 (02:32→22:51)
[2017-07-27] MEDS: NORMAL SALINE 1000 ML 1,000 ML IV PRN ×2 (06:30→17:37)
[2017-07-27] MEDS: LEVOFLOXACIN 750 MG TABLET PO SCH (08:51)
[2017-07-27] MEDS: METOPROLOL SUCCINATE 25 MG TAB.SR.24H PO SCH (10:37)
[2017-07-27] MEDS: AMLODIPINE BESYLATE 5 MG TABLET PO SCH (10:37)
[2017-07-27] MEDS: CITALOPRAM HYDROBROMIDE 20 MG TABLET PO SCH (10:38)
[2017-07-27] MEDS: LISINOPRIL 10 MG TABLET PO SCH (10:38)
[2017-07-27] MEDS: ASPIRIN 325 MG TABLET PO SCH (10:38)
[2017-07-27] MEDS: LEVETIRACETAM 500 MG TABLET PO SCH ×2 (10:39→22:51)
[2017-07-27] MEDS: RITONAVIR 100 MG TABLET PO SCH ×2 (10:39→22:51)
[2017-07-27] MEDS: EMTRICITABINE/TENOFOVIR 200-300 MG TABLET PO SCH (12:45)
--- NOTE | 2017-07-27 22:48 | PDOC DISCHARGE SUMMARY ---
General - Admit/Disc Date/PCP Admission Date/Primary Care Provider: 07/26/17 11:13 WILNER KIDD MD Discharge Date: 07/28/17 - Discharge Diagnosis (1) Hodgkin lymphoma Is this a current diagnosis for this admission?: Yes (2) Pancytopenia due to chemotherapy Is this a current diagnosis for this admission?: Yes (3) Cancer associated pain Is this a current diagnosis for this admission?: Yes (4) Insomnia Is this a current diagnosis for this admission?: Yes - Additional Information Prescriptions: Oxycodone HCl/Acetaminophen [Percocet 5-325 mg Tablet] 1 tab PO Q6H PRN #120 tablet PRN Reason: Home Medications: Amlodipine Besylate [Norvasc 5 mg Tablet] 5 mg PO QAM 06/26/17 Citalopram Hydrobromide [Citalopram HBr] 20 mg PO QAM 06/26/17 Darunavir Ethanolate [Prezista] 600 mg PO Q12 06/26/17 Lisinopril [Prinivil 10 mg Tablet] 40 mg PO QAM 06/26/17 Ritonavir [Norvir 100 mg Tablet] 100 mg PO Q12 06/26/17 Aspirin 325 mg PO QAM 07/21/17 Hydrochlorothiazide 25 mg PO QAM 07/21/17 Levetiracetam 500 mg PO BID 07/21/17 Metoprolol Succinate 25 mg PO QAM 07/21/17 Atorvastatin Calcium [Lipitor 20 mg Tablet] 20 mg PO QHS 07/22/17 Emtricitabine/Tenofovir (Tdf) [Truvada 200 mg-300 mg Tablet] 1 tab PO NOON 07/22 Etravirine [Intelence] 200 mg PO Q12 07/22/17 Oxycodone HCl/Acetaminophen [Percocet 5-325 mg Tablet] 1 tab PO Q6H PRN #120 tablet 07/27/17 History of Present Illness History of Present Illness: VERONICA CARDENAS JR is a 46 year old male, He has a history of Hodgkin's lymphoma on active chemotherapy, HIV infection, he came to the emergency room for evaluation of generalized body pains, nausea, vomiting. In the emergency room he was evaluated, there was no fever he was found to have pancytopenia with severe leukopenia but there was no localizing infection. The emergency room providers want him admitted to the hospital Hospital Course Hospital Course: Patient was admitted for the management of severe neutropenia, pancytopenia, intractable pain due to cancer. He was treated with IV fluids, Neupogen, pain management was achieved with Dilaudid and PercocetHe was seen by the management. There was a questionable pneumonia on the chest x-ray he was treated with p.o. Levaquin empirically the patient had no symptoms of pneumonia Physical Exam Vital Signs: Temp Pulse Resp BP Pulse Ox 98.0 F 93 18 144/75 H 100 07/27/17 15:41 07/27/17 15:41 07/27/17 15:41 07/27/17 15:41 07/27/17 15:41 Intake & Output 07/26/17 07/27/17 07/28/17 06:59 06:59 06:59 Intake Total 3530 2184 Balance 3530 2184 General appearance: PRESENT: no acute distress, well-developed, well-nourished Head exam: PRESENT: atraumatic, normocephalic Eye exam: PRESENT: conjunctiva pink, EOMI, PERRLA Ear exam: PRESENT: normal external ear exam Mouth exam: PRESENT: moist, tongue midline Neck exam: PRESENT: full ROM Respiratory exam: PRESENT: clear to auscultation joslyn Cardiovascular exam: PRESENT: RRR, +S1, +S2 Pulses: PRESENT: normal dorsalis pedis pul, +2 pedal pulses bilateral Vascular exam: PRESENT: normal capillary refill GI/Abdominal exam: PRESENT: normal bowel sounds, soft Rectal exam: PRESENT: deferred Neurological exam: PRESENT: alert, awake, oriented to person, oriented to place , oriented to time, oriented to situation, CN II-XII grossly intact Psychiatric exam: PRESENT: appropriate affect, normal mood Skin exam: PRESENT: dry, intact, warm. ABSENT: cyanosis, rash Results Laboratory Results: 07/26/17 19:12 Impressions: Chest X-Ray 07/22/17 00:08 IMPRESSION: 1. Streaky left basilar opacities could represent developing pneumonia.
[2017-07-27] MEDS: ZOLPIDEM TARTRATE 5 MG TABLET PO PRN (22:51)
[2017-07-28] MEDS: NORMAL SALINE 1000 ML 1,000 ML IV PRN (01:56)
[2017-07-28] MEDS: HYDROMORPHONE HCL INJ/PF 2 MG/ML AMPULE IV PRN ×2 (02:54→07:44)
[2017-07-28 06:44] VITALS: BP 123/82
[2017-07-28] MEDS: LEVOFLOXACIN 750 MG TABLET PO SCH (07:44)
== END 2017-07-28 10:00 | disposition home or self-care (01) | DRG 809 ==
LOC: ER 19:13 → INTOOBSV 07-22 01:57 → EH 07-22 01:57 → OBSVTOIN 07-22 01:57 → 5 07-22 13:48 → OBSVTOIN 07-26 11:13 → INTOOBSV 07-26 11:13
PROVIDERS: ADMIT Internal Medicine; ATTEND Internal Medicine
DX: D61.810 Antineoplastic chemotherapy induced pancytopenia (principal); C81.90 Hodgkin lymphoma, unspecified, unspecified site; Z21 Asymptomatic human immunodeficiency virus [HIV] infection status; G89.3 Neoplasm related pain (acute) (chronic); G47.00 Insomnia, unspecified; I25.10 Atherosclerotic heart disease of native coronary artery without angina pectoris; E78.5 Hyperlipidemia, unspecified; I10 Essential (primary) hypertension; G40.909 Epilepsy, unspecified, not intractable, without status epilepticus; K21.9 Gastro-esophageal reflux disease without esophagitis; F32.9 Major depressive disorder, single episode, unspecified; F17.200 Nicotine dependence, unspecified, uncomplicated; Z79.899 Other long term (current) drug therapy; Z88.1 Allergy status to other antibiotic agents
CPT/HCPCS: 36415; 71045; 80053; 81001; 82565; 83605; 85025; 85027; 85610; 85730; 87040; 93005; 93010; G0378; J1170; J1442; J2405; J2543; J3370; J3490; J7030

== ENCOUNTER 2017-08-08 16:09 | Emergency (ER) | payer MEDICARE, MEDICAID ==
[2017-08-08] MEDS ORDERED: DIPHENHYDRAMINE HCL 50 MG CAPSULE PO ONE (16:32)
[2017-08-08] MEDS ORDERED: HYDROMORPHONE HCL 2 MG TABLET PO ONE (16:33)
--- NOTE | 2017-08-08 17:15 | RADIOLOGY REPORT (SQ) ---
EXAM DESCRIPTION: CHEST PA/LAT COMPLETED DATE/TIME: 08/08/2017 5:03 pm REASON FOR STUDY: Pain all over, Hx lymphoma on chemo COMPARISON: 2016. TECHNIQUE: Frontal and lateral radiographic views of the chest acquired. NUMBER OF VIEWS: Two view. LIMITATIONS: None. FINDINGS: LUNGS AND PLEURA: No opacities, masses or pneumothorax. No pleural effusion. MEDIASTINUM AND HILAR STRUCTURES: No masses or contour abnormalities. HEART AND VASCULAR STRUCTURES: Heart normal size. No evidence for failure. BONES: No acute findings. HARDWARE: Right port in stable position, tip to the superior vena cava. OTHER: No other significant finding. IMPRESSION: NO SIGNIFICANT RADIOGRAPHIC FINDING IN THE CHEST. TECHNICAL DOCUMENTATION: JOB ID: [id number] [employer]- All Rights Reserved
[2017-08-08 17:27] LABS: APPEARANCE,URINE SLIGHTLY-CLOUDY; BILIRUBIN,URINE NEGATIVE (NEGATIVE); COLOR,URINE YELLOW; GLUCOSE, URINE NEGATIVE (NEGATIVE); KETONES,URINE NEGATIVE (NEGATIVE); LEUKOCYTE ESTERASE,URINE NEGATIVE (NEGATIVE); NITRITE,URINE NEGATIVE (NEGATIVE); PROTEIN,URINE 30 mg/dL (NEGATIVE)
[2017-08-08 17:43] LABS: TOTAL CELLS COUNTED % (AUTO) 100 %
[2017-08-08 17:57] LABS: ABSOLUTE LYMPHOCYTES (AUTO) 0.8 10^3/uL (0.5-4.7); ABSOLUTE NEUT (AUTO) 1.7 10^3/uL (1.7-8.2); BASOPHILS % (AUTO) 0.8 % (0-2); HEMATOCRIT 29.8 % (37.9-51.0); HEMOGLOBIN 9.9 g/dL (13.5-17.0); LYMPHOCYTES % (AUTO) 31.7 % (13-45); MEAN CORPUSCULAR HEMOGLOBIN 32.3 pg (27.0-33.4); MEAN CORPUSCULAR HGB CONC 33.2 g/dL (32.0-36.0); MEAN CORPUSCULAR VOLUME 97 fl (80-97); MONOCYTES % (AUTO) 1.6 % (3-13); PLATELET COUNT 168 10^3/uL (150-450); RED BLOOD COUNT 3.07 10^6/uL (4.35-5.55); RED CELL DISTRIBUTION WIDTH 19.5 % (11.5-14.0); SEGMENTED NEUTROPHILS % (AUTO) 65.9 % (42-78); WHITE BLOOD COUNT 2.6 10^3/uL (4.0-10.5)
[2017-08-08 18:01] LABS: ALANINE AMINOTRANSFERASE 22 U/L (21-72); ALBUMIN 3.9 g/dL (3.5-5.0); ALKALINE PHOSPHATASE 47 U/L (38-126); ANION GAP 10 (5-19); ASPARTATE AMINO TRANSFERASE 16 U/L (17-59); BILIRUBIN,DIRECT 0.2 mg/dL (0.0-0.4); BILIRUBIN,TOTAL 0.5 mg/dL (0.2-1.3); BLOOD UREA NITROGEN 21 mg/dL (7-20); CALCIUM 9.4 mg/dL (8.4-10.2); CARBON DIOXIDE 32 mmol/L (22-30); CHLORIDE 96 mmol/L (98-107); GLUCOSE 98 mg/dL (75-110); POTASSIUM 3.1 mmol/L (3.6-5.0); SODIUM 138.3 mmol/L (137-145); TOTAL PROTEIN 6.7 g/dL (6.3-8.2)
--- NOTE | 2017-08-08 18:31 | ER Document Report ---
ED General Pain - General Chief Complaint: Back Pain Stated Complaint: BACK/CHEST PAIN Time Seen by Provider: 08/08/17 16:19 Notes: Patient is complaining of pain in his back and his chest for the past couple of days. Patient was just in this hospital and discharged about a week ago. He has a history of non-Hodgkin's lymphoma receiving chemotherapy under the direction of Dr. Jimenes. He was hospitalized for leukopenia. He is denying nausea or vomiting and had his last bowel movement this morning. Denies any cough or cold or chest congestion or shortness of breath. Denies any blood in his urine. Has not had any fever. He only complains of severe pain all over. He specifically requests Dilaudid for his pain. TRAVEL OUTSIDE OF THE [place] IN LAST 30 DAYS: No - Related Data Allergies/Adverse Reactions: sulfamethoxazole [From Bactrim] Allergy (Verified 07/18/17 10:19) trimethoprim [From Bactrim] Allergy (Verified 07/18/17 10:19) Past Medical History - Social History Smoking Status: Current Every Day Smoker - Says he stopped a few days ago. Chew tobacco use (# tins/day): No Frequency of alcohol use: None Drug Abuse: None Family History: Reviewed & Not Pertinent, Hypertension Patient has suicidal ideation: No Patient has homicidal ideation: No - Past Medical History Cardiac Medical History: Reports: Hx Coronary Artery Disease, Hx Hypercholesterolemia, Hx Hypertension Neurological Medical History: Reports: Hx Cerebrovascular Accident - 6 month, Hx Seizures Renal/ Medical History: Reports: Hx Renal Insufficiency Malignancy Medical History: Reports Hx Lymphoma - Hodgkin's lymphoma GI Medical History: Reports: Hx Gastroesophageal Reflux Disease Skin Medical History: Reports Hx MRSA Psychiatric Medical History: Reports: Hx Depression Infectious Medical History: Reports: Hx HIV Past Surgical History: Reports: Other - Left chest - Immunizations Hx Diphtheria, Pertussis, Tetanus Vaccination: Yes Hx Pneumococcal Vaccination: 07/12/09 Review of Systems - Review of Systems Notes: CONSTITUTIONAL : Denies fever. CARDIOVASCULAR: Does complain of pains in the front of his chest bilaterally going through into his back RESPIRATORY: Denies cough, chest congestion, or shortness of breath. GASTROINTESTINAL: Denies abdominal pain or nausea, vomiting, or diarrhea. GENITOURINARY: Denies difficulty or painful urinating, urinary frequency, blood in urine. Physical Exam - Vital signs Vitals: Temp Pulse Resp BP Pulse Ox 98.3 F 103 H 22 H 143/86 H 97 08/08/17 16:21 08/08/17 16:21 08/08/17 16:21 08/08/17 16:21 08/08/17 16:21 Interpretation: Normal - Notes Notes: PHYSICAL EXAMINATION: GENERAL: Very anxious and overly repetitive complaining of pain all over, serious pain all over. HEAD: Atraumatic, normocephalic. EYES: Pupils equal round and reactive to light, extraocular movements intact. ENT: oropharynx clear without exudates. Moist mucous membranes. NECK: Normal range of motion, supple. LUNGS: Breath sounds clear and equal bilaterally. HEART: Regular rate and rhythm without murmurs. ABDOMEN: Soft, nontender. No guarding or rebound. No masses. BACK: No tenderness throughout entire back. EXTREMITIES: Normal range of motion without pain. NEUROLOGICAL: Normal speech, normal gait. Normal sensory, motor, and reflex exams. Awake, alert, and oriented x3. Cranial nerves normal. PSYCH: very dramatic and anxious. SKIN: Warm, dry, no rashes. Course - Re-evaluation Re-evalutation: 08/08/17 19:47 Patient's entire workup is essentially normal. His white cell count of 2,600 is about his usual. I spoke with his primary care provider, Dr. Kidd. He asked if I would provide the patient with about 5 days of pain medicines and he will follow-up the patient. He says the patient is scheduled to see Giuliano Serna in pain management this coming week, although the patient says is not until August 26. I stressed with the patient the need for him to contact Dr. Kidd tomorrow and clarify when his appointment is scheduled. I have very clearly indicated to the patient we would not be providing him with ongoing pain medicines on a regular basis. I am providing him with 20 pills now because his doctor requested that I do so, but I will not be doing it in the future and have advised the patient of that position and plan. - Vital Signs Vital signs: Temp Pulse Resp BP Pulse Ox 99.2 F 94 14 146/87 H 100 08/08/17 18:52 08/08/17 18:52 08/08/17 18:52 08/08/17 18:52 08/08/17 18:52 - Laboratory Result Diagrams: 08/08/17 17:15 08/08/17 17:15 Laboratory results interpreted by me: 08/08/17 08/08/17 08/08/17 16:25 17:15 17:15 WBC 2.6 L RBC 3.07 L Hgb 9.9 L Hct 29.8 L RDW 19.5 H Monocytes % 1.6 L Absolute Monocytes 0.0 L Potassium 3.1 L Chloride 96 L Carbon Dioxide 32 H BUN 21 H AST 16 L Urine Protein 30 H Urine Urobilinogen 4.0 H - Diagnostic Test Radiology results interpreted by me: 08/08/17 19:49 Chest x-ray is normal. Discharge - Discharge Clinical Impression: Chronic pain, Chemotherapy induced neutropenia, Hodgkin lymphoma Condition: Stable Disposition: HOME, SELF-CARE Additional Instructions: Chronic Pain Control Stress, inactivity, and depression make pain more severe regardless of the cause of the pain. Stress and poor physical condition can cause pain such as headaches and backache. Relaxation: Rest in a quiet place with your eyes closed for 20 minutes twice daily. Concentrate on a pleasant image, or simply "feel" your breathing. Clear your mind. Stress management: Deal with your "stressors." Either take action, or eliminate the stressor from your life. Don't let things hang over you. Accept those things you can't change. Nutrition: Eat small, balanced meals -- don't skip, don't overeat. Meals should be high-carbohydrate, low-sugar, low-fat. Exercise: Exercise helps painful conditions and eases stress. Get 30 minutes of moderate exercise, five days a week. Do an activity that does not flare your pain. Precautions: Pain which continues to disrupt daily activities, or which changes in nature, requires a medical evaluation. Pain Clinic referral is available. We do not manage chronic pain in the Emergency Department. We will try to appropriately help you through an acute flare of your chronic painful condition , but for on-going chronic pain that does not improve, you will need to see your private doctor or paint coating machine operator. We do not provide repeated medication management of chronic painful conditions. If you wish, we can provide the name of local pain management physicians. NORMAL EXAM AND WORKUP: At this time, except for your white cell count being slightly low due to your chemotherapy, your examination and workup show no significant abnormality. No significant abnormal physical findings were noted. All laboratory, EKG, and imaging (x-ray, CT scans, ultrasound) studies that were ordered show no significant abnormality. Although your examination and all studies that were ordered showed no significant abnormal finding, there are no examinations and no studies that are 100% accurate. There is always the possibility that some abnormality could exist and not be detected with physical examination or within the limits and capabilities of laboratory and other studies. You should return or follow up as you were instructed on your visit today for further evaluation if your symptoms do not resolve. At the request of Dr. Kidd, I am writing you a prescription for about a 5 day supply of pain medicines. Dr. Kidd says that you have an appointment to see Dr. Giuliano Serna this coming week. You need to check with Dr. Kidd tomorrow to determine when your appointment is scheduled with Dr. Serna. His office location and telephone number is provided elsewhere in this discharge instructions. We will not continue to provide you with pain medications in the emergency department. This must be done by your primary care doctor, Dr. Kidd, or the doctor you will be seeing at pain management, Dr. Giuliano Serna. Prescriptions: Oxycodone HCl/Acetaminophen [Percocet 5-325 mg Tablet] 1 - 2 tab PO Q4H PRN #20 tablet PRN Reason: Referrals: WILNER KIDD MD [Primary Care Provider] - Follow up tomorrow GIULIANO SERNA MD [ACTIVE STAFF] - Follow up in 3-5 days
[2017-08-08 18:56] VITALS: BP 146/87
== END 2017-08-08 18:58 | disposition home or self-care (01) ==
LOC: ER 16:09
DX: C85.90 Non-Hodgkin lymphoma, unspecified, unspecified site (principal); D70.1 Agranulocytosis secondary to cancer chemotherapy; G89.29 Other chronic pain; M54.9 Dorsalgia, unspecified; R07.9 Chest pain, unspecified; Z79.899 Other long term (current) drug therapy; F17.200 Nicotine dependence, unspecified, uncomplicated
CPT/HCPCS: 99284; 36415; 87040; 85025; 80053; 81001; 71046; A9270 ×2

== ENCOUNTER 2017-08-10 10:35 | Emergency (ER) | payer MEDICARE, MEDICAID ==
[2017-08-10 10:51] VITALS: BP 151/91
[2017-08-10] MEDS ORDERED: HYDROMORPHONE HCL INJ/PF 2 MG/ML AMPULE IV ONE (11:34)
--- NOTE | 2017-08-10 11:34 | ER Document Report ---
ED Medical Screen (RME) - General Chief Complaint: Chest Pain Stated Complaint: CHEST PAIN Time Seen by Provider: 08/10/17 11:27 Mode of Arrival: Ambulatory Information source: Patient Notes: Patient is a 46 year old male with a history of non- Hodgkin's lymphoma presents to the emergency department from Oncologist due to his WBC being too low and unable to receive chemo. Patient states that he is in a lot of pain and specifically asks for Dilaudid. Patient states that he was prescribed pain medications by Dr. Noland but has already ran out. Patient further states that he has an appointment with pain management on 2017. I have greeted and performed a rapid initial assessment of this patient. A comprehensive ED assessment and evaluation of the patient, analysis of test results and completion of the medical decision making process will be conducted by additional ED providers. TRAVEL OUTSIDE OF THE [place] IN LAST 30 DAYS: No - Related Data Allergies/Adverse Reactions: sulfamethoxazole [From Bactrim] Allergy (Verified 08/10/17 10:39) trimethoprim [From Bactrim] Allergy (Verified 08/10/17 10:39) Past Medical History - General Information source: Patient - Past Medical History Cardiac Medical History: Reports: Hx Coronary Artery Disease, Hx Hypercholesterolemia, Hx Hypertension Pulmonary Medical History: Denies: Hx Asthma, Hx Bronchitis, Hx COPD, Hx Pneumonia, Hx Tuberculosis Neurological Medical History: Reports: Hx Cerebrovascular Accident - 6 month, Hx Seizures Renal/ Medical History: Reports: Hx Renal Insufficiency. Denies: Hx Peritoneal Dialysis Malignancy Medical History: Reports Hx Lymphoma - Hodgkin's lymphoma GI Medical History: Reports: Hx Gastroesophageal Reflux Disease Musculoskeltal Medical History: Denies Hx Arthritis Skin Medical History: Reports Hx MRSA Psychiatric Medical History: Reports: Hx Depression Infectious Medical History: Reports: Hx HIV Past Surgical History: Reports: Other - Left chest - Immunizations Hx Diphtheria, Pertussis, Tetanus Vaccination: Yes History of Influenza Vaccine for 04/2017 - 09/2017 Season: Yes Influenza Administration Date for 04/2017 - 09/2017 Season: 02/09/17 Physical Exam - Vital signs Vitals: Temp Pulse Resp BP Pulse Ox 98.2 F 112 H 18 151/91 H 100 08/10/17 10:51 08/10/17 10:51 08/10/17 10:51 08/10/17 10:51 08/10/17 10:51 - Notes Notes: GENERAL: Alert, interacts well. No acute distress. HEAD: Normocephalic, atraumatic. EYES: Pupils equal, round, and reactive to light. Extraocular movements intact. ENT: Oral mucosa moist, tongue midline. NECK: Full range of motion. Supple. Trachea midline. LUNGS: Clear to auscultation bilaterally, no wheezes, rales, or rhonchi. No respiratory distress. HEART: Regular rate and rhythm. No murmurs, gallops, or rubs. NEUROLOGICAL: Alert and oriented x3. Normal speech. PSYCH: Normal affect, normal mood. SKIN: Warm, dry, normal turgor. No rashes or lesions noted. Course - Vital Signs Vital signs: Temp Pulse Resp BP Pulse Ox 98.2 F 112 H 18 151/91 H 100 08/10/17 10:51 08/10/17 10:51 08/10/17 10:51 08/10/17 10:51 08/10/17 10:51 Scribe Documentation - Scribe Written by Vivian:: Vivian Batista, 08/10/2017 11:40 acting as scribe for :: Tarun
--- NOTE | 2017-08-10 12:35 | ER Document Report ---
ED General - General Chief Complaint: Chest Pain Stated Complaint: CHEST PAIN Time Seen by Provider: 08/10/17 11:27 Mode of Arrival: Ambulatory Notes: 46-year-old male with Hodgkin's lymphoma chronic HIV chronic recurrent pain and probably opioid dependence presents with chest pain and back pain. He has been going on for 2 days. He actually went to chemo this morning but was told he could not get chemo because of low blood counts we decided to come to the ED and is requesting Dilaudid and Demerol because that is what he usually gets. He complains of shortness of breath to but no cough or fevers. Review of his records shows that he was just discharged a couple of weeks ago for pancytopenia treated empirically for pneumonia although the suspicion was low. TRAVEL OUTSIDE OF THE [place] IN LAST 30 DAYS: No - Related Data Allergies/Adverse Reactions: sulfamethoxazole [From Bactrim] Allergy (Verified 08/10/17 10:39) trimethoprim [From Bactrim] Allergy (Verified 08/10/17 10:39) Past Medical History - General Information source: Patient - Social History Smoking Status: Never Smoker Chew tobacco use (# tins/day): No Frequency of alcohol use: None Drug Abuse: None Family History: Reviewed & Not Pertinent, Hypertension Patient has suicidal ideation: No Patient has homicidal ideation: No - Past Medical History Cardiac Medical History: Reports: Hx Coronary Artery Disease, Hx Hypercholesterolemia, Hx Hypertension Denies: Hx Heart Attack Pulmonary Medical History: Denies: Hx Asthma, Hx Bronchitis, Hx COPD, Hx Pneumonia, Hx Tuberculosis Neurological Medical History: Reports: Hx Cerebrovascular Accident - 6 month, Hx Seizures Renal/ Medical History: Reports: Hx Renal Insufficiency. Denies: Hx Peritoneal Dialysis Malignancy Medical History: Reports Hx Lymphoma - Hodgkin's lymphoma GI Medical History: Reports: Hx Gastroesophageal Reflux Disease Musculoskeltal Medical History: Denies Hx Arthritis Skin Medical History: Reports Hx MRSA Psychiatric Medical History: Reports: Hx Depression Infectious Medical History: Reports: Hx HIV Past Surgical History: Reports: Other - Left chest - Immunizations Hx Diphtheria, Pertussis, Tetanus Vaccination: Yes Hx Pneumococcal Vaccination: 07/12/09 Review of Systems - Review of Systems Notes: REVIEW OF SYSTEMS GEN: Denies fever, chills, weight loss ENT: Denies sore throat, nasal discharge, ear pain EYES: Denies blurry vision, eye pain, discharge CV: Chest pain RESP: Denies cough, sh positive shortness of breath no wheezing GI: Denies abdominal pain, nausea, vomiting, diarrhea MSK: Denies joint pain/swelling, edema, SKIN: Denies rash, skin lesions LYMPH: Denies swollen glands/lymph nodes NEURO: Denies headache, focal weakness or numbness, dizziness PSYCH: Denies depression, suicidal or homicidal ideation PHYSICAL EXAMINATION General: Thin. No acute distress, well-nourished Head: Atraumatic, normocephalic ENT: Mouth normal, oropharynx moist, no exudates or tonsillar enlargement Eyes: Conjunctiva normal, pupils equal, lids normal Neck: No JVD, supple, no guarding CVS: Normal rate, regular rhythm, no murmurs. Tenderness throughout the chest. Resp: No resp distress, equal and normal breath sounds bilaterally GI: Nondistended, soft, no tenderness to palpation, no rebound or guarding Ext: No deformities, no edema, normal range of motion in upper and lower ext Back: No CVA or midline TTP Skin: No rash, warm Lymphatic: No lymphadeopathy noted Neuro: Awake, alert. Face symmetric. GCS 15. Physical Exam - Vital signs Vitals: Temp Pulse Resp BP Pulse Ox 98.2 F 112 H 18 151/91 H 100 08/10/17 10:51 08/10/17 10:51 08/10/17 10:51 08/10/17 10:51 08/10/17 10:51 Course - Re-evaluation Re-evalutation: 08/10/17 12:22 Patient with HIV AIDS Hodgkin's lymphoma chronic pain and opiate dependence presents with chest and back pain. He states says that it is quite severe although he did attempt to go to chemo this morning and came here only after he was turned away from chemotherapy. Concern for pancytopenia pericardial effusion or pneumonia. His EKG in triage showed some repolarization changes concerning for ST elevation but on further review I do not think he meets STEMI criteria, or that he is having acute cardiac ischemia. There are no reciprocal changes on his EKG. He is mildly tachycardic. I performed a bedside ultrasound to rule out pericardial effusion. This was normal. The patient will receive a single dose of Dilaudid while we get further studies to determine if there is an emergency present. 08/10/17 14:03 Patient's white count and neutrophil count has decreased since 2 days ago and he is now technically neutropenic. He does not have fever. He does not have pneumonia or other evidence of infection right now. He is asking for more narcotics. I would like to verify whether or not he will need admission before providing further narcotics. Of note his troponin is normal and repeat ECG does not show any ST elevation again. Paged Dr. Tripp who 08/10/17 14:[address] Tripp. Recommended Levaquin and Neupogen but discharged home. She also thinks this patient is having problems with narcotic dependence. I told the patient asked him to get his prescription for Levaquin filled and told him that she will see him in the office tomorrow at 9 AM. I have discussed with the patient there likely diagnosis, aftercare plan, follow-up plans and my usual and customary return precautions. They verbalized understanding of this. - Vital Signs Vital signs: Temp Pulse Resp BP Pulse Ox 98.2 F 112 H 18 151/91 H 100 08/10/17 10:51 08/10/17 10:51 08/10/17 10:51 08/10/17 10:51 08/10/17 10:51 - Laboratory Result Diagrams: 08/10/17 13:00 08/10/17 13:00 Laboratory results interpreted by me: 08/10/17 08/10/17 13:00 13:00 WBC 1.1 L* D RBC 3.06 L Hgb 10.0 L Hct 30.2 L MCV 99 H RDW 19.5 H Seg Neutrophils % 14.5 L Lymphocytes % 79.1 H Monocytes % 1.3 L Basophils % 3.6 H Absolute Neutrophils 0.2 L Absolute Monocytes 0.0 L Potassium 3.5 L - Diagnostic Test Radiology reviewed: Image reviewed, Reports reviewed - EKG Interpretation by Me EKG shows normal: Sinus rhythm Rate: Tachycardia Voltage: Increased voltage - Borderline repolarization changes in the anterior precordial leads no true ST elevation When compared to previous EKG there are: Changes noted Discharge - Discharge Clinical Impression: Chest pain in adult Condition: Good Disposition: HOME, SELF-CARE Additional Instructions: You are not going to be receiving narcotics today. Your blood counts have decreased but there is not in need to admit you to the hospital currently. Dr. Tripp will see you in the office tomorrow and redraw your blood. Please inquire with your primary care regarding pain meds, and please fill the prescription I have given you. Prescriptions: Levofloxacin [Levaquin 750 mg Tablet] 500 mg PO DAILY #5 tablet Referrals: WILNER KIDD MD [Primary Care Provider] - Follow up as needed ADONIS TRIPP MD [ACTIVE STAFF] - Follow up as needed
--- NOTE | 2017-08-10 12:57 | EKG REPORT ---
SEVERITY:- ABNORMAL ECG - SINUS TACHYCARDIA LEFT VENTRICULAR HYPERTROPHY BORDERLINE T ABNORMALITIES, INFERIOR LEADS ANTERIOR ST ELEVATION, PROBABLY DUE TO LVH : Confirmed by: Ignacio Steel MD 10-Aug-2017 12:57:13
--- NOTE | 2017-08-10 12:57 | EKG REPORT ---
SEVERITY:- ABNORMAL ECG - SINUS TACHYCARDIA LEFT VENTRICULAR HYPERTROPHY ST ELEV, PROBABLE NORMAL EARLY REPOL PATTERN PROLONGED QT INTERVAL : Confirmed by: Ignacio Steel MD 10-Aug-2017 12:56:47
--- NOTE | 2017-08-10 13:07 | RADIOLOGY REPORT (SQ) ---
EXAM DESCRIPTION: CHEST SINGLE VIEW COMPLETED DATE/TIME: 08/10/2017 12:38 pm REASON FOR STUDY: chest pain COMPARISON: 08/08/2017 EXAM PARAMETERS: NUMBER OF VIEWS: One view. TECHNIQUE: Single frontal radiographic view of the chest acquired. RADIATION DOSE: NA LIMITATIONS: None. FINDINGS: LUNGS AND PLEURA: No opacities, masses or pneumothorax. No pleural effusion. MEDIASTINUM AND HILAR STRUCTURES: No masses. Contour normal. HEART AND VASCULAR STRUCTURES: Heart normal in size. Normal vasculature. BONES: No acute findings. HARDWARE: Port-A-Cath is unchanged in position. OTHER: No other significant finding. IMPRESSION: No significant interval change. No acute findings. Other findings as noted above TECHNICAL DOCUMENTATION: JOB ID: [id number] [employer]- All Rights Reserved
[2017-08-10 13:20] LABS: ABSOLUTE LYMPHOCYTES (AUTO) 0.9 10^3/uL (0.5-4.7); ABSOLUTE NEUT (AUTO) 0.2 10^3/uL (1.7-8.2); BASOPHILS % (AUTO) 3.6 % (0-2); EOSINOPHILS % (AUTO) 1.5 % (0-6); HEMATOCRIT 30.2 % (37.9-51.0); LYMPHOCYTES % (AUTO) 79.1 % (13-45); MEAN CORPUSCULAR HEMOGLOBIN 32.5 pg (27.0-33.4); MEAN CORPUSCULAR HGB CONC 32.9 g/dL (32.0-36.0); MEAN CORPUSCULAR VOLUME 99 fl (80-97); MONOCYTES % (AUTO) 1.3 % (3-13); PLATELET COUNT 171 10^3/uL (150-450); RED BLOOD COUNT 3.06 10^6/uL (4.35-5.55); RED CELL DISTRIBUTION WIDTH 19.5 % (11.5-14.0); SEGMENTED NEUTROPHILS % (AUTO) 14.5 % (42-78); TOTAL CELLS COUNTED % (AUTO) 100 %
[2017-08-10 13:22] LABS: INTERNATIONAL RATION (INR) 0.89; PROTHROMBIN TIME 12.7 SEC (11.4-15.4)
[2017-08-10 13:32] LABS: ALANINE AMINOTRANSFERASE 34 U/L (21-72); ALBUMIN 4.1 g/dL (3.5-5.0); ALKALINE PHOSPHATASE 49 U/L (38-126); ANION GAP 10 (5-19); ASPARTATE AMINO TRANSFERASE 17 U/L (17-59); BILIRUBIN,DIRECT 0.2 mg/dL (0.0-0.4); BILIRUBIN,TOTAL 0.5 mg/dL (0.2-1.3); BLOOD UREA NITROGEN 19 mg/dL (7-20); CALCIUM 9.8 mg/dL (8.4-10.2); CARBON DIOXIDE 27 mmol/L (22-30); CHLORIDE 102 mmol/L (98-107); GLUCOSE 97 mg/dL (75-110); POTASSIUM 3.5 mmol/L (3.6-5.0); SODIUM 138.7 mmol/L (137-145); TOTAL PROTEIN 7.1 g/dL (6.3-8.2)
[2017-08-10 13:35] LABS: WHITE BLOOD COUNT 1.1 10^3/uL (4.0-10.5)
[2017-08-10 13:58] LABS: ANISOCYTOSIS 1+; HYPOCHROMASIA 1+; OVALOCYTES 1+; PLATELET CLUMPS PRESENT; POIKILOCYTOSIS 1+; POLYCHROMASIA SLIGHT; ROULEAUX SLIGHT; TARGET CELLS SLIGHT; TOXIC GRANULATION SLIGHT; TOXIC VACUOLATION PRESENT
[2017-08-10] MEDS ORDERED: FILGRASTIM INJ 300 MCG/1 ML VIAL SUBCUT ONE (14:18)
== END 2017-08-10 15:00 | disposition home or self-care (01) ==
LOC: ER 10:35
DX: R07.9 Chest pain, unspecified (principal); B20 Human immunodeficiency virus [HIV] disease; M54.9 Dorsalgia, unspecified; Z79.899 Other long term (current) drug therapy
CPT/HCPCS: 93005; 99285; 96372; 96374; 36415; 85025; 85610; 80053; 84484; 71045; 93010; J1442; J1170

== ENCOUNTER 2017-08-11 07:43 | Emergency (ER) | payer MEDICARE, MEDICAID ==
[2017-08-11 09:41] LABS: ABSOLUTE LYMPHOCYTES (AUTO) 0.7 10^3/uL (0.5-4.7); ABSOLUTE NEUT (AUTO) 0.2 10^3/uL (1.7-8.2); BASOPHILS % (AUTO) 0.4 % (0-2); EOSINOPHILS % (AUTO) 0.7 % (0-6); HEMATOCRIT 26.2 % (37.9-51.0); HEMOGLOBIN 8.6 g/dL (13.5-17.0); LYMPHOCYTES % (AUTO) 73.5 % (13-45); MEAN CORPUSCULAR HGB CONC 32.7 g/dL (32.0-36.0); MEAN CORPUSCULAR VOLUME 98 fl (80-97); MONOCYTES % (AUTO) 0.9 % (3-13); PLATELET COUNT 133 10^3/uL (150-450); RED BLOOD COUNT 2.68 10^6/uL (4.35-5.55); RED CELL DISTRIBUTION WIDTH 19.5 % (11.5-14.0); SEGMENTED NEUTROPHILS % (AUTO) 24.5 % (42-78); TOTAL CELLS COUNTED % (AUTO) 100 %
[2017-08-11 09:58] LABS: ALANINE AMINOTRANSFERASE 26 U/L (21-72); ALBUMIN 4.6 g/dL (3.5-5.0); ALKALINE PHOSPHATASE 49 U/L (38-126); ANION GAP 13 (5-19); ASPARTATE AMINO TRANSFERASE 16 U/L (17-59); BILIRUBIN,DIRECT 0.3 mg/dL (0.0-0.4); BILIRUBIN,TOTAL 0.5 mg/dL (0.2-1.3); BLOOD UREA NITROGEN 16 mg/dL (7-20); CALCIUM 10.4 mg/dL (8.4-10.2); CARBON DIOXIDE 26 mmol/L (22-30); CHLORIDE 102 mmol/L (98-107); GLUCOSE 95 mg/dL (75-110); POTASSIUM 3.8 mmol/L (3.6-5.0); TOTAL PROTEIN 7.9 g/dL (6.3-8.2)
[2017-08-11 10:11] LABS: CREATINE KINASE MB < 0.22 ng/mL (<4.55); TROPONIN I < 0.012 ng/mL
[2017-08-11 10:17] LABS: ANISOCYTOSIS 2+; TOXIC GRANULATION SLIGHT
[2017-08-11 10:18] LABS: HYPOCHROMASIA SLIGHT; OVALOCYTES SLIGHT; PLATELET COMMENT DECREASED; POIKILOCYTOSIS SLIGHT; TARGET CELLS SLIGHT
--- NOTE | 2017-08-11 10:33 | RADIOLOGY REPORT (SQ) ---
EXAM DESCRIPTION: CHEST SINGLE VIEW COMPLETED DATE/TIME: 08/11/2017 9:59 am REASON FOR STUDY: Chest pain. COMPARISON: 08/10/2017. . EXAM PARAMETERS: NUMBER OF VIEWS: One view. TECHNIQUE: Single frontal radiographic view of the chest acquired. RADIATION DOSE: NA LIMITATIONS: None. FINDINGS: LUNGS AND PLEURA: No infiltrate, masses or pneumothorax. No pleural effusion. Improved ae ration. MEDIASTINUM AND HILAR STRUCTURES: No masses. Contour normal. HEART AND VASCULAR STRUCTURES: The heart is normal in size with normal pulmonary vasculature . BONES: No acute findings. HARDWARE: None in the chest. OTHER: Port-A-Cath overlying SVC. Chest leads in place. IMPRESSION: NO ACUTE RADIOGRAPHIC FINDING IN THE CHEST. TECHNICAL DOCUMENTATION: JOB ID: [id number] [email or web address]- All Rights Reserved
--- NOTE | 2017-08-11 11:04 | ER Document Report ---
ED General - General Chief Complaint: Pain All Over Stated Complaint: BACK AND CHEST PAIN Time Seen by Provider: 08/11/17 08:37 Mode of Arrival: Medic Information source: Patient TRAVEL OUTSIDE OF THE [place] IN LAST 30 DAYS: No - HPI Notes: 46-year-old male with a history of Hodgkin's lymphoma where he is receiving active chemotherapy, chronic HIV, renal insufficiency presents today with complaints of sudden onset chest pain and shortness of breath. he was seen in the emergency room patient yesterday where his white count was 1.0, his white count was 2.[address] Hernandez was the provider taking care of him. Dr. Pond consulted with Dr. Tripp, who started him on Levaquin as well as neutrogen. 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 Patient was supposed to follow up at his oncologist's office this morning, Dr. Tripp. pt did not go to appointment due to having chest pain and came here. Patient denies any nausea vomiting, blurred vision, double vision, loss of vision. Denies any hematuria. Denies any fevers or chills. Patient is requesting IV Dilaudid, states that the only thing that will help him. Patient is requesting Dilaudid. Dr. Tripp as well as Dr. Russo stated that patient should not be getting any narcotics while in the emergency room. Denies any recent trauma. Patient's port was accessed yesterday. - Related Data Allergies/Adverse Reactions: sulfamethoxazole [From Bactrim] Allergy (Verified 08/11/17 07:47) trimethoprim [From Bactrim] Allergy (Verified 08/11/17 07:47) Past Medical History - General Information source: Patient - Social History Smoking Status: Current Every Day Smoker Frequency of alcohol use: None Drug Abuse: None Family History: Reviewed & Not Pertinent, Hypertension Patient has suicidal ideation: No Patient has homicidal ideation: No - Past Medical History Cardiac Medical History: Reports: Hx Coronary Artery Disease, Hx Hypercholesterolemia, Hx Hypertension Denies: Hx Heart Attack Pulmonary Medical History: Denies: Hx Asthma, Hx Bronchitis, Hx COPD, Hx Pneumonia, Hx Tuberculosis Neurological Medical History: Reports: Hx Cerebrovascular Accident - 6 month, Hx Seizures Renal/ Medical History: Reports: Hx Renal Insufficiency. Denies: Hx Peritoneal Dialysis Malignancy Medical History: Reports Hx Lymphoma - Hodgkin's lymphoma GI Medical History: Reports: Hx Gastroesophageal Reflux Disease Musculoskeltal Medical History: Denies Hx Arthritis Skin Medical History: Reports Hx MRSA Psychiatric Medical History: Reports: Hx Depression Infectious Medical History: Reports: Hx HIV Past Surgical History: Reports: Other - Left chest - Immunizations Hx Diphtheria, Pertussis, Tetanus Vaccination: Yes Hx Pneumococcal Vaccination: 07/12/09 Review of Systems - Review of Systems Constitutional: No symptoms reported EENT: No symptoms reported Cardiovascular: See HPI Respiratory: No symptoms reported Gastrointestinal: No symptoms reported Genitourinary: No symptoms reported Male Genitourinary: No symptoms reported Musculoskeletal: No symptoms reported Skin: No symptoms reported Hematologic/Lymphatic: No symptoms reported Neurological/Psychological: No symptoms reported Physical Exam - Vital signs Vitals: Temp Pulse Resp BP Pulse Ox 97.8 F 119 H 16 156/99 H 100 08/11/17 08:00 08/11/17 08:00 08/11/17 08:00 08/11/17 08:00 08/11/17 08:00 - Notes Notes: PHYSICAL EXAMINATION: GENERAL: Well-appearing, well-nourished and in no acute distress. HEAD: Atraumatic, normocephalic. EYES: Pupils equal round and reactive to light, extraocular movements intact, sclera anicteric, conjunctiva are normal. ENT: Nares patent, oropharynx clear without exudates. Moist mucous membranes. NECK: Normal range of motion, supple without lymphadenopathy LUNGS: Breath sounds clear to auscultation bilaterally and equal. No wheezes rales or rhonchi. HEART: Regular rate and rhythm without murmurs ABDOMEN: Soft, nontender, nondistended abdomen. No guarding, no rebound. No masses appreciated. Musculoskeletal: Normal range of motion, no pitting or edema. No cyanosis. NEUROLOGICAL: Cranial nerves grossly intact. Normal speech, normal gait. Normal sensory, motor exams PSYCH: Normal mood, normal affect. SKIN: Warm, Dry, normal turgor, no rashes or lesions noted. Course - Re-evaluation Re-evalutation: 08/11/17 10:53 0930, bedside evaluation done the patient, patient states that he is having excruciating chest pain, states is different than yesterday when he was seen. Patient states that he would like Dilaudid to help with his pain. Will repeat EKG and lab work due to neutropenia seen yesterday. Patient states that he did not fill his Levaquin or Neupogen as he was advised to yesterday. Patient also did not make it to his oncologist appointment this morning.1000-Consulted with Dr. Wood, ER attending, regarding case as well as patient's persistent request for Dilaudid after he was told by his primary care, oncologist as well as by the ER attending. Called [facility]'s pain management facility, to see if patient has a pain management appointment, he does not nor does he have a referral. Spoke with Dr. Keisha Tripp,Oncologist at 1025 regarding laboratory findings pt's white blood cell count of 1.0, white blood cell count was 1.[address] Tripp to give patient first dose of Neupogen now, will see patient in the office tomorrow. Also she advised to not give patient any narcotics while in the emergency room. 1040-Consulted with Dr. Irving, his primary care provider, regarding pertinent laboratory, diagnostic findings as well as that pt did not fill his Levaquin, if he needed to be admitted for concerns of medication compliance failure. Dr. Jiménez not feel that this was a reason for admission. Also addressed the fact that patient is requesting Dilaudid for narcotics, the stated as well that patient should not be giving any narcotics in the emergency room, he did give a prescription for Percocet for 30 day supply on July 28 [address] Jiménez also advised to give the patient a prescription for azithromycin as this is cheaper. 1100-discussed with patient findings of his primary care as well as oncologist that they feel that he does not need to be admitted as well as they both agree that he will not be getting any narcotic medication in the emergency room. Dr. Wood also reiterated with patient that patient will not be getting any Dilaudid at this time. Patient advised to take azithromycin as directed as it is cheaper at [facility], is on the $4 list. Advised to follow-up with oncologist tomorrow. All questions and concerns answered by this provider. Patient verbalized understanding of plan of care and agree with plan of care. Patient was discharged home. - Vital Signs Vital signs: Temp Pulse Resp BP Pulse Ox 97.7 F 123 H 31 H 161/104 H 100 08/11/17 11:40 08/11/17 11:40 08/11/17 10:01 08/11/17 11:40 08/11/17 11:40 - Laboratory Result Diagrams: 08/11/17 09:22 08/11/17 09:22 Laboratory results interpreted by me: 08/11/17 08/11/17 09:22 09:22 WBC 1.0 L* RBC 2.68 L Hgb 8.6 L Hct 26.2 L MCV 98 H RDW 19.5 H Plt Count 133 L Seg Neutrophils % 24.5 L Lymphocytes % 73.5 H Monocytes % 0.9 L Absolute Neutrophils 0.2 L Absolute Monocytes 0.0 L Calcium 10.4 H AST 16 L Discharge - Discharge Clinical Impression: Chemotherapy induced neutropenia, Hodgkins lymphoma, Hodgkin's lymphoma Condition: Good Disposition: HOME, SELF-CARE Additional Instructions: Chronic Pain Control Stress, inactivity, and depression make pain more severe regardless of the cause of the pain. Stress and poor physical condition can cause pain such as headaches and backache. Relaxation: Rest in a quiet place with your eyes closed for 20 minutes twice daily. Concentrate on a pleasant image, or simply "feel" your breathing. Clear your mind. Stress management: Deal with your "stressors." Either take action, or eliminate the stressor from your life. Don't let things hang over you. Accept those things you can't change. Nutrition: Eat small, balanced meals -- don't skip, don't overeat. Meals should be high-carbohydrate, low-sugar, low-fat. Exercise: Exercise helps painful conditions and eases stress. Get 30 minutes of moderate exercise, five days a week. Do an activity that does not flare your pain. Precautions: Pain which continues to disrupt daily activities, or which changes in nature, requires a medical evaluation. Pain Clinic referral is available. We do not manage chronic pain in the Emergency Department. We will try to appropriately help you through an acute flare of your chronic painful condition , but for on-going chronic pain that does not improve, you will need to see your private doctor or painter spring. We do not provide repeated medication management of chronic painful conditions. If you wish, we can provide the name of local pain management physicians. You were given Neupogen today. stop taking Levaquin, start azithromycin course of antibiotics. Take 2 pills today, then 1 pill every day for 4 days. Follow- up with your oncologist tomorrow as well as your primary care provider. Also discussed with Dr. Kidd that you would like a referral to pain management to Dr. Giuliano Schulte. Return immediately for any new or worsening symptoms. Follow up with primary care provider, call tomorrow to make followup appointment. Prescriptions: Azithromycin 250 mg PO DAILY #6 tablet Referrals: WILNER KIDD MD [Primary Care Provider] - 08/12/17 ( tomorrow) KEISHA TRIPP MD [ACTIVE STAFF] - 08/12/17 (one day )
[2017-08-11] MEDS ORDERED: LEVOFLOXACIN 500 MG TABLET PO ONE (11:05)
[2017-08-11] MEDS ORDERED: FILGRASTIM INJ 300 MCG/1 ML VIAL SUBCUT ONE (12:00)
[2017-08-11 12:06] VITALS: BP 161/104
--- NOTE | 2017-08-11 13:23 | EKG REPORT ---
SEVERITY:- ABNORMAL ECG - SINUS TACHYCARDIA LEFT VENTRICULAR HYPERTROPHY BORDERLINE T ABNORMALITIES, INFERIOR LEADS ST ELEVATION,ANTERIOR LEADS, MIN CHANGE. PROLONGED QT INTERVAL : Confirmed by: Ignacio Steel MD 11-Aug-2017 13:22:30
== END 2017-08-11 11:51 | disposition home or self-care (01) ==
LOC: ER 07:43
DX: D70.1 Agranulocytosis secondary to cancer chemotherapy (principal); T45.1X5A Adverse effect of antineoplastic and immunosuppressive drugs, initial encounter; C81.90 Hodgkin lymphoma, unspecified, unspecified site; T45.8X6A Underdosing of other primarily systemic and hematological agents, initial encounter; T37.8X6A Underdosing of other specified systemic anti-infectives and antiparasitics, initial encounter; Z91.128 Patient's intentional underdosing of medication regimen for other reason; Z91.14 Patient's other noncompliance with medication regimen; R07.9 Chest pain, unspecified; R06.02 Shortness of breath; I25.10 Atherosclerotic heart disease of native coronary artery without angina pectoris; I10 Essential (primary) hypertension; Z86.73 Personal history of transient ischemic attack (TIA), and cerebral infarction without residual deficits; Z21 Asymptomatic human immunodeficiency virus [HIV] infection status; Z88.1 Allergy status to other antibiotic agents
CPT/HCPCS: 93005; 36591; 99284; 96372; 36415; 82553; 85025; 80053; 84484; 71045; 93010; J1442; A9270

== ENCOUNTER → 2017-08-18 | Outpatient (CLI) | payer MEDICARE, MEDICAID ==
--- NOTE | 2017-08-23 18:08 | Pulmonary Function Test ---
Pulmonary Function Test Date of Procedure:: 08/18/17 INDICATION:: Dyspnea Referring Provider: Dr. Jimenes Relay Mechanic: Eleanor Scales PLANNING AIDE - Report Spirometry: FVC 3.59 L 87% FEV1 3.02 L 89% FEV1/FVC % 84 predicted 82 FEF 25-75% 3.95 110% Lung Volume: Total lung capacity 4.98 L 81% Vital capacity 4.02 L 97% Inspiratory capacity 2.52 FRC N 2 2.48 72% Expiratory reserve volume 0.79 L Residual volume 0.97 L 49% RV/TLC % 19 predicted 33 Diffusion Capactity: DLCO 18.1 76% DLCO/VA 3.78 90% Impression: No evidence to diagnose obstructive ventilatory defect. No restrictive ventilatory defect, hyperinflation or air trapping. Mild decrease in diffusion capacity.
== END ==
LOC: RT 12:02
PROVIDERS: ATTEND Internal Medicine Medical Oncology
DX: R06.02 Shortness of breath (principal)
CPT/HCPCS: 94010; 94727; 94729

== ENCOUNTER → 2017-08-23 | Outpatient (CLI) | payer MEDICARE, MEDICAID ==
--- NOTE | 2017-08-24 08:31 | RADIOLOGY REPORT (SQ) ---
EXAM DESCRIPTION: CT CHEST WITH COMPLETED DATE/TIME: 08/23/2017 2:30 pm REASON FOR STUDY: HODGKIN'S LYMPHOMA Z85.71 PERSONAL HISTORY OF HODGKIN LYMPHOMA COMPARISON: CT dated 06/27/2017. PET-CT dated 06/01/2017. TECHNIQUE: CT scan of the chest performed using helical scanning technique with dynamic intravenous contrast injection. Images reviewed with lung, soft tissue and bone windows. Reconstructed coronal and sagittal MPR images reviewed. All images stored on PACS. All CT scanners at this facility use dose modulation, iterative reconstruction, and/or weight based d osing when appropriate to reduce radiation dose to as low as reasonably achievable (ALARA). [facility]: Dose Right [facility]: CareDose [facility]: Dose Right [facility]: Teradose 4D [facility]: Wheelright CONTRAST TYPE AND DOSE: 79 mL Isovue 370- low osmolar. RENAL FUNCTION: BUN 16 creatinine 0.83. RADIATION DOSE: . LIMITATIONS: None. FINDINGS: LUNGS AND PLEURA: No opacities, nodules, masses. No pneumothorax. No effusions. HILAR AND MEDIASTINAL STRUCTURES: No identified masses or abnormal nodes. HEART AND VASCULAR STRUCTURES: No aneurysm or dissection. No central pulmonary emboli. No pericardi al effusion. HARDWARE: None in the chest. UPPER ABDOMEN: No significant findings. Limited exam. THYROID AND OTHER SOFT TISSUES: No masses. No adenopathy. BONES: No significant finding. OTHER: No other significant finding. IMPRESSION: NORMAL CT OF THE CHEST WITH IV CONTRAST. TECHNICAL DOCUMENTATION: JOB ID: [id number] Quality ID # [id number]: Final reports with documentation of one or more dose reduction techniques (e.g., Au tomated exposure control, adjustment of the mA and/or kV according to patient size, use of iterative reconstruction technique) 2010 [employer]- All Rights Reserved
--- NOTE | 2017-08-24 08:40 | RADIOLOGY REPORT (SQ) ---
EXAM DESCRIPTION: CT ABD/PELVIS WITH IV ORAL COMPLETED DATE/TIME: 08/23/2017 2:30 pm REASON FOR STUDY: HODGKIN'S LYMPHOMA Z85.71 PERSONAL HISTORY OF HODGKIN LYMPHOMA COMPARISON: 06/27/2017 TECHNIQUE: CT scan of the abdomen and pelvis performed using helical scanning technique with dynamic intravenous contrast injection. No oral contrast. Images reviewed with lung, soft tissue, and bone windows. Reconstructed coronal and sagittal MPR images reviewed. Delayed images for evaluation of the urinary system also acquired. All images stored on PACS. All CT scanners at this facility use dose modulation, iterative reconstruction, and/or weight based d osing when appropriate to reduce radiation dose to as low as reasonably achievable (ALARA). [facility]: Dose Right [facility]: CareDose [facility]: Dose Right [facility]: Teradose 4D [facility]: [employer] CONTRAST TYPE AND DOSE: contrast/concentration: Isovue 370.00 mg/ml; Total Contrast Delivered: 79.0 ml; Total Saline Delivered: 68.0 ml RENAL FUNCTION: GFR > 60. RADIATION DOSE: CT Rad equipment meets quality standard of care and radiation dose reduction techniq ues were employed. CTDIvol: 4.6 - 4.7 mGy. DLP: 666 mGy-cm.. LIMITATIONS: None. FINDINGS: LOWER CHEST: See separate report of the CT of the chest. LIVER: Normal size. No masses. No dilated ducts. SPLEEN: Normal size. No focal lesions. PANCREAS: No masses. No significant calcifications. No adjacent inflammation or peripancreatic fluid collections. Pancreatic duct not dilated. GALLBLADDER: No identified stones by CT criteria. No inflammatory changes to suggest cholecystitis. ADRENAL GLANDS: No significant masses or asymmetry. RIGHT KIDNEY AND URETER: No solid masses. No significant calcifications. No hydronephrosis or hyd roureter. LEFT KIDNEY AND URETER: No solid masses. No significant calcifications. No hydronephrosis or hydr oureter. AORTA AND VESSELS: No aneurysm. No dissection. Renal arteries, SMA, celiac without stenosis. RETROPERITONEUM: Retroperitoneal adenopathy has improved. Largest node 9 x 12 mm to left of midline just superior to the aortic bifurcation. BOWEL AND PERITONEAL CAVITY: No masses or inflammatory changes. No free fluid or peritoneal masses. APPENDIX: Not visualized. PELVIS: No mass. No free fluid. Normal bladder. ABDOMINAL WALL: No masses. No hernias. BONES: No significant or acute findings. OTHER: No other significant finding. IMPRESSION: Interval improvement in retroperitoneal adenopathy. TECHNICAL DOCUMENTATION: JOB ID: [id number] Quality ID # [id number]: Final reports with documentation of one or more dose reduction techniques (e.g., Au tomated exposure control, adjustment of the mA and/or kV according to patient size, use of iterative reconstruction technique) 2010 [employer]- All Rights Reserved
== END ==
LOC: RAD 13:53
PROVIDERS: ATTEND Internal Medicine Medical Oncology
DX: C81.93 Hodgkin lymphoma, unspecified, intra-abdominal lymph nodes (principal)
CPT/HCPCS: 71260; 74177

== ENCOUNTER 2017-09-05 00:11 | Emergency (ER) | payer MEDICARE, MEDICAID ==
--- NOTE | 2017-09-05 01:17 | ER Document Report ---
ED General - General Chief Complaint: Pain All Over Stated Complaint: GENERAL PAIN Time Seen by Provider: 09/05/17 01:15 Notes: Patient is a 46-year-old male who presents with complaint of having pain all over his body as well as nausea and vomiting. He says it happens whenever he receives chemotherapy. Last chemotherapy dose is 4 days ago. He was in oxycodone after being discharged from hospital. Several weeks ago. He says he ran out of oxycodone and Dr. Noland informed him that he is being referred to pain management. Patient says he has not yet seen pain management and therefore is off pain medicine. He also feels very nauseous and does not have much of an appetite. He has gradually lost weight over the course of a year. He does have history of HIV as well. He says he has been taking all his medications as prescribed. He denies any recent fevers or infections. He has no other complaints at this time. TRAVEL OUTSIDE OF THE [place] IN LAST 30 DAYS: No - Related Data Allergies/Adverse Reactions: sulfamethoxazole [From Bactrim] Allergy (Verified 08/11/17 07:47) trimethoprim [From Bactrim] Allergy (Verified 08/11/17 07:47) Past Medical History - Social History Smoking Status: Unknown if Ever Smoked Frequency of alcohol use: None Drug Abuse: None Family History: Reviewed & Not Pertinent, Hypertension - Past Medical History Cardiac Medical History: Reports: Hx Coronary Artery Disease, Hx Hypercholesterolemia, Hx Hypertension Denies: Hx Heart Attack Pulmonary Medical History: Denies: Hx Asthma, Hx Bronchitis, Hx COPD, Hx Pneumonia, Hx Tuberculosis Neurological Medical History: Reports: Hx Cerebrovascular Accident - 6 month, Hx Seizures Renal/ Medical History: Reports: Hx Renal Insufficiency. Denies: Hx Peritoneal Dialysis Malignancy Medical History: Reports Hx Lymphoma - Hodgkin's lymphoma GI Medical History: Reports: Hx Gastroesophageal Reflux Disease Musculoskeltal Medical History: Denies Hx Arthritis Skin Medical History: Reports Hx MRSA Psychiatric Medical History: Reports: Hx Depression Infectious Medical History: Reports: Hx HIV Past Surgical History: Reports: Other - Left chest - Immunizations Hx Diphtheria, Pertussis, Tetanus Vaccination: Yes Hx Pneumococcal Vaccination: 07/12/09 Physical Exam - Vital signs Vitals: Temp Pulse Resp BP Pulse Ox 98.5 F 101 H 16 150/95 H 98 09/05/17 00:19 09/05/17 00:19 09/05/17 00:19 09/05/17 00:19 09/05/17 00:19 Course - Re-evaluation Re-evalutation: 09/05/17 01:16 EKG is reviewed and interpreted by me. EKG shows sinus rhythm with rate of [address] segment depression. All concave up ST segment elevation consistent with early repolarization abnormality. No ischemic T-wave inversions. SD interval, QRS duration within normal range. QT interval is prolonged. EKG for comparison is from February 08, 2018. 09/05/17 04:34 She is now feeling much improved. He looks well. His vital signs are stable. His laboratory evaluation is unremarkable except for some neutropenia and anemia which is to be expected with him receiving chemotherapy. He has no signs of infection. He says he feels improved and wants to be discharged home. I will discharge him home with some pain medicine and nausea medicine. Encourage him return to ER if he has worsening pain, fevers, recurrent vomiting , or if he feels unwell. Patient agrees with plan will be discharged home. Dictation of this chart was performed using voice recognition software; therefore, there may be some unintended grammatical errors. - Vital Signs Vital signs: Temp Pulse Resp BP Pulse Ox 98.5 F 101 H 16 150/95 H 98 09/05/17 00:19 09/05/17 00:19 09/05/17 00:19 09/05/17 00:19 09/05/17 00:19 - Laboratory Result Diagrams: 09/05/17 01:50 09/05/17 01:50 Laboratory results interpreted by me: 09/05/17 09/05/17 01:50 01:50 WBC 3.9 L RBC 2.74 L Hgb 9.0 L Hct 26.4 L RDW 18.5 H Seg Neutrophils % 80.1 H Monocytes % 2.3 L Potassium 3.4 L Discharge - Discharge Clinical Impression: Nausea, Body aches Hodgkin lymphoma Qualifiers: Hodgkin lymphoma type: unspecified type Lymphoma site: unspecified region Qualified Code(s): C81.90 - Hodgkin lymphoma, unspecified, unspecified site Condition: Good Disposition: HOME, SELF-CARE Instructions: Oral Narcotic Medication ([facility]) Additional Instructions: Please follow up with Dr. Noland on Wednesday for reevaluation. Please talk to him or Dr. Jimenes about further pain management. Please do not take more pain medicine than prescribed. Please return to the ER if you have fevers, recurrent vomiting, or feel unwell. Prescriptions: Oxycodone HCl/Acetaminophen [Percocet 10-325 Mg Tablet] 1 each PO Q6 PRN #16 tablet PRN Reason: Promethazine HCl [Phenergan 25 mg Tablet] 1 tab PO Q6H PRN #15 tablet PRN Reason: Referrals: WILNER KIDD MD [Primary Care Provider] - 09/06/17
[2017-09-05] MEDS ORDERED: HYDROMORPHONE HCL INJ/PF 2 MG/ML AMPULE IV ONE ×2 (01:27→03:46)
[2017-09-05] MEDS ORDERED: ONDANSETRON HCL INJ/PF 4 MG/2 ML SDV IV ONE (01:27)
[2017-09-05] MEDS ORDERED: NORMAL SALINE 1000 ML 1,000 ML IV ONE (01:27)
[2017-09-05 02:05] LABS: ABSOLUTE LYMPHOCYTES (AUTO) 0.6 10^3/uL (0.5-4.7); ABSOLUTE MONOCYTES (AUTO) 0.1 10^3/uL (0.1-1.4); ABSOLUTE NEUT (AUTO) 3.1 10^3/uL (1.7-8.2); BASOPHILS % (AUTO) 1.2 % (0-2); HEMATOCRIT 26.4 % (37.9-51.0); LYMPHOCYTES % (AUTO) 16.4 % (13-45); MEAN CORPUSCULAR HGB CONC 34.2 g/dL (32.0-36.0); MEAN CORPUSCULAR VOLUME 97 fl (80-97); MONOCYTES % (AUTO) 2.3 % (3-13); PLATELET COUNT 188 10^3/uL (150-450); RED BLOOD COUNT 2.74 10^6/uL (4.35-5.55); RED CELL DISTRIBUTION WIDTH 18.5 % (11.5-14.0); SEGMENTED NEUTROPHILS % (AUTO) 80.1 % (42-78); TOTAL CELLS COUNTED % (AUTO) 100 %; WHITE BLOOD COUNT 3.9 10^3/uL (4.0-10.5)
[2017-09-05 02:16] LABS: ANION GAP 14 (5-19); BLOOD UREA NITROGEN 16 mg/dL (7-20); CALCIUM 8.5 mg/dL (8.4-10.2); CARBON DIOXIDE 27 mmol/L (22-30); CHLORIDE 100 mmol/L (98-107); GLUCOSE 92 mg/dL (75-110); POTASSIUM 3.4 mmol/L (3.6-5.0)
[2017-09-05] MEDS ORDERED: PROMETHAZINE HCL INJ 25 MG/1 ML VIAL IM ONE (03:46)
[2017-09-05 07:02] VITALS: BP 168/98
--- NOTE | 2017-09-05 08:56 | EKG REPORT ---
SEVERITY:- ABNORMAL ECG - SINUS RHYTHM LEFT VENTRICULAR HYPERTROPHY ST ELEV, PROBABLE NORMAL EARLY REPOL PATTERN BORDERLINE PROLONGED QT INTERVAL : Confirmed by: Ignacio Steel MD 05-Sep-2017 08:55:54
== END 2017-09-05 07:04 | disposition home or self-care (01) ==
LOC: ER 00:11
DX: C81.90 Hodgkin lymphoma, unspecified, unspecified site (principal); R11.2 Nausea with vomiting, unspecified; M79.1 Myalgia; Z79.899 Other long term (current) drug therapy
CPT/HCPCS: 93005; 36591; 96376; 99284; 96372; 96374; 96375; 36415; 85025; 80048; 93010; J1170; J2550; J2405; J7030

== ENCOUNTER → 2017-09-21 | Outpatient (CLI) | payer MEDICARE, MEDICAID ==
[2017-09-21 14:28] LABS: ABSOLUTE LYMPHOCYTES (AUTO) 0.7 10^3/uL (0.5-4.7); ABSOLUTE MONOCYTES (AUTO) 0.2 10^3/uL (0.1-1.4); ABSOLUTE NEUT (AUTO) 2.1 10^3/uL (1.7-8.2); BASOPHILS % (AUTO) 1.1 % (0-2); EOSINOPHILS % (AUTO) 1.1 % (0-6); HEMATOCRIT 35.6 % (37.9-51.0); HEMOGLOBIN 11.5 g/dL (13.5-17.0); LYMPHOCYTES % (AUTO) 22.9 % (13-45); MEAN CORPUSCULAR HGB CONC 32.4 g/dL (32.0-36.0); MEAN CORPUSCULAR VOLUME 96 fl (80-97); MONOCYTES % (AUTO) 5.7 % (3-13); PLATELET COUNT 219 10^3/uL (150-450); RED BLOOD COUNT 3.72 10^6/uL (4.35-5.55); RED CELL DISTRIBUTION WIDTH 18.3 % (11.5-14.0); SEGMENTED NEUTROPHILS % (AUTO) 69.2 % (42-78); TOTAL CELLS COUNTED % (AUTO) 100 %; WHITE BLOOD COUNT 3.1 10^3/uL (4.0-10.5)
[2017-09-21 14:55] LABS: ALANINE AMINOTRANSFERASE 38 U/L (21-72); ALKALINE PHOSPHATASE 67 U/L (38-126); ANION GAP 7 (5-19); ASPARTATE AMINO TRANSFERASE 29 U/L (17-59); BILIRUBIN,DIRECT 0.4 mg/dL (0.0-0.4); BILIRUBIN,TOTAL 0.4 mg/dL (0.2-1.3); BLOOD UREA NITROGEN 13 mg/dL (7-20); CALCIUM 9.3 mg/dL (8.4-10.2); CARBON DIOXIDE 30 mmol/L (22-30); CHLORIDE 106 mmol/L (98-107); GLUCOSE 85 mg/dL (75-110); POTASSIUM 4.1 mmol/L (3.6-5.0); SODIUM 143.2 mmol/L (137-145); TOTAL PROTEIN 7.3 g/dL (6.3-8.2)
[2017-09-23 12:38] LABS: % CD 4 POS LYMPH 4.3 % (30.8-58.5); MCH 30.4 pg (26.6-33.0); MCHC 30.1 g/dL (31.5-35.7); MCV 101 fL (79-97); PLATELETS 254 x10E3/uL (150-379); RBC 3.62 x10E6/uL (4.14-5.80); RDW 16.9 % (12.3-15.4); WBC 3.4 x10E3/uL (3.4-10.8)
[2017-09-24 08:56] LABS: HIV-1 RNA LOG10.. 5.751 (.); HIV-1 RNA PCR QUANT 564000 copies/mL (.)
== END ==
LOC: OD 13:32
PROVIDERS: ATTEND Nurse Practitioner
DX: Z11.3 Encounter for screening for infections with a predominantly sexual mode of transmission (principal); B20 Human immunodeficiency virus [HIV] disease; R56.9 Unspecified convulsions
CPT/HCPCS: 36415; 80053; 85025; 86361; 86592; 87536

== ENCOUNTER 2017-09-23 11:00 | Emergency (ER) | payer MEDICARE, MEDICAID ==
[2017-09-23 11:08] VITALS: BP 171/98
--- NOTE | 2017-09-23 11:50 | ER Document Report ---
ED General - General Chief Complaint: Neck and Upper Back Pain Stated Complaint: BACK/NECK PAIN Time Seen by Provider: 09/23/17 11:38 TRAVEL OUTSIDE OF THE [place] IN LAST 30 DAYS: No - HPI Notes: Patient is a 46-year-old male with a history of Hodgkin lymphoma and recent chemo therapy treatment 2 days ago who presents to the ED complaining of ongoing /chronic pain. Patient states that after chemo treatments his pain is amplified. Patient is scheduled to meet with pain management in 2 weeks. Patient states that he usually gets oxycodone for his pain. Patient has otherwise been eating and drinking without any difficulties. His pain is generalized. He is urinating normally and having normal bowel movements. Patient states that he has not had any acute changes in the type of pain that he has been having. The pains do not radiate otherwise. Patient states that he is out of his blood pressure medicine as well, but is supposed to be getting a refill from his primary care doctor today. Denies any headache, fever, neck pain, changes in vision/speech/mentation/hearing, URI, sore throat, chest pain, palpitations, syncope, cough, shortness of breath, wheeze, dyspnea, abdominal pain, nausea/vomiting/diarrhea, urinary retention, dysuria, hematuria, loss of control of bowel or bladder, numbness/tingling, saddle anesthesia, muscle paralysis/weakness, or rash. - Related Data Allergies/Adverse Reactions: sulfamethoxazole [From Bactrim] Allergy (Verified 08/11/17 07:47) trimethoprim [From Bactrim] Allergy (Verified 08/11/17 07:47) Past Medical History - Social History Smoking Status: Former Smoker Frequency of alcohol use: None Drug Abuse: None Family History: Reviewed & Not Pertinent, Hypertension Patient has suicidal ideation: No Patient has homicidal ideation: No - Past Medical History Cardiac Medical History: Reports: Hx Coronary Artery Disease, Hx Hypercholesterolemia, Hx Hypertension Denies: Hx Heart Attack Pulmonary Medical History: Denies: Hx Asthma, Hx Bronchitis, Hx COPD, Hx Pneumonia, Hx Tuberculosis Neurological Medical History: Reports: Hx Cerebrovascular Accident - 6 month, Hx Seizures Renal/ Medical History: Reports: Hx Renal Insufficiency. Denies: Hx Peritoneal Dialysis Malignancy Medical History: Reports Hx Lymphoma - Hodgkin's lymphoma GI Medical History: Reports: Hx Gastroesophageal Reflux Disease Musculoskeltal Medical History: Denies Hx Arthritis Skin Medical History: Reports Hx MRSA Psychiatric Medical History: Reports: Hx Depression Infectious Medical History: Reports: Hx HIV Past Surgical History: Reports: Other - Left chest - Immunizations Hx Diphtheria, Pertussis, Tetanus Vaccination: Yes Hx Pneumococcal Vaccination: 07/12/09 Review of Systems - Review of Systems -: Yes All other systems reviewed and negative Physical Exam - Vital signs Vitals: Temp Pulse Resp BP Pulse Ox 98.4 F 104 H 19 171/98 H 100 09/23/17 11:06 09/23/17 11:06 09/23/17 11:06 09/23/17 11:06 09/23/17 11:06 - Notes Notes: PHYSICAL EXAMINATION: GENERAL: Well-appearing, well-nourished and in no acute distress. Neck: FROM. Strength 5+/5. Non-tender to palp. no step-offs or swelling. LUNGS: Breath sounds clear to auscultation bilaterally and equal. No wheezes rales or rhonchi. HEART: Regular rate and rhythm without murmurs, rubs, gallops. ABDOMEN: Soft, nontender, nondistended abdomen. No guarding, no rebound. No masses appreciated. Normal bowel sounds present. No CVA tenderness bilaterally. No pulsatile mass Musculoskeletal: LE's b/l: FROM to passive/active. Strength 5+/5. No deficits noted. No bony tenderness of extremities. Back: FROM to passive/active. Strength 5+/5. No vertebral point tenderness, stepoffs, or deformities. No other bony tenderness, erythema, swelling, or ecchymosis. SLR negative b/l. Non-tender. No SI jt tenderness. No foot drop Extremities: No cyanosis, clubbing, or edema b/l. Peripheral pulses 2+. Capillary refill less than 2 seconds. NEUROLOGICAL: Normal speech, normal gait. Normal sensory, motor exams. Reflexes 2+ b/l. PSYCH: Normal mood, normal affect. SKIN: Warm, Dry, normal turgor, no rashes or lesions noted. Course - Re-evaluation Re-evalutation: 09/23/17 11:48 Patient is an afebrile, well-hydrated, 46-year-old male who presents to the ED for refill of his pain medication status post chemo treatment that causes generalized pain. Vitals are acceptable. PE is otherwise unremarkable. Patient is nontoxic-appearing and is tolerating p.o. without any difficulties. Patient does have an appointment scheduled with pain management in 2 weeks, but does not have any more pain medication. Patient had chemotherapy 2 days ago for his Hodgkin lymphoma. Patient has not had any changes in his pain over the years otherwise. No other systemic emergent condition suspected at this time. Patient to recheck with PCM in 3-5 days. Conservative measures for symptoms. Keep appointment with pain management. I will send him home with a short prescription of oxycodone that he is to make last until his appointment pain management. Return to the ED with any worsening/concerning symptoms otherwise as reviewed discharge. Patient is in agreement. - Vital Signs Vital signs: Temp Pulse Resp BP Pulse Ox 98.4 F 104 H 19 171/98 H 100 09/23/17 11:06 09/23/17 11:06 09/23/17 11:06 09/23/17 11:06 09/23/17 11:06 Discharge - Discharge Clinical Impression: Chronic pain Qualifiers: Chronic pain type: other chronic pain Qualified Code(s): G89.29 - Other chronic pain Condition: Stable Disposition: HOME, SELF-CARE Instructions: Chronic Pain Control ([facility]) Additional Instructions: Rest, Ice Make the medication last until your evaluation with pain management in 2 weeks* Tylenol/ibuprofen as needed Light stretches daily Strength exercises as able Moist heat and massage may help F/u with your PCP in 3-5 days for a recheck Consider consult(s) with Orthopedics/physical therapy for ongoing/worsening symptoms Return to the ED with any worsening symptoms and/or development of fever, headache, chest pain, palpitations, syncope, shortness of breath, trouble breathing, abdominal pain, n/v/d, blood in stool/urine, loss of control of bowel /bladder, urinary retention, muscle weakness/paralysis, saddle anesthesia, numbness/tingling, or other worsening symptoms that are concerning to you. Prescriptions: Oxycodone HCl [Oxycodone HCl 10 MG Tablet] 1 tab PO BID #15 tablet Forms: Elevated Blood Pressure Referrals: WILNER KIDD MD [Primary Care Provider] - Follow up in 3-5 days
== END 2017-09-23 11:53 | disposition home or self-care (01) ==
LOC: ER 11:00
DX: G89.29 Other chronic pain (principal); T45.1X5A Adverse effect of antineoplastic and immunosuppressive drugs, initial encounter; I25.10 Atherosclerotic heart disease of native coronary artery without angina pectoris; I10 Essential (primary) hypertension; C81.90 Hodgkin lymphoma, unspecified, unspecified site; Z79.899 Other long term (current) drug therapy; Z88.1 Allergy status to other antibiotic agents; Z87.891 Personal history of nicotine dependence; Z86.73 Personal history of transient ischemic attack (TIA), and cerebral infarction without residual deficits; Z86.14 Personal history of Methicillin resistant Staphylococcus aureus infection; Z21 Asymptomatic human immunodeficiency virus [HIV] infection status
CPT/HCPCS: 99283

== ENCOUNTER 2017-09-29 07:44 | Emergency (ER) | payer MEDICARE, MEDICAID ==
[2017-09-29] MEDS ORDERED: ASPIRIN 81 MG TABLET, CHEWABLE PO ONE (07:47)
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
[2017-09-29 08:08] LABS: ABSOLUTE EOSINOPHILS # (AUTO) 0.2 10^3/uL (0.0-0.6); ABSOLUTE LYMPHOCYTES (AUTO) 1.1 10^3/uL (0.5-4.7); ABSOLUTE MONOCYTES (AUTO) 0.1 10^3/uL (0.1-1.4); ABSOLUTE NEUT (AUTO) 0.8 10^3/uL (1.7-8.2); EOSINOPHILS % (AUTO) 8.6 % (0-6); HEMATOCRIT 31.6 % (37.9-51.0); HEMOGLOBIN 10.5 g/dL (13.5-17.0); LYMPHOCYTES % (AUTO) 47.8 % (13-45); MEAN CORPUSCULAR HEMOGLOBIN 31.1 pg (27.0-33.4); MEAN CORPUSCULAR HGB CONC 33.2 g/dL (32.0-36.0); MEAN CORPUSCULAR VOLUME 94 fl (80-97); MONOCYTES % (AUTO) 4.4 % (3-13); RED BLOOD COUNT 3.37 10^6/uL (4.35-5.55); RED CELL DISTRIBUTION WIDTH 17.6 % (11.5-14.0); SEGMENTED NEUTROPHILS % (AUTO) 37.2 % (42-78); TOTAL CELLS COUNTED % (AUTO) 100 %; WHITE BLOOD COUNT 2.2 10^3/uL (4.0-10.5)
[2017-09-29 08:40] LABS: ALANINE AMINOTRANSFERASE 35 U/L (21-72); ALBUMIN 3.3 g/dL (3.5-5.0); ALKALINE PHOSPHATASE 59 U/L (38-126); ANION GAP 10 (5-19); ASPARTATE AMINO TRANSFERASE 22 U/L (17-59); BILIRUBIN,DIRECT 0.3 mg/dL (0.0-0.4); BILIRUBIN,TOTAL 0.3 mg/dL (0.2-1.3); BLOOD UREA NITROGEN 16 mg/dL (7-20); CALCIUM 8.6 mg/dL (8.4-10.2); CARBON DIOXIDE 26 mmol/L (22-30); CHLORIDE 108 mmol/L (98-107); CREATINE KINASE 76 U/L (55-170); GLUCOSE 89 mg/dL (75-110); POTASSIUM 3.1 mmol/L (3.6-5.0); SODIUM 143.6 mmol/L (137-145)
[2017-09-29 08:42] LABS: PLATELET COUNT 74 10^3/uL (150-450)
--- NOTE | 2017-09-29 08:42 | RADIOLOGY REPORT (SQ) ---
EXAM DESCRIPTION: CHEST SINGLE VIEW COMPLETED DATE/TIME: 09/29/2017 8:02 am REASON FOR STUDY: cp COMPARISON: CT chest 08/08/2017, 08/10/2017, 08/11/2017 CT chest 08/23/2017 EXAM PARAMETERS: NUMBER OF VIEWS: One view. TECHNIQUE: Single frontal radiographic view of the chest acquired. RADIATION DOSE: NA LIMITATIONS: None. FINDINGS: LUNGS AND PLEURA: No opacities, masses or pneumothorax. No pleural effusion. MEDIASTINUM AND HILAR STRUCTURES: No masses. Contour normal. HEART AND VASCULAR STRUCTURES: Heart normal in size. Normal vasculature. BONES: No acute findings. HARDWARE: Right jugular central line tip superior vena cava OTHER: No other significant finding. IMPRESSION: NO ACUTE RADIOGRAPHIC FINDING IN THE CHEST. TECHNICAL DOCUMENTATION: JOB ID: [id number] [employer]- All Rights Reserved Reading location - IP/workstation name: [email or web address]
[2017-09-29 08:52] LABS: CREATINE KINASE MB 0.25 ng/mL (<4.55)
[2017-09-29 08:53] LABS: TROPONIN I < 0.012 ng/mL
--- NOTE | 2017-09-29 08:59 | EKG REPORT ---
SEVERITY:- ABNORMAL ECG - SINUS RHYTHM LVH WITH SECONDARY REPOLARIZATION ABNORMALITY : Confirmed by: Sandra Maya 29-Sep-2017 08:58:20
[2017-09-29] MEDS ORDERED: POTASSIUM CHLORIDE 10 MEQ TABLET.SA PO ONE (09:02)
[2017-09-29] MEDS ORDERED: NORMAL SALINE 1000 ML 1,000 ML IV ONE (09:22)
[2017-09-29] MEDS ORDERED: KETOROLAC TROMETHAMINE INJ/PF 30 MG/1 ML SDV IV ONE (09:22)
[2017-09-29] MEDS: NITROGLYCERIN 0.4 MG/TAB 25 TAB/BOTTLE SL PRN ×2 (09:39→10:02)
--- NOTE | 2017-09-29 11:11 | RADIOLOGY REPORT (SQ) ---
EXAM DESCRIPTION: CTA CHEST COMPLETED DATE/TIME: 09/29/2017 10:31 am REASON FOR STUDY: chest pain, back pain, new EKG changes,dissection? COMPARISON: 08/23/2017 TECHNIQUE: CT scan of the chest performed using helical scanning technique with dynamic intravenous contrast injection. Images reviewed with lung, soft tissue and bone windows. Reconstructed coronal and sagittal MPR images reviewed. Additional 3 dimensional post-processing performed to develop Maximal Intensity Projection images (MD P). All images stored on PACS. All CT scanners at this facility use dose modulation, iterative reconstruction, and/or weight based d osing when appropriate to reduce radiation dose to as low as reasonably achievable (ALARA). [facility]: Dose Right [facility]: CareDose [facility]: Dose Right [facility]: Teradose 4D [facility]: [employer] CONTRAST TYPE AND DOSE: contrast/concentration: Isovue 370.00 mg/ml; Total Contrast Delivered: 53.0 ml; Total Saline Delivered: 59.9 ml Contrast bolus optimized for the pulmonary arteries. Not diagnostic for the aorta. RENAL FUNCTION: None required. The patient is less than 50 years old. RADIATION DOSE: CT Rad equipment meets quality standard of care and radiation dose reduction techniq ues were employed. CTDIvol: 20.3 - 26.4 mGy. DLP: 810 mGy-cm. . LIMITATIONS: None. FINDINGS: LUNGS AND PLEURA: No masses, infiltrates, pneumothorax. No pleural effusions, calcificati ons. Minimal linear density is identified in the inferior your lingula most consistent with subsegme ntal atelectasis. AORTA AND GREAT VESSELS: No aneurysm or dissection. HEART: No pericardial effusion. No significant coronary artery calcifications. PULMONARY ARTERIES: No emboli visualized in the main pulmonary arteries or the segmental branches. HILAR AND MEDIASTINAL STRUCTURES: No identified masses or abnormal nodes. HARDWARE: None in the chest. UPPER ABDOMEN: See results under abdominal CT scan THYROID AND OTHER SOFT TISSUES: No masses. No adenopathy. BONES: No acute or significant finding. 3D MIPS: Confirm above findings. OTHER: No other significant finding. IMPRESSION: No evidence for an aortic dissection. NO PULMONARY EMBOLI. No acute consolidations or p leural effusions. No significant interval changes compared to the previous study. Other findings as noted above COMMENT: Quality ID # [id number]: Final reports with documentation of one or more dose reduction techniques (e.g., Automated exposure control, adjustment of the mA and/or kV according to patient size, use of iterative reconstruction technique) TECHNICAL DOCUMENTATION: JOB ID: [id number] [employer]- All Rights Reserved Reading location - IP/workstation name: [email or web address]
[2017-09-29 13:13] VITALS: BP 166/121
== END 2017-09-29 13:28 | disposition home or self-care (01) ==
LOC: ER 07:44
DX: R07.9 Chest pain, unspecified (principal); Z21 Asymptomatic human immunodeficiency virus [HIV] infection status; R94.31 Abnormal electrocardiogram [ECG] [EKG]; M54.89 Other dorsalgia; R06.02 Shortness of breath; I25.10 Atherosclerotic heart disease of native coronary artery without angina pectoris; I10 Essential (primary) hypertension; Z85.71 Personal history of Hodgkin lymphoma; V49.9XXA Car occupant (driver) (passenger) injured in unspecified traffic accident, initial encounter; Z88.1 Allergy status to other antibiotic agents
CPT/HCPCS: 93005; 99285; 96361; 96374; 36415; 82553; 82550; 85025; 80053; 84484; 71045; 71275; 93010; J1885; J7030; A9270

== ENCOUNTER 2017-10-05 12:07 | Emergency (ER) | payer MEDICARE, MEDICAID ==
[2017-10-05] MEDS ORDERED: KETOROLAC TROMETHAMINE INJ/PF 30 MG/1 ML SDV IM ONE (13:57)
--- NOTE | 2017-10-05 13:57 | ER Document Report ---
ED General Pain - General Chief Complaint: Pain All Over Stated Complaint: BODY ACHES Time Seen by Provider: 10/05/17 12:25 Mode of Arrival: Ambulatory Information source: Patient TRAVEL OUTSIDE OF THE [place] IN LAST 30 DAYS: No - HPI Patient complains to provider of: Patient is here with complaints of pain Notes: Patient is here with complaints of neck and back pain. The patient is well- known to this emergency department. He has a history of lymphoma. He is seen here often for pain complaints and always request that he gets Dilaudid and refills for his pain medicines. His primary care doctor Bonita is no longer prescribing him narcotic pain medications. He has been terminated from multiple pain management clinics due to opiate abuse. Patient is in the emergency department today complaining of his chronic neck and back pain and is requesting a shot of Dilaudid and a refill on his pain medication. He denies any new injuries or falls. No bowel or bladder dysfunction. No fever. No nausea, vomiting, diarrhea. This is his typical pain that he normally experiences. He denies any other complaints at this time. - Related Data Allergies/Adverse Reactions: sulfamethoxazole [From Bactrim] Allergy (Verified 10/05/17 12:10) trimethoprim [From Bactrim] Allergy (Verified 10/05/17 12:10) Past Medical History - Social History Smoking Status: Unknown if Ever Smoked Chew tobacco use (# tins/day): No Frequency of alcohol use: None Drug Abuse: None Family History: Reviewed & Not Pertinent, Hypertension Patient has suicidal ideation: No Patient has homicidal ideation: No - Past Medical History Cardiac Medical History: Reports: Hx Coronary Artery Disease, Hx Hypercholesterolemia, Hx Hypertension Denies: Hx Heart Attack Pulmonary Medical History: Denies: Hx Asthma, Hx Bronchitis, Hx COPD, Hx Pneumonia, Hx Tuberculosis Neurological Medical History: Reports: Hx Cerebrovascular Accident - 6 month, Hx Seizures Renal/ Medical History: Reports: Hx Renal Insufficiency. Denies: Hx Peritoneal Dialysis Malignancy Medical History: Reports Hx Lymphoma - Hodgkin's lymphoma GI Medical History: Reports: Hx Gastroesophageal Reflux Disease Musculoskeltal Medical History: Denies Hx Arthritis Skin Medical History: Reports Hx MRSA Psychiatric Medical History: Reports: Hx Depression Infectious Medical History: Reports: Hx HIV Past Surgical History: Reports: Other - Left chest - Immunizations Hx Diphtheria, Pertussis, Tetanus Vaccination: Yes Hx Pneumococcal Vaccination: 07/12/09 Review of Systems - Review of Systems -: Yes All other systems reviewed and negative Physical Exam - Vital signs Vitals: Temp Pulse Resp BP Pulse Ox 97.8 F 92 16 147/95 H 100 10/05/17 12:18 10/05/17 12:18 10/05/17 12:18 10/05/17 12:18 10/05/17 12:18 - Notes Notes: GENERAL: alert, cooperative, nontoxic, no distress. HEAD: normocephalic, atraumatic EYES: conjunctiva pink without discharge, no external redness or swelling. EARS: no external swelling, no external redness NOSE: atraumatic, no external swelling MOUTH/THROAT: mucous membranes moist and pink, posterior pharynx without erythema, swelling, exudate. No trismus or drooling. NECK: soft, supple, full range of motion, no meningismus. CHEST: no distress, lungs clear and equal throughout. No wheezing, rales, rhonchi. CARDIAC: regular rate and rhythm, no murmur, normal capillary refill, normal pulses. No peripheral edema noted. ABDOMEN: Soft, nontender. BACK: full range of motion, no CVA tenderness. EXTREMITIES: full range of motion of all extremities. No redness, no swelling. NEURO: alert and oriented x 3, no focal deficits, full range of motion of all extremities. PYSCH: appropriate mood, affect. Patient is cooperative. SKIN: pink, warm, dry, no rash. Course - Re-evaluation Re-evalutation: 10/05/17 13:57 Patient is nontoxic appearing with stable vitals. He is here with complaints of chronic pain. No new injuries. No fevers. He has a benign exam at this time. The patient is been seen in the emergency department multiple times requesting Dilaudid for pain control. Is also requesting a refill on his narcotic medications for pain. Initially Dr. Kidd was prescribing him his pain medication until he was referred to pain specialist. Apparently he has been discharged from several pain specialists. I was able to speak with Dr. Kidd today, he states that we should not be giving this patient narcotic medications from the emergency department. I talked to the magneto repairer at [facility], he was recently terminated from their practice due to opiate abuse. I explained all this to the patient. He was given a shot of Toradol here in the emergency department. In reviewing his previous labs, his creatinine was 0.896 days ago. He will be discharged home with a prescription for meloxicam and instructions to follow-up with his next pain specialist in order to obtain further pain medications. I explained that the emergency department is not the place to obtain pain relief for chronic pain and that we are unable to prescribe narcotic medications for chronic pain. He verbalized understanding of this. The patient is noted to have elevated blood pressure during today's emergency department visit. The patient was informed of this finding. The patient was instructed that this may be related to pre-hypertension and requires further evaluation with a primary care provider. The patient has no hypertensive symptoms at this time. The patient's emergency department workup and current diagnosis were explained to the patient and or family. Follow-up instructions were provided. Medications if prescribed were discussed. Instructions for when to return to the emergency department including specific worrisome symptoms were discussed with the patient and/or family. - Vital Signs Vital signs: Temp Pulse Resp BP Pulse Ox 97.8 F 92 16 147/95 H 100 10/05/17 12:18 10/05/17 12:18 10/05/17 12:18 10/05/17 12:18 10/05/17 12:18 Discharge - Discharge Clinical Impression: Chronic pain Qualifiers: Chronic pain type: chronic pain syndrome Qualified Code(s): G89.4 - Chronic pain syndrome Condition: Stable Disposition: HOME, SELF-CARE Instructions: Chronic Pain Control ([facility]) Additional Instructions: Take medications as prescribed. Follow-up with your doctor at the next available appointment. Follow-up sooner for worsening pain, high fever, any further concerns. We are not able to prescribe narcotic medications and administer narcotic medications for chronic pain in the emergency department. Your blood pressure was elevated during today's visit. Have this rechecked with your doctor. Prescriptions: Meloxicam [Mobic] 7.5 mg PO DAILY #14 tablet Forms: Elevated Blood Pressure, Smoking Cessation Education Referrals: WILNER KIDD MD [Primary Care Provider] - Follow up as needed
[2017-10-05 14:29] VITALS: BP 170/105
== END 2017-10-05 14:29 | disposition home or self-care (01) ==
LOC: ER 12:07
DX: G89.4 Chronic pain syndrome (principal); M54.2 Cervicalgia; M54.9 Dorsalgia, unspecified; I10 Essential (primary) hypertension; I25.10 Atherosclerotic heart disease of native coronary artery without angina pectoris; Z85.71 Personal history of Hodgkin lymphoma; Z88.1 Allergy status to other antibiotic agents; Z21 Asymptomatic human immunodeficiency virus [HIV] infection status
CPT/HCPCS: 99283; 96372; J1885

== ENCOUNTER → 2017-10-07 | Outpatient (CLI) | payer MEDICARE, MEDICAID ==
[~2017-10-07] MED LIST: AMINOPHYLLINE INJ/PF 250 MG/10 ML SDV IV ONE; REGADENOSON INJ 0.4 MG/5 ML DISP.SYRIN IV ONE
--- NOTE | 2017-10-07 13:07 | DRAGON STRESS TEST REPORT ---
INTRAVENOUS LEXISCAN CARDIOLITE STRESS TEST USING SINGLE PHOTON EMMISION COMPUTERIZED TOMOGRAPHIC. DATE OF PROCEDURE: October 07, 2017, INDICATION : Chest pain CARDIAC RISK FACTORS: Hypertension RESTING EKG: Sinus rhythm, LVH with secondary ST-T wave changes STRESS EKG: No significant ST segment changes noted with LexiScan bolus REASON FOR TERMINATION: Protocol. PROCEDURE REPORT: Baseline heart rate 82 beats per minute with blood pressure of 175/101. Patient had no significant complaints. Patient was bolused with Lexiscan 0.4 mg intravenously followed by saline bolus. Heart rate at 2 minutes post bolus 98 with a blood pressure of 169/100. 3 minutes post bolus heart rate 95 with blood pressure of 172/94. No significant EKG changes were noted. Patient had no significant complaints during the procedure or postprocedure. Patient injected with Aminophyllin 75 mg at 3 minutes or later after Lexiscan bolus. CONCLUSIONS: Normal EKG and hemodynamic response to IV LexiScan. NUCLEAR DATA: At rest the patient was given 10.78 millicuries of technetium 99 sestamibi injected intravenously. As per protocol rest gated SPECT images were obtained. On day of stress test, the patient was given intravenous LexiScan at a dose of 0.4 mg in 5 mL intravenously, followed by flush with normal saline. Subsequently the stress dose of 34.7 millicuries of technetium 99 sestamibi was injected intravenously. As per protocol stress gated images were obtained. NUCLEAR INTERPRETATION: Both raw and processed data were used for interpretation. Visual, qualitative, computer-generated quantitative data was used. There was good myocardial uptake of technetium compound. Motion artifact and soft tissue attenuations were noted. Increased visceral uptake was noted. No definitive areas of transient perfusion defect noted, No definitive areas of fixed perfusion defect or scars noted. EKG gated imaging showed LV EF at 38 %, rest and stress gated EF similar visually. T. I D. ratio was 1.13. Lung heart ratio noted to be within normal limits 0.34. No significant extracardiac and abnormal radiotracer activities were noted. RV free wall uptake was noted to be increased, LVH also noted. IMPRESSION: Also refer to comments under nuclear interpretation. Also test results needs to be interpreted in the context of pretest probability. 1. No definitive areas of transient perfusion defect noted. 2. There is no definitive scintigraphic evidence of myocardial infarction/scar. 3. EKG gated imaging shows left ventricular ejection fraction of approx. 38 %. RV free wall uptake noted to be increased consistent with RVH. LVH also noted. 4. Clinical correlation requested as occasionally single vessel disease or balanced ischemia could be missed. In approximately 10% of the cases Lexiscan may not cause adequate vasodilatory stress. RECOMMENDATIONS: Aggressive risk factor modification and medical management. Further evaluation may be needed if continued symptoms or other high risk indicators are noted on clinical evaluation. Close cardiology follow-up is also recommended. Clinical correlation with echocardiogram derived ejection fraction. Inability to exercise by itself can lead to increased cardiovascular event risks. Consider cardiology consultation and or follow-up if clinically indicated. I am available for cardiology evaluation and consultation if requested by the upkeep mechanic, unless patient already has a inspector machined parts. HE
== END ==
LOC: RAD 07:38
PROVIDERS: ATTEND Internal Medicine
DX: R07.9 Chest pain, unspecified (principal); I10 Essential (primary) hypertension
CPT/HCPCS: 93017; 78452; A9500; J2785; J0280; Q9969

== ENCOUNTER → 2017-11-09 | Outpatient (CLI) | payer MEDICARE, MEDICAID ==
[2017-11-09 12:40] LABS: ABSOLUTE LYMPHOCYTES (AUTO) 0.7 10^3/uL (0.5-4.7); ABSOLUTE MONOCYTES (AUTO) 0.2 10^3/uL (0.1-1.4); ABSOLUTE NEUT (AUTO) 3.1 10^3/uL (1.7-8.2); APPEARANCE,URINE CLEAR; BASOPHILS % (AUTO) 0.8 % (0-2); BILIRUBIN,URINE NEGATIVE (NEGATIVE); COLOR,URINE YELLOW; EOSINOPHILS % (AUTO) 1.1 % (0-6); GLUCOSE, URINE NEGATIVE (NEGATIVE); HEMATOCRIT 33.6 % (37.9-51.0); HEMOGLOBIN 11.2 g/dL (13.5-17.0); KETONES,URINE NEGATIVE (NEGATIVE); LEUKOCYTE ESTERASE,URINE NEGATIVE (NEGATIVE); LYMPHOCYTES % (AUTO) 16.7 % (13-45); MEAN CORPUSCULAR HEMOGLOBIN 30.7 pg (27.0-33.4); MEAN CORPUSCULAR HGB CONC 33.3 g/dL (32.0-36.0); MEAN CORPUSCULAR VOLUME 92 fl (80-97); MONOCYTES % (AUTO) 4.7 % (3-13); NITRITE,URINE NEGATIVE (NEGATIVE); PLATELET COUNT 105 10^3/uL (150-450); PROTEIN,URINE NEGATIVE (NEGATIVE); RED BLOOD COUNT 3.64 10^6/uL (4.35-5.55); RED CELL DISTRIBUTION WIDTH 18.9 % (11.5-14.0); SEGMENTED NEUTROPHILS % (AUTO) 76.7 % (42-78); TOTAL CELLS COUNTED % (AUTO) 100 %; URINE SPECIFIC GRAVITY 1.012; UROBILINOGEN,URINE NEGATIVE mg/dL (<2.0)
[2017-11-09 12:56] LABS: ALANINE AMINOTRANSFERASE 31 U/L (21-72); ALBUMIN 4.4 g/dL (3.5-5.0); ALKALINE PHOSPHATASE 68 U/L (38-126); ANION GAP 12 (5-19); ASPARTATE AMINO TRANSFERASE 36 U/L (17-59); BILIRUBIN,DIRECT 0.5 mg/dL (0.0-0.4); BILIRUBIN,TOTAL 0.9 mg/dL (0.2-1.3); BLOOD UREA NITROGEN 15 mg/dL (7-20); CALCIUM 9.1 mg/dL (8.4-10.2); CARBON DIOXIDE 29 mmol/L (22-30); CHLORIDE 104 mmol/L (98-107); CHOLESTEROL 228.12 mg/dL (0-200); GLUCOSE 89 mg/dL (75-110); POTASSIUM 3.5 mmol/L (3.6-5.0); SODIUM 144.8 mmol/L (137-145); TOTAL PROTEIN 7.8 g/dL (6.3-8.2); TRIGLYCERIDES 85 mg/dL (<150)
[2017-11-09 13:07] LABS: DIRECT LDL 140 mg/dL (<100)
[2017-11-09 14:05] LABS: CHLAM PCR NOT DETECTED (NOT DETECT); GON PCR NOT DETECTED (NOT DETECT)
[2017-11-10 14:41] LABS: % CD 4 POS LYMPH 3.3 % (30.8-58.5); ABSOLUTE CD 4 HELPER 26 /uL (359-1519); CD BASOPHILS 1 % (Not Estab.); CD EOSINOPHILS 1 % (Not Estab.); CD MONOCYTES 1 % (Not Estab.); CD NEUTROPHILS 75 % (Not Estab.); HEMOGLOBIN 10.5 g/dL (13.0-17.7); IMMATURE GRANULOCYTES 2 % (Not Estab.); LYMPHS(ABSOLUTE) 0.8 x10E3/uL (0.7-3.1); MCH 29.3 pg (26.6-33.0); MCHC 31.8 g/dL (31.5-35.7); MCV 92 fL (79-97); PLATELETS 125 x10E3/uL (150-379); RBC 3.58 x10E6/uL (4.14-5.80); RDW 18.1 % (12.3-15.4); WBC 3.9 x10E3/uL (3.4-10.8)
[2017-11-10 15:16] LABS: IMMATURE GRANULOCYTES (ABS) 0.1 x10E3/uL (0.0-0.1)
[2017-11-11 07:29] LABS: HIV-1 RNA LOG10.. 5.957 (.); HIV-1 RNA PCR QUANT 906000 copies/mL (.)
== END ==
LOC: OD 11:22
PROVIDERS: ATTEND Nurse Practitioner
DX: Z11.3 Encounter for screening for infections with a predominantly sexual mode of transmission (principal); B20 Human immunodeficiency virus [HIV] disease; Z79.899 Other long term (current) drug therapy; Z13.220 Encounter for screening for lipoid disorders
CPT/HCPCS: 36415; 80053; 80061; 81001; 85025; 86361; 86592; 87491; 87536; 87591

== ENCOUNTER 2017-11-13 16:50 | Emergency (ER) | payer MEDICARE, MEDICAID ==
[2017-11-13] MEDS ORDERED: LISINOPRIL 10 MG TABLET PO ONE (17:59)
[2017-11-13] MEDS ORDERED: ACETAMINOPHEN 325 MG TABLET PO ONE ×2 (17:59→23:34)
--- NOTE | 2017-11-13 18:00 | ER Document Report ---
ED Medical Screen (RME) - General Chief Complaint: Pain All Over Stated Complaint: PAIN ALL OVER BODY Time Seen by Provider: 11/13/17 17:50 Notes: 46-year-old male patient comes emergency room complaining of pain all over his entire body for 3 days. He has a history of Hodgkin's lymphoma in the past, HIV positive. He has chronic pain syndrome and has been discharged from several pain management providers. See the most recent emergency room history and physical which I have printed out and added to his paper chart. He admits that he did not take his blood pressure medication today with no clear reason why he did not do that. His blood pressure is elevated. I have greeted and performed a rapid initial assessment of this patient. A comprehensive ED assessment and evaluation of the patient, analysis of test results and completion of the medical decision making process will be conducted by additional ED providers. TRAVEL OUTSIDE OF THE [place] IN LAST 30 DAYS: No - Related Data Allergies/Adverse Reactions: sulfamethoxazole [From Bactrim] Allergy (Verified 11/13/17 17:02) trimethoprim [From Bactrim] Allergy (Verified 11/13/17 17:02) Past Medical History - Social History Chew tobacco use (# tins/day): No Frequency of alcohol use: None Drug Abuse: None - Past Medical History Cardiac Medical History: Reports: Hx Coronary Artery Disease, Hx Hypercholesterolemia, Hx Hypertension Denies: Hx Heart Attack Pulmonary Medical History: Denies: Hx Asthma, Hx Bronchitis, Hx COPD, Hx Pneumonia, Hx Tuberculosis Neurological Medical History: Reports: Hx Cerebrovascular Accident - 6 month, Hx Seizures Renal/ Medical History: Reports: Hx Renal Insufficiency. Denies: Hx Peritoneal Dialysis Malignancy Medical History: Reports Hx Lymphoma - Hodgkin's lymphoma GI Medical History: Reports: Hx Gastroesophageal Reflux Disease Musculoskeltal Medical History: Denies Hx Arthritis Skin Medical History: Reports Hx MRSA Psychiatric Medical History: Reports: Hx Depression Infectious Medical History: Reports: Hx HIV Past Surgical History: Reports: Other - Left chest - Immunizations Hx Diphtheria, Pertussis, Tetanus Vaccination: Yes History of Influenza Vaccine for 04/2017 - 09/2017 Season: Yes Influenza Administration Date for 04/2017 - 09/2017 Season: 02/09/17 Physical Exam - Vital signs Vitals: Temp Pulse Resp BP Pulse Ox 98.7 F 86 16 170/99 H 100 11/13/17 17:12 11/13/17 17:12 11/13/17 17:12 11/13/17 17:12 11/13/17 17:12 Course - Vital Signs Vital signs: Temp Pulse Resp BP Pulse Ox 98.7 F 86 16 170/99 H 100 11/13/17 17:12 11/13/17 17:12 11/13/17 17:12 11/13/17 17:12 11/13/17 17:12
[2017-11-13] MEDS ORDERED: OXYCODONE HCL IR 5 MG TABLET PO ONE (19:28)
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
[2017-11-13 20:16] LABS: HEMATOCRIT 26.8 % (37.9-51.0); MEAN CORPUSCULAR HEMOGLOBIN 30.9 pg (27.0-33.4); MEAN CORPUSCULAR HGB CONC 33.6 g/dL (32.0-36.0); MEAN CORPUSCULAR VOLUME 92 fl (80-97); RED BLOOD COUNT 2.92 10^6/uL (4.35-5.55); RED CELL DISTRIBUTION WIDTH 18.3 % (11.5-14.0); WHITE BLOOD COUNT 2.2 10^3/uL (4.0-10.5)
[2017-11-13 20:37] LABS: ANION GAP 10 (5-19); BLOOD UREA NITROGEN 18 mg/dL (7-20); CALCIUM 8.6 mg/dL (8.4-10.2); CARBON DIOXIDE 33 mmol/L (22-30); CHLORIDE 101 mmol/L (98-107); CREATINE KINASE 91 U/L (55-170); GLUCOSE 89 mg/dL (75-110); SODIUM 143.6 mmol/L (137-145)
[2017-11-13 20:38] LABS: POTASSIUM 2.7 mmol/L (3.6-5.0)
[2017-11-13 20:39] LABS: ABSOLUTE LYMPHOCYTES# (MANUAL) 0.2 10^3/uL (0.5-4.7); ABSOLUTE NEUTROPHILS# (MANUAL) 1.9 10^3/uL (1.7-8.2); BAND NEUTROPHILS % (MANUAL) 1 % (3-5); BASOPHILS % (MANUAL) 0 % (0-2); EOSINOPHILS % (MANUAL) 0 % (0-6); LYMPHOCYTES % (MANUAL) 10 % (13-45); MONOCYTES % (MANUAL) 2 % (3-13); SEGMENTED NEUTROPHILS % (MAN) 87 % (42-78); TOTAL CELLS COUNTED 100
[2017-11-13 20:40] LABS: ANISOCYTOSIS 2+; PLATELET COMMENT DECREASED; PLATELET LARGE PRESENT
[2017-11-13 20:44] LABS: POIKILOCYTOSIS SLIGHT; TARGET CELLS SLIGHT
[2017-11-13] MEDS ORDERED: POTASSIUM CHLORIDE 10 MEQ TABLET.SA PO ONE ×3 (20:44→22:54)
[2017-11-13 20:45] LABS: PLATELET COUNT 28 10^3/uL (150-450)
[2017-11-13 21:03] LABS: INTERNATIONAL RATION (INR) 0.93; PROTHROMBIN TIME 12.9 SEC (11.4-15.4)
[2017-11-13 21:04] LABS: PARTIAL THROMBOPLASTIN TIME 32.2 SEC (23.5-35.8)
[2017-11-14] MEDS ORDERED: POTASSIUM CHLORIDE 10 MEQ TABLET.SA PO ONE ×2 (00:31→00:37)
[2017-11-14 01:29] VITALS: BP 158/94
--- NOTE | 2017-11-14 10:29 | EKG REPORT ---
SEVERITY:- ABNORMAL ECG - SINUS RHYTHM LEFT VENTRICULAR HYPERTROPHY NONSPECIFIC T ABNORMALITIES, INFERIOR LEADS ANTERIOR ST ELEVATION, PROBABLY DUE TO LVH BORDERLINE PROLONGED QT INTERVAL : Confirmed by: Sandra Maya 14-Nov-2017 10:28:26
[2017-11-15 14:46] LABS: PATH REVIEW PATHOLOGIST REVIEWED
== END 2017-11-14 01:32 | disposition home or self-care (01) ==
LOC: ER 16:50
DX: E87.6 Hypokalemia (principal); B20 Human immunodeficiency virus [HIV] disease; D72.818 Other decreased white blood cell count; G89.4 Chronic pain syndrome; M79.1 Myalgia; G89.29 Other chronic pain; C81.90 Hodgkin lymphoma, unspecified, unspecified site; Z79.899 Other long term (current) drug therapy; I25.10 Atherosclerotic heart disease of native coronary artery without angina pectoris; I10 Essential (primary) hypertension
CPT/HCPCS: 93005; 99284; 36415; 82550; 83735; 84132; 85025; 85610; 85730; 82272; 80048; 93010; A9270 ×5

== ENCOUNTER 2017-11-16 10:45 | Outpatient (CLI) | payer MEDICARE, MEDICAID ==
[~2017-11-16 10:45] MED LIST changes: +ACETAMINOPHEN 325 MG TABLET PO PRN; -AMINOPHYLLINE INJ/PF 250 MG/10 ML SDV IV ONE; +DIPHENHYDRAMINE HCL 25 MG CAPSULE PO PRN; +FUROSEMIDE INJ/PF 20 MG/2 ML SDV IV PRN; -REGADENOSON INJ 0.4 MG/5 ML DISP.SYRIN IV ONE
[2017-11-16 11:24] LABS: HEMATOCRIT 26.1 % (37.9-51.0); MEAN CORPUSCULAR HGB CONC 34.4 g/dL (32.0-36.0); MEAN CORPUSCULAR VOLUME 90 fl (80-97); RED BLOOD COUNT 2.89 10^6/uL (4.35-5.55); RED CELL DISTRIBUTION WIDTH 17.1 % (11.5-14.0)
[2017-11-16] MEDS ORDERED: NORMAL SALINE 250 ML IV PRN (11:31)
[2017-11-16 11:34] LABS: PLATELET COUNT 16 10^3/uL (150-450)
[2017-11-16 11:52] LABS: WHITE BLOOD COUNT 0.5 10^3/uL (4.0-10.5)
[2017-11-16 13:03] VITALS: BP 178/99
[2017-11-16 14:24] LABS: HEMATOCRIT 25.5 % (37.9-51.0); HEMOGLOBIN 8.9 g/dL (13.5-17.0); MEAN CORPUSCULAR HGB CONC 34.8 g/dL (32.0-36.0); MEAN CORPUSCULAR VOLUME 89 fl (80-97); RED BLOOD COUNT 2.86 10^6/uL (4.35-5.55); RED CELL DISTRIBUTION WIDTH 17.4 % (11.5-14.0)
[2017-11-16 14:55] LABS: PLATELET COUNT 43 10^3/uL (150-450)
[2017-11-16 14:57] LABS: WHITE BLOOD COUNT 0.5 10^3/uL (4.0-10.5)
== END 2017-11-16 14:18 | disposition home or self-care (01) ==
LOC: II 10:45 → 5TH 10:50 → II 14:18
PROVIDERS: ATTEND Internal Medicine Medical Oncology
PROC: 30233R1 Transfusion of Nonautologous Platelets into Peripheral Vein, Percutaneous Approach (ICD-10-PCS; principal; 2017-11-16)
PROC: 3E033GC Introduction of Other Therapeutic Substance into Peripheral Vein, Percutaneous Approach (ICD-10-PCS; 2017-11-16)
DX: C81.90 Hodgkin lymphoma, unspecified, unspecified site (principal)
CPT/HCPCS: 86900; 86901; 36415; 36430; 85027; P9035; A9270 ×2; J1940; 96374

== ENCOUNTER 2017-11-18 10:00 | Outpatient (CLI) | payer MEDICARE, MEDICAID ==
[2017-11-18] MEDS ORDERED: NORMAL SALINE 250 ML IV PRN (10:33)
[2017-11-18 11:08] LABS: HEMATOCRIT 26.3 % (37.9-51.0); HEMOGLOBIN 8.8 g/dL (13.5-17.0); RED BLOOD COUNT 2.89 10^6/uL (4.35-5.55); WHITE BLOOD COUNT 0.9 10^3/uL (4.0-10.5)
[2017-11-18 11:09] LABS: MEAN CORPUSCULAR HEMOGLOBIN 30.4 pg (27.0-33.4); MEAN CORPUSCULAR HGB CONC 33.5 g/dL (32.0-36.0); MEAN CORPUSCULAR VOLUME 91 fl (80-97); RED CELL DISTRIBUTION WIDTH 17.6 % (11.5-14.0)
[2017-11-18 11:10] LABS: PLATELET COUNT 13 10^3/uL (150-450)
[2017-11-18 12:18] VITALS: BP 130/51
== END 2017-11-18 13:12 | disposition home or self-care (01) ==
LOC: II 10:00 → 5TH 10:07 → II 13:12
PROVIDERS: ATTEND Internal Medicine Medical Oncology
PROC: 30243R1 Transfusion of Nonautologous Platelets into Central Vein, Percutaneous Approach (ICD-10-PCS; principal; 2017-11-18)
DX: C81.90 Hodgkin lymphoma, unspecified, unspecified site (principal)
CPT/HCPCS: 86900; 86901; 36415; 36430; P9035; A9270 ×2; J1940

== ENCOUNTER 2017-11-22 16:22 | Inpatient (IN) | payer MEDICARE, MEDICAID ==
[2017-11-22 17:27] LABS: HEMATOCRIT 22.2 % (37.9-51.0); MEAN CORPUSCULAR HEMOGLOBIN 30.1 pg (27.0-33.4); MEAN CORPUSCULAR HGB CONC 33.1 g/dL (32.0-36.0); MEAN CORPUSCULAR VOLUME 91 fl (80-97); RED BLOOD COUNT 2.44 10^6/uL (4.35-5.55); RED CELL DISTRIBUTION WIDTH 18.1 % (11.5-14.0); WHITE BLOOD COUNT 7.6 10^3/uL (4.0-10.5)
[2017-11-22 17:29] LABS: VENOUS BLOOD BASE EXCESS 6.1 mmol/L; VENOUS BLOOD HCO3 31.1 mmol/L (20-32); VENOUS BLOOD PCO2 47.3 mmHg (35-63); VENOUS BLOOD PH 7.44 (7.30-7.42)
[2017-11-22] MEDS ORDERED: NORMAL SALINE 1000 ML 1,000 ML IV ONE (17:31)
[2017-11-22] MEDS ORDERED: ACETAMINOPHEN 325 MG TABLET PO ONE (17:31)
[2017-11-22] MEDS ORDERED: CEFEPIME 1 GM/D5W RTU 1 GM/50 ML RTUPB IV ONE (17:32)
--- NOTE | 2017-11-22 17:37 | RADIOLOGY REPORT (SQ) ---
EXAM DESCRIPTION: CHEST 2 VIEWS COMPLETED DATE/TIME: 11/22/2017 5:22 pm REASON FOR STUDY: achy COMPARISON: Chest films 09/29/2017, 08/08/2017 CT abdomen pelvis 08/23/2017 EXAM PARAMETERS: NUMBER OF VIEWS: two views TECHNIQUE: Digital Frontal and Lateral radiographic views of the chest acquired. RADIATION DOSE: NA LIMITATIONS: none FINDINGS: LUNGS AND PLEURA: No opacities, masses or pneumothorax. No pleural effusion. MEDIASTINUM AND HILAR STRUCTURES: No masses or contour abnormalities. HEART AND VASCULAR STRUCTURES: Heart normal size. No evidence for failure. BONES: No acute findings. HARDWARE: None in the chest. OTHER: No other significant finding. IMPRESSION: NO ACUTE RADIOGRAPHIC FINDING IN THE CHEST. TECHNICAL DOCUMENTATION: JOB ID: [id number] [employer]- All Rights Reserved Reading location - IP/workstation name: [email or web address]
[2017-11-22 17:43] LABS: ALANINE AMINOTRANSFERASE 22 U/L (21-72); ALBUMIN 3.8 g/dL (3.5-5.0); ALKALINE PHOSPHATASE 63 U/L (38-126); ANION GAP 8 (5-19); ASPARTATE AMINO TRANSFERASE 25 U/L (17-59); BILIRUBIN,DIRECT 0.2 mg/dL (0.0-0.4); BILIRUBIN,TOTAL 0.4 mg/dL (0.2-1.3); BLOOD UREA NITROGEN 10 mg/dL (7-20); CALCIUM 8.7 mg/dL (8.4-10.2); CARBON DIOXIDE 35 mmol/L (22-30); CHLORIDE 96 mmol/L (98-107); GLUCOSE 99 mg/dL (75-110); SODIUM 138.7 mmol/L (137-145); TOTAL PROTEIN 6.8 g/dL (6.3-8.2)
[2017-11-22 17:47] LABS: POTASSIUM 2.5 mmol/L (3.6-5.0)
[2017-11-22] MEDS ORDERED: POTASSI CL 20 MEQ/NS 1L 1,000 ML IV ONE (17:50)
[2017-11-22 17:51] LABS: PLATELET COUNT 88 10^3/uL (150-450)
[2017-11-22 18:11] LABS: ABSOLUTE LYMPHOCYTES# (MANUAL) 1.2 10^3/uL (0.5-4.7); ABSOLUTE MONOCYTES # (MANUAL) 1.9 10^3/uL (0.1-1.4); ABSOLUTE NEUTROPHILS# (MANUAL) 4.5 10^3/uL (1.7-8.2); BAND NEUTROPHILS % (MANUAL) 2 % (3-5); BASOPHILS % (MANUAL) 0 % (0-2); EOSINOPHILS % (MANUAL) 0 % (0-6); LYMPHOCYTES % (MANUAL) 16 % (13-45); SEGMENTED NEUTROPHILS % (MAN) 47 % (42-78); TOTAL CELLS COUNTED 100
[2017-11-22 18:12] LABS: ANISOCYTOSIS 1+; BURR CELLS SLIGHT; OVALOCYTES SLIGHT; PLATELET COMMENT DECREASED; POIKILOCYTOSIS 1+; TEAR DROP CELLS SLIGHT
[2017-11-22 18:14] LABS: METAMYELOCYTES % (MANUAL) 5 % (0); MONOCYTES % (MANUAL) 25 % (3-13); MYELOCYTES % (MANUAL) 5 % (0); POLYCHROMASIA SLIGHT; SCHISTOCYTES SLIGHT
[2017-11-22 18:17] LABS: HEMOGLOBIN 7.4 g/dL (13.5-17.0)
[2017-11-22] MEDS ORDERED: FENTANYL CITRATE INJ/PF 100 MCG/2 ML AMPUL IV ONE (18:26)
--- NOTE | 2017-11-22 19:18 | RADIOLOGY REPORT (SQ) ---
EXAM DESCRIPTION: CT HEAD WITHOUT COMPLETED DATE/TIME: 11/22/2017 6:51 pm REASON FOR STUDY: headache COMPARISON: CT head 06/09/2017. MRI head 06/12/2017. TECHNIQUE: Axial images acquired through the brain without intravenous contrast. Images reviewed wi th bone, brain and subdural windows. Images stored on PACS. All CT scanners at this facility use dose modulation, iterative reconstruction, and/or weight based d osing when appropriate to reduce radiation dose to as low as reasonably achievable (ALARA). [facility]: Dose Right [facility]: CareDose [facility]: Dose Right [facility]: Teradose 4D [facility]: Smart [email or web address] RADIATION DOSE: mGy. LIMITATIONS: None. FINDINGS: VENTRICLES: Prominent. CEREBRUM: No mass effect. No hemorrhage. No midline shift. Extensive Areas of low density in the w froylan matter are again noted. No evidence for acute territorial infarction. CEREBELLUM: No hemorrhage. No alteration of density. No evidence for acute infarction. EXTRAAXIAL SPACES: Age-related involutional change. No fluid collections. ORBITS AND GLOBE: Symmetrical contour of the globes. CALVARIUM: No depressed fracture. PARANASAL SINUSES: No air-fluid level. SOFT TISSUES: No hematoma. IMPRESSION: No acute intracranial hemorrhage or acute territorial infarct. Mild diffuse parenchymal volume loss. Extensive white matter changes. EVIDENCE OF ACUTE STROKE: NO. COMMENT: Quality ID # [id number]: Final reports with documentation of one or more dose reduction techniques (e.g., Automated exposure control, adjustment of the mA and/or kV according to patient size, use of iterative reconstruction technique) TECHNICAL DOCUMENTATION: JOB ID: [id number] [place]-64 2010 [employer]- All Rights Reserved Reading location - IP/workstation name: [email or web address]
--- NOTE | 2017-11-22 19:30 | ER Document Report ---
ED General - General Chief Complaint: Pain All Over Stated Complaint: GENERALIZED PAIN Time Seen by Provider: 11/22/17 16:46 Information source: Patient, Parent - [id number] TRAVEL OUTSIDE OF THE [place] IN LAST 30 DAYS: No - HPI Patient complains to provider of: aches all over Onset: Yesterday Onset/Duration: Gradual, Worse Quality of pain: Achy Associated symptoms: Fever, Nausea Exacerbated by: Denies Relieved by: Denies Similar symptoms previously: Yes Recently seen / treated by doctor: Yes - chemo recently - Related Data Allergies/Adverse Reactions: sulfamethoxazole [From Bactrim] Allergy (Verified 11/13/17 17:02) trimethoprim [From Bactrim] Allergy (Verified 11/13/17 17:02) Home Medications: ASA, lipitor, amlodpine, clexa, HCTZ, intelence, keppra, lisinopril, metoporol, norvir, prezista, seroquel, truvada, dapsone Past Medical History - General Information source: Patient, Parent - Social History Smoking Status: Current Every Day Smoker Chew tobacco use (# tins/day): No Frequency of alcohol use: None Drug Abuse: None Lives with: Family Family History: Reviewed & Not Pertinent, Hypertension Patient has suicidal ideation: No Patient has homicidal ideation: No - Past Medical History Cardiac Medical History: Reports: Hx Coronary Artery Disease, Hx Hypercholesterolemia, Hx Hypertension Denies: Hx Heart Attack Pulmonary Medical History: Denies: Hx Asthma, Hx Bronchitis, Hx COPD, Hx Pneumonia, Hx Tuberculosis Neurological Medical History: Reports: Hx Cerebrovascular Accident - 6 month, Hx Seizures Endocrine Medical History: Reports: None Renal/ Medical History: Reports: Hx Renal Insufficiency. Denies: Hx Peritoneal Dialysis Malignancy Medical History: Reports Hx Lymphoma - Hodgkin's lymphoma GI Medical History: Reports: Hx Gastroesophageal Reflux Disease Musculoskeltal Medical History: Denies Hx Arthritis Skin Medical History: Reports Hx MRSA Psychiatric Medical History: Reports: Hx Depression Infectious Medical History: Reports: Hx HIV - AIDS Past Surgical History: Reports: Other - Left chest port - Immunizations Hx Diphtheria, Pertussis, Tetanus Vaccination: No Hx Pneumococcal Vaccination: 07/12/09 Review of Systems - Review of Systems Constitutional: Chills, Malaise, Weakness EENT: Throat pain Cardiovascular: No symptoms reported Respiratory: No symptoms reported Gastrointestinal: Nausea Genitourinary: No symptoms reported Male Genitourinary: No symptoms reported Musculoskeletal: See HPI Skin: No symptoms reported Hematologic/Lymphatic: No symptoms reported Neurological/Psychological: Confusion, Weakness Physical Exam - Vital signs Vitals: Temp Pulse Resp BP Pulse Ox 100.1 F 102 H 18 160/86 H 100 11/22/17 16:36 11/22/17 16:36 11/22/17 16:36 11/22/17 16:36 11/22/17 16:36 - Notes Notes: PHYSICAL EXAMINATION: GENERAL: Weekly ill-appearing no apparent distress HEAD: Atraumatic, normocephalic. EYES: Pupils equal round and reactive to light, extraocular movements intact, sclera anicteric, conjunctiva are normal. ENT: Nares patent, History oropharynx with white patchy entities consistent with thrush. Moist mucous membranes. NECK: Normal range of motion, supple without lymphadenopathy LUNGS: Breath sounds clear to auscultation bilaterally and equal. No wheezes rales or rhonchi. HEART: Regular rate and rhythm without murmurs ABDOMEN: Soft, nontender, nondistended abdomen. No guarding, no rebound. No masses appreciated. Musculoskeletal: Normal range of motion, no pitting or edema. No cyanosis. NEUROLOGICAL: Cranial nerves grossly intact. Normal speech. Normal sensory, motor exams. Alert to self. (Father in law states patient is confused at baseline) PSYCH: Flat affect SKIN: Warm, Dry, normal turgor, no rashes or lesions noted. Course - Re-evaluation Re-evalutation: 11/22/17 19:29 Labs- All tests 24 hr 11/22/17 11/22/17 11/22/17 17:05 17:05 17:05 WBC 7.6 RBC 2.44 L Hgb 7.4 L Hct 22.2 L MCV 91 MCH 30.1 MCHC 33.1 RDW 18.1 H Plt Count 88 L Total Counted 100 Seg Neutrophils % Not Reportable Seg Neuts % (Manual) 47 Band Neutrophils % 2 L Lymphocytes % Not Reportable Lymphocytes % (Manual) 16 Monocytes % Not Reportable Monocytes % (Manual) 25 H Eosinophils % Not Reportable Eosinophils % (Manual) 0 Basophils % Not Reportable Basophils % (Manual) 0 Metamyelocytes % 5 H Myelocytes % 5 H Absolute Neutrophils Not Reportable Abs Neuts (Manual) 4.5 Absolute Lymphocytes Not Reportable Abs Lymphs (Manual) 1.2 Absolute Monocytes Not Reportable Abs Monocytes (Manual) 1.9 H Absolute Eosinophils Not Reportable Absolute Eos (Manual) 0.0 Absolute Basophils Not Reportable Abs Basophils (Manual) 0.0 Platelet Comment DECREASED Polychromasia SLIGHT Poikilocytosis 1+ Anisocytosis 1+ Tear Drop Cells SLIGHT Ovalocytes SLIGHT [place] Cells SLIGHT Schistocytes SLIGHT VBG pH 7.44 H VBG pCO2 47.3 VBG HCO3 31.1 VBG Base Excess 6.1 Sodium 138.7 Potassium 2.5 L* Chloride 96 L Carbon Dioxide 35 H Anion Gap 8 BUN 10 Creatinine 1.44 H Est GFR ( Amer) > 60 Est GFR (Non-Af Amer) 52 L Glucose 99 Calcium 8.7 Total Bilirubin 0.4 Direct Bilirubin 0.2 Neonat Total Bilirubin Not Reportable Neonat Direct Bilirubin Not Reportable Neonat Indirect Bili Not Reportable AST 25 ALT 22 Alkaline Phosphatase 63 Total Protein 6.8 Albumin 3.8 Chest X-Ray 11/22/17 16:46 IMPRESSION: NO ACUTE RADIOGRAPHIC FINDING IN THE CHEST. Head CT 11/22/17 17:52 IMPRESSION: No acute intracranial hemorrhage or acute territorial infarct. Mild diffuse parenchymal volume loss. Extensive white matter changes. EVIDENCE OF ACUTE STROKE: NO. 11/22/17 22:Patient with a history of HIV as well as lymphoma and currently undergoing chemotherapy.He is found to have a low-grade temperature thrombocytopenia hypokalemia as well as body aches and thrush. I do believe that the patient has an infection that the etiology of is unknown. Blood and urine cultures are pending.Patient was giving a dose of cefepime as well as potassium repletion and IV fluids and Diflucan for his thrush. - Vital Signs Vital signs: Temp Pulse Resp BP Pulse Ox 100.1 F 102 H 23 H 157/96 H 99 11/22/17 16:36 11/22/17 16:36 11/22/17 20:01 11/22/17 19:01 11/22/17 20:01 - Laboratory Result Diagrams: 11/22/17 17:05 11/22/17 17:05 Laboratory results interpreted by me: 11/22/17 11/22/17 11/22/17 17:05 17:05 17:05 RBC 2.44 L Hgb 7.4 L Hct 22.2 L RDW 18.1 H Plt Count 88 L Band Neutrophils % 2 L Monocytes % (Manual) 25 H Metamyelocytes % 5 H Myelocytes % 5 H Abs Monocytes (Manual) 1.9 H VBG pH 7.44 H Potassium 2.5 L* Chloride 96 L Carbon Dioxide 35 H Creatinine 1.44 H Est GFR (Non-Af Amer) 52 L Urine Protein Urine Glucose (UA) Urine Urobilinogen 11/22/17 18:20 RBC Hgb Hct RDW Plt Count Band Neutrophils % Monocytes % (Manual) Metamyelocytes % Myelocytes % Abs Monocytes (Manual) VBG pH Potassium Chloride Carbon Dioxide Creatinine Est GFR (Non-Af Amer) Urine Protein 100 H Urine Glucose (UA) 50 H Urine Urobilinogen 4.0 H Critical Care Note - Critical Care Note Total time excluding time spent on procedures (mins): 45 Comments: 45 minutes of critical care time spent in direct contact evaluating and reevaluating the patient, treating symptoms, reviewing labs and studies and speaking with family and consultants excluding any procedures minutes of critical care time spent in direct contact evaluating and reevaluating the patient, treating symptoms, reviewing labs and studies and speaking with family and consultants excluding any procedures Discharge - Discharge Clinical Impression: Fever, HIV (human immunodeficiency virus infection), Altered mental state, Thrombocytopenia, HIV disease, Hypokalemia Disposition: ADMITTED INPATIENT Admitting Provider: Allison[facility] Unit Admitted: [facility]
[2017-11-22 19:56] LABS: APPEARANCE,URINE SLIGHTLY-CLOUDY; BILIRUBIN,URINE NEGATIVE (NEGATIVE); COLOR,URINE YELLOW; GLUCOSE, URINE 50 mg/dL (NEGATIVE); KETONES,URINE NEGATIVE (NEGATIVE); LEUKOCYTE ESTERASE,URINE NEGATIVE (NEGATIVE); NITRITE,URINE NEGATIVE (NEGATIVE); PROTEIN,URINE 100 mg/dL (NEGATIVE)
--- NOTE | 2017-11-22 20:11 | EKG REPORT ---
SEVERITY:- ABNORMAL ECG - SINUS RHYTHM LVH WITH SECONDARY REPOLARIZATION ABNORMALITY PROLONGED QT INTERVAL : Confirmed by: Sandra Maya 22-Nov-2017 20:09:31
[2017-11-22] MEDS: HYDROMORPHONE HCL INJ/PF 2 MG/ML AMPULE IV PRN (21:06)
[2017-11-22] MEDS ORDERED: POTASSIUM CHLORIDE 20 MEQ/15 ML UDCUP PO ONE (21:58)
[2017-11-22] MEDS ORDERED: FLUCONAZOLE 200 MG/NS RTU 100 ML IV SCH (22:00)
[2017-11-22] MEDS: POTASSI CL 40 MEQ/NS 1L 1,000 ML IV PRN (22:07)
[2017-11-22] MEDS ORDERED: FLUCONAZOLE 200 MG/NS RTU 100 ML IV ONE (22:45)
[2017-11-22] MEDS: ONDANSETRON HCL INJ/PF 4 MG/2 ML SDV IV PRN (23:54)
[2017-11-23] MEDS: HYDROMORPHONE HCL INJ/PF 2 MG/ML AMPULE IV PRN ×5 (00:47→21:18)
[2017-11-23] MEDS ORDERED: (PENDING PHARMACY ID) (Etravirine [Intelence] 200 MG) PO SCH (01:15)
[2017-11-23] MEDS ORDERED: (PENDING PHARMACY ID) (Quetiapine Fumarate [Seroquel] 50 MG) PO SCH (01:15)
[2017-11-23] MEDS ORDERED: DARUNAVIR ETHANOLATE 600 MG PO SCH (01:15)
[2017-11-23] MEDS ORDERED: QUETIAPINE FUMARATE 25 MG TABLET PO ONE (01:30)
[2017-11-23] MEDS ORDERED: DAPSONE 25 MG TABLET PO ONE (01:30)
[2017-11-23] MEDS ORDERED: METOPROLOL SUCCINATE 25 MG TAB.SR.24H PO ONE (01:30)
[2017-11-23] MEDS ORDERED: AMLODIPINE BESYLATE 5 MG TABLET PO ONE (01:30)
[2017-11-23] MEDS ORDERED: DAPSONE 25 MG TABLET ONE (01:35)
[2017-11-23] MEDS ORDERED: RITONAVIR 100 MG TABLET PO ONE (01:45)
[2017-11-23 05:10] LABS: HEMATOCRIT 22.6 % (37.9-51.0); MEAN CORPUSCULAR HEMOGLOBIN 30.8 pg (27.0-33.4); MEAN CORPUSCULAR HGB CONC 33.4 g/dL (32.0-36.0); MEAN CORPUSCULAR VOLUME 92 fl (80-97); RED BLOOD COUNT 2.45 10^6/uL (4.35-5.55); RED CELL DISTRIBUTION WIDTH 18.3 % (11.5-14.0); WHITE BLOOD COUNT 6.1 10^3/uL (4.0-10.5)
[2017-11-23 05:24] LABS: HEMOGLOBIN 7.6 g/dL (13.5-17.0)
[2017-11-23 05:25] LABS: PLATELET COUNT 94 10^3/uL (150-450)
[2017-11-23 05:30] LABS: ALANINE AMINOTRANSFERASE 26 U/L (21-72); ALBUMIN 3.4 g/dL (3.5-5.0); ALKALINE PHOSPHATASE 53 U/L (38-126); ANION GAP 11 (5-19); ASPARTATE AMINO TRANSFERASE 28 U/L (17-59); BILIRUBIN,DIRECT 0.3 mg/dL (0.0-0.4); BILIRUBIN,TOTAL 0.4 mg/dL (0.2-1.3); BLOOD UREA NITROGEN 11 mg/dL (7-20); CALCIUM 8.4 mg/dL (8.4-10.2); CARBON DIOXIDE 36 mmol/L (22-30); CHLORIDE 99 mmol/L (98-107); GLUCOSE 113 mg/dL (75-110); POTASSIUM 3.1 mmol/L (3.6-5.0); SODIUM 145.5 mmol/L (137-145); TOTAL PROTEIN 6.4 g/dL (6.3-8.2)
[2017-11-23] MEDS ORDERED: CITALOPRAM HYDROBROMIDE 20 MG TABLET PO SCH (08:00)
[2017-11-23] MEDS ORDERED: LISINOPRIL 10 MG TABLET PO SCH (08:00)
[2017-11-23] MEDS: POTASSI CL 40 MEQ/NS 1L 1,000 ML IV PRN ×2 (09:57→19:07)
[2017-11-23] MEDS ORDERED: RITONAVIR 100 MG TABLET PO SCH (10:00)
[2017-11-23] MEDS ORDERED: QUETIAPINE FUMARATE 25 MG TABLET PO SCH ×2 (10:00→22:00)
[2017-11-23] MEDS ORDERED: AMLODIPINE BESYLATE 5 MG TABLET PO SCH (10:00)
[2017-11-23] MEDS ORDERED: METOPROLOL SUCCINATE 25 MG TAB.SR.24H PO SCH (10:00)
[2017-11-23] MEDS ORDERED: EMTRICITABINE/TENOFOVIR 200-300 MG TABLET PO SCH (12:00)
[2017-11-23] MEDS: EMTRICITABINE/TENOFOVIR 200/300MG TAB PO SCH (13:28)
[2017-11-23] MEDS: ETRAVIRINE 200 MG PO SCH (21:19)
[2017-11-23] MEDS: ATORVASTATIN 20MG TABLET PO SCH (21:19)
[2017-11-23] MEDS: KEPPRA 500 MG PO SCH (21:20)
[2017-11-23] MEDS: GABAPENTIN 300MG CAPSULE PO SCH (21:20)
[2017-11-23] MEDS: SEROQUEL 50 MG PO SCH (21:21)
[2017-11-23] MEDS: PREZISTA 600 MG PO SCH (21:21)
[2017-11-23] MEDS: NORVIR 100 MG PO SCH (21:21)
[2017-11-23] MEDS: FLUCONAZOLE 200 MG/NS RTU 100 ML IV SCH (21:22)
--- NOTE | 2017-11-23 21:22 | PDOC H&P ---
History of Present Illness Admission Date/PCP: 11/22/17 19:39 WILNER KIDD MD History of Present Illness: VERONICA CARDENAS is a 47 year old male, He has a history of Hodgkin's lymphoma, HIV infection on active chemotherapy, the last chemotherapy was last week, he came to the emergency room for evaluation of generalized body pains. In the emergency room he was evaluated, he was found to have acute kidney injury , hypokalemia, thrombocytopenia and low-grade fever the ED physician want him admitted to the hospital. Past Medical History Cardiac Medical History: Reports: Hyperlipidema, Hypertension Neurological Medical History: Reports: Seizures Endocrine Medical History: Reports: None Malignancy Medical History: Reports: Lymphoma - Hodgkin's lymphoma GI Medical History: Reports: Gastroesophageal Reflux Disease Psychiatric Medical History: Reports: Depression Hematology: Reports: Anemia Infectious Medical History: Reports: HIV - AIDS Past Surgical History Past Surgical History: Reports: Other - Left chest port Social History Lives with: Family Smoking Status: Current Every Day Smoker Frequency of Alcohol Use: None Hx Recreational Drug Use: Yes Drugs: Marijuana Hx Prescription Drug Abuse: No Family History Family History: Reviewed & Not Pertinent, Hypertension Parental Family History Reviewed: Yes Children Family History Reviewed: Yes Sibling(s) Family History Reviewed.: Yes Medication/Allergy Home Medications: Citalopram Hydrobromide [Citalopram HBr] 20 mg PO QAM 06/26/17 Darunavir Ethanolate [Prezista] 600 mg PO Q12 06/26/17 Lisinopril [Prinivil 10 mg Tablet] 40 mg PO QAM 06/26/17 Ritonavir [Norvir 100 mg Tablet] 100 mg PO Q12 06/26/17 Hydrochlorothiazide 25 mg PO QAM 07/21/17 Emtricitabine/Tenofovir (Tdf) [Truvada 200 mg-300 mg Tablet] 1 tab PO NOON 07/22 Etravirine [Intelence] 200 mg PO Q12 07/22/17 Oxycodone HCl [Oxycodone HCl 10 MG Tablet] 10 mg PO Q12HP PRN MDD FILLED FOR 7DAYS 11/13/17 Oxycodone HCl/Acetaminophen [Percocet 10-325 Mg Tablet] 1 tab PO Q6HP PRN MDD FILLED 09/09/17 FOR 7DAYS 11/13/17 Amlodipine Besylate [Norvasc 5 mg Tablet] 5 mg PO DAILY 11/22/17 Aspirin [Aspirin 325 mg Tablet] 325 mg PO DAILY 11/22/17 Atorvastatin Calcium [Lipitor 20 mg Tablet] 20 mg PO QHS 11/22/17 Dapsone 100 mg PO DAILY 11/22/17 Metoprolol Succinate [Toprol Xl 25 mg Tab.sr] 25 mg PO DAILY 11/22/17 Quetiapine Fumarate [Seroquel] 50 mg PO QHS 11/22/17 Gabapentin 300 mg PO Q12 11/23/17 Levetiracetam [Keppra 500 mg Tablet] 500 mg PO Q12 11/23/17 Allergies/Adverse Reactions: sulfamethoxazole [From Bactrim] Allergy (Verified 11/13/17 17:02) trimethoprim [From Bactrim] Allergy (Verified 11/13/17 17:02) Review of Systems Constitutional: PRESENT: headache(s), weakness. ABSENT: chills, fever(s), weight gain, weight loss Eyes: ABSENT: visual disturbances Ears: ABSENT: hearing changes Cardiovascular: ABSENT: chest pain, dyspnea on exertion, edema, orthropnea, palpitations Respiratory: ABSENT: cough, hemoptysis Gastrointestinal: ABSENT: abdominal pain, constipation, diarrhea, hematemesis, hematochezia, nausea, vomiting Genitourinary: ABSENT: dysuria, hematuria Musculoskeletal: ABSENT: joint swelling Integumentary: ABSENT: rash, wounds Neurological: ABSENT: abnormal gait, abnormal speech, confusion, dizziness, focal weakness, syncope Psychiatric: ABSENT: anxiety, depression, homidical ideation, suicidal ideation Endocrine: ABSENT: cold intolerance, heat intolerance, menstrual abnormalities, polydipsia, polyuria Hematologic/Lymphatic: ABSENT: easy bleeding, easy bruising, lymphadenopathy Physical Exam Vital Signs: Temp Pulse Resp BP Pulse Ox 99.5 F 99 18 134/86 H 98 11/23/17 15:10 11/23/17 19:00 11/23/17 15:10 11/23/17 15:10 11/23/17 15:10 Intake & Output 11/22/17 11/23/17 11/24/17 06:59 06:59 06:59 Intake Total 800 2480 Balance 800 2480 Weight 73 kg General appearance: PRESENT: no acute distress Eye exam: PRESENT: PERRLA Ear exam: PRESENT: normal external ear exam Mouth exam: PRESENT: moist, tongue midline Neck exam: PRESENT: full ROM Respiratory exam: PRESENT: clear to auscultation joslyn Cardiovascular exam: PRESENT: RRR, +S1, +S2 Pulses: PRESENT: normal dorsalis pedis pul, +2 pedal pulses bilateral Vascular exam: PRESENT: normal capillary refill GI/Abdominal exam: PRESENT: normal bowel sounds, soft Rectal exam: PRESENT: deferred Neurological exam: PRESENT: alert, awake, oriented to person, oriented to place , oriented to time, oriented to situation, CN II-XII grossly intact Psychiatric exam: PRESENT: appropriate affect, normal mood Skin exam: PRESENT: dry, intact, warm Results Laboratory Results: 11/23/17 04:25 11/23/17 04:25 11/23/17 11/23/17 04:25 04:25 WBC 6.1 RBC 2.45 L Hgb 7.6 L Hct 22.6 L MCV 92 MCH 30.8 MCHC 33.4 RDW 18.3 H Plt Count 94 L Sodium 145.5 H Potassium 3.1 L Chloride 99 Carbon Dioxide 36 H Anion Gap 11 BUN 11 Creatinine 1.39 H Est GFR ( Amer) > 60 Est GFR (Non-Af Amer) 54 L Glucose 113 H Calcium 8.4 Total Bilirubin 0.4 AST 28 ALT 26 Alkaline Phosphatase 53 Total Protein 6.4 Albumin 3.4 L Impressions: Chest X-Ray 11/22/17 16:46 IMPRESSION: NO ACUTE RADIOGRAPHIC FINDING IN THE CHEST. Head CT 11/22/17 17:52 IMPRESSION: No acute intracranial hemorrhage or acute territorial infarct. Mild diffuse parenchymal volume loss. Extensive white matter changes. EVIDENCE OF ACUTE STROKE: NO. Assessment & Plan - Diagnosis (1) Acute kidney injury Is this a current diagnosis for this admission?: Yes Plan: This is most likely from dehydration, we treat with IV fluid (2) Hypokalemia Is this a current diagnosis for this admission?: Yes Plan: Replace potassium (3) Thrombocytopenia Is this a current diagnosis for this admission?: Yes (4) Hodgkin lymphoma Qualifiers: Hodgkin lymphoma type: unspecified type Lymphoma site: unspecified region Qualified Code(s): C81.90 - Hodgkin lymphoma, unspecified, unspecified site Is this a current diagnosis for this admission?: Yes Plan: Patient is an active chemotherapy
--- NOTE | 2017-11-23 21:24 | PDOC PROGRESS REPORT ---
Subjective Progress Note for:: 11/23/17 Subjective:: Patient seen by the bedside, admitted yesterday for the management of body pains acute kidney injury, kidney function improving Reason For Visit: HIV, FEVER PAIN Physical Exam Vital Signs: Temp Pulse Resp BP Pulse Ox 99.5 F 99 18 134/86 H 98 11/23/17 15:10 11/23/17 19:00 11/23/17 15:10 11/23/17 15:10 11/23/17 15:10 Intake & Output 11/22/17 11/23/17 11/24/17 06:59 06:59 06:59 Intake Total 800 2480 Balance 800 2480 Weight 73 kg General appearance: PRESENT: no acute distress Eye exam: PRESENT: PERRLA Respiratory exam: PRESENT: clear to auscultation joslyn Cardiovascular exam: PRESENT: +S1, +S2 GI/Abdominal exam: PRESENT: soft Neurological exam: PRESENT: alert Results Laboratory Results: 11/23/17 04:25 11/23/17 04:25 11/23/17 11/23/17 04:25 04:25 WBC 6.1 RBC 2.45 L Hgb 7.6 L Hct 22.6 L MCV 92 MCH 30.8 MCHC 33.4 RDW 18.3 H Plt Count 94 L Sodium 145.5 H Potassium 3.1 L Chloride 99 Carbon Dioxide 36 H Anion Gap 11 BUN 11 Creatinine 1.39 H Est GFR ( Amer) > 60 Est GFR (Non-Af Amer) 54 L Glucose 113 H Calcium 8.4 Total Bilirubin 0.4 AST 28 ALT 26 Alkaline Phosphatase 53 Total Protein 6.4 Albumin 3.4 L Impressions: Chest X-Ray 11/22/17 16:46 IMPRESSION: NO ACUTE RADIOGRAPHIC FINDING IN THE CHEST. Head CT 11/22/17 17:52 IMPRESSION: No acute intracranial hemorrhage or acute territorial infarct. Mild diffuse parenchymal volume loss. Extensive white matter changes. EVIDENCE OF ACUTE STROKE: NO. Assessment & Plan - Diagnosis (1) Acute kidney injury Is this a current diagnosis for this admission?: Yes (2) Hypokalemia Is this a current diagnosis for this admission?: Yes (3) Thrombocytopenia Is this a current diagnosis for this admission?: Yes (4) Hodgkin lymphoma Qualifiers: Hodgkin lymphoma type: unspecified type Lymphoma site: unspecified region Qualified Code(s): C81.90 - Hodgkin lymphoma, unspecified, unspecified site Is this a current diagnosis for this admission?: Yes
[2017-11-23] MEDS ORDERED: LEVETIRACETAM 500 MG TABLET PO SCH (22:00)
[2017-11-23] MEDS ORDERED: ATORVASTATIN CALCIUM 20 MG TABLET PO SCH (22:00)
[2017-11-23] MEDS ORDERED: GABAPENTIN 300 MG CAPSULE PO SCH (22:00)
[2017-11-23 22:46] LABS: ALANINE AMINOTRANSFERASE 30 U/L (21-72); ALBUMIN 3.8 g/dL (3.5-5.0); ALKALINE PHOSPHATASE 56 U/L (38-126); ANION GAP 12 (5-19); ASPARTATE AMINO TRANSFERASE 40 U/L (17-59); BILIRUBIN,DIRECT 0.3 mg/dL (0.0-0.4); BILIRUBIN,TOTAL 0.5 mg/dL (0.2-1.3); BLOOD UREA NITROGEN 14 mg/dL (7-20); CALCIUM 8.8 mg/dL (8.4-10.2); CARBON DIOXIDE 35 mmol/L (22-30); CHLORIDE 97 mmol/L (98-107); GLUCOSE 113 mg/dL (75-110); SODIUM 143.5 mmol/L (137-145); TOTAL PROTEIN 6.9 g/dL (6.3-8.2)
[2017-11-23 22:50] LABS: POTASSIUM 3.5 mmol/L (3.6-5.0)
[2017-11-24] MEDS: HYDROMORPHONE HCL INJ/PF 2 MG/ML AMPULE IV PRN ×5 (01:08→21:18)
[2017-11-24] MEDS: POTASSI CL 40 MEQ/NS 1L 1,000 ML IV PRN (06:26)
[2017-11-24] MEDS ORDERED: HYDROCHLOROTHIAZIDE 25 MG TABLET PO SCH (08:00)
[2017-11-24] MEDS: METOPROLOL SUCCINATE 25 MG PO SCH (08:54)
[2017-11-24] MEDS: HYDROCHLOROTHIAZIDE 25MG TABLET PO SCH (08:54)
[2017-11-24] MEDS: CITALOPRAM 20MG TABLET PO SCH (08:54)
[2017-11-24] MEDS: ASPIRIN 325MG TABLET PO SCH (08:54)
[2017-11-24] MEDS: DAPSONE 100MG TABLET PO SCH (08:54)
[2017-11-24] MEDS: AMLODIPINE 5MG TABLET PO SCH (08:54)
[2017-11-24] MEDS: PREZISTA 600 MG PO SCH ×2 (08:55→21:36)
[2017-11-24] MEDS: ETRAVIRINE 200 MG PO SCH ×2 (08:55→21:36)
[2017-11-24] MEDS: LISINOPRIL 40MG TABLET PO SCH (08:55)
[2017-11-24] MEDS: GABAPENTIN 300MG CAPSULE PO SCH ×2 (08:56→21:37)
[2017-11-24] MEDS: NORVIR 100 MG PO SCH ×2 (08:56→21:37)
[2017-11-24] MEDS: KEPPRA 500 MG PO SCH ×2 (08:56→21:38)
[2017-11-24 09:07] LABS: HEMATOCRIT 22.1 % (37.9-51.0); MEAN CORPUSCULAR HEMOGLOBIN 30.7 pg (27.0-33.4); MEAN CORPUSCULAR HGB CONC 33.3 g/dL (32.0-36.0); MEAN CORPUSCULAR VOLUME 92 fl (80-97); RED BLOOD COUNT 2.41 10^6/uL (4.35-5.55); RED CELL DISTRIBUTION WIDTH 18.4 % (11.5-14.0); WHITE BLOOD COUNT 3.2 10^3/uL (4.0-10.5)
[2017-11-24 09:25] LABS: ALANINE AMINOTRANSFERASE 30 U/L (21-72); ALBUMIN 3.4 g/dL (3.5-5.0); ALKALINE PHOSPHATASE 50 U/L (38-126); ANION GAP 7 (5-19); ASPARTATE AMINO TRANSFERASE 38 U/L (17-59); BILIRUBIN,DIRECT 0.3 mg/dL (0.0-0.4); BILIRUBIN,TOTAL 0.5 mg/dL (0.2-1.3); BLOOD UREA NITROGEN 17 mg/dL (7-20); CALCIUM 8.3 mg/dL (8.4-10.2); CARBON DIOXIDE 35 mmol/L (22-30); CHLORIDE 102 mmol/L (98-107); GLUCOSE 105 mg/dL (75-110); POTASSIUM 3.4 mmol/L (3.6-5.0); SODIUM 144.3 mmol/L (137-145); TOTAL PROTEIN 6.2 g/dL (6.3-8.2)
[2017-11-24 09:34] LABS: PLATELET COUNT 92 10^3/uL (150-450)
[2017-11-24 09:38] LABS: ABSOLUTE LYMPHOCYTES# (MANUAL) 0.9 10^3/uL (0.5-4.7); ABSOLUTE MONOCYTES # (MANUAL) 0.5 10^3/uL (0.1-1.4); ABSOLUTE NEUTROPHILS# (MANUAL) 1.8 10^3/uL (1.7-8.2); BAND NEUTROPHILS % (MANUAL) 10 % (3-5); BASOPHILS % (MANUAL) 0 % (0-2); EOSINOPHILS % (MANUAL) 0 % (0-6); LYMPHOCYTES % (MANUAL) 27 % (13-45); METAMYELOCYTES % (MANUAL) 2 % (0); MONOCYTES % (MANUAL) 16 % (3-13); SEGMENTED NEUTROPHILS % (MAN) 44 % (42-78); TOTAL CELLS COUNTED 100
[2017-11-24 09:47] LABS: NUCLEATED RED BLOOD CELLS 15 /100 WBC (0)
[2017-11-24 09:50] LABS: BURR CELLS SLIGHT; OVALOCYTES 1+; PLATELET COMMENT DECREASED; POIKILOCYTOSIS 2+; SCHISTOCYTES 2+; TARGET CELLS SLIGHT
[2017-11-24 09:51] LABS: ANISOCYTOSIS 1+; HEMOGLOBIN 7.4 g/dL (13.5-17.0)
[2017-11-24] MEDS ORDERED: DAPSONE 25 MG TABLET PO SCH (10:00)
[2017-11-24] MEDS ORDERED: ASPIRIN 325 MG TABLET PO SCH (10:00)
[2017-11-24] MEDS: EMTRICITABINE/TENOFOVIR 200/300MG TAB PO SCH (11:19)
--- NOTE | 2017-11-24 20:07 | PDOC PROGRESS REPORT ---
Subjective Progress Note for:: 11/24/17 Subjective:: Patient was seen by the bedside, he was transfused with packed red blood cells today Reason For Visit: HIV, FEVER PAIN Physical Exam Vital Signs: Temp Pulse Resp BP Pulse Ox 98.2 F 84 16 138/94 H 100 11/24/17 16:27 11/24/17 19:00 11/24/17 16:27 11/24/17 16:27 11/24/17 16:27 Intake & Output 11/23/17 11/24/17 11/25/17 06:59 06:59 06:59 Intake Total 800 4160 2750 Output Total 400 625 Balance 800 3760 2125 Weight 73 kg 73.9 kg General appearance: PRESENT: no acute distress Eye exam: PRESENT: PERRLA Respiratory exam: PRESENT: clear to auscultation joslyn Cardiovascular exam: PRESENT: +S1, +S2 GI/Abdominal exam: PRESENT: soft Neurological exam: PRESENT: alert Results Laboratory Results: 11/24/17 08:37 11/24/17 08:37 11/23/17 11/24/17 11/24/17 22:15 08:37 08:37 WBC 3.2 L RBC 2.41 L Hgb 7.4 L Hct 22.1 L MCV 92 MCH 30.7 MCHC 33.3 RDW 18.4 H Plt Count 92 L Seg Neutrophils % Not Reportable Lymphocytes % Not Reportable Monocytes % Not Reportable Eosinophils % Not Reportable Basophils % Not Reportable Absolute Neutrophils Not Reportable Absolute Lymphocytes Not Reportable Absolute Monocytes Not Reportable Absolute Eosinophils Not Reportable Absolute Basophils Not Reportable Sodium 143.5 144.3 Potassium 3.5 L 3.4 L Chloride 97 L 102 Carbon Dioxide 35 H 35 H Anion Gap 12 7 BUN 14 17 Creatinine 1.52 H 1.39 H Est GFR ( Amer) 59 L > 60 Est GFR (Non-Af Amer) 49 L 54 L Glucose 113 H 105 Calcium 8.8 8.3 L Total Bilirubin 0.5 0.5 AST 40 38 ALT 30 30 Alkaline Phosphatase 56 50 Total Protein 6.9 6.2 L Albumin 3.8 3.4 L Impressions: Chest X-Ray 11/22/17 16:46 IMPRESSION: NO ACUTE RADIOGRAPHIC FINDING IN THE CHEST. Head CT 11/22/17 17:52 IMPRESSION: No acute intracranial hemorrhage or acute territorial infarct. Mild diffuse parenchymal volume loss. Extensive white matter changes. EVIDENCE OF ACUTE STROKE: NO. Assessment & Plan - Diagnosis (1) Acute kidney injury Is this a current diagnosis for this admission?: Yes (2) Hypokalemia Is this a current diagnosis for this admission?: Yes (3) Thrombocytopenia Is this a current diagnosis for this admission?: Yes (4) Hodgkin lymphoma Qualifiers: Hodgkin lymphoma type: unspecified type Lymphoma site: unspecified region Qualified Code(s): C81.90 - Hodgkin lymphoma, unspecified, unspecified site Is this a current diagnosis for this admission?: Yes - Plan Summary Plan Summary: Continue hydration present treatment
[2017-11-24] MEDS: FLUCONAZOLE 200 MG/NS RTU 100 ML IV SCH (21:23)
[2017-11-24] MEDS: ATORVASTATIN 20MG TABLET PO SCH (21:37)
[2017-11-24] MEDS: SEROQUEL 50 MG PO SCH (21:37)
[2017-11-24 21:54] LABS: HEMATOCRIT 29.9 % (37.9-51.0); MEAN CORPUSCULAR HEMOGLOBIN 30.2 pg (27.0-33.4); MEAN CORPUSCULAR HGB CONC 33.5 g/dL (32.0-36.0); MEAN CORPUSCULAR VOLUME 90 fl (80-97); PLATELET COUNT 105 10^3/uL (150-450); RED BLOOD COUNT 3.31 10^6/uL (4.35-5.55); RED CELL DISTRIBUTION WIDTH 17.8 % (11.5-14.0); WHITE BLOOD COUNT 4.7 10^3/uL (4.0-10.5)
[2017-11-24 22:20] LABS: ABSOLUTE LYMPHOCYTES# (MANUAL) 1.2 10^3/uL (0.5-4.7); ABSOLUTE MONOCYTES # (MANUAL) 0.7 10^3/uL (0.1-1.4); ABSOLUTE NEUTROPHILS# (MANUAL) 2.7 10^3/uL (1.7-8.2); BAND NEUTROPHILS % (MANUAL) 3 % (3-5); BASOPHILS % (MANUAL) 0 % (0-2); EOSINOPHILS % (MANUAL) 2 % (0-6); LYMPHOCYTES % (MANUAL) 25 % (13-45); METAMYELOCYTES % (MANUAL) 3 % (0); MONOCYTES % (MANUAL) 15 % (3-13); NUCLEATED RED BLOOD CELLS 5 /100 WBC (0); SEGMENTED NEUTROPHILS % (MAN) 51 % (42-78); TOTAL CELLS COUNTED 100
[2017-11-24 22:22] LABS: ANISOCYTOSIS 2+; HYPOCHROMASIA 1+; OVALOCYTES 1+; POIKILOCYTOSIS 2+; POLYCHROMASIA SLIGHT; SCHISTOCYTES SLIGHT; TOXIC GRANULATION SLIGHT
[2017-11-24 22:23] LABS: BURR CELLS SLIGHT; PLATELET COMMENT DECREASED
[2017-11-25] MEDS: POTASSI CL 40 MEQ/NS 1L 1,000 ML IV PRN ×3 (00:13→14:23)
[2017-11-25] MEDS: HYDROMORPHONE HCL INJ/PF 2 MG/ML AMPULE IV PRN ×5 (02:27→20:53)
[2017-11-25] MEDS: HYDROCHLOROTHIAZIDE 25MG TABLET PO SCH (09:13)
[2017-11-25] MEDS: ASPIRIN 325MG TABLET PO SCH (09:13)
[2017-11-25] MEDS: CITALOPRAM 20MG TABLET PO SCH (09:13)
[2017-11-25] MEDS: DAPSONE 100MG TABLET PO SCH (09:13)
[2017-11-25] MEDS: AMLODIPINE 5MG TABLET PO SCH (09:13)
[2017-11-25] MEDS: METOPROLOL SUCCINATE 25 MG PO SCH (09:14)
[2017-11-25] MEDS: NORVIR 100 MG PO SCH ×2 (09:14→20:56)
[2017-11-25] MEDS: PREZISTA 600 MG PO SCH ×2 (09:14→20:57)
[2017-11-25] MEDS: KEPPRA 500 MG PO SCH ×2 (09:14→20:56)
[2017-11-25] MEDS: LISINOPRIL 40MG TABLET PO SCH (09:14)
[2017-11-25] MEDS: ETRAVIRINE 200 MG PO SCH ×2 (09:14→20:56)
[2017-11-25] MEDS: GABAPENTIN 300MG CAPSULE PO SCH ×2 (09:14→20:56)
[2017-11-25 11:20] LABS: PATH REVIEW PATHOLOGIST REVIEWED
[2017-11-25] MEDS: EMTRICITABINE/TENOFOVIR 200/300MG TAB PO SCH (11:22)
--- NOTE | 2017-11-25 20:37 | PDOC PROGRESS REPORT ---
Subjective Progress Note for:: 11/25/17 Subjective:: Patient was seen by the bedside, he was transfused with packed red blood cells, he has oral thrush Reason For Visit: HIV, FEVER PAIN Physical Exam Vital Signs: Temp Pulse Resp BP Pulse Ox 97.7 F 90 16 141/81 H 100 11/25/17 16:27 11/25/17 19:00 11/25/17 16:27 11/25/17 16:37 11/25/17 16:27 Intake & Output 11/24/17 11/25/17 11/26/17 06:59 06:59 06:59 Intake Total 4160 4350 1896 Output Total 400 625 Balance 3760 3725 1896 Weight 73.9 kg 73.2 kg General appearance: PRESENT: no acute distress Eye exam: PRESENT: PERRLA Respiratory exam: PRESENT: clear to auscultation joslyn Cardiovascular exam: PRESENT: +S1, +S2 GI/Abdominal exam: PRESENT: soft Neurological exam: PRESENT: alert, CN II-XII grossly intact Results Laboratory Results: 11/24/17 21:30 11/24/17 08:37 11/24/17 21:30 WBC 4.7 RBC 3.31 L Hgb 10.0 L D Hct 29.9 L MCV 90 MCH 30.2 MCHC 33.5 RDW 17.8 H Plt Count 105 L Seg Neutrophils % Not Reportable Lymphocytes % Not Reportable Monocytes % Not Reportable Eosinophils % Not Reportable Basophils % Not Reportable Absolute Neutrophils Not Reportable Absolute Lymphocytes Not Reportable Absolute Monocytes Not Reportable Absolute Eosinophils Not Reportable Absolute Basophils Not Reportable Impressions: Chest X-Ray 11/22/17 16:46 IMPRESSION: NO ACUTE RADIOGRAPHIC FINDING IN THE CHEST. Head CT 11/22/17 17:52 IMPRESSION: No acute intracranial hemorrhage or acute territorial infarct. Mild diffuse parenchymal volume loss. Extensive white matter changes. EVIDENCE OF ACUTE STROKE: NO. Assessment & Plan - Diagnosis (1) Acute kidney injury Is this a current diagnosis for this admission?: Yes (2) Hypokalemia Is this a current diagnosis for this admission?: Yes (3) Thrombocytopenia Is this a current diagnosis for this admission?: Yes (4) Hodgkin lymphoma Qualifiers: Hodgkin lymphoma type: unspecified type Lymphoma site: unspecified region Qualified Code(s): C81.90 - Hodgkin lymphoma, unspecified, unspecified site Is this a current diagnosis for this admission?: Yes (5) Anemia Qualifiers: Anemia type: other cause Other causes of anemia: antineoplastic chemotherapy Qualified Code(s): D64.81 - Anemia due to antineoplastic chemotherapy; T45.1X5A - Adverse effect of antineoplastic and immunosuppressive drugs, initial encounter; T45.1X5A - Adverse effect of antineoplastic and immunosuppressive drugs, initial encounter Is this a current diagnosis for this admission?: Yes Plan: Patient transfused with packed red blood cells
[2017-11-25] MEDS: SEROQUEL 50 MG PO SCH (20:57)
[2017-11-25] MEDS: ATORVASTATIN 20MG TABLET PO SCH (20:57)
[2017-11-25] MEDS: FLUCONAZOLE 200 MG/NS RTU 100 ML IV SCH (21:52)
[2017-11-25] MEDS ORDERED: NYSTATIN 500000 UNIT/5 ML UDCUP PO ONE (22:00)
[2017-11-26] MEDS: POTASSI CL 40 MEQ/NS 1L 1,000 ML IV PRN ×3 (00:57→23:53)
[2017-11-26] MEDS: HYDROMORPHONE HCL INJ/PF 2 MG/ML AMPULE IV PRN ×6 (00:57→21:16)
[2017-11-26] MEDS: NYSTATIN 500000 UNIT/5 ML UDCUP PO SCH ×4 (05:00→23:53)
[2017-11-26] MEDS: DAPSONE 100MG TABLET PO SCH (09:17)
[2017-11-26] MEDS: HYDROCHLOROTHIAZIDE 25MG TABLET PO SCH (09:17)
[2017-11-26] MEDS: ASPIRIN 325MG TABLET PO SCH (09:18)
[2017-11-26] MEDS: CITALOPRAM 20MG TABLET PO SCH (09:18)
[2017-11-26] MEDS: KEPPRA 500 MG PO SCH ×2 (09:18→21:19)
[2017-11-26] MEDS: LISINOPRIL 40MG TABLET PO SCH (09:18)
[2017-11-26] MEDS: METOPROLOL SUCCINATE 25 MG PO SCH (09:18)
[2017-11-26] MEDS: PREZISTA 600 MG PO SCH ×2 (09:18→21:21)
[2017-11-26] MEDS: AMLODIPINE 5MG TABLET PO SCH (09:19)
[2017-11-26] MEDS: GABAPENTIN 300MG CAPSULE PO SCH ×2 (09:19→21:19)
[2017-11-26] MEDS: NORVIR 100 MG PO SCH ×2 (09:19→21:20)
[2017-11-26] MEDS: ETRAVIRINE 200 MG PO SCH ×2 (09:19→21:19)
[2017-11-26] MEDS: EMTRICITABINE/TENOFOVIR 200/300MG TAB PO SCH (11:48)
--- NOTE | 2017-11-26 20:54 | PDOC DISCHARGE SUMMARY ---
General - Admit/Disc Date/PCP Admission Date/Primary Care Provider: 11/22/17 19:39 WILNER KIDD MD Discharge Date: 11/26/17 - Discharge Diagnosis (1) Acute kidney injury Is this a current diagnosis for this admission?: Yes (2) Hypokalemia Is this a current diagnosis for this admission?: Yes (3) Thrombocytopenia Is this a current diagnosis for this admission?: Yes (4) Hodgkin lymphoma Is this a current diagnosis for this admission?: Yes (5) Anemia Is this a current diagnosis for this admission?: Yes - Additional Information Prescriptions: Nystatin [Mycostatin 500,000 Unit/5 ml Susp Udcup] 500,000 unit PO Q6 #120 udc Home Medications: Citalopram Hydrobromide [Citalopram HBr] 20 mg PO QAM 06/26/17 Darunavir Ethanolate [Prezista] 600 mg PO Q12 06/26/17 Lisinopril [Prinivil 10 mg Tablet] 40 mg PO QAM 06/26/17 Ritonavir [Norvir 100 mg Tablet] 100 mg PO Q12 06/26/17 Hydrochlorothiazide 25 mg PO QAM 07/21/17 Emtricitabine/Tenofovir (Tdf) [Truvada 200 mg-300 mg Tablet] 1 tab PO NOON 07/22 Etravirine [Intelence] 200 mg PO Q12 07/22/17 Oxycodone HCl [Oxycodone HCl 10 MG Tablet] 10 mg PO Q12HP PRN MDD FILLED FOR 7DAYS 11/13/17 Oxycodone HCl/Acetaminophen [Percocet 10-325 mg Tablet] 1 tab PO Q6HP PRN MDD FILLED 09/09/17 FOR 7DAYS 11/13/17 Amlodipine Besylate [Norvasc 5 mg Tablet] 5 mg PO DAILY 11/22/17 Aspirin [Aspirin 325 mg Tablet] 325 mg PO DAILY 11/22/17 Atorvastatin Calcium [Lipitor 20 mg Tablet] 20 mg PO QHS 11/22/17 Dapsone 100 mg PO DAILY 11/22/17 Metoprolol Succinate [Toprol Xl 25 mg Tab.sr] 25 mg PO DAILY 11/22/17 Quetiapine Fumarate [Seroquel] 50 mg PO QHS 11/22/17 Gabapentin 300 mg PO Q12 11/23/17 Levetiracetam [Keppra 500 mg Tablet] 500 mg PO Q12 11/23/17 Nystatin [Mycostatin 500,000 Unit/5 ml Susp Udcup] 500,000 unit PO Q6 #120 udc 11/26/17 History of Present Illness History of Present Illness: VERONICA CARDENAS is a 47 year old male, He has a history of Hodgkin's lymphoma, HIV infection on active chemotherapy, the last chemotherapy was last week, he came to the emergency room for evaluation of generalized body pains. In the emergency room he was evaluated, he was found to have acute kidney injury , hypokalemia, thrombocytopenia and low-grade fever the ED physician want him admitted to the hospital. Hospital Course Hospital Course: Patient was admitted for the management of generalized body pains acute kidney injury anemia and thrombocytopenia was transfused with packed red blood cells was treated with IV fluid, pain control with Dilaudid ,patient is improved and there is no acute infection. Patient is on active chemotherapy Physical Exam Vital Signs: Temp Pulse Resp BP Pulse Ox 97.5 F 84 16 135/89 H 97 11/26/17 07:20 11/26/17 14:00 11/26/17 07:20 11/26/17 07:20 11/26/17 07:20 Intake & Output 11/25/17 11/26/17 11/27/17 06:59 06:59 06:59 Intake Total 4350 3833 2373 Output Total 625 0 Balance 3725 3833 2373 Weight 73.2 kg 74.4 kg General appearance: PRESENT: no acute distress, well-developed, well-nourished Head exam: PRESENT: atraumatic, normocephalic Eye exam: PRESENT: conjunctiva pink, EOMI, PERRLA Ear exam: PRESENT: normal external ear exam Mouth exam: PRESENT: moist, tongue midline Neck exam: PRESENT: full ROM Respiratory exam: PRESENT: chest wall tenderness Cardiovascular exam: PRESENT: RRR, +S1, +S2 GI/Abdominal exam: PRESENT: normal bowel sounds, soft Rectal exam: PRESENT: deferred Neurological exam: PRESENT: alert Psychiatric exam: PRESENT: appropriate affect, normal mood Skin exam: PRESENT: dry, intact, warm Results Laboratory Results: 11/24/17 21:30 11/24/17 08:37 Impressions: Chest X-Ray 11/22/17 16:46 IMPRESSION: NO ACUTE RADIOGRAPHIC FINDING IN THE CHEST. Head CT 11/22/17 17:52 IMPRESSION: No acute intracranial hemorrhage or acute territorial infarct. Mild diffuse parenchymal volume loss. Extensive white matter changes. EVIDENCE OF ACUTE STROKE: NO. Qualifiers - * PATIENT BEING DISCHARGED WITH ANY OF THE FOLLOWING DIAGNOSIS: No
[2017-11-26] MEDS: FLUCONAZOLE 200 MG/NS RTU 100 ML IV SCH (21:16)
[2017-11-26] MEDS: ATORVASTATIN 20MG TABLET PO SCH (21:19)
[2017-11-26] MEDS: SEROQUEL 50 MG PO SCH (21:20)
[2017-11-26] MEDS: ONDANSETRON HCL INJ/PF 4 MG/2 ML SDV IV PRN (21:27)
[2017-11-26 21:40] LABS: ALANINE AMINOTRANSFERASE 37 U/L (21-72); ALBUMIN 3.8 g/dL (3.5-5.0); ALKALINE PHOSPHATASE 58 U/L (38-126); ANION GAP 9 (5-19); ASPARTATE AMINO TRANSFERASE 44 U/L (17-59); BILIRUBIN,DIRECT 0.3 mg/dL (0.0-0.4); BILIRUBIN,TOTAL 0.4 mg/dL (0.2-1.3); BLOOD UREA NITROGEN 14 mg/dL (7-20); CALCIUM 9.1 mg/dL (8.4-10.2); CARBON DIOXIDE 31 mmol/L (22-30); CHLORIDE 105 mmol/L (98-107); GLUCOSE 88 mg/dL (75-110); POTASSIUM 4.6 mmol/L (3.6-5.0); SODIUM 145.4 mmol/L (137-145); TOTAL PROTEIN 6.8 g/dL (6.3-8.2)
[2017-11-27] MEDS: HYDROMORPHONE HCL INJ/PF 2 MG/ML AMPULE IV PRN ×3 (01:03→10:01)
[2017-11-27] MEDS: NYSTATIN 500000 UNIT/5 ML UDCUP PO SCH (05:40)
[2017-11-27] MEDS: CITALOPRAM 20MG TABLET PO SCH (09:58)
[2017-11-27] MEDS: HYDROCHLOROTHIAZIDE 25MG TABLET PO SCH (09:58)
[2017-11-27] MEDS: AMLODIPINE 5MG TABLET PO SCH (09:58)
[2017-11-27] MEDS: DAPSONE 100MG TABLET PO SCH (09:58)
[2017-11-27] MEDS: ASPIRIN 325MG TABLET PO SCH (09:59)
[2017-11-27] MEDS: METOPROLOL SUCCINATE 25 MG PO SCH (09:59)
[2017-11-27] MEDS: LISINOPRIL 40MG TABLET PO SCH (09:59)
[2017-11-27] MEDS: NORVIR 100 MG PO SCH (10:00)
[2017-11-27] MEDS: PREZISTA 600 MG PO SCH (10:00)
[2017-11-27] MEDS: KEPPRA 500 MG PO SCH (10:00)
[2017-11-27] MEDS: ETRAVIRINE 200 MG PO SCH (10:00)
[2017-11-27] MEDS: GABAPENTIN 300MG CAPSULE PO SCH (10:01)
[2017-11-27 10:57] VITALS: BP 150/101
== END 2017-11-27 11:45 | disposition home or self-care (01) | DRG 682 ==
LOC: ER 16:22 → EH 19:39 → 3W 21:47
PROVIDERS: ADMIT Internal Medicine; ATTEND Internal Medicine
PROC: 30233N1 Transfusion of Nonautologous Red Blood Cells into Peripheral Vein, Percutaneous Approach (ICD-10-PCS; principal; 2017-11-24)
DX: N17.9 Acute kidney failure, unspecified (principal); B20 Human immunodeficiency virus [HIV] disease; C81.90 Hodgkin lymphoma, unspecified, unspecified site; B37.0 Candidal stomatitis; E87.6 Hypokalemia; D64.81 Anemia due to antineoplastic chemotherapy; E86.0 Dehydration; T45.1X5A Adverse effect of antineoplastic and immunosuppressive drugs, initial encounter; D69.59 Other secondary thrombocytopenia; E78.5 Hyperlipidemia, unspecified; I10 Essential (primary) hypertension; K21.9 Gastro-esophageal reflux disease without esophagitis; F32.9 Major depressive disorder, single episode, unspecified; F17.200 Nicotine dependence, unspecified, uncomplicated; Z79.899 Other long term (current) drug therapy; Z79.82 Long term (current) use of aspirin; Z88.2 Allergy status to sulfonamides; Z88.6 Allergy status to analgesic agent
CPT/HCPCS: 36415; 36430; 70450; 71046; 80053; 81001; 82803; 85025; 85027; 86850; 86900; 86901; 86920; 87040; 87070; 87086; 87880; 93005; 93010; 96365; 96368; 96375; 99291; J0692; J1170; J1450; J2405; J3010; J3480; J3490; J7030; P9016

== ENCOUNTER → 2017-12-05 | Outpatient (CLI) | payer MEDICARE, MEDICAID ==
--- NOTE | 2017-12-07 07:48 | RADIOLOGY REPORT (SQ) ---
EXAM DESCRIPTION: PET CT SKULL/THIGH COMPLETED DATE/TIME: 12/05/2017 5:49 pm REASON FOR STUDY: HODGKIN LYMPHOMA C81.93 HODGKIN LYMPHOMA, UNSPECIFIED, INTRA-ABDOMINAL LYMPH COMPARISON: PET-CT 06/01/2017 CT chest abdomen pelvis 06/27/2017, 08/23/2017 RADIONUCLIDE AND DOSE: 11.4 mCi F18 FDG The route of agent administration: Intravenous FASTING BLOOD SUGAR: 93 mg/dl CONTRAST TYPE AND DOSE: No CT contrast given. TECHNIQUE: Blood glucose level was verified. Above dose of FDG was injected intravenously. 2-D seg mented attenuation correction images were obtained from the base of the skull to the midthighs. Nonc ontrast CT images were obtained for attenuation correction and fusion with emission images. CT image s were performed without oral or intravenous contrast and are not sensitive for parenchymal lesions. A series of overlapping emission PET images were obtained. Images reviewed and manipulated at [facility] work station by the radiologist. Images stored on PACS. LIMITATIONS: None. FINDINGS: HEAD AND NECK: No areas of abnormal metabolic activity in the soft tissues of the head and neck. CHEST: No areas of abnormal metabolic activity in the chest. ABDOMEN AND PELVIS: No areas of abnormal metabolic activity in the abdomen or pelvis. Expected physi ologic activity is present in the genitourinary system and bowel. PROXIMAL LOWER EXTREMITIES: No areas of abnormal metabolic activity in the soft tissues of the lower extremities. BONES: No abnormal metabolic activity in the visualized skeleton. ADDITIONAL CT FINDINGS: Right-sided permanent central line tip superior vena cava in OTHER: Liver background SUV 1.5. Blood pool background SUV 1.4. IMPRESSION: No PET-CT evidence of residual with kind Hodgkin's lymphoma TECHNICAL DOCUMENTATION: JOB ID: [id number] [employer]- All Rights Reserved Reading location - IP/workstation name: [email or web address]
== END ==
LOC: RAD 15:15
PROVIDERS: ATTEND Internal Medicine Medical Oncology
DX: C81.93 Hodgkin lymphoma, unspecified, intra-abdominal lymph nodes (principal)
CPT/HCPCS: 78815; A9552

== ENCOUNTER 2018-02-07 12:58 | Emergency (ER) | payer MEDICARE, MEDICAID ==
[2018-02-07] MEDS ORDERED: LORAZEPAM INJ 2 MG/1 ML VIAL ONE (13:24)
--- NOTE | 2018-02-07 13:35 | RADIOLOGY REPORT (SQ) ---
EXAM DESCRIPTION: CT HEAD WITHOUT COMPLETED DATE/TIME: 02/07/2018 1:18 pm REASON FOR STUDY: stroke COMPARISON: 11/22/2017. TECHNIQUE: Axial images acquired through the brain without intravenous contrast. Images reviewed wi th bone, brain and subdural windows. Additional sagittal and coronal reconstructions were generated. Images stored on PACS. All CT scanners at this facility use dose modulation, iterative reconstruction, and/or weight based d osing when appropriate to reduce radiation dose to as low as reasonably achievable (ALARA). [facility]: Dose Right [facility]: CareDose [facility]: Dose Right [facility]: Teradose 4D [facility]: [employer] RADIATION DOSE: mGy. LIMITATIONS: None. FINDINGS: VENTRICLES: Prominent. CEREBRUM: No masses. No hemorrhage. No midline shift. Areas of low density in the white matter mos t likely due to chronic micro-vascular ischemic change. No evidence for acute infarction. CEREBELLUM: No masses. No hemorrhage. No alteration of density. No evidence for acute infarction. EXTRAAXIAL SPACES: Age-related involutional change. No fluid collections. No masses. ORBITS AND GLOBE: No intra- or extraconal masses. Normal contour of globe without masses. CALVARIUM: No fracture. PARANASAL SINUSES: No fluid or mucosal thickening. SOFT TISSUES: No mass or hematoma. OTHER: No other significant finding. IMPRESSION: CHRONIC CHANGES OF ATROPHY AND MICROVASCULAR ISCHEMIA. NO ACUTE PROCESS. EVIDENCE OF ACUTE STROKE: NO. COMMENT: Pertinent positive or negative findings of the imaging study reported as a CRITICAL EXAM jenelle SHAH MD at13:29 on 02/07/2018. Category of Critical Exam: Stroke protocol. TECHNICAL DOCUMENTATION: JOB ID: [id number] Quality ID # [id number]: Final reports with documentation of one or more dose reduction techniques (e.g., Au tomated exposure control, adjustment of the mA and/or kV according to patient size, use of iterative reconstruction technique) 2010 [employer]- All Rights Reserved Reading location - IP/workstation name: [email or web address]
[2018-02-07 13:37] LABS: HEMATOCRIT 33.9 % (37.9-51.0); HEMOGLOBIN 10.9 g/dL (13.5-17.0); INTERNATIONAL RATION (INR) 0.94; MEAN CORPUSCULAR HEMOGLOBIN 31.5 pg (27.0-33.4); MEAN CORPUSCULAR HGB CONC 32.3 g/dL (32.0-36.0); MEAN CORPUSCULAR VOLUME 98 fl (80-97); RED BLOOD COUNT 3.47 10^6/uL (4.35-5.55); RED CELL DISTRIBUTION WIDTH 17.4 % (11.5-14.0); WHITE BLOOD COUNT 5.2 10^3/uL (4.0-10.5)
[2018-02-07 13:38] LABS: PARTIAL THROMBOPLASTIN TIME 33.8 SEC (23.5-35.8)
--- NOTE | 2018-02-07 13:50 | ER Document Report ---
ED NIH Stroke Scale - NIH Stroke Scale When completed:: Before Alteplase *: 1. NIH scale should be completed with appropriate accompanying assessment tools. *: 2. The NIH should reflect what the patient is capable of doing and should not be coached by the clinician. 1a. Level of Consciousness: 0=Alert;keenly responsive -: 1=Drowsy -: 2=Obtunded -: 3=Coma/unresponsive or reflex to noxious stimuli. 1a. Responses: 2 1b. Orientation Questions: a. What month is it? -: b. How old are you? -: 0=Answers both questions correctly. -: 1=Answers one question correctly or patient is intubated or has orotracheal trauma. -: 2=Answers neither question correctly. 1b. Responses: 2 1c. Response to commands: a. Open and close eyes? -: b. Plaster Tender and release hand? -: Credit is given despite weakness. Demonstration of task is permitted. Substitute command if hands cannot be used. -: 0=Performs both tasks correctly -: 1=Performs one task correctly -: 2=Performs neither task correctly 1c. Responses: 2 2. Gaze: Establish eye contact and instruct patient to "Follow my finger" -: 0=Normal -: 1=Partial gaze palsy. Gaze is abnormal in one or both eyes, but where forced deviation or total gaze paresis is not present. -: 2=Forced deviation or total gaze paresis. 2. Responses: 2 3. Visual Solomon: Sees fingers in all four quadrants. -: 0=No visual loss. -: 1=Partial hemianopsia. -: 2=Complete hemianopsia. -: 3=Bilateral hemianopsia (including Cortical blindness) 3. Responses: 0 4. Facial Movement: Instruct patient to: -: a. Show me your teeth -: b. Raise your eyebrows -: c. Close your eyes -: d. Smile -: 0=Normal symmetrical movement -: 1=Minor paralysis (flattened nasolabial fold, asymmetry on smiling). -: 2=Partial paralysis (total or near total paralysis of lower face). -: 3=Complete paralysis of upper and lower face 4. Responses: 3 5. Motor functions (left arm): Alternate sides and extend each arm with palms down (90 degrees if sitting or 45 degrees for supine). -: 0=No drift;limb holds for full 10 seconds. -: 1=Drift; limb holds but drifts down before full 10 seconds, but does not hit bed. -: 2=Some effort against gravity; limb cannot get to or maintain position. -: 3=No effort against gravity; limb falls. -: 4=No movement. -: UN=Amputation, joint fusion, explain in comments. 5. Responses (left arm): 0 5. Motor Functions (right arm): Alternate sides and extend each arm with palms down (90 degrees if sitting or 45 degrees for supine). -: 0=No drift;limb holds for full 10 seconds. -: 1=Drift; limb holds but drifts down before full 10 seconds, but does not hit bed. -: 2=Some effort against gravity; limb cannot get to or maintain position. -: 3=No effort against gravity; limb falls. -: 4=No movement. -: UN=Amputation, joint fusion, explain in comments. 5. Responses (right arm): 2 6. Motor Functions (left leg): With patient lying supine, alternate sides and extend each leg (30 degrees always while supine). -: 0=No drift, leg holds position for full 5 seconds -: 1=Drift; leg falls before full 5 seconds but does not hit bed. -: 2=Some effort against gravity, leg falls to bed but some effort against gravity. -: 3=No effort against gravity, leg falls to bed immediately. -: 4=No movement. -: UN=Amputation, joint fusion; explain in comments. 6. Responses (left leg): 0 6. Motor Functions (right leg): With patient lying supine, alternate sides and extend each leg (30 degrees always while supine). -: 0=No drift, leg holds position for full 5 seconds -: 1=Drift; leg falls before full 5 seconds but does not hit bed. -: 2=Some effort against gravity, leg falls to bed but some effort against gravity. -: 3=No effort against gravity, leg falls to bed immediately. -: 4=No movement. -: UN=Amputation, joint fusion; explain in comments. 6. Responses (right leg): 2 7. Limb Ataxia: With eyes open instruct patient to: -: a. "Touch your finger to your nose". -: b. "Touch your heel to your carmona" -: 0=Absent -: 1=Present in one limb. -: 2=Present in two limbs. -: UN=Amputation or joint fusion; explain in comments. 7. Responses: 0 8. Sensory: Test sensation using pinprick or noxious stimuli. Test as many body parts as possible. -: 0=Normal;no sensory loss -: 1=Mile to moderate sensory loss (patient feels pin prick but is less sharp on affected side). -: 2=Severe or total sensory loss. 8. Responses: 0 9. Best Language: Instruct patient to: -: a. "Describe what you see in this picture." -: b. "Name the items in this picture." -: c. "Read these sentences." -: 0=No aphasia, normal -: 1=Mild to moderate aphasia. -: 2=Severe aphasia -: 3=Mute, global aphasia, no usable speech or auditory comprehension. 9. Responses: 3 10. Articulation, Dysarthia: Instruct patient to: -: "Read these words" or "Repeat these words" -: 0=Normal -: 1=Mild to moderate; patient may slur some words but can be understood without difficulty. -: 2=Severe; patients speech so slurred as to be unintelligible in the absence of dysphasia. -: UN=Intubated or other physical barrier, explain in comments. 10. Responses: 2 11. Extinction or inattention: 0=No abnormality -: 1= Visual, tactile, auditory, spatial, or personal inattention or extinction to bilateral simulation in one or the sensory modalities. -: 2=Profound issac-inattention or issac-inattention to more than one modality; does not recognize own hand. 11. Responses: 0 Total Score: 20
--- NOTE | 2018-02-07 13:57 | ER Document Report ---
ED Neuro Symptoms/Deficit - General Stated Complaint: POSSIBLE STROKE Time Seen by Provider: 02/07/18 13:09 TRAVEL OUTSIDE OF THE [place] IN LAST 30 DAYS: No - HPI Notes: 47-year-old male with a history of Hodgkin's lymphoma and HIV stroke, seizures presents to the ER with sudden onset of right sided facial droop and hemiparesis. Patient had a seizure on the way to the emergency department here and was given benzodiazepines via EMS. The patient does have a history of a stroke in the past. Patient is nonverbal at this time. He has gaze deviation to the left and hemiparesis on the right. No family has arrived with the patient no other information is medially known - Related Data Allergies/Adverse Reactions: sulfamethoxazole [From Bactrim] Allergy (Verified 11/13/17 17:02) trimethoprim [From Bactrim] Allergy (Verified 11/13/17 17:02) Past Medical History - Social History Smoking Status: Unknown if Ever Smoked Family History: Reviewed & Not Pertinent, Hypertension - Past Medical History Cardiac Medical History: Reports: Hx Coronary Artery Disease, Hx Hypercholesterolemia, Hx Hypertension Denies: Hx Heart Attack Pulmonary Medical History: Denies: Hx Asthma, Hx Bronchitis, Hx COPD, Hx Pneumonia, Hx Tuberculosis Neurological Medical History: Reports: Hx Cerebrovascular Accident - 6 month, Hx Seizures Renal/ Medical History: Reports: Hx Renal Insufficiency. Denies: Hx Peritoneal Dialysis Malignancy Medical History: Reports Hx Lymphoma - Hodgkin's lymphoma GI Medical History: Reports: Hx Gastroesophageal Reflux Disease Musculoskeletal Medical History: Denies Hx Arthritis Skin Medical History: Reports Hx MRSA Psychiatric Medical History: Reports: Hx Depression Infectious Medical History: Reports: Hx HIV - AIDS Past Surgical History: Reports: Other - Left chest port - Immunizations Hx Diphtheria, Pertussis, Tetanus Vaccination: No Hx Pneumococcal Vaccination: 07/12/09 Review of Systems - Review of Systems -: Yes ROS unobtainable due to patient's medical condition Physical Exam - Vital signs Vitals: Resp 17 02/07/18 13:33 - Notes Notes: GENERAL_APPEARANCE: well_nourished, semi-responsive VITALS: reviewed, see vital signs table. HEAD: no_swelling\tenderness on the head. EYES: PERRL, EOMI, conjunctiva_clear. NOSE: no_nasal_discharge. MOUTH: (-)decreased moisture. THROAT: no_throat_inflammation, no_airway_obstruction. no_lymphadenopathy NECK: supple, no_neck_tenderness, (-)thyromegaly. BACK: no_back_tenderness. CHEST_WALL: no_chest_tenderness. Port right chest LUNGS: no_wheezing, no_rales, no_rhonchi, (-)accessory muscle use, good air exchange bilateral. HEART: normal_rate, normal_rhythm, normal_S1, normal_S2, (-)S3, (-)S4, no_ murmur, no_rub. ABDOMEN: soft, no_abd_tenderness, (-)guarding, (-)rebound, no_organomegaly, no _abd_masses. EXTREMITIES: Trace edema no significant swelling is noted SKIN: warm, dry, good_color, no_rash. MENTAL_STATUS: speech_clear, oriented_X_3, normal_affect, responds_ appropriately to questions. NEURO: There is right facial droop noted. There is upgoing Babinski noted on the right. Will not withdrawal to pain on the right arm or leg. Will withdrawl on the left side. Forced gaze deviation to the left. Patient is nonverbal. Semi-awake. NIH approx 20 Course - Re-evaluation Re-evalutation: 02/07/18 13:55 Patient arrives a signs of a large left MCA stroke. He had a seizure so he is not a candidate for TPA. 02/07/18 14:18 1410 - Spoke with Neurology Dr Glen Post --reports it is okay to give the TPA regardless of seizure activity. He states this is only a relative contraindication. The patient grows more more agitated. Even after benzodiazepines. He will be intubated for airway control. Possibility of status epilepticus does exist. To note the patient's hemiparesis and symptoms began before the seizure activity. I think this is not likely cause paralysis. The patient was given TPA and was intubated for airway control we are awaiting transfer ER to ER to [facility] if the patient does not resolve they will do interventional stroke care. 02/07/18 14:32 The pt was intubated without incident. Patient was still moaning and not following commands. There was still right-sided deficits noted. Patient was intubated for airway control during transfer. He is at high risk for vomiting aspiration and further seizures. TPA is going to be given per Dr. Post's instructions. 02/07/18 14:42 Patient does have a low platelets of 52. This coupled with the seizures and very high blood pressure the patient is no longer a candidate for TPA. To many warning signs that would precipitate bleeding. Her give the patient some hydralazine for blood pressure we are out of labetalol. If the hydralazine is not effective will place the patient on a nicardipine drip. We are awaiting helicopter for transfer. 02/07/18 14:48 FYI - Spoke with Dr Di mast for info - Vital Signs Vital signs: Temp Pulse Resp BP Pulse Ox 20 155/107 H 99 02/07/18 13:50 02/07/18 13:50 02/07/18 14:22 - Laboratory Result Diagrams: 02/07/18 13:19 02/07/18 13:19 Laboratory results interpreted by me: 02/07/18 02/07/18 13:19 13:19 RBC 3.47 L Hgb 10.9 L Hct 33.9 L MCV 98 H RDW 17.4 H Plt Count 52 L Sodium 146.2 H Potassium 3.1 L Carbon Dioxide 16 L Anion Gap 28 H Creatinine 1.78 H Est GFR ( Amer) 49 L Est GFR (Non-Af Amer) 41 L Glucose 127 H Creatine Kinase 231 H Total Protein 8.4 H Procedures - Intubation Orotracheal Airway evaluation: Normal anatomy Mallampati Classification: Class 2 Medications: Etomidate, Vecuronium Blade type: Ondina Blade size: 4 ETT size: 8.0 ETT secured at: Teeth Breath Sounds after Intubation: Equal End tidal CO2 confirmed: Yes Critical Care Note - Critical Care Note Total time excluding time spent on procedures (mins): 45 Discharge - Discharge Clinical Impression: CVA (cerebral vascular accident) Qualifiers: CVA mechanism: thrombosis Precerebral and cerebral artery: middle cerebral artery Laterality of affected vessel: left Qualified Code(s): I63.312 - Cerebral infarction due to thrombosis of left middle cerebral artery Condition: Critical Disposition: [facility] Referrals: ADONIS TRIPP MD [Primary Care Provider] - Follow up as needed
[2018-02-07 14:05] LABS: ALANINE AMINOTRANSFERASE 34 U/L (21-72); ALBUMIN 4.7 g/dL (3.5-5.0); ALKALINE PHOSPHATASE 71 U/L (38-126); ASPARTATE AMINO TRANSFERASE 51 U/L (17-59); BILIRUBIN,DIRECT 0.4 mg/dL (0.0-0.4); BLOOD UREA NITROGEN 15 mg/dL (7-20); CREATINE KINASE 231 U/L (55-170); GLUCOSE 127 mg/dL (75-110); POTASSIUM 3.1 mmol/L (3.6-5.0); TOTAL PROTEIN 8.4 g/dL (6.3-8.2)
[2018-02-07] MEDS ORDERED: ALTEPLASE INJ 100 MG VIAL ONE (14:08)
[2018-02-07 14:10] LABS: CARBON DIOXIDE 16 mmol/L (22-30); CHLORIDE 102 mmol/L (98-107); SODIUM 146.2 mmol/L (137-145)
[2018-02-07 14:11] LABS: ANION GAP 28 (5-19)
[2018-02-07] MEDS ORDERED: ETOMIDATE INJ/PF 20 MG/10 ML SDV IV ONE ×2 (14:12→14:43)
[2018-02-07] MEDS ORDERED: PROPOFOL 1,000 MG/100 ML INFUS..BTL IV ONE (14:12)
[2018-02-07] MEDS ORDERED: VECURONIUM BROMIDE INJ 10 MG VIAL IV ONE ×2 (14:12→14:43)
[2018-02-07 14:13] LABS: CREATINE KINASE MB 0.66 ng/mL (<4.55); TROPONIN I 0.025 ng/mL
[2018-02-07 14:17] LABS: PLATELET COUNT 52 10^3/uL (150-450)
[2018-02-07 14:26] LABS: ABSOLUTE LYMPHOCYTES# (MANUAL) 1.6 10^3/uL (0.5-4.7); ABSOLUTE MONOCYTES # (MANUAL) 0.5 10^3/uL (0.1-1.4); ABSOLUTE NEUTROPHILS# (MANUAL) 2.9 10^3/uL (1.7-8.2); BASOPHILS % (MANUAL) 2 % (0-2); EOSINOPHILS % (MANUAL) 2 % (0-6); LYMPHOCYTES % (MANUAL) 31 % (13-45); MONOCYTES % (MANUAL) 9 % (3-13); SEGMENTED NEUTROPHILS % (MAN) 56 % (42-78); TOTAL CELLS COUNTED 100
--- NOTE | 2018-02-07 14:30 | RADIOLOGY REPORT (SQ) ---
EXAM DESCRIPTION: CHEST SINGLE VIEW COMPLETED DATE/TIME: 02/07/2018 2:11 pm REASON FOR STUDY: stroke COMPARISON: 11/22/2017 EXAM PARAMETERS: NUMBER OF VIEWS: One view. TECHNIQUE: Single frontal radiographic view of the chest acquired. RADIATION DOSE: NA LIMITATIONS: Shallow inspiration FINDINGS: LUNGS AND PLEURA: No opacities, masses or pneumothorax. No pleural effusion. MEDIASTINUM AND HILAR STRUCTURES: No masses. Contour normal. HEART AND VASCULAR STRUCTURES: Heart normal in size. Normal vasculature. BONES: No acute findings. HARDWARE: Port on the right. OTHER: No other significant finding. IMPRESSION: Nothing acute. TECHNICAL DOCUMENTATION: JOB ID: [id number] [employer]- All Rights Reserved Reading location - IP/workstation name: [email or web address]
[2018-02-07] MEDS ORDERED: LABETALOL HCL INJ 20 MG/4 ML DISP.SYRIN IV ONE (14:38)
[2018-02-07] MEDS ORDERED: HYDRALAZINE HCL INJ/PF 20 MG/1 ML SDV IV ONE (14:39)
[2018-02-07] MEDS ORDERED: HYDRALAZINE HCL INJ/PF 20 MG/1 ML SDV ONE (14:40)
[2018-02-07 14:43] LABS: PLATELET COMMENT DECREASED; TOXIC VACUOLATION PRESENT
[2018-02-07] MEDS ORDERED: LORAZEPAM INJ 2 MG/1 ML VIAL IV ONE (14:43)
[2018-02-07] MEDS ORDERED: PROPOFOL INJ 200 MG/20 ML VIAL IV ONE (14:43)
[2018-02-07] MEDS ORDERED: FENTANYL CITRATE INJ/PF 100 MCG/2 ML AMPUL IV ONE (14:43)
[2018-02-07] MEDS ORDERED: MIDAZOLAM 2 MG/2 ML INJ IV ONE (14:43)
[2018-02-07 14:44] LABS: OVALOCYTES 1+; POIKILOCYTOSIS 2+; POLYCHROMASIA SLIGHT; SCHISTOCYTES 2+
[2018-02-07] MEDS ORDERED: NICARDIPINE HCL RTU, ISO-OS 20 MG/200 ML RTUINJ IV PRN (14:45)
[2018-02-07] MEDS ORDERED: NICARDIPINE HCL RTU, ISO-OS 20 MG/200 ML RTUINJ IV ONE (14:49)
[2018-02-07 15:57] VITALS: BP 208/128
--- NOTE | 2018-02-07 17:51 | EKG REPORT ---
SEVERITY:- ABNORMAL ECG - SINUS RHYTHM LVH WITH SECONDARY REPOLARIZATION ABNORMALITY PROLONGED QT INTERVAL : Confirmed by: Sandra Maya 07-Feb-2018 17:51:14
== END 2018-02-07 15:10 | disposition short-term general hospital (02) ==
LOC: ER 12:58
DX: I63.312 Cerebral infarction due to thrombosis of left middle cerebral artery (principal); R29.810 Facial weakness; G81.91 Hemiplegia, unspecified affecting right dominant side; R56.9 Unspecified convulsions; R60.9 Edema, unspecified; D69.6 Thrombocytopenia, unspecified; I25.10 Atherosclerotic heart disease of native coronary artery without angina pectoris; I10 Essential (primary) hypertension; Z21 Asymptomatic human immunodeficiency virus [HIV] infection status; Z85.71 Personal history of Hodgkin lymphoma; Z88.1 Allergy status to other antibiotic agents
CPT/HCPCS: 31500; 93005; 99291; 51702; 96375; 96365; 36415; 82553; 82550; 85025; 85610; 85730; 80053; 84484; 71045; 70450; 94660; 93010; J2250; J3010; J2704; J0360; J3490 ×3; J2060

== ENCOUNTER 2018-03-26 02:01 | Emergency (ER) | payer MEDICARE, MEDICAID ==
[2018-03-26 03:22] LABS: ANION GAP 14 (5-19); BLOOD UREA NITROGEN 23 mg/dL (7-20); CALCIUM 9.5 mg/dL (8.4-10.2); CARBON DIOXIDE 24 mmol/L (22-30); CHLORIDE 103 mmol/L (98-107); GLUCOSE 115 mg/dL (75-110); POTASSIUM 3.5 mmol/L (3.6-5.0); SODIUM 140.7 mmol/L (137-145)
[2018-03-26 03:39] LABS: ABSOLUTE BASOPHILS # (AUTO) 0.1 10^3/uL (0.0-0.2); ABSOLUTE LYMPHOCYTES (AUTO) 2.1 10^3/uL (0.5-4.7); ABSOLUTE MONOCYTES (AUTO) 0.6 10^3/uL (0.1-1.4); ABSOLUTE NEUT (AUTO) 4.1 10^3/uL (1.7-8.2); EOSINOPHILS % (AUTO) 0.5 % (0-6); HEMATOCRIT 32.9 % (37.9-51.0); HEMOGLOBIN 10.9 g/dL (13.5-17.0); LYMPHOCYTES % (AUTO) 30.7 % (13-45); MEAN CORPUSCULAR HEMOGLOBIN 31.2 pg (27.0-33.4); MEAN CORPUSCULAR HGB CONC 33.3 g/dL (32.0-36.0); MEAN CORPUSCULAR VOLUME 94 fl (80-97); RED BLOOD COUNT 3.51 10^6/uL (4.35-5.55); RED CELL DISTRIBUTION WIDTH 16.1 % (11.5-14.0); SEGMENTED NEUTROPHILS % (AUTO) 58.8 % (42-78); TOTAL CELLS COUNTED % (AUTO) 100 %; WHITE BLOOD COUNT 6.9 10^3/uL (4.0-10.5)
[2018-03-26 03:40] LABS: PLATELET COUNT 71 10^3/uL (150-450)
--- NOTE | 2018-03-26 04:15 | RADIOLOGY REPORT (SQ) ---
EXAM DESCRIPTION: CT HEAD WITHOUT IV CONTRAST COMPLETED DATE/TME: 03/26/2018 02:48 CLINICAL HISTORY: 47 years, Male, seizure, previous history of stroke TECHNICAL DATA: Multiple axial CT images of the brain were performed followed by sagittal and coronal reconstructed images. The CT study is performed according to ALARA (as low as reasonably achievable) or ALARA/IMAGE GENTLY, with automatic adjustment of mA and/or kV according to patient size. Comparisons: Prior head CT performed on 02/07/2018.. FINDINGS: There is no evidence of mass, acute mass effect or midline shift. There are no acute extra-axial fluid collections. There is no evidence of acute intracranial hemorrhage. The cerebral sulci and ventricles are prominent consistent with mild cerebral volume loss. There are scattered patchy areas of decreased subcortical and periventricular attenuation most consistent with mild chronic microangiopathy.. . There is no significant mucosal thickening of the paranasal sinuses. The mastoid air cells are clear. The orbital contents are grossly unremarkable. No acute osseous abnormalities are identified. IMPRESSION: 1. There is no evidence of acute intracranial pathology. 2. Stable mild cerebral atrophy with findings consistent with chronic microangiopathy. Overall, no significant change when compared to the prior study.
[2018-03-26] MEDS ORDERED: PHENYTOIN SODIUM INJ/PF 250 MG/5 ML SDV IV ONE (04:19)
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
[2018-03-26 06:41] VITALS: BP 125/78
== END 2018-03-26 06:40 | disposition home or self-care (01) ==
LOC: ER 02:01
DX: R56.9 Unspecified convulsions (principal); M54.5 Low back pain; Z79.899 Other long term (current) drug therapy; B20 Human immunodeficiency virus [HIV] disease; I25.10 Atherosclerotic heart disease of native coronary artery without angina pectoris; I10 Essential (primary) hypertension
CPT/HCPCS: 99284; 36415; 80185; 85025; 80048; 70450; J1165

== ENCOUNTER → 2018-04-17 | Outpatient (CLI) | payer MEDICARE, MEDICAID ==
--- NOTE | 2018-04-18 11:18 | RADIOLOGY REPORT (SQ) ---
EXAM DESCRIPTION: PET CT SKULL/THIGH COMPLETED DATE/TIME: 04/17/2018 9:02 pm REASON FOR STUDY: LYMPHOMA C81.93 HODGKIN LYMPHOMA, UNSPECIFIED, INTRA-ABDOMINAL LYMPH COMPARISON: PET-CT 06/01/2017 CT chest abdomen pelvis 06/27/2017, 08/23/2017 CT angio chest 09/29/2017 PET-CT 11/30/2017 RADIONUCLIDE AND DOSE: 11 mCi F18 FDG The route of agent administration: Intravenous FASTING BLOOD SUGAR: 107 mg/dl CONTRAST TYPE AND DOSE: No CT contrast given. TECHNIQUE: Blood glucose level was verified. Above dose of FDG was injected intravenously. 2-D seg mented attenuation correction images were obtained from the base of the skull to the midthighs. Nonc ontrast CT images were obtained for attenuation correction and fusion with emission images. CT image s were performed without oral or intravenous contrast and are not sensitive for parenchymal lesions. A series of overlapping emission PET images were obtained. Images reviewed and manipulated at [facility] work station by the radiologist. Images stored on PACS. LIMITATIONS: None. FINDINGS: HEAD AND NECK: No areas of abnormal metabolic activity in the soft tissues of the head and neck. CHEST: No areas of abnormal metabolic activity in the chest. ABDOMEN AND PELVIS: No areas of abnormal metabolic activity in the abdomen or pelvis. Expected physi ologic activity is present in the genitourinary system and bowel. PROXIMAL LOWER EXTREMITIES: No areas of abnormal metabolic activity in the soft tissues of the lower extremities. BONES: No abnormal metabolic activity in the visualized skeleton. ADDITIONAL CT FINDINGS: Right permanent central line tip superior vena cava OTHER: Liver background activity 0.95 SUV, blood pool background activity 0.82 SUV IMPRESSION: No hypermetabolic lesions worrisome for recurrent Hodgkin's lymphoma TECHNICAL DOCUMENTATION: JOB ID: [id number] [employer]- All Rights Reserved Reading location - IP/workstation name: [email or web address]
== END ==
LOC: RAD 15:39
PROVIDERS: ATTEND Internal Medicine Medical Oncology
DX: C81.93 Hodgkin lymphoma, unspecified, intra-abdominal lymph nodes (principal)
CPT/HCPCS: 78815; A9552

== ENCOUNTER → 2018-06-23 | Outpatient (CLI) | payer MEDICARE, MEDICAID ==
[2018-06-23 12:21] LABS: ABSOLUTE BASOPHILS # (AUTO) 0.1 10^3/uL (0.0-0.2); ABSOLUTE LYMPHOCYTES (AUTO) 2.2 10^3/uL (0.5-4.7); ABSOLUTE MONOCYTES (AUTO) 0.4 10^3/uL (0.1-1.4); ABSOLUTE NEUT (AUTO) 3.1 10^3/uL (1.7-8.2); BASOPHILS % (AUTO) 1.1 % (0-2); EOSINOPHILS % (AUTO) 0.8 % (0-6); HEMATOCRIT 38.5 % (37.9-51.0); HEMOGLOBIN 12.6 g/dL (13.5-17.0); LYMPHOCYTES % (AUTO) 38.1 % (13-45); MEAN CORPUSCULAR HEMOGLOBIN 32.1 pg (27.0-33.4); MEAN CORPUSCULAR HGB CONC 32.8 g/dL (32.0-36.0); MEAN CORPUSCULAR VOLUME 98 fl (80-97); MONOCYTES % (AUTO) 6.4 % (3-13); PLATELET COUNT 143 10^3/uL (150-450); RED BLOOD COUNT 3.93 10^6/uL (4.35-5.55); RED CELL DISTRIBUTION WIDTH 15.2 % (11.5-14.0); SEGMENTED NEUTROPHILS % (AUTO) 53.6 % (42-78); TOTAL CELLS COUNTED % (AUTO) 100 %; WHITE BLOOD COUNT 5.8 10^3/uL (4.0-10.5)
[2018-06-23 13:02] LABS: ALANINE AMINOTRANSFERASE 27 U/L (21-72); ALBUMIN 4.9 g/dL (3.5-5.0); ALKALINE PHOSPHATASE 72 U/L (38-126); ANION GAP 14 (5-19); ASPARTATE AMINO TRANSFERASE 36 U/L (17-59); BILIRUBIN,DIRECT 0.3 mg/dL (0.0-0.4); BILIRUBIN,TOTAL 0.8 mg/dL (0.2-1.3); BLOOD UREA NITROGEN 18 mg/dL (7-20); CALCIUM 9.8 mg/dL (8.4-10.2); CARBON DIOXIDE 28 mmol/L (22-30); CHLORIDE 103 mmol/L (98-107); GLUCOSE 86 mg/dL (75-110); POTASSIUM 3.7 mmol/L (3.6-5.0); SODIUM 144.6 mmol/L (137-145); TOTAL PROTEIN 8.4 g/dL (6.3-8.2)
[2018-06-24 11:39] LABS: ABSOLUTE CD 4 HELPER 250 /uL (359-1519); CD BASOPHILS 1 % (Not Estab.); CD EOSINOPHILS 1 % (Not Estab.); CD MONOCYTES 10 % (Not Estab.); CD NEUTROPHILS 48 % (Not Estab.); EOSINOPHILS (ABSOLUTE) 0.1 x10E3/uL (0.0-0.4); HEMOGLOBIN 11.8 g/dL (13.0-17.7); IMMATURE GRANULOCYTES 0 % (Not Estab.); LYMPHS(ABSOLUTE) 2.5 x10E3/uL (0.7-3.1); MCH 31.1 pg (26.6-33.0); MCHC 31.6 g/dL (31.5-35.7); MCV 99 fL (79-97); MONOCYTES(ABSOLUTE) 0.6 x10E3/uL (0.1-0.9); NEUTROPHILS(ABSOLUTE) 3.1 x10E3/uL (1.4-7.0); PLATELETS 164 x10E3/uL (150-379); RBC 3.79 x10E6/uL (4.14-5.80); RDW 15.2 % (12.3-15.4); WBC 6.3 x10E3/uL (3.4-10.8)
== END ==
LOC: OD 10:16
PROVIDERS: ATTEND Nurse Practitioner
DX: B20 Human immunodeficiency virus [HIV] disease (principal)
CPT/HCPCS: 36415; 80053; 85025; 86361

== ENCOUNTER → 2018-06-27 | Outpatient (CLI) | payer MEDICARE, MEDICAID ==
[2018-06-28 14:38] LABS: TESTOSTERONE FREE (DIRECT) 18.4 pg/mL (6.8-21.5)
== END ==
LOC: OD 11:50
PROVIDERS: ATTEND Nurse Practitioner
DX: N52.9 Male erectile dysfunction, unspecified (principal)
CPT/HCPCS: 36415; 84153; 84402; 84403

== ENCOUNTER → 2018-06-30 | Outpatient (CLI) | payer MEDICARE, MEDICAID ==
[2018-07-01 15:03] LABS: TESTOSTERONE FREE (DIRECT) 12.3 pg/mL (6.8-21.5)
== END ==
LOC: OD 09:09
PROVIDERS: ATTEND Nurse Practitioner
DX: N52.9 Male erectile dysfunction, unspecified (principal)
CPT/HCPCS: 36415; 84402; 84403

== ENCOUNTER 2018-07-25 09:23 | Emergency (ER) | payer MEDICARE, MEDICAID ==
[2018-07-25 09:34] VITALS: BP 151/85
[2018-07-25] MEDS ORDERED: BENZONATATE 100 MG CAPSULE PO ONE (09:50)
[2018-07-25] MEDS ORDERED: PREDNISONE 20 MG TABLET PO ONE (09:50)
[2018-07-25] MEDS ORDERED: LIDOCAINE 5% (700 MG) TRANSDERMAL ADH..PATCH TP ONE (09:50)
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
== END 2018-07-25 10:21 | disposition home or self-care (01) ==
LOC: ER 09:23
DX: J06.9 Acute upper respiratory infection, unspecified (principal); M54.5 Low back pain; M54.9 Dorsalgia, unspecified; G89.29 Other chronic pain; R09.81 Nasal congestion; J02.9 Acute pharyngitis, unspecified; R05 Cough; F17.200 Nicotine dependence, unspecified, uncomplicated; I25.10 Atherosclerotic heart disease of native coronary artery without angina pectoris; I10 Essential (primary) hypertension
CPT/HCPCS: 99283; A9270 ×2; J7512

== ENCOUNTER 2018-08-14 10:34 | Emergency (ER) | payer MEDICARE, MEDICAID ==
[2018-08-14] MEDS ORDERED: RINGERS SOLUTION,LACTATED 1,000 ML IV ONE (10:48)
[2018-08-14] MEDS ORDERED: NORFLURANE/PENTAFLUOROPROPANE 30 ML SPRAY TP ONE (10:52)
--- NOTE | 2018-08-14 10:52 | ER Document Report ---
ED Medical Screen (RME) - General Chief Complaint: Flu Symptoms Stated Complaint: BODY PAIN TRAVEL OUTSIDE OF THE [place] IN LAST 30 DAYS: No - HPI Notes: 08/14/18 10:51 History of HIV unknown viral load unknown CD4 count total body pain cough congestion. - Related Data Allergies/Adverse Reactions: sulfamethoxazole [From Bactrim] Allergy (Verified 08/14/18 10:37) trimethoprim [From Bactrim] Allergy (Verified 08/14/18 10:37) Past Medical History - Past Medical History Cardiac Medical History: Reports: Hx Coronary Artery Disease, Hx Hypercholesterolemia, Hx Hypertension Denies: Hx Heart Attack Pulmonary Medical History: Denies: Hx Asthma, Hx Bronchitis, Hx COPD, Hx Pneumonia, Hx Tuberculosis Neurological Medical History: Reports: Hx Cerebrovascular Accident - 6 month, Hx Seizures Renal/ Medical History: Reports: Hx Renal Insufficiency. Denies: Hx Peritoneal Dialysis Malignancy Medical History: Reports Hx Lymphoma - Hodgkin's lymphoma GI Medical History: Reports: Hx Gastroesophageal Reflux Disease Musculoskeltal Medical History: Denies Hx Arthritis Skin Medical History: Reports Hx MRSA Psychiatric Medical History: Reports: Hx Depression Infectious Medical History: Reports: Hx HIV - AIDS Past Surgical History: Reports: Other - Left chest port - Immunizations Hx Diphtheria, Pertussis, Tetanus Vaccination: No History of Influenza Vaccine for 04/2017 - 09/2017 Season: Yes Influenza Administration Date for 04/2017 - 09/2017 Season: 02/09/17 Review of Systems - Review of Systems Respiratory: Cough Physical Exam - Respiratory Respiratory status: No respiratory distress Chest status: Nontender Breath sounds: Normal Chest palpation: Normal
[2018-08-14] MEDS ORDERED: KETOROLAC TROMETHAMINE INJ/PF 30 MG/1 ML SDV IV ONE (11:17)
[2018-08-14] MEDS ORDERED: BENZONATATE 100 MG CAPSULE PO ONE (11:17)
--- NOTE | 2018-08-14 11:17 | RADIOLOGY REPORT (SQ) ---
EXAM DESCRIPTION: CHEST 2 VIEWS COMPLETED DATE/TIME: 08/14/2018 11:03 am REASON FOR STUDY: sob COMPARISON: 14 18 EXAM PARAMETERS: NUMBER OF VIEWS: two views TECHNIQUE: Digital Frontal and Lateral radiographic views of the chest acquired. RADIATION DOSE: NA LIMITATIONS: none FINDINGS: LUNGS AND PLEURA: No opacities, masses or pneumothorax. No pleural effusion. MEDIASTINUM AND HILAR STRUCTURES: No masses or contour abnormalities. HEART AND VASCULAR STRUCTURES: Heart normal size. No evidence for failure. BONES: No acute findings. HARDWARE: Venous access catheter unchanged. OTHER: No other significant finding. IMPRESSION: NO ACUTE RADIOGRAPHIC FINDING IN THE CHEST. TECHNICAL DOCUMENTATION: JOB ID: [id number] [employer]- All Rights Reserved Reading location - IP/workstation name: [email or web address]
[2018-08-14] MEDS ORDERED: ALBUTEROL SULFATE 0.083% NEB 2.5 MG/3 ML AMPUL NEB ONE (11:20)
[2018-08-14 12:27] LABS: ABSOLUTE EOSINOPHILS # (AUTO) 0.1 10^3/uL (0.0-0.6); ABSOLUTE LYMPHOCYTES (AUTO) 0.8 10^3/uL (0.5-4.7); ABSOLUTE MONOCYTES (AUTO) 0.6 10^3/uL (0.1-1.4); ABSOLUTE NEUT (AUTO) 7.7 10^3/uL (1.7-8.2); BASOPHILS % (AUTO) 0.5 % (0-2); EOSINOPHILS % (AUTO) 0.8 % (0-6); HEMATOCRIT 33.9 % (37.9-51.0); HEMOGLOBIN 11.3 g/dL (13.5-17.0); LYMPHOCYTES % (AUTO) 8.8 % (13-45); MEAN CORPUSCULAR HEMOGLOBIN 31.5 pg (27.0-33.4); MEAN CORPUSCULAR HGB CONC 33.3 g/dL (32.0-36.0); MEAN CORPUSCULAR VOLUME 94 fl (80-97); PLATELET COUNT 122 10^3/uL (150-450); RED BLOOD COUNT 3.59 10^6/uL (4.35-5.55); RED CELL DISTRIBUTION WIDTH 15.4 % (11.5-14.0); SEGMENTED NEUTROPHILS % (AUTO) 82.9 % (42-78); TOTAL CELLS COUNTED % (AUTO) 100 %; WHITE BLOOD COUNT 9.3 10^3/uL (4.0-10.5)
[2018-08-14 12:33] LABS: INTERNATIONAL RATION (INR) 0.94
[2018-08-14 12:39] LABS: A TYPE INFLUENZA AG NEGATIVE (NEGATIVE); B INFLUENZA AG NEGATIVE (NEGATIVE)
[2018-08-14 12:46] LABS: PARTIAL THROMBOPLASTIN TIME 31.7 SEC (23.5-35.8)
[2018-08-14 12:47] LABS: ALANINE AMINOTRANSFERASE 33 U/L (21-72); ALBUMIN 3.9 g/dL (3.5-5.0); ALKALINE PHOSPHATASE 62 U/L (38-126); ANION GAP 7 (5-19); ASPARTATE AMINO TRANSFERASE 31 U/L (17-59); BILIRUBIN,DIRECT 0.1 mg/dL (0.0-0.4); BILIRUBIN,TOTAL 0.4 mg/dL (0.2-1.3); BLOOD UREA NITROGEN 20 mg/dL (7-20); CALCIUM 8.4 mg/dL (8.4-10.2); CARBON DIOXIDE 30 mmol/L (22-30); CHLORIDE 105 mmol/L (98-107); CREATINE KINASE 572 U/L (55-170); GLUCOSE 107 mg/dL (75-110); LIPASE 78.6 U/L (23-300); POTASSIUM 3.3 mmol/L (3.6-5.0); SODIUM 141.9 mmol/L (137-145); TOTAL PROTEIN 6.8 g/dL (6.3-8.2)
[2018-08-14 12:57] LABS: CREATINE KINASE MB 1.16 ng/mL (<4.55); TROPONIN I < 0.012 ng/mL
[2018-08-14] MEDS ORDERED: OXYCODONE-ACETAMINOPHEN 5-325 MG TABLET PO ONE (13:36)
[2018-08-14 16:44] VITALS: BP 159/91
--- NOTE | 2018-08-14 17:18 | ER Document Report ---
Entered by LISA PETER SCRIBE 08/14/18 1121 Acting as scribe for:LAURA VELA DO ED Flu Like - General Chief Complaint: Flu Symptoms Stated Complaint: BODY PAIN Time Seen by Provider: 08/14/18 10:52 Information source: Patient Notes: 47-year-old male with HIV and history of Hodgkin's lymphoma that presents today with complaints of x3 days of generalized body aches, nonproductive cough, nasal congestion, sweats/chills, headache, neck pain, chest pain, diarrhea, and vomiting. Patient states his head and his neck do not hurt anymore than his other generalized body aches, nor does his chest hurt anymore than the rest of his body. Patient states he does not know his last CD4 count or viral load. Patient states his infectious disease doctor is at [facility]. Not actively undergoing treatment for cancer. TRAVEL OUTSIDE OF THE [place] IN LAST 30 DAYS: No - Related Data Allergies/Adverse Reactions: sulfamethoxazole [From Bactrim] Allergy (Verified 08/14/18 10:37) trimethoprim [From Bactrim] Allergy (Verified 08/14/18 10:37) Past Medical History - General Information source: Patient, [facility] Records - Social History Smoking Status: Unknown if Ever Smoked Cigarette use (# per day): No Frequency of alcohol use: None Drug Abuse: None Family History: Reviewed & Not Pertinent, Hypertension Patient has suicidal ideation: No Patient has homicidal ideation: No - Past Medical History Cardiac Medical History: Reports: Hx Coronary Artery Disease, Hx Hypercholesterolemia, Hx Hypertension Neurological Medical History: Reports: Hx Cerebrovascular Accident - 6 month, Hx Seizures Renal/ Medical History: Reports: Hx Renal Insufficiency Malignancy Medical History: Reports Hx Lymphoma - Hodgkin's GI Medical History: Reports: Hx Gastroesophageal Reflux Disease Skin Medical History: Reports Hx MRSA Psychiatric Medical History: Reports: Hx Depression Infectious Medical History: Reports: Hx HIV - AIDS Past Surgical History: Reports: Other - Left chest port - Immunizations Hx Diphtheria, Pertussis, Tetanus Vaccination: No Hx Pneumococcal Vaccination: 07/12/09 Review of Systems - Review of Systems Constitutional: See HPI, Chills, Diaphoresis, Fever EENT: See HPI, Nose congestion, Nose discharge Cardiovascular: No symptoms reported Respiratory: See HPI, Cough Gastrointestinal: See HPI, Diarrhea, Nausea, Vomiting Genitourinary: No symptoms reported Male Genitourinary: No symptoms reported Musculoskeletal: See HPI, Muscle pain Skin: No symptoms reported Hematologic/Lymphatic: No symptoms reported Neurological/Psychological: No symptoms reported -: Yes All other systems reviewed and negative Physical Exam - Vital signs Vitals: Temp Pulse Resp BP Pulse Ox 99.1 F 103 H 19 176/99 H 96 08/14/18 10:45 08/14/18 10:45 08/14/18 10:45 08/14/18 10:45 08/14/18 10:45 Interpretation: Hypertensive, Tachycardic - Notes Notes: PHYSICAL EXAM GENERAL: Alert, interacts well. Appears uncomfortable. HEAD: Normocephalic, atraumatic. EYES: Pupils equal, round, and reactive to light. Extraocular movements intact. ENT: Oral mucosa moist, tongue midline. NECK: Full range of motion. Supple. Trachea midline. LUNGS: Trace expiratory wheezing bilaterally. Intermittent nonproductive dry cough. Mildly tachypneic. No rales or rhonchi. HEART: Regular rate and rhythm. No murmurs, gallops, or rubs. ABDOMEN: Soft, non-tender. Non-distended. Bowel sounds present in all 4 quadrants. No guarding, rigidity, or rebound. EXTREMITIES: Moves all 4 extremities spontaneously. No edema, radial and dorsalis pedis pulses 2/4 bilaterally. No cyanosis. NEUROLOGICAL: Alert and oriented x3. Normal speech. Biceps and patellar DTRs 2+ bilaterally. PSYCH: Normal affect, normal mood. SKIN: Warm, dry, normal turgor. No rashes or lesions noted. Course - Re-evaluation Re-evalutation: 08/14/18 15:46 CBC shows anemia at 11.3 without leukocytosis, mildly low platelets at 122, coags normal, CMP shows a somewhat elevated creatinine at 1.66 which actually improved since 2-1/2 months ago it was last checked 1-1/2 months ago. Mildly low potassium at 3.3, CK slightly elevated at 572 but no evidence of rhabdomyolysis, cardiac enzymes negative despite ongoing constant pain for over the past 72 hours, lipase is normal, flu swabs are negative, chest x-ray shows no acute process. EKG is nonischemic. The CD4 to CD8 count ordered from triage will not be back for several days. After being in the room for approximately an hour the patient told the nurse that he was having significant pain he thinks it is because he has been able unable to keep his Percocet 10 mg tablets down. Patient was given Toradol and Percocet and feels significantly better, does still have a cough however he is not hypoxic and he is not tachypneic at this time, states he does feel better after an albuterol breathing treatment. Flu swabs are negative. At this time patient will be discharged home, likely has a viral syndrome, is flu negative, is also out of timeframe for Tamiflu. Will be given Robaxin for his muscle aches, Tessalon Perles for his cough, albuterol because it helped him here and may help to decrease his cough and Zofran for his vomiting. Encouraged to keep taking his regular medications at home. - Vital Signs Vital signs: Temp Pulse Resp BP Pulse Ox 98.9 F 91 31 H 159/91 H 95 08/14/18 16:42 08/14/18 16:42 08/14/18 15:01 08/14/18 16:42 08/14/18 16:42 - Laboratory Result Diagrams: 08/14/18 11:57 08/14/18 11:57 Laboratory results interpreted by me: 08/14/18 08/14/18 11:57 11:57 RBC 3.59 L Hgb 11.3 L Hct 33.9 L RDW 15.4 H Plt Count 122 L Seg Neutrophils % 82.9 H Lymphocytes % 8.8 L Potassium 3.3 L Creatinine 1.66 H Est GFR ( Amer) 54 L Est GFR (Non-Af Amer) 44 L Creatine Kinase 572 H - EKG Interpretation by Me Additional EKG results interpreted by me: 08/14/18 15:47 EKG shows sinus rhythm at a rate of 96, LVH, poor R wave progression, normal a xis, normal intervals, on the [address] segment elevation in V2 which is likely due to early repolarization, no reciprocal changes, only T wave inversions are in lead III which are isolated per my interpretation. Discharge - Discharge Clinical Impression: Viral syndrome, Hypokalemia, Chronic renal failure, stage 3 (moderate), Nausea vomiting and diarrhea HIV (human immunodeficiency virus infection) Qualifiers: HIV symptom status: unspecified Qualified Code(s): B20 - Human immunodeficiency virus [HIV] disease Condition: Stable Disposition: HOME, SELF-CARE Additional Instructions: Your flu swabs are negative. There is no evidence of pneumonia on your chest x- ray. In general your blood work looks good. You have unchanged kidney disease. Please use the albuterol inhaler 2 puffs every 4 hours as needed for difficulty breathing. Please use the Zofran as directed for vomiting. Please use the Robaxin as directed for muscle aches. Please use the Tessalon Perles as dir ected for cough. You may also use Imodium as directed on the box, this is available [id number]. Please take all of your medications at home as prescribed. Do not take extra cassette. Please return to the emergency department for any new or concerning symptoms. Prescriptions: Ondansetron [Zofran Odt 4 mg Tablet] 1 - 2 tab PO Q4HP PRN #10 tab.rapdis PRN Reason: Benzonatate [Tessalon Perles 100 mg Capsule] 100 mg PO Q8HP PRN #40 capsule PRN Reason: Albuterol Sulfate [Ventolin Hfa 8 gm Mdi (1 Mdi/ER Disp)] 2 puff IH ASDIR PRN #1 inhaler PRN Reason: Methocarbamol [Robaxin 750 mg Tablet] 750 mg PO ASDIR PRN #40 tablet PRN Reason: Scribe Attestation: 08/14/18 17:17 I personally performed the services described in the documentation, reviewed and edited the documentation which was dictated to the scribe in my presence, and it accurately records my words and actions. I personally performed the services described in the documentation, reviewed and edited the documentation which was dictated to the scribe in my presence, and it accurately records my words and actions.
--- NOTE | 2018-08-14 17:49 | EKG REPORT ---
SEVERITY:- ABNORMAL ECG - SINUS RHYTHM PROBABLE LEFT ATRIAL ABNORMALITY LEFT VENTRICULAR HYPERTROPHY BORDERLINE T ABNORMALITIES, INFERIOR LEADS : Confirmed by: Ignacio Steel MD 14-Aug-2018 17:48:41
[2018-08-16 12:38] LABS: % CD 4 POS LYMPH 13.6 % (30.8-58.5); % CD 8 POS LYMPH 41.5 % (12.0-35.5); ABSOLUTE CD 4 HELPER 136 /uL (359-1519); ABSOLUTE CD 8 SUPPRESSOR 415 /uL (109-897); CD BASOPHILS 0 % (Not Estab.); CD EOSINOPHILS 1 % (Not Estab.); CD MONOCYTES 7 % (Not Estab.); CD NEUTROPHILS 82 % (Not Estab.); CD4/CD8 RATIO 0.33 (0.92-3.72); EOSINOPHILS (ABSOLUTE) 0.1 x10E3/uL (0.0-0.4); IMMATURE GRANULOCYTES 0 % (Not Estab.); MCH 31.9 pg (26.6-33.0); MCHC 32.9 g/dL (31.5-35.7); MCV 97 fL (79-97); MONOCYTES(ABSOLUTE) 0.7 x10E3/uL (0.1-0.9); NEUTROPHILS(ABSOLUTE) 8.2 x10E3/uL (1.4-7.0); PLATELETS 144 x10E3/uL (150-379); RBC 3.45 x10E6/uL (4.14-5.80); RDW 15.6 % (12.3-15.4); WBC 9.9 x10E3/uL (3.4-10.8)
== END 2018-08-14 16:59 | disposition home or self-care (01) ==
LOC: ER 10:34
DX: M79.10 Myalgia, unspecified site (principal); E87.6 Hypokalemia; B34.9 Viral infection, unspecified; R05 Cough; B20 Human immunodeficiency virus [HIV] disease; I12.9 Hypertensive chronic kidney disease with stage 1 through stage 4 chronic kidney disease, or unspecified chronic kidney disease; N18.3 Chronic kidney disease, stage 3 (moderate); R11.2 Nausea with vomiting, unspecified; R19.7 Diarrhea, unspecified; I25.10 Atherosclerotic heart disease of native coronary artery without angina pectoris; E78.00 Pure hypercholesterolemia, unspecified; I10 Essential (primary) hypertension; Z88.3 Allergy status to other anti-infective agents; Z86.73 Personal history of transient ischemic attack (TIA), and cerebral infarction without residual deficits; Z86.14 Personal history of Methicillin resistant Staphylococcus aureus infection
CPT/HCPCS: 93005; 36591; 94640; 99284; 96361; 96374; 86360; 36415; 82553; 82550; 83690; 85025; 85610; 85730; 80053; 84484; 87804; 71046; 93010; A9270 ×3; J1885; J7120; J3490

== ENCOUNTER → 2018-08-31 | Outpatient (CLI) | payer MEDICARE, MEDICAID ==
[2018-08-31 10:21] LABS: ABSOLUTE BASOPHILS # (AUTO) 0.1 10^3/uL (0.0-0.2); ABSOLUTE EOSINOPHILS # (AUTO) 0.1 10^3/uL (0.0-0.6); ABSOLUTE LYMPHOCYTES (AUTO) 2.4 10^3/uL (0.5-4.7); ABSOLUTE MONOCYTES (AUTO) 0.9 10^3/uL (0.1-1.4); ABSOLUTE NEUT (AUTO) 8.5 10^3/uL (1.7-8.2); BASOPHILS % (AUTO) 0.6 % (0-2); EOSINOPHILS % (AUTO) 0.8 % (0-6); HEMATOCRIT 34.6 % (37.9-51.0); HEMOGLOBIN 11.6 g/dL (13.5-17.0); LYMPHOCYTES % (AUTO) 20.2 % (13-45); MEAN CORPUSCULAR HEMOGLOBIN 31.1 pg (27.0-33.4); MEAN CORPUSCULAR HGB CONC 33.6 g/dL (32.0-36.0); MEAN CORPUSCULAR VOLUME 93 fl (80-97); MONOCYTES % (AUTO) 7.2 % (3-13); PLATELET COUNT 243 10^3/uL (150-450); RED BLOOD COUNT 3.73 10^6/uL (4.35-5.55); SEGMENTED NEUTROPHILS % (AUTO) 71.2 % (42-78); TOTAL CELLS COUNTED % (AUTO) 100 %; WHITE BLOOD COUNT 11.9 10^3/uL (4.0-10.5)
[2018-08-31 10:47] LABS: ALANINE AMINOTRANSFERASE 22 U/L (21-72); ALBUMIN 4.5 g/dL (3.5-5.0); ALKALINE PHOSPHATASE 71 U/L (38-126); ANION GAP 12 (5-19); ASPARTATE AMINO TRANSFERASE 17 U/L (17-59); BILIRUBIN,DIRECT 0.1 mg/dL (0.0-0.4); BILIRUBIN,TOTAL 0.7 mg/dL (0.2-1.3); BLOOD UREA NITROGEN 21 mg/dL (7-20); CALCIUM 9.5 mg/dL (8.4-10.2); CARBON DIOXIDE 29 mmol/L (22-30); CHLORIDE 101 mmol/L (98-107); GLUCOSE 76 mg/dL (75-110); POTASSIUM 4.3 mmol/L (3.6-5.0); SODIUM 142.1 mmol/L (137-145); TOTAL PROTEIN 7.9 g/dL (6.3-8.2)
[2018-09-01 10:38] LABS: % CD 4 POS LYMPH 12.2 % (30.8-58.5); ABSOLUTE CD 4 HELPER 305 /uL (359-1519); BASOPHILS (ABSOLUTE) 0.1 x10E3/uL (0.0-0.2); CD BASOPHILS 1 % (Not Estab.); CD EOSINOPHILS 1 % (Not Estab.); CD MONOCYTES 8 % (Not Estab.); CD NEUTROPHILS 68 % (Not Estab.); EOSINOPHILS (ABSOLUTE) 0.1 x10E3/uL (0.0-0.4); IMMATURE GRANULOCYTES 1 % (Not Estab.); LYMPHS(ABSOLUTE) 2.5 x10E3/uL (0.7-3.1); MCH 30.8 pg (26.6-33.0); MCHC 33.1 g/dL (31.5-35.7); MCV 93 fL (79-97); MONOCYTES(ABSOLUTE) 0.9 x10E3/uL (0.1-0.9); NEUTROPHILS(ABSOLUTE) 8.1 x10E3/uL (1.4-7.0); PLATELETS 263 x10E3/uL (150-379); RBC 3.89 x10E6/uL (4.14-5.80); RDW 15.9 % (12.3-15.4); WBC 11.8 x10E3/uL (3.4-10.8)
[2018-09-01 11:20] LABS: IMMATURE GRANULOCYTES (ABS) 0.1 x10E3/uL (0.0-0.1)
== END ==
LOC: OD 09:13
PROVIDERS: ATTEND Nurse Practitioner
DX: B20 Human immunodeficiency virus [HIV] disease (principal)
CPT/HCPCS: 36415; 80053; 85025; 86361

== ENCOUNTER → 2019-01-18 | Outpatient (CLI) | payer MEDICARE, MEDICAID ==
[2019-01-18 14:02] LABS: APPEARANCE,URINE CLEAR; BILIRUBIN,URINE NEGATIVE (NEGATIVE); COLOR,URINE YELLOW; GLUCOSE, URINE NEGATIVE (NEGATIVE); KETONES,URINE NEGATIVE (NEGATIVE); LEUKOCYTE ESTERASE,URINE NEGATIVE (NEGATIVE); NITRITE,URINE NEGATIVE (NEGATIVE); PROTEIN,URINE NEGATIVE (NEGATIVE); URINE SPECIFIC GRAVITY 1.015; UROBILINOGEN,URINE NEGATIVE mg/dL (<2.0)
[2019-01-18 14:06] LABS: ABSOLUTE BASOPHILS # (AUTO) 0.1 10^3/uL (0.0-0.2); ABSOLUTE EOSINOPHILS # (AUTO) 0.1 10^3/uL (0.0-0.6); ABSOLUTE LYMPHOCYTES (AUTO) 2.5 10^3/uL (0.5-4.7); ABSOLUTE MONOCYTES (AUTO) 0.4 10^3/uL (0.1-1.4); ABSOLUTE NEUT (AUTO) 1.9 10^3/uL (1.7-8.2); BASOPHILS % (AUTO) 1.2 % (0-2); EOSINOPHILS % (AUTO) 2.3 % (0-6); HEMATOCRIT 39.9 % (37.9-51.0); HEMOGLOBIN 13.1 g/dL (13.5-17.0); LYMPHOCYTES % (AUTO) 50.5 % (13-45); MEAN CORPUSCULAR HEMOGLOBIN 30.2 pg (27.0-33.4); MEAN CORPUSCULAR HGB CONC 32.9 g/dL (32.0-36.0); MEAN CORPUSCULAR VOLUME 92 fl (80-97); MONOCYTES % (AUTO) 8.5 % (3-13); PLATELET COUNT 144 10^3/uL (150-450); RED BLOOD COUNT 4.36 10^6/uL (4.35-5.55); SEGMENTED NEUTROPHILS % (AUTO) 37.5 % (42-78); TOTAL CELLS COUNTED % (AUTO) 100 %
[2019-01-18 14:28] LABS: ALANINE AMINOTRANSFERASE 18 U/L (21-72); ALBUMIN 4.6 g/dL (3.5-5.0); ALKALINE PHOSPHATASE 79 U/L (38-126); ANION GAP 11 (5-19); ASPARTATE AMINO TRANSFERASE 21 U/L (17-59); BILIRUBIN,DIRECT 0.2 mg/dL (0.0-0.4); BILIRUBIN,TOTAL 0.6 mg/dL (0.2-1.3); BLOOD UREA NITROGEN 22 mg/dL (7-20); CALCIUM 9.2 mg/dL (8.4-10.2); CARBON DIOXIDE 25 mmol/L (22-30); CHLORIDE 106 mmol/L (98-107); CHOLESTEROL 201.92 mg/dL (0-200); GLUCOSE 93 mg/dL (75-110); POTASSIUM 3.8 mmol/L (3.6-5.0); TOTAL PROTEIN 8.1 g/dL (6.3-8.2); TRIGLYCERIDES 129 mg/dL (<150)
[2019-01-18 14:40] LABS: DIRECT LDL 110 mg/dL (<100)
[2019-01-19 11:37] LABS: % CD 4 POS LYMPH 12.7 % (30.8-58.5); ABSOLUTE CD 4 HELPER 368 /uL (359-1519); CD BASOPHILS 1 % (Not Estab.); CD EOSINOPHILS 2 % (Not Estab.); CD MONOCYTES 7 % (Not Estab.); CD NEUTROPHILS 36 % (Not Estab.); EOSINOPHILS (ABSOLUTE) 0.1 x10E3/uL (0.0-0.4); HEMOGLOBIN 13.1 g/dL (13.0-17.7); IMMATURE GRANULOCYTES 1 % (Not Estab.); LYMPHS(ABSOLUTE) 2.9 x10E3/uL (0.7-3.1); MCHC 32.8 g/dL (31.5-35.7); MCV 92 fL (79-97); PLATELETS 181 x10E3/uL (150-450); RBC 4.35 x10E6/uL (4.14-5.80); RDW 16.4 % (12.3-15.4); WBC 5.5 x10E3/uL (3.4-10.8)
[2019-01-19 13:10] LABS: IMMATURE GRANULOCYTES (ABS) 0.1 x10E3/uL (0.0-0.1)
[2019-01-20 11:26] LABS: HIV-1 RNA PCR QUANT 1300 copies/mL (.)
== END ==
LOC: OD 13:18
PROVIDERS: ATTEND Nurse Practitioner
DX: B20 Human immunodeficiency virus [HIV] disease (principal); Z11.3 Encounter for screening for infections with a predominantly sexual mode of transmission; Z79.899 Other long term (current) drug therapy
CPT/HCPCS: 36415; 80053; 80061; 81001; 85025; 86361; 86592; 87536

== ENCOUNTER → 2019-09-11 | Outpatient (CLI) | payer MEDICAID, MEDICARE ==
--- NOTE | 2019-09-11 16:22 | XCELERA REPORT ---
[address] [facility] [address] Lower Extremity Venous Evaluation Procedure: Color flow and duplex imaging bilaterally of the veins of the lower extremities as well as the Common Femoral veins. Right Sided Venous Evaluation Normal vessel filling wall to wall, compression and augmentation as well as Colour flow down to the infrageniculate veins. Left Sided Venous Evaluation Normal vessel filling wall to wall, compression and augmentation as well as Colour flow down to the infrageniculate veins. Interpretation Summary No duplex evidence of DVT or obstruction in the bilateral lower extremities. Name: VERONICA CARDENAS Age: 48 yrs Gender: Male : 1970 Patient Status: Outpatient Patient Location: MD Study Date: 09/11/2019 02:12 PM Reason For Study: BLE EDEMA Ordering Physician: WILNER KIDD Performed By: Lindsey Yuen : WILNER KIDD > Gage Lozano
== END ==
LOC: WI 13:31
PROVIDERS: ATTEND Internal Medicine
DX: R22.43 Localized swelling, mass and lump, lower limb, bilateral (principal)
CPT/HCPCS: 93970

== ENCOUNTER 2019-09-13 06:50 | Emergency (ER) | payer MEDICARE, MEDICAID ==
[2019-09-13 07:55] LABS: ABSOLUTE BASOPHILS # (AUTO) 0.1 10^3/uL (0.0-0.2); ABSOLUTE EOSINOPHILS # (AUTO) 0.1 10^3/uL (0.0-0.6); ABSOLUTE LYMPHOCYTES (AUTO) 2.1 10^3/uL (0.5-4.7); ABSOLUTE MONOCYTES (AUTO) 0.5 10^3/uL (0.1-1.4); ABSOLUTE NEUT (AUTO) 2.7 10^3/uL (1.7-8.2); EOSINOPHILS % (AUTO) 1.4 % (0-6); HEMATOCRIT 34.5 % (37.9-51.0); HEMOGLOBIN 11.5 g/dL (13.5-17.0); LYMPHOCYTES % (AUTO) 38.1 % (13-45); MEAN CORPUSCULAR HEMOGLOBIN 32.7 pg (27.0-33.4); MEAN CORPUSCULAR HGB CONC 33.4 g/dL (32.0-36.0); MEAN CORPUSCULAR VOLUME 98 fl (80-97); MONOCYTES % (AUTO) 8.8 % (3-13); PLATELET COUNT 186 10^3/uL (150-450); RED BLOOD COUNT 3.52 10^6/uL (4.35-5.55); RED CELL DISTRIBUTION WIDTH 16.4 % (11.5-14.0); SEGMENTED NEUTROPHILS % (AUTO) 50.7 % (42-78); TOTAL CELLS COUNTED % (AUTO) 100 %; WHITE BLOOD COUNT 5.4 10^3/uL (4.0-10.5)
[2019-09-13 08:15] LABS: ALBUMIN 4.2 g/dL (3.5-5.0); ALKALINE PHOSPHATASE 70 U/L (38-126); ANION GAP 8 (5-19); ASPARTATE AMINO TRANSFERASE 29 U/L (17-59); BILIRUBIN,DIRECT 0.2 mg/dL (0.0-0.4); BILIRUBIN,TOTAL 0.5 mg/dL (0.2-1.3); BLOOD UREA NITROGEN 21 mg/dL (7-20); CALCIUM 8.7 mg/dL (8.4-10.2); CARBON DIOXIDE 28 mmol/L (22-30); CHLORIDE 105 mmol/L (98-107); GLUCOSE 90 mg/dL (75-110); TOTAL PROTEIN 7.8 g/dL (6.3-8.2)
--- NOTE | 2019-09-13 09:09 | ER Document Report ---
ED Extremity Problem, Lower - General Chief Complaint: Leg Swelling Stated Complaint: LEG PAIN Time Seen by Provider: 09/13/19 07:19 Primary Care Provider: WILNER KIDD MD [Primary Care Provider] - Follow up as needed Mode of Arrival: Ambulatory Information source: Patient TRAVEL OUTSIDE OF THE [place] IN LAST 30 DAYS: No - HPI Notes: Patient presents with bilateral lower extremity pain. He states he has had this pain for several weeks. He is also noticed that his lower extremities have become "hard". They are diffusely tender to touch between the ankle and knee. He is also noticed some redness of this area of skin. He states he had an ultrasound done 2 days ago by his primary care doctor which was negative. No falls or trauma. No shortness of breath or chest pain. The pain is constant. Is mild to moderate. It is an aching sensation. It does radiate up both legs. It is worse if touched and better if left alone. - Related Data Allergies/Adverse Reactions: sulfamethoxazole [From Bactrim] Allergy (Verified 09/13/19 06:58) trimethoprim [From Bactrim] Allergy (Verified 09/13/19 06:58) Home Medications: B/P MEDS Past Medical History - General Information source: Patient - Social History Smoking Status: Former Smoker Frequency of alcohol use: None Drug Abuse: None Family History: Reviewed & Not Pertinent, Hypertension Patient has suicidal ideation: No Patient has homicidal ideation: No - Past Medical History Cardiac Medical History: Reports: Hx Coronary Artery Disease, Hx Hypercholesterolemia, Hx Hypertension Denies: Hx Heart Attack Pulmonary Medical History: Reports: Hx Pneumonia Denies: Hx Asthma, Hx Bronchitis, Hx COPD, Hx Tuberculosis Neurological Medical History: Reports: Hx Cerebrovascular Accident - 6 month, Hx Seizures Renal/ Medical History: Reports: Hx Renal Insufficiency. Denies: Hx Peritoneal Dialysis Malignancy Medical History: Reports Hx Lymphoma - Hodgkin's GI Medical History: Reports: Hx Gastroesophageal Reflux Disease Musculoskeletal Medical History: Denies Hx Arthritis Skin Medical History: Reports Hx MRSA Psychiatric Medical History: Reports: Hx Depression Infectious Medical History: Reports: Hx HIV - AIDS Past Surgical History: Reports: Other - Left chest port - Immunizations Hx Diphtheria, Pertussis, Tetanus Vaccination: No Hx Pneumococcal Vaccination: 07/12/09 Review of Systems - Review of Systems Constitutional: denies: Chills, Fever Cardiovascular: denies: Chest pain, Dyspnea Respiratory: denies: Cough, Short of breath -: Yes All other systems reviewed and negative Physical Exam - Vital signs Interpretation: Normal - General General appearance: Appears well, Alert - HEENT Head: Normocephalic, Atraumatic Eyes: Normal Pupils: PERRL - Respiratory Respiratory status: No respiratory distress Chest status: Nontender Breath sounds: Normal Chest palpation: Normal - Cardiovascular Rhythm: Regular Heart sounds: Normal auscultation Murmur: No - Abdominal Inspection: Normal Distension: No distension Bowel sounds: Normal Tenderness: Nontender Organomegaly: No organomegaly - Back Back: Normal, Nontender - Extremities General upper extremity: Normal inspection, Nontender, Normal color, Normal ROM, Normal temperature General lower extremity: Tender - Mild bilateral tenderness to palpation. Both lower extremities have some mild erythema. They do have 1+ pitting edema bilaterally. Patient's exam seems most consistent with venous stasis changes., Normal ROM, Normal temperature, Normal weight bearing. No: Remi's sign - Neurological Neuro grossly intact: Yes Cognition: Normal Orientation: AAOx4 Michelle Coma Scale Eye Opening: Spontaneous Michelle Coma Scale Verbal: Oriented Michelle Coma Scale Motor: Obeys Commands Michelle Coma Scale Total: 15 Speech: Normal Motor strength normal: LUE, RUE, LLE, RLE Sensory: Normal - Psychological Associated symptoms: Normal affect, Normal mood - Skin Skin Temperature: Warm Skin Moisture: Dry Skin Color: Normal Course - Re-evaluation Re-evalutation: 09/13/19 09:08 Patient presents concerned with his lower extremities. Exam seems most consistent with venous stasis changes but it is possible this is an early cellulitis. Will try patient on some antibiotics to see if there is a significant change and have him follow-up with his primary care physician. - Laboratory Result Diagrams: 09/13/19 07:41 09/13/19 07:41 Laboratory results interpreted by me: 09/13/19 09/13/19 07:41 07:41 RBC 3.52 L Hgb 11.5 L Hct 34.5 L MCV 98 H RDW 16.4 H BUN 21 H Creatinine 1.30 H Est GFR (MDRD) Non-Af 58 L Discharge - Discharge Clinical Impression: Lower extremity pain, bilateral Condition: Stable Disposition: HOME, SELF-CARE Additional Instructions: Please follow-up with your primary care physician as soon as possible Prescriptions: Cephalexin Monohydrate [Keflex 500 mg Capsule] 500 mg PO Q6H 7 Days #28 capsule Referrals: WILNER KIDD MD [Primary Care Provider] - Follow up in 3-5 days
[2019-09-13 09:24] VITALS: BP 152/87
== END 2019-09-13 09:11 | disposition home or self-care (01) ==
LOC: ER 06:50
DX: M79.604 Pain in right leg (principal); M79.605 Pain in left leg; R60.0 Localized edema; L53.9 Erythematous condition, unspecified; I25.10 Atherosclerotic heart disease of native coronary artery without angina pectoris; I10 Essential (primary) hypertension; Z79.899 Other long term (current) drug therapy; Z85.71 Personal history of Hodgkin lymphoma; Z21 Asymptomatic human immunodeficiency virus [HIV] infection status; Z88.1 Allergy status to other antibiotic agents
CPT/HCPCS: 36415; 80053; 85025; 99283

== ENCOUNTER 2019-10-13 06:06 | Emergency (ER) | payer MEDICARE, MEDICAID ==
--- NOTE | 2019-10-13 07:24 | ER Document Report ---
Entered by LISA PETER SCRIBE 10/13/19 0645 Acting as scribe for:PAOLA LANGE MD ED General - General Chief Complaint: Diarrhea Stated Complaint: DIARRHEA Time Seen by Provider: 10/13/19 06:38 Primary Care Provider: WILNER KIDD MD [Primary Care Provider] - Follow up as needed Mode of Arrival: Ambulatory Information source: Patient Notes: This 48 year old male patient with AIDS and Hodgkin's lymphoma in remission presents to the emergency department today with complaints of a 3-day history of diarrhea. Patient states he has had approximately 3 loose stools per day. Patient also mentions that he needs his port flushed because he was told that every 4 months he should have it flushed. Patient states that he was in snf for 5 months recently and he was released approximately 2 months ago but has not had it flushed since being put in snf. TRAVEL OUTSIDE OF THE [place] IN LAST 30 DAYS: No - Related Data Allergies/Adverse Reactions: sulfamethoxazole [From Bactrim] Allergy (Verified 09/13/19 06:58) trimethoprim [From Bactrim] Allergy (Verified 09/13/19 06:58) Home Medications: bp med. seizure med Past Medical History - General Information source: Patient - Social History Smoking Status: Current Some Day Smoker Cigarette use (# per day): Yes Frequency of alcohol use: None Drug Abuse: None Lives with: Family Family History: Reviewed & Not Pertinent, Hypertension Patient has suicidal ideation: No Patient has homicidal ideation: No - Past Medical History Cardiac Medical History: Reports: Hx Coronary Artery Disease, Hx Hypercholesterolemia, Hx Hypertension Pulmonary Medical History: Reports: Hx Pneumonia Neurological Medical History: Reports: Hx Cerebrovascular Accident, Hx Seizures Renal/ Medical History: Reports: Hx Renal Insufficiency Malignancy Medical History: Reports Hx Lymphoma - Hodgkin's, in remission. GI Medical History: Reports: Hx Gastroesophageal Reflux Disease Skin Medical History: Reports Hx MRSA Psychiatric Medical History: Reports: Hx Depression Infectious Medical History: Reports: Hx HIV - AIDS Past Surgical History: Reports: Other - Left chest port - Immunizations Hx Diphtheria, Pertussis, Tetanus Vaccination: No Hx Pneumococcal Vaccination: 07/12/09 Review of Systems - Review of Systems Constitutional: No symptoms reported EENT: See HPI, Dental problem Cardiovascular: No symptoms reported Respiratory: No symptoms reported Gastrointestinal: See HPI, Diarrhea. denies: Abdominal pain Genitourinary: No symptoms reported Male Genitourinary: No symptoms reported Musculoskeletal: No symptoms reported Skin: No symptoms reported Hematologic/Lymphatic: No symptoms reported Neurological/Psychological: No symptoms reported -: Yes All other systems reviewed and negative Physical Exam - Vital signs Vitals: Temp Pulse Resp BP Pulse Ox 97.4 F 87 16 151/100 H 99 10/13/19 06:12 10/13/19 06:12 10/13/19 06:12 10/13/19 06:12 10/13/19 06:12 - Notes Notes: Physical Exam: General: Alert, appears well. HEENT: Normocephalic. Atraumatic. PERRL. Extraocular movements intact. Oropharynx clear. Poor dentition throughout, left lower 2nd molar (Tooth #18) is fractured exposing previously filled dental negrito with minimal surrounding gum erythema and swelling. Right upper canine is also partially fractured. Neck: Supple. Non-tender. Respiratory: No respiratory distress. Clear and equal breath sounds bilaterally. Cardiovascular: Regular rate and rhythm. Abdominal: Obese. Dull to percuss. Active Bowel Sounds. Back: No gross abnormalities. Extremities: Moves all four extremities. Upper extremities: Normal inspection. Normal ROM. Lower extremities: Normal inspection. No edema. Normal ROM. Neurological: Normal cognition. AAOx4. Normal speech. Psychological: Normal affect. Normal Mood. Skin: Warm. Dry. Normal color. Course - Re-evaluation Re-evalutation: 10/13/19 09:37 Patient stool is negative for WBCs. The total CK was 1060. Patient had complained about some muscle cramping in his legs. He does take rosuvastatin. He will be advised to stop the statin for now, drink plenty of fluids so that he do hydrates himself well and washes out the CK enzymes. He was advised to try Pepto-Bismol for his diarrhea. He is to follow-up with his primary care provider. - Vital Signs Vital signs: Temp Pulse Resp BP Pulse Ox 97.4 F 87 16 151/100 H 99 10/13/19 06:12 10/13/19 06:12 10/13/19 06:12 10/13/19 06:12 10/13/19 06:12 - Laboratory Result Diagrams: 10/13/19 07:40 10/13/19 07:40 Laboratory results interpreted by me: 10/13/19 10/13/19 10/13/19 07:40 07:40 07:40 RBC 4.02 L Hgb 12.6 L Hct 37.6 L RDW 16.4 H Plt Count 138 L Lymph % (Auto) 55.9 H Absolute Neuts (auto) 1.3 L Seg Neutrophils % 30.2 L Creatinine 1.42 H Est GFR (MDRD) Non-Af 53 L Creatine Kinase 1060 H Total Protein 8.3 H Urine Protein 30 H Urine Ascorbic Acid 20 H Discharge - Discharge Clinical Impression: Dehydration Diarrhea Qualifiers: Diarrhea type: unspecified type Qualified Code(s): R19.7 - Diarrhea, unspecified Rhabdomyolysis Qualifiers: Rhabdomyolysis type: non-traumatic Qualified Code(s): M62.82 - Rhabdomyolysis Condition: Stable Disposition: HOME, SELF-CARE Additional Instructions: Diarrhea Diarrhea means frequent, watery stools. There are many causes. Any problem that keeps the intestinal tract from absorbing water from the stool can lead to diarrhea. A sudden new diarrhea problem is usually caused by a virus, food sensitivity, toxic bacteria, or drugs. In this case, we expect the problem to go away soon. Testing is done only if you seem seriously ill from the diarrhea. If you have chronic diarrhea, or diarrhea that keeps coming back, we need to find out why. Chronic diarrhea can be due to inflammation of the bowels such as Crohn's disease or ulcerative colitis, food sensitivity such as intolerance to lactose or wheat protein, irritable bowel syndrome, and other problems. If your diarrhea is a significant problem but it's not clear why you have it, we'll refer you to a specialist for further testing. During an episode of diarrhea, drink small amounts (two to six ounces) of clear liquids (soft drinks, sport drinks, herb teas, broth, etc). Take fluids frequently to prevent dehydration. It's usually not a problem to take mild anti- diarrhea medication such as Kaopectate or Pepto-Bismol. As the diarrhea eases, advance to small amounts of bland food (mashed potato, toast) for 24 hours. Call the physician if blood appears in your vomit or stool, if vomiting lasts longer than 24 hours, if the abdominal pain worsens or becomes localized to one area, if you develop high fever, or if you become lightheaded and weak. Myalagia (Muscle Pain) Myalgia is pain in the muscles. We use the word myalgia to describe muscle pain where there's no history of injury, no known muscle disease, and the muscles are normal to examination. Myalgias can be a symptom of an acute illness, such as influenza, hepatitis, or any viral illness, especially with fever. Sometimes the muscle pain comes before any other symptoms. Myalgia can also be an early symptom of inflammatory muscle disease, such as lupus. If myalgia is accompanied by an acute illness that explains the muscle pain, then no further testing needs to be done. When there's no clear reason for the pain, tests may be done to see if there's an inflammatory or other disease of the muscles. The usual treatment for myalgias is anti-inflammatory medication, such as ibuprofen. Muscle aches may be soothed with a heating pad or hot compress. If muscles remain painful for more than a few days, you'll need testing and followup. Return if a muscle becomes swollen, red, or severely painful. Examination of the your diarrhea did not show any white blood cells, it is most likely not an infectious diarrhea. Your urine was somewhat concentrated suggesting you need to drink more fluids. Your total CK muscle enzyme level was elevated. This may be related to the muscle aches and cramps you have experienced in your legs. Muscle aches and cramps with elevated CK muscle enzymes can be caused by cholesterol drugs such as the rosuvastatin that you are taking. You should stop taking the rosuvastatin for now. Drink plenty of fluids throughout the day in the evening every day. Try taking Imodium-AD or Pepto-Bismol for your diarrhea. Follow-up with Dr. Kidd in the next few days to recheck your muscle enzyme level and to check on the stool culture results. RETURN TO THE EMERGENCY ROOM IF ANY NEW OR WORSENING SYMPTOMS. Referrals: WILNER KIDD MD [Primary Care Provider] - Follow up in 3-5 days I personally performed the services described in the documentation, reviewed and edited the documentation which was dictated to the scribe in my presence, and it accurately records my words and actions.
[2019-10-13 08:06] LABS: ABSOLUTE EOSINOPHILS # (AUTO) 0.1 10^3/uL (0.0-0.6); ABSOLUTE LYMPHOCYTES (AUTO) 2.4 10^3/uL (0.5-4.7); ABSOLUTE MONOCYTES (AUTO) 0.4 10^3/uL (0.1-1.4); ABSOLUTE NEUT (AUTO) 1.3 10^3/uL (1.7-8.2); EOSINOPHILS % (AUTO) 3.3 % (0-6); HEMATOCRIT 37.6 % (37.9-51.0); HEMOGLOBIN 12.6 g/dL (13.5-17.0); LYMPHOCYTES % (AUTO) 55.9 % (13-45); MEAN CORPUSCULAR HEMOGLOBIN 31.4 pg (27.0-33.4); MEAN CORPUSCULAR HGB CONC 33.6 g/dL (32.0-36.0); MONOCYTES % (AUTO) 9.6 % (3-13); PLATELET COUNT 138 10^3/uL (150-450); RED BLOOD COUNT 4.02 10^6/uL (4.35-5.55); RED CELL DISTRIBUTION WIDTH 16.4 % (11.5-14.0); SEGMENTED NEUTROPHILS % (AUTO) 30.2 % (42-78); TOTAL CELLS COUNTED % (AUTO) 100 %; WHITE BLOOD COUNT 4.4 10^3/uL (4.0-10.5)
[2019-10-13 08:07] LABS: APPEARANCE,URINE CLEAR; BILIRUBIN,URINE NEGATIVE (NEGATIVE); COLOR,URINE YELLOW; GLUCOSE, URINE NEGATIVE (NEGATIVE); KETONES,URINE NEGATIVE (NEGATIVE); LEUKOCYTE ESTERASE,URINE NEGATIVE (NEGATIVE); NITRITE,URINE NEGATIVE (NEGATIVE); PROTEIN,URINE 30 mg/dL (NEGATIVE); URINE SPECIFIC GRAVITY 1.025; UROBILINOGEN,URINE NEGATIVE mg/dL (<2.0)
[2019-10-13 08:14] LABS: MEAN CORPUSCULAR VOLUME 94 fl (80-97)
[2019-10-13 08:21] LABS: ALBUMIN 4.3 g/dL (3.5-5.0); ALKALINE PHOSPHATASE 90 U/L (38-126); ANION GAP 8 (5-19); ASPARTATE AMINO TRANSFERASE 31 U/L (17-59); BILIRUBIN,DIRECT 0.3 mg/dL (0.0-0.4); BILIRUBIN,TOTAL 0.4 mg/dL (0.2-1.3); BLOOD UREA NITROGEN 19 mg/dL (7-20); CARBON DIOXIDE 26 mmol/L (22-30); CHLORIDE 107 mmol/L (98-107); CREATINE KINASE 1060 U/L (55-170); GLUCOSE 89 mg/dL (75-110); POTASSIUM 3.8 mmol/L (3.6-5.0); TOTAL PROTEIN 8.3 g/dL (6.3-8.2)
[2019-10-13 09:58] VITALS: BP 176/96
== END 2019-10-13 09:56 | disposition home or self-care (01) ==
LOC: ER 06:06
DX: E86.0 Dehydration (principal); M62.82 Rhabdomyolysis; R19.7 Diarrhea, unspecified; F17.210 Nicotine dependence, cigarettes, uncomplicated; B20 Human immunodeficiency virus [HIV] disease; I25.10 Atherosclerotic heart disease of native coronary artery without angina pectoris; E78.00 Pure hypercholesterolemia, unspecified; I10 Essential (primary) hypertension; Z86.73 Personal history of transient ischemic attack (TIA), and cerebral infarction without residual deficits; Z88.3 Allergy status to other anti-infective agents; Z86.14 Personal history of Methicillin resistant Staphylococcus aureus infection
CPT/HCPCS: 36591; 99284; 36415; 87045; 89055; 87205; 82550; 85025; 80053; 81001; J1642

== ENCOUNTER → 2019-10-24 | Outpatient (CLI) | payer MEDICARE, MEDICAID ==
[2019-10-24 15:18] LABS: ABSOLUTE BASOPHILS # (AUTO) 0.1 10^3/uL (0.0-0.2); ABSOLUTE EOSINOPHILS # (AUTO) 0.1 10^3/uL (0.0-0.6); ABSOLUTE LYMPHOCYTES (AUTO) 2.4 10^3/uL (0.5-4.7); ABSOLUTE MONOCYTES (AUTO) 0.5 10^3/uL (0.1-1.4); ABSOLUTE NEUT (AUTO) 4.1 10^3/uL (1.7-8.2); BASOPHILS % (AUTO) 0.9 % (0-2); EOSINOPHILS % (AUTO) 1.7 % (0-6); HEMATOCRIT 39.6 % (37.9-51.0); HEMOGLOBIN 13.3 g/dL (13.5-17.0); LYMPHOCYTES % (AUTO) 33.9 % (13-45); MEAN CORPUSCULAR HEMOGLOBIN 30.8 pg (27.0-33.4); MEAN CORPUSCULAR HGB CONC 33.5 g/dL (32.0-36.0); MEAN CORPUSCULAR VOLUME 92 fl (80-97); MONOCYTES % (AUTO) 6.9 % (3-13); PLATELET COUNT 199 10^3/uL (150-450); RED BLOOD COUNT 4.31 10^6/uL (4.35-5.55); RED CELL DISTRIBUTION WIDTH 15.9 % (11.5-14.0); SEGMENTED NEUTROPHILS % (AUTO) 56.6 % (42-78); TOTAL CELLS COUNTED % (AUTO) 100 %; WHITE BLOOD COUNT 7.2 10^3/uL (4.0-10.5)
[2019-10-24 15:34] LABS: ALBUMIN 4.6 g/dL (3.5-5.0); ALKALINE PHOSPHATASE 69 U/L (38-126); ANION GAP 10 (5-19); ASPARTATE AMINO TRANSFERASE 27 U/L (17-59); BILIRUBIN,TOTAL 0.6 mg/dL (0.2-1.3); BLOOD UREA NITROGEN 22 mg/dL (7-20); CALCIUM 9.5 mg/dL (8.4-10.2); CARBON DIOXIDE 26 mmol/L (22-30); CHLORIDE 104 mmol/L (98-107); CHOLESTEROL 187.86 mg/dL (0-200); GLUCOSE 114 mg/dL (75-110); POTASSIUM 3.3 mmol/L (3.6-5.0); TOTAL PROTEIN 8.3 g/dL (6.3-8.2); TRIGLYCERIDES 71 mg/dL (<150)
[2019-10-24 15:45] LABS: DIRECT LDL 114 mg/dL (<100)
== END ==
LOC: OD 14:02
PROVIDERS: ATTEND Nurse Practitioner
DX: B20 Human immunodeficiency virus [HIV] disease (principal); Z79.899 Other long term (current) drug therapy
CPT/HCPCS: 36415; 80053; 80061; 85025; 86361; 87536

== ENCOUNTER → 2020-01-10 | Outpatient (CLI) | payer MEDICARE, MEDICAID ==
[2020-01-10 10:21] LABS: ABSOLUTE EOSINOPHILS # (AUTO) 0.1 10^3/uL (0.0-0.6); ABSOLUTE LYMPHOCYTES (AUTO) 2.3 10^3/uL (0.5-4.7); ABSOLUTE MONOCYTES (AUTO) 0.5 10^3/uL (0.1-1.4); BASOPHILS % (AUTO) 0.8 % (0-2); EOSINOPHILS % (AUTO) 1.5 % (0-6); HEMATOCRIT 42.8 % (37.9-51.0); HEMOGLOBIN 14.2 g/dL (13.5-17.0); LYMPHOCYTES % (AUTO) 46.4 % (13-45); MEAN CORPUSCULAR HEMOGLOBIN 29.2 pg (27.0-33.4); MEAN CORPUSCULAR HGB CONC 33.2 g/dL (32.0-36.0); MEAN CORPUSCULAR VOLUME 88 fl (80-97); MONOCYTES % (AUTO) 9.8 % (3-13); PLATELET COUNT 151 10^3/uL (150-450); RED BLOOD COUNT 4.85 10^6/uL (4.35-5.55); SEGMENTED NEUTROPHILS % (AUTO) 41.5 % (42-78); TOTAL CELLS COUNTED % (AUTO) 100 %; WHITE BLOOD COUNT 4.9 10^3/uL (4.0-10.5)
[2020-01-10 10:37] LABS: ALBUMIN 4.7 g/dL (3.5-5.0); ALKALINE PHOSPHATASE 74 U/L (38-126); ANION GAP 9 (5-19); ASPARTATE AMINO TRANSFERASE 29 U/L (17-59); BILIRUBIN,TOTAL 0.9 mg/dL (0.2-1.3); BLOOD UREA NITROGEN 18 mg/dL (7-20); CALCIUM 9.6 mg/dL (8.4-10.2); CARBON DIOXIDE 27 mmol/L (22-30); CHLORIDE 104 mmol/L (98-107); CHOLESTEROL 147.87 mg/dL (0-200); GLUCOSE 91 mg/dL (75-110); POTASSIUM 3.9 mmol/L (3.6-5.0); TOTAL PROTEIN 8.4 g/dL (6.3-8.2); TRIGLYCERIDES 50 mg/dL (<150)
[2020-01-10 10:48] LABS: DIRECT LDL 83 mg/dL (<100)
[2020-01-11 13:37] LABS: % CD 4 POS LYMPH 13.4 % (30.8-58.5); ABSOLUTE CD 4 HELPER 308 /uL (359-1519); BASOPHILS (ABSOLUTE) 0.1 x10E3/uL (0.0-0.2); CD BASOPHILS 1 % (Not Estab.); CD EOSINOPHILS 2 % (Not Estab.); CD MONOCYTES 10 % (Not Estab.); CD NEUTROPHILS 40 % (Not Estab.); EOSINOPHILS (ABSOLUTE) 0.1 x10E3/uL (0.0-0.4); HEMOGLOBIN 14.1 g/dL (13.0-17.7); IMMATURE GRANULOCYTES 0 % (Not Estab.); LYMPHS(ABSOLUTE) 2.3 x10E3/uL (0.7-3.1); MCV 87 fL (79-97); PLATELETS 165 x10E3/uL (150-450); RBC 4.91 x10E6/uL (4.14-5.80); RDW 16.3 % (11.6-15.4); WBC 4.9 x10E3/uL (3.4-10.8)
== END ==
LOC: OD 09:17
PROVIDERS: ATTEND Nurse Practitioner
DX: B20 Human immunodeficiency virus [HIV] disease (principal); Z79.899 Other long term (current) drug therapy
CPT/HCPCS: 36415; 80053; 80061; 85025; 86361; 87536

== ENCOUNTER → 2020-03-19 | Outpatient (CLI) | payer MEDICARE, MEDICAID ==
--- NOTE | 2020-03-19 14:04 | RADIOLOGY REPORT (SQ) ---
EXAM DESCRIPTION: CT ABD/PELVIS WITH IV ORAL IMAGES COMPLETED DATE/TIME: 03/19/2020 9:08 am REASON FOR STUDY: R10.84 GENERALIZED ABDOMINAL PAIN R10.84 GENERALIZED ABDOMINAL PAIN COMPARISON: 08/23/2017 TECHNIQUE: CT scan of the abdomen and pelvis performed using helical scanning technique with dynamic intravenous contrast injection. Oral contrast. Images reviewed with lung, soft tissue, and bone win dows. Reconstructed coronal and sagittal MPR images reviewed. Delayed images for evaluation of the ur inary system also acquired. All images stored on PACS. All CT scanners at this facility use dose modulation, iterative reconstruction, and/or weight based d osing when appropriate to reduce radiation dose to as low as reasonably achievable (ALARA). [facility]: Dose Right [facility]: CareDose [facility]: Dose Right [facility]: Teradose 4D [facility]: [employer] CONTRAST TYPE AND DOSE: contrast/concentration: Isovue 350.00 mmol/ml; Total Contrast Delivered: 100 .0 ml; Total Saline Delivered: 45.0 ml RENAL FUNCTION: BUN 19 creatinine 1.33 RADIATION DOSE: CT Rad equipment meets quality standard of care and radiation dose reduction techniq ues were employed. CTDIvol: 13.3 - 13.4 mGy. DLP: 1419 mGy-cm.. LIMITATIONS: None. FINDINGS: LOWER CHEST: No significant findings. No nodules or infiltrates. LIVER: Normal size. No masses. No dilated ducts. SPLEEN: Normal size. No focal lesions. PANCREAS: No masses. No significant calcifications. No adjacent inflammation or peripancreatic fluid collections. Pancreatic duct not dilated. GALLBLADDER: No identified stones by CT criteria. No inflammatory changes to suggest cholecystitis. ADRENAL GLANDS: No significant masses or asymmetry. RIGHT KIDNEY AND URETER: No solid masses. No significant calcifications. No hydronephrosis or hyd roureter. LEFT KIDNEY AND URETER: No solid masses. No significant calcifications. No hydronephrosis or hydr oureter. AORTA AND VESSELS: No aneurysm. No dissection. Renal arteries, SMA, celiac without stenosis. RETROPERITONEUM: There are some small periaortic nodes on the left the largest measures 8.8 mm in allan rt axis on image 37 series 2. BOWEL AND PERITONEAL CAVITY: No masses or inflammatory changes. No free fluid or peritoneal masses. APPENDIX: Normal. PELVIS: No mass. No free fluid. Normal bladder. ABDOMINAL WALL: There are some small inguinal lymph nodes, including a new node that measures 8.8 mm on the right on image 83. This was not present on the prior study. BONES: No significant or acute findings. OTHER: No other significant finding. IMPRESSION: There is slight improvement in the small periaortic nodes. There is a new right inguina l node as described. TECHNICAL DOCUMENTATION: JOB ID: [id number] Quality ID # [id number]: Final reports with documentation of one or more dose reduction techniques (e.g., Au tomated exposure control, adjustment of the mA and/or kV according to patient size, use of iterative reconstruction technique) 2010 [employer]- All Rights Reserved Reading location - IP/workstation name: [email or web address]
== END ==
LOC: RAD 08:32
PROVIDERS: ATTEND Internal Medicine
DX: R10.84 Generalized abdominal pain (principal)
CPT/HCPCS: 74177

== ENCOUNTER 2020-05-18 19:23 | Emergency (ER) | payer OTHER, MEDICARE, MEDICAID ==
[2020-05-18] MEDS ORDERED: MORPHINE SULFATE 10 MG/ML INJ IV ONE ×2 (20:19→22:09)
[2020-05-18] MEDS ORDERED: ONDANSETRON HCL INJ/PF 4 MG/2 ML SDV IV ONE (20:19)
[2020-05-18] MEDS ORDERED: RINGERS SOLUTION,LACTATED 1,000 ML IV ONE (20:20)
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
[2020-05-18 20:59] LABS: ABSOLUTE LYMPHOCYTES (AUTO) 2.1 10^3/uL (0.5-4.7); ABSOLUTE MONOCYTES (AUTO) 0.8 10^3/uL (0.1-1.4); ABSOLUTE NEUT (AUTO) 10.9 10^3/uL (1.7-8.2); BASOPHILS % (AUTO) 0.3 % (0-2); EOSINOPHILS % (AUTO) 0.2 % (0-6); HEMOGLOBIN 14.6 g/dL (13.5-17.0); LYMPHOCYTES % (AUTO) 15.3 % (13-45); MEAN CORPUSCULAR HEMOGLOBIN 31.1 pg (27.0-33.4); MEAN CORPUSCULAR HGB CONC 33.1 g/dL (32.0-36.0); MEAN CORPUSCULAR VOLUME 94 fl (80-97); MONOCYTES % (AUTO) 5.8 % (3-13); PLATELET COUNT 170 10^3/uL (150-450); RED BLOOD COUNT 4.68 10^6/uL (4.35-5.55); RED CELL DISTRIBUTION WIDTH 15.6 % (11.5-14.0); SEGMENTED NEUTROPHILS % (AUTO) 78.4 % (42-78); TOTAL CELLS COUNTED % (AUTO) 100 %; WHITE BLOOD COUNT 13.9 10^3/uL (4.0-10.5)
[2020-05-18 21:17] LABS: URINE AMPHETAMINES SCREEN NEGATIVE; URINE BARBITURATES SCREEN NEGATIVE; URINE BENZODIAZEPINES SCREEN NEGATIVE; URINE COCAINE SCREEN NEGATIVE; URINE MARIJUANA (THC) SCREEN NEGATIVE; URINE METHADONE SCREEN NEGATIVE; URINE PHENCYCLIDINE SCREEN NEGATIVE
[2020-05-18 21:20] LABS: ANION GAP 14 (5-19); BLOOD UREA NITROGEN 17 mg/dL (7-20); CALCIUM 9.8 mg/dL (8.4-10.2); CARBON DIOXIDE 27 mmol/L (22-30); CHLORIDE 104 mmol/L (98-107); GLUCOSE 104 mg/dL (75-110); POTASSIUM 3.6 mmol/L (3.6-5.0)
[2020-05-18 21:21] LABS: ALCOHOL < 10 mg/dL (NONE DETECTED)
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
[2020-05-18] MEDS ORDERED: CYCLOBENZAPRINE HCL 10 MG TABLET PO ONE (23:55)
[2020-05-18] MEDS ORDERED: OXYCODONE-ACETAMINOPHEN 5-325 MG TABLET PO ONE (23:56)
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
[2020-05-19 00:28] VITALS: BP 174/108
== END 2020-05-19 00:35 | disposition home or self-care (01) ==
LOC: ER 19:23
DX: S00.81XA Abrasion of other part of head, initial encounter (principal); S00.212A Abrasion of left eyelid and periocular area, initial encounter; S80.212A Abrasion, left knee, initial encounter; S80.211A Abrasion, right knee, initial encounter; S00.83XA Contusion of other part of head, initial encounter; S16.1XXA Strain of muscle, fascia and tendon at neck level, initial encounter; S39.011A Strain of muscle, fascia and tendon of abdomen, initial encounter; S46.911A Strain of unspecified muscle, fascia and tendon at shoulder and upper arm level, right arm, initial encounter; S29.011A Strain of muscle and tendon of front wall of thorax, initial encounter; M54.2 Cervicalgia; M54.9 Dorsalgia, unspecified; M25.511 Pain in right shoulder; M25.512 Pain in left shoulder; R07.9 Chest pain, unspecified; R10.9 Unspecified abdominal pain; M54.6 Pain in thoracic spine; B20 Human immunodeficiency virus [HIV] disease; V28.4XXA Motorcycle driver injured in noncollision transport accident in traffic accident, initial encounter; Z88.2 Allergy status to sulfonamides; Z88.8 Allergy status to other drugs, medicaments and biological substances; Z79.899 Other long term (current) drug therapy; I25.10 Atherosclerotic heart disease of native coronary artery without angina pectoris; I10 Essential (primary) hypertension; Z85.71 Personal history of Hodgkin lymphoma
CPT/HCPCS: 36591; 96376; 96374; 99285; 96361; 96375; 36415; 80307 ×2; 85025; 80048; 73030; 73560; 70450; 70486; 71260; 72125; 74177; J2270; J2405; J7120; J1642

== ENCOUNTER → 2020-05-20 | Outpatient (CLI) | payer MEDICARE, MEDICAID ==
[2020-05-20 15:15] LABS: ABSOLUTE BASOPHILS # (AUTO) 0.1 10^3/uL (0.0-0.2); ABSOLUTE EOSINOPHILS # (AUTO) 0.1 10^3/uL (0.0-0.6); ABSOLUTE MONOCYTES (AUTO) 0.6 10^3/uL (0.1-1.4); ABSOLUTE NEUT (AUTO) 5.7 10^3/uL (1.7-8.2); BASOPHILS % (AUTO) 0.7 % (0-2); EOSINOPHILS % (AUTO) 0.8 % (0-6); HEMATOCRIT 39.3 % (37.9-51.0); HEMOGLOBIN 13.4 g/dL (13.5-17.0); LYMPHOCYTES % (AUTO) 31.6 % (13-45); MEAN CORPUSCULAR HEMOGLOBIN 31.6 pg (27.0-33.4); MEAN CORPUSCULAR HGB CONC 34.1 g/dL (32.0-36.0); MEAN CORPUSCULAR VOLUME 93 fl (80-97); MONOCYTES % (AUTO) 5.9 % (3-13); PLATELET COUNT 144 10^3/uL (150-450); RED BLOOD COUNT 4.24 10^6/uL (4.35-5.55); RED CELL DISTRIBUTION WIDTH 15.4 % (11.5-14.0); TOTAL CELLS COUNTED % (AUTO) 100 %; WHITE BLOOD COUNT 9.4 10^3/uL (4.0-10.5)
[2020-05-20 15:25] LABS: ALBUMIN 4.6 g/dL (3.5-5.0); ALKALINE PHOSPHATASE 80 U/L (38-126); ANION GAP 12 (5-19); ASPARTATE AMINO TRANSFERASE 34 U/L (17-59); BILIRUBIN,DIRECT 0.2 mg/dL (0.0-0.4); BLOOD UREA NITROGEN 20 mg/dL (7-20); CALCIUM 9.3 mg/dL (8.4-10.2); CARBON DIOXIDE 25 mmol/L (22-30); CHLORIDE 103 mmol/L (98-107); CHOLESTEROL 181.09 mg/dL (0-200); GLUCOSE 99 mg/dL (75-110); POTASSIUM 3.5 mmol/L (3.6-5.0); TOTAL PROTEIN 8.3 g/dL (6.3-8.2); TRIGLYCERIDES 98 mg/dL (<150)
[2020-05-20 15:37] LABS: DIRECT LDL 87 mg/dL (<100)
== END ==
LOC: OD 13:34
PROVIDERS: ATTEND Nurse Practitioner
DX: B20 Human immunodeficiency virus [HIV] disease (principal); Z11.3 Encounter for screening for infections with a predominantly sexual mode of transmission; Z79.899 Other long term (current) drug therapy
CPT/HCPCS: 36415; 80053; 80061; 85025; 86361; 86592; 87536